=== PATIENT | female | born 1950 | race Caucasian/White ===

== ENCOUNTER 2019-08-26 16:21 | Emergency (ER) | payer OTHER ==
--- NOTE | 2019-08-26 17:23 | ER ---
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 Transition of care: patient was not received from another setting of care. Onset of symptoms was August 26, 2019. Risk Assessment: Do you want to hurt yourself or someone else? Patient reports no desire to harm self or others. Initial Sepsis Screen: Does the patient meet any 2 criteria? No. Patient's initial sepsis screen is negative. Does the patient have a suspected source of infection? No. Patient's initial sepsis screen is negative. 16:26 Method Of Arrival: Ambulatory ph 16:26 Acuity: RADHIKA 4 ph Historical: - Allergies: 16:30 No Known Allergies; ph - PMHx: 16:30 Rheumatoid Arthritis; Arthritis; COPD; ph Screenin:55 Abuse screen: Denies threats or abuse. Denies injuries from another. Nutritional sg screening: No deficits noted. Tuberculosis screening: No symptoms or risk factors identified. Never had TB. Fall Risk None identified. Assessment: 16:55 Reassessment: pt reports inability to control the left thumb, is able to move wrist up sg and down. General: Appears in no apparent distress. well groomed, well developed, well nourished, Behavior is calm, cooperative, appropriate for age. Pain: Denies pain. Neuro: Level of Consciousness is awake, alert, obeys commands, Oriented to person, place, time, Speech is normal, Facial symmetry appears normal. Neuro: Denies weakness dizziness, numbness headache. Cardiovascular: Capillary refill is brisk in bilateral fingers Patient's skin is warm and dry. Chest pain is denied. Respiratory: Airway is patent Respiratory effort is even, unlabored, Respiratory pattern is regular, symmetrical. GI: No signs and/or symptoms were reported involving the gastrointestinal system. : No signs and/or symptoms were reported regarding the genitourinary system. EENT: No signs and/or symptoms were reported regarding the EENT system. Derm: Skin is pink, warm \\T\\ dry. Musculoskeletal: Circulation, motion, and sensation intact. Range of motion: intact in all extremities. Vital Signs: 16:29 BP 148 / 75; Pulse 86; Resp 18; Temp 97.9; Pulse Ox 100% on R/A; Weight 58.51 kg; ph Height 5 ft. 5 in. (165.10 cm); 16:29 Body Mass Index 21.47 (58.51 kg, 165.10 cm) ph ED Course: 16:22 Patient arrived in ED. as 16:29 Triage completed. ph 16:31 Niels Aguilar, AISHA is Primary Nurse. sg 16:36 Josué Elizalde PA is PHCP. jr8 16:36 Teodoro Garcia MD is Attending Physician. jr8 16:40 Arm band placed on. sg 16:50 Velcro wrist splint applied to left wrist. sg 17:22 Niels Elizbaeth MD is Referral Physician. jr8 Administered Medications: No medications were administered Outcome: 17:22 Discharge ordered by . jr8 17:41 Patient left the ED. em1 Signatures: Niels Aguilar, AISHA RN Zoë Vernon Eric em1 Josué Elizalde PA PA jr8 Leti Hutchinson RN RN
--- NOTE | 2019-08-26 17:23 | EDPHYS ---
Physician Documentation [facility] Name: Rocio Turcios Age: 69 yrs Sex: Female : 1950 Arrival Date: 08/26/2019 Time: 16:22 Bed 5 Private MD: ED Physician Teodoro Garcia HPI: 08/26 17:31 This 69 yrs old Female presents to ER via Ambulatory with complaints of jr8 Numbness Of Hand. 17:31 The patient or guardian reports decreased range of motion. The complaints affect the jr8 left hand diffusely. Onset: The symptoms/episode began/occurred acutely, 2 week(s) ago. Modifying factors: The symptoms are alleviated by nothing, the symptoms are aggravated by nothing. Associated signs and symptoms: The patient has no apparent associated signs or symptoms. Severity of symptoms: At their worst the symptoms were moderate, in the emergency department the symptoms are unchanged. The patient has not experienced similar symptoms in the past. The patient has not recently seen a physician. Patient stated that she woke up with her arm under her and twisted about two weeks ago. Stated that since then she has had some mild numbness to left thumb and cannot extend wrist . Historical: - Allergies: 16:30 No Known Allergies; ph - PMHx: 16:30 Rheumatoid Arthritis; Arthritis; COPD; ph ROS: 17:31 Eyes: Negative for injury, pain, redness, and discharge, ENT: Negative for injury, jr8 pain, and discharge, Neck: Negative for injury, pain, and swelling, Cardiovascular: Negative for chest pain, palpitations, and edema, Respiratory: Negative for shortness of breath, cough, wheezing, and pleuritic chest pain, Abdomen/GI: Negative for abdominal pain, nausea, vomiting, diarrhea, and constipation, Back: Negative for injury and pain, Skin: Negative for injury, rash, and discoloration. 17:31 MS/extremity: Positive for paresthesias. 17:31 Neuro: Positive for numbness, weakness, of the left wrist. Exam: 17:31 Eyes: Pupils equal round and reactive to light, extra-ocular motions intact. Lids and jr8 lashes normal. Conjunctiva and sclera are non-icteric and not injected. Cornea within normal limits. Periorbital areas with no swelling, redness, or edema. ENT: Nares patent. No nasal discharge, no septal abnormalities noted. Tympanic membranes are normal and external auditory canals are clear. Oropharynx with no redness, swelling, or masses, exudates, or evidence of obstruction, uvula midline. Mucous membranes moist. Neck: Trachea midline, no thyromegaly or masses palpated, and no cervical lymphadenopathy. Supple, full range of motion without nuchal rigidity, or vertebral point tenderness. No Meningismus. Cardiovascular: Regular rate and rhythm with a normal S1 and S2. No gallops, murmurs, or rubs. Normal PMI, no JVD. No pulse deficits. Respiratory: Lungs have equal breath sounds bilaterally, clear to auscultation and percussion. No rales, rhonchi or wheezes noted. No increased work of breathing, no retractions or nasal flaring. Abdomen/GI: Soft, non-tender, with normal bowel sounds. No distension or tympany. No guarding or rebound. No evidence of tenderness throughout. Back: No spinal tenderness. No costovertebral tenderness. Full range of motion. Skin: Warm, dry with normal turgor. Normal color with no rashes, no lesions, and no evidence of cellulitis. 17:31 Musculoskeletal/extremity: Extremities: grossly normal except: noted in the left wrist: Patient unable to passively extend left wrist. No obvious external trauma or swelling noted, Circulation is intact in all extremities. Pulses: noted to be 2+ in the right radial artery and left radial artery, Sensation intact. 17:31 Neuro: Orientation: to person, place \T\ time. Mentation: is normal, Memory: is normal, Cranial nerves: CN I not tested, CN II- XII are normal as tested, extraocular movements are intact, Facial palsy and sensory deficits are absent. Speech is clear and appropriate. Tongue strength is normal, Motor: moves all fours, unable to extend left wrist, Sensation: no obvious gross deficits, Gait: is steady, Deep tendon reflexes are 3+ (brisk) in the right bicep, right tricep, right brachioradialis, left bicep, left tricep and left brachioradialis, seizure activity, is not displayed by the patient, Abnormal movements: there are no abnormal movements. Vital Signs: 16:29 BP 148 / 75; Pulse 86; Resp 18; Temp 97.9; Pulse Ox 100% on R/A; Weight 58.51 kg; ph Height 5 ft. 5 in. (165.10 cm); 16:29 Body Mass Index 21.47 (58.51 kg, 165.10 cm) ph Procedures: 17:31 Splinting: Splint applied to left wrist using wrist splint, applied by nurse. Examined jr8 by me, post splint application: neurovascular intact, 2+ distal pulses palpable, brisk capillary refill noted, Patient tolerated well. MDM: 16:37 Patient medically screened. jr8 17:22 Data reviewed: vital signs, nurses notes, and as a result, I will discharge patient. jr8 Data interpreted: Pulse oximetry: on room air is 100 %. Interpretation: normal. Counseling: I had a detailed discussion with the patient and/or guardian regarding: the historical points, exam findings, and any diagnostic results supporting the discharge/admit diagnosis, the need for outpatient follow up, a orthopedic surgeon, to return to the emergency department if symptoms worsen or persist or if there are any questions or concerns that arise at home. 17:31 ED course: Discussed with patient that she has radial nerve palsy most likely from jr8 sleeping on it wrong. No other neurologic deficits. Only at wrist level. Explained to patient that we will start her on NSAID and will splint wrist to decrease nerve irritation. Otherwise needs to follow up with Orthopedics for PT and EMG. Patient good with this and will follow up. 08/26 16:45 Order name: Wrist Splint; Complete Time: 17:15 jr8 Administered Medications: No medications were administered Disposition: 18:33 Co-signature as Attending Physician, Teodoro Garcia MD. rn Disposition: 08/26/19 17:22 Discharged to Home. 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 - Condition is Stable. - Discharge Instructions: Radial Nerve Palsy. - Prescriptions for meloxicam 15 mg Oral tablet - take 1 tablet by ORAL route once daily As needed; 20 tablet. - Medication Reconciliation Form, Thank You Letter, Antibiotic Education, Prescription Opioid Use form. - Follow up: Niels Elizabeth MD; When: 2 - 3 days; Reason: Recheck today's complaints, Continuance of care, Re-evaluation by your physician. - Problem is new. - Symptoms have improved. Signatures: Teodoro Garcia MD MD rn Martinez, Eric em1 Josué Elizalde PA PA jr8 Leti Hutchinson, RN RN ph Corrections: (The following items were deleted from the chart) 17:41 17:22 08/26/2019 17:22 Discharged to Home. Impression: Injury of radial nerve at wrist em1 and hand level of left arm. Condition is Stable. Forms are Medication Reconciliation Form, Thank You Letter, Antibiotic Education, Prescription Opioid Use. Follow up: Niels Elizabeth; When: 2 - 3 days; Reason: Recheck today's complaints, Continuance of care, Re-evaluation by your physician. Problem is new. Symptoms have improved. jr8
[2019-08-26 18:16] VITALS: BP 148/75; TEMP 97.9; O2SAT 100
== END 2019-08-26 17:41 | disposition home or self-care (01) ==
LOC: ER 16:21
DX: S64.22XA Injury of radial nerve at wrist and hand level of left arm, initial encounter (principal); X58.XXXA Exposure to other specified factors, initial encounter; Y93.9 Activity, unspecified; Y92.9 Unspecified place or not applicable
CPT/HCPCS: 99282

== ENCOUNTER 2019-09-26 14:53 | Emergency (ER) | payer OTHER ==
[2019-09-26 15:28] LABS: Absolute Lymphocytes (CBC) 0.6 K/uL (0.7-4.9); Basophils % 0.7 % (0-1.3); Hematocrit 26.6 % (36.0-45.0); Lymphocytes % 7.9 % (15.3-44.8); MPV 7.8 fL (7.6-11.3); Protime INR 1.22; RBC Red Blood Cell Count 3.83 M/uL (3.86-4.86)
[2019-09-26 15:44] LABS: ALT/SGPT 8 U/L (12-78); AST/SGOT 12 U/L (15-37); Alkaline Phosphatase 94 U/L (45-117); BUN Blood Urea Nitrogen 13 mg/dL (7-18); Bicarbonate 26 mmol/L (21-32); Bilirubin Direct < 0.1 mg/dL (0-0.2); Bilirubin Total 0.3 mg/dL (0.2-1.0); Glucose Level 105 mg/dL (74-106); NT PRO-BNP 333 pg/mL (<125); Potassium 3.7 mmol/L (3.5-5.1); Protein, Total 7.3 g/dL (6.4-8.2); Sodium Level 134 mmol/L (136-145); Troponin (Emerg Dept Use Only) < 0.02 ng/mL (0.0-0.045)
[2019-09-26 15:51] LABS: Urine Blood NEGATIVE (NEG); Urine Glucose NEGATIVE (NEG); Urine Protein 1+ (NEG)
[2019-09-26 15:54] LABS: Barbiturates NEGATIVE (NEGATIVE); Benzodiazepines NEGATIVE (NEGATIVE); Cocaine NEGATIVE (NEGATIVE); METHAMPHETAM NEGATIVE (NEGATIVE); Methadone NEGATIVE (NEGATIVE); Opiates NEGATIVE (NEGATIVE); Phencyclidine NEGATIVE (NEGATIVE); THC Cannibis NEGATIVE (NEGATIVE)
[2019-09-26 15:55] LABS: Urine White Blood Cell Casts OK
[2019-09-26 15:56] LABS: Blood Morphology Comment NOTED (NOT SEEN); Hypochromasia 1+; Platelet Estimate ADEQ
[2019-09-26 16:00] LABS: Urine Amorphous Sediment 3+ /HPF (NONE SEEN); Urine Bacteria 20-50 /HPF (<20); Urine Culture Reflex Order REFLEXED; Urine RBC NONE SEEN /HPF (NONE SEEN)
--- NOTE | 2019-09-26 16:11 | RAD REPORT ---
EXAM DESCRIPTION: [facility] Single View09/26/2019 3:54 pm CLINICAL HISTORY: Seizure COMPARISON: none FINDINGS: Right base is hazy. Left lung appears clear of acute infiltrate Infarct suspected within the proximal right humerus The heart is normal size IMPRESSION: Right base is hazy probably pneumonia. This should be followed until it is clear to help exclude a post obstructive process/underlying mass
--- NOTE | 2019-09-26 16:11 | RAD REPORT ---
EXAM DESCRIPTION: CT - Head Brain Wo Cont - 09/26/2019 3:40 pm CLINICAL HISTORY: Seizures COMPARISON: None. TECHNIQUE: Computed axial tomography of the head was obtained. IV contrast was not requested. All CT scans are performed using dose optimization technique as appropriate and may include automated exposure control or mA/KV adjustment according to patient size. FINDINGS: An intracranial bleed is not seen . The ventricles are normal in caliber. No extra-axial fluid collection is noted. Fluid within the sinuses/ mastoids is not seen. IMPRESSION: No acute intracranial abnormality is seen. If patient's symptoms persist MRI of the bra in would be recommended.
[2019-09-26] MEDS ORDERED: CEFTRIAXONE/SWI 1gm 1 GM/10 ML SYR ONE (16:48)
--- NOTE | 2019-09-26 17:22 | ER ---
Nurse's Notes [facility] Name: Rocio Turcios Age: 69 yrs Sex: Female : 1950 Arrival Date: 09/26/2019 Time: 14:54 Bed 6 Private MD: Diagnosis: Pneumonia, unspecified organism;Urinary tract infection, site not specified;Anemia, unspecified Presentation: 09/26 14:55 Presenting complaint: EMS states: daughter noticed mother having convulsions for about em 30 seconds, became nauseous and threw up once, no history of seizures, A\T\O x 3 on arrival. Transition of care: patient was not received from another setting of care. Onset of symptoms was September 26, 2019. Risk Assessment: Do you want to hurt yourself or someone else? Patient reports no desire to harm self or others. Initial Sepsis Screen: Does the patient meet any 2 criteria? No. Patient's initial sepsis screen is negative. Does the patient have a suspected source of infection? No. Patient's initial sepsis screen is negative. Care prior to arrival: None. 14:55 Method Of Arrival: EMS: [facility] em 14:55 Acuity: RADHIKA 2 em Triage Assessment: 14:57 General: Appears in no apparent distress. comfortable, Behavior is calm, cooperative, em appropriate for age. Pain: Complains of pain in anterior aspect of right shoulder. Neuro: Level of Consciousness is awake, alert, obeys commands, Oriented to person, place, time, situation, Appropriate for age. Historical: - Allergies: 14:57 No Known Allergies; em - PMHx: 14:57 Arthritis; COPD; Rheumatoid Arthritis; em - PSHx: 14:57 Hysterectomy; ; luz maria. knee; em - Immunization history:: Last tetanus immunization: > 10 years ago. - Coronavirus screen:: The patient has NOT traveled to [place] in the past 14 days. The patient has NOT had contact with known/suspected case of Coronavirus?. - Social history:: Smoking status: Patient reports the use of cigarette tobacco products, smokes one pack cigarettes per day. - Ebola Screening: : Patient negative for fever greater than or equal to 101.5 degrees Fahrenheit, and additional compatible Ebola Virus Disease symptoms Patient denies exposure to infectious person Patient denies travel to an Ebola-affected area in the 21 days before illness onset No symptoms or risks identified at this time. Screenin:04 Abuse screen: Denies threats or abuse. Nutritional screening: No deficits noted. em Tuberculosis screening: No symptoms or risk factors identified. Fall Risk None identified. Assessment: 14:59 General: Appears in no apparent distress. comfortable, Behavior is calm, cooperative, em Reports daughter was massaging right shoulder then started having pain. Pain: Complains of pain in anterior aspect of right shoulder Pain does not radiate. Pain currently is 2 out of 10 on a pain scale. Neuro: Level of Consciousness is awake, alert, obeys commands, Oriented to person, place, time, situation, Appropriate for age. Cardiovascular: Capillary refill < 3 seconds Patient's skin is warm and dry. Chest pain is denied. Respiratory: Airway is patent Respiratory effort is even, unlabored, Respiratory pattern is regular, symmetrical, Breath sounds are clear. GI: Patient currently denies abdominal pain, nausea, vomiting. Derm: Skin is intact, is fragile, Skin is pink, warm \T\ dry. Musculoskeletal: Capillary refill < 3 seconds, Range of motion: intact in all extremities. 15:59 Reassessment: Patient appears in no apparent distress at this time. Patient and/or em family updated on plan of care and expected duration. Pain level reassessed. Patient is alert, oriented x 3, equal unlabored respirations, skin warm/dry/pink. Patient denies pain at this time. Patient states feeling better. Patient states symptoms have improved. 17:39 Reassessment: Patient appears in no apparent distress at this time. Patient and/or em family updated on plan of care and expected duration. Pain level reassessed. Patient is alert, oriented x 3, equal unlabored respirations, skin warm/dry/pink. pt states she is ready to go home, provider at bedside Patient states feeling better. Patient states symptoms have improved. 17:41 Reassessment: family reports provider stated pt would received another antibiotic, em pending confirmation from provider to discharge. Vital Signs: 14:59 BP 127 / 72; Pulse 86; Resp 18; Pulse Ox 95% on R/A; Weight 58.97 kg; Height 5 ft. 3 em in. (160.02 cm); Pain 2/10; 15:09 Temp 98.1; mg2 16:05 BP 134 / 76; Pulse 79; Resp 16; Pulse Ox 98% on R/A; em 17:05 BP 143 / 78; Pulse 83; Resp 18; Pulse Ox 99% on R/A; em 18:09 BP 140 / 78; Pulse 80; Resp 18; Pulse Ox 96% on R/A; mg2 14:59 Body Mass Index 23.03 (58.97 kg, 160.02 cm) em [place] Coma Score: 14:57 Eye Response: spontaneous(4). Verbal Response: oriented(5). Motor Response: obeys em commands(6). Total: 15. ED Course: 14:54 Patient arrived in ED. em 14:57 Triage completed. em 14:58 EKG done, by ED staff, reviewed by Issa Murray MD. kj1 14:59 Inserted saline lock: 22 gauge in right forearm, using aseptic technique. Blood em collected. 14:59 Arm band placed on. em 14:59 Patient has correct armband on for positive identification. Placed in gown. Bed in low em position. Call light in reach. Side rails up X2. Seizure precautions initiated. electronic device monitor on. Pulse ox on. NIBP on. 15:00 Raghu Santos, AISHA is Primary Nurse. em 15:11 Tam Shah, [employer] is PHCP. pm1 15:11 Issa Murray MD is Attending Physician. pm1 15:39 CT completed. Patient tolerated procedure well. Patient moved back from CT. bq 17:40 No provider procedures requiring assistance completed. IV discontinued, intact, em bleeding controlled, No redness/swelling at site. Pressure dressing applied. Administered Medications: 17:02 Drug: Rocephin 1 grams Route: IV; Rate: calculated rate; Site: right forearm; em 17:40 Follow up: Response: No adverse reaction; IV Status: Completed infusion; IV Intake: 10mlem 18:09 Drug: AZITHromycin 500 mg Route: PO; mg2 18:09 Follow up: Response: No adverse reaction; Medication administered at discharge. mg2 Intake: 17:40 IV: 10ml; Total: 10ml. em Outcome: 17:20 Discharge ordered by . pm1 18:10 Discharged to home ambulatory, with family. mg2 18:10 Condition: stable 18:10 Discharge instructions given to patient, family, Instructed on discharge instructions, follow up and referral plans. medication usage, Demonstrated understanding of instructions, follow-up care, medications, Prescriptions given X 4. 18:10 Patient left the ED. mg2 Addendum: 09/30/2019 07:20 Addendum: Culture Results: Positive urine culture. No further action required. Bacteria e b sensitive to prescribed antibiotic. Signatures: Laura Aldana Edgar, RN RN em Tam Shah, [employer] pm1 Marii Castillo Michele, RN RN mg2 Soraya Torre kj1
--- NOTE | 2019-09-26 17:23 | EDPHYS ---
Physician Documentation [facility] Name: Rocio Turcios Age: 69 yrs Sex: Female : 1950 Arrival Date: 09/26/2019 Time: 14:54 Bed 6 Private MD: NAOMY Physician Issa Murray HPI: 09/26 15:19 This 69 yrs old Female presents to ER via EMS with complaints of Seizure. pm1 15:19 The patient presents after having a possible seizure episode, no tonic-clonic activity pm1 was appreciated, no post-ictal period is described, the episode(s) was witnessed, granddaughter. Character of seizure(s): decreased responsiveness, no postictal period. Patient was aware of everything happening. Seizure onset: just prior to arrival. Context: Patient had a sore right arm and shoulder from lifting a heavy object at work. Her granddaughter started to massage her right shoulder and she hit a spot that was painful and it caused her to shake in pain. Granddaughter reports that she had a possible seizure and vomited once and urinated on herself. Patient reports that she was aware of everything going on. Seizure Hx: the patient has no previous seizure history. Associated injury: The patient did not suffer any apparent associated injury. Current symptoms: Currently, the patient is not experiencing any symptoms. The patient has not experienced similar symptoms in the past. Historical: - Allergies: 14:57 No Known Allergies; em - PMHx: 14:57 Arthritis; COPD; Rheumatoid Arthritis; em - PSHx: 14:57 Hysterectomy; ; luz maria. knee; em - Immunization history:: Last tetanus immunization: > 10 years ago. - Coronavirus screen:: The patient has NOT traveled to [place] in the past 14 days. The patient has NOT had contact with known/suspected case of Coronavirus?. - Social history:: Smoking status: Patient reports the use of cigarette tobacco products, smokes one pack cigarettes per day. - Ebola Screening: : Patient negative for fever greater than or equal to 101.5 degrees Fahrenheit, and additional compatible Ebola Virus Disease symptoms Patient denies exposure to infectious person Patient denies travel to an Ebola-affected area in the 21 days before illness onset No symptoms or risks identified at this time. ROS: 15:19 Constitutional: Negative for fever, chills, and weight loss, Eyes: Negative for injury, pm1 pain, redness, and discharge, ENT: Negative for injury, pain, and discharge, Neck: Negative for injury, pain, and swelling, Cardiovascular: Negative for chest pain, palpitations, and edema. 15:19 Abdomen/GI: Negative for abdominal pain, nausea, vomiting, diarrhea, and constipation, Back: Negative for injury and pain, : Negative for injury, bleeding, discharge, and swelling, MS/Extremity: Negative for injury and deformity, Skin: Negative for injury, rash, and discoloration. 15:19 Respiratory: Positive for Cough for the past 6 months, Negative for shortness of breath, sputum production, wheezing. 15:19 Neuro: Positive for possible seizure, Negative for dizziness, headache, numbness, tingling, weakness. Exam: 15:19 Constitutional: This is a well developed, well nourished patient who is awake, alert, pm1 and in no acute distress. Head/Face: Normocephalic, atraumatic. Neck: Trachea midline, no thyromegaly or masses palpated, and no cervical lymphadenopathy. Supple, full range of motion without nuchal rigidity, or vertebral point tenderness. No Meningismus. Chest/axilla: Normal chest wall appearance and motion. Nontender with no deformity. No lesions are appreciated. Cardiovascular: Regular rate and rhythm with a normal S1 and S2. No gallops, murmurs, or rubs. Normal PMI, no JVD. No pulse deficits. Respiratory: Lungs have equal breath sounds bilaterally, clear to auscultation and percussion. No rales, rhonchi or wheezes noted. No increased work of breathing, no retractions or nasal flaring. Abdomen/GI: Soft, non-tender, with normal bowel sounds. No distension or tympany. No guarding or rebound. No evidence of tenderness throughout. Back: No spinal tenderness. No costovertebral tenderness. Full range of motion. Skin: Warm, dry with normal turgor. Normal color with no rashes, no lesions, and no evidence of cellulitis. MS/ Extremity: Pulses equal, no cyanosis. Neurovascular intact. Full, normal range of motion. 15:19 Neuro: Orientation: is normal, Cranial nerves: CN II- XII are normal as tested, Motor: is normal, moves all fours, Sensation: is normal, no obvious gross deficits. Vital Signs: 14:59 BP 127 / 72; Pulse 86; Resp 18; Pulse Ox 95% on R/A; Weight 58.97 kg; Height 5 ft. 3 em in. (160.02 cm); Pain 2/10; 15:09 Temp 98.1; mg2 16:05 BP 134 / 76; Pulse 79; Resp 16; Pulse Ox 98% on R/A; em 17:05 BP 143 / 78; Pulse 83; Resp 18; Pulse Ox 99% on R/A; em 18:09 BP 140 / 78; Pulse 80; Resp 18; Pulse Ox 96% on R/A; mg2 14:59 Body Mass Index 23.03 (58.97 kg, 160.02 cm) em Latrice Coma Score: 14:57 Eye Response: spontaneous(4). Verbal Response: oriented(5). Motor Response: obeys em commands(6). Total: 15. MDM: 15:21 Patient medically screened. pm1 17:19 Data reviewed: vital signs. Data interpreted: Pulse oximetry: on room air is 99 %. pm1 Interpretation: normal. Counseling: I had a detailed discussion with the patient and/or guardian regarding: the historical points, exam findings, and any diagnostic results supporting the discharge/admit diagnosis, lab results, radiology results, the need for outpatient follow up, to return to the emergency department if symptoms worsen or persist or if there are any questions or concerns that arise at home. 09/26 15:04 Order name: Basic Metabolic Panel sg 09/26 15:04 Order name: CBC with Diff sg 09/26 15:04 Order name: LFT's sg 09/26 15:04 Order name: Magnesium sg 09/26 15:04 Order name: NT PRO-BNP sg 09/26 15:04 Order name: PT-INR sg 09/26 15:04 Order name: Troponin (emerg Dept Use Only) sg 09/26 15:04 Order name: AMMONIA sg 09/26 15:12 Order name: Glucose, Ancillary Testing; Complete Time: 15:35 EDMS 09/26 15:23 Order name: UDS pm1 09/26 15:24 Order name: Urine Microscopic Only pm1 09/26 15:33 Order name: CBC with Automated Diff; Complete Time: 15:56 EDMS 09/26 15:33 Order name: Protime (+INR); Complete Time: 15:35 EDMS 09/26 15:35 Order name: ETOH Level pm1 09/26 15:04 Order name: XRAY Chest (1 view) 09/26 15:22 Order name: CT Head Brain wo Cont pm1 09/26 15:38 Order name: Ammonia; Complete Time: 15:56 EDMS 09/26 15:45 Order name: Basic Metabolic Panel; Complete Time: 15:56 EDMS 09/26 15:45 Order name: Liver (Hepatic) Function; Complete Time: 15:56 EDMS 09/26 15:45 Order name: Troponin (Emerg Dept Use Only); Complete Time: 15:56 EDMS 09/26 15:45 Order name: NT PRO-BNP; Complete Time: 15:56 EDMS 09/26 15:45 Order name: Magnesium; Complete Time: 15:56 EDMS 09/26 15:47 Order name: Urine Dipstick--Ancillary (enter results) 09/26 15:53 Order name: Urine Dipstick-Ancillary; Complete Time: 15:56 EDSD 09/26 15:55 Order name: Urine Drug Screen; Complete Time: 15:56 EDSD 09/26 15:56 Order name: CBC Smear Scan; Complete Time: 15:56 [facility] 09/26 16:01 Order name: Urine Microscopic Only; Complete Time: 16:28 EDSD 09/26 16:12 Order name: CT; Complete Time: 16:28 [facility] 09/26 16:17 Order name: Alcohol Serum/Plasma; Complete Time: 16:28 [facility] 09/26 16:21 Order name: RAD; Complete Time: 16:28 [facility] 09/26 15:04 Order name: EKG; Complete Time: 15:14 09/26 15:04 Order name: Cardiac monitoring; Complete Time: 15:09 09/26 15:04 Order name: EKG - Nurse/Tech; Complete Time: 15:09 09/26 15:04 Order name: IV Saline Lock; Complete Time: 15:09 09/26 15:04 Order name: Labs collected and sent; Complete Time: 15:08 09/26 15:04 Order name: O2 Per Protocol; Complete Time: 15:08 09/26 15:04 Order name: O2 Sat Monitoring; Complete Time: 15:08 09/26 15:23 Order name: Urine Dipstick-Ancillary (obtain specimen); Complete Time: 15:40 pm1 Administered Medications: 17:02 Drug: Rocephin 1 grams Route: IV; Rate: calculated rate; Site: right forearm; em 17:40 Follow up: Response: No adverse reaction; IV Status: Completed infusion; IV Intake: 10mlem 18:09 Drug: AZITHromycin 500 mg Route: PO; mg2 18:09 Follow up: Response: No adverse reaction; Medication administered at discharge. mg2 Disposition: 09/27 08:16 Co-signature as Attending Physician, Issa Murray MD I agree with the assessment and gurinder plan of care. Disposition: 09/26/19 17:20 Discharged to Home. Impression: Pneumonia, unspecified organism, Urinary tract infection, site not specified, Anemia, unspecified. - Condition is Stable. - Discharge Instructions: Anemia, Nonspecific, Community-Acquired Pneumonia, Adult, Urinary Tract Infection, Adult, Vasovagal Syncope, Adult. - Prescriptions for Augmentin 875- 125 mg Oral Tablet - take 1 tablet by ORAL route every 12 hours for 10 days; 20 tablet. Zithromax Z- Santiago 250 mg Oral Tablet - take 1 tablet by ORAL route as directed for 5 days Day 1 - take two (2) tablets one time. Day 2, 3, 4 , 5 take one (1) tablet once daily.; 6 tablet. Guaifenesin AC 10- 100 mg/5 mL Oral Liquid - take 10 milliliter by ORAL route every 4 hours As needed; 240 milliliter. Ferrous Sulfate 325 mg (65 mg Iron) Oral Tablet - take 1 tablet by ORAL route every 8 hours; 90 tablet. - Work release form, Medication Reconciliation Form, Thank You Letter, Antibiotic Education, Prescription Opioid Use form. - Follow up: Emergency Department; When: As needed; Reason: Worsening of condition. Follow up: Private Physician; When: 2 - 3 days; Reason: Recheck today's complaints, Continuance of care, Re-evaluation by your physician. - Problem is new. - Symptoms have improved. Signatures: Dispatcher [employer] EDNiels Shah RN RN sg Anderson, Corey, MD MD cha Munoz, Edgar, RN RN em Tam Shah, HEAVY MACHINERY ASSEMBLER HEAVY MACHINERY ASSEMBLER pm1 Isaias Canales RN RN mg2 Corrections: (The following items were deleted from the chart) 09/26 18:10 17:20 09/26/2019 17:20 Discharged to Home. Impression: Pneumonia, unspecified organism; mg2 Urinary tract infection, site not specified; Anemia, unspecified. Condition is Stable. Forms are Medication Reconciliation Form, Thank You Letter, Antibiotic Education, Prescription Opioid Use. Follow up: Emergency Department; When: As needed; Reason: Worsening of condition. Follow up: Private Physician; When: 2 - 3 days; Reason: Recheck today's complaints, Continuance of care, Re-evaluation by your physician. Problem is new. Symptoms have improved. pm1
[2019-09-26] MEDS ORDERED: AZITHROMYCIN 250 MG TAB ONE (18:11)
[2019-09-26 19:35] VITALS: TEMP 98.1
[2019-09-26 19:40] VITALS: BP 140/78; O2SAT 96
--- NOTE | 2019-09-27 11:24 | EKG ---
Test Date: 2019-09-26 Test Time: 14:54:10 Site Worker: BRANDEN MEASUREMENT RESULTS: Intervals: Rate: 81 TX: 192 QRSD: 82 QT: 378 QTc: 439 [place]: P: 74 TX: 192 QRS: 73 T: 82 INTERPRETIVE STATEMENTS: Normal sinus rhythm Voltage criteria for left ventricular hypertrophy Abnormal ECG No previous ECG available for comparison Electronically Signed On 09-27-19 11:23:40 PRINTING PLATE MAKER by Geoff Pimentel
== END 2019-09-26 18:10 | disposition home or self-care (01) ==
LOC: ER 14:53
DX: J18.9 Pneumonia, unspecified organism (principal); N39.0 Urinary tract infection, site not specified; D64.9 Anemia, unspecified; F17.210 Nicotine dependence, cigarettes, uncomplicated
CPT/HCPCS: 96365; 93005; 87088; 85025; 87086; 80048; 36415; 80320; 82140; 83735; 85610; 82947; 80076; 80307 ×8; 87077; 87186; 84484; 83880; 70450; 71045; 99285; J0696; 81003; 81015

== ENCOUNTER 2020-02-18 17:32 | Emergency (ER) | payer OTHER ==
--- OUTSIDE RECORDS SUMMARY | 2020-02-18 17:34 | XMS REPORT ---
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 Assessment Abnormal cardiac enzyme level R74.8 Active Problem Cigarette nicotine dependence F17.210 Active without complication Problem Rheumatoid arthritis with M05.742 Ac tive rheumatoid factor of left hand without organ or systems involvement Problem Fibrocystic breast changes, N60.19 Active unspecified laterality Problem Syncope, unspecified syncope type R55 Active Problem 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
--- OUTSIDE RECORDS SUMMARY | 2020-02-18 17:34 | XMS REPORT ---
:1950 Author Organization [employer] Care Team Providers Name Role Phone Jada Root Provider Role Unavailable Allergies, Adverse Reactions, Alerts Substance Reaction Event Type N.K.D.A. 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 Active Problem History of pneumonia Z87.01 Active Problem Abnormal cardiac enzyme level R74.8 Active Assessment SOB (shortness of breath) on R06.02 Active exertion Assessment Rheumatoid arthritis with M05.741 Ac tive rheumatoid factor of right hand without organ or systems involvement Assessment Screening for colon cancer Z12.11 A ctive Assessment Smoking F17.200 Active Problem Cigarette nicotine dependence F17.210 Active without complication Assessment 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
--- OUTSIDE RECORDS SUMMARY | 2020-02-18 17:34 | XMS REPORT | Continuity of Care Document ---
:1950 Author Organization [facility] t Address [address] [place] [address] Care Team Providers Name Role Phone Unavailable Unavailable Unavailable Problems Condition Condition Condition Status Onset Resolution Last Treating Co mments Source Name Details Category Date Date Treatment Clinician Date Rheumatoid Rheumatoid Diagnosis Active [facility] arthritis arthritis [facility] - with with Memoria rheumatoid rheumatoid l factor of factor of Outp ati right hand right hand en t without without Clinics organ or organ or systems systems involvemen involvemen t t Seasonal Seasonal Problem Active [facility] allergies allergies [facility] - [facility] Out[facility] Clinics Mixed Mixed Problem Active [facility] simple and simple and Corrina kes - mucopurule mucopurule Me moria nt chronic nt chronic l bronchitis bronchitis Ou tpati ent Clinics Fibrocysti Fibrocysti Problem Active [facility] c breast c breast [facility] - changes, changes, Memori a unspecifie unspecifie l d d Outpati laterality laterality en t Clinics Syncope, Syncope, Problem Active [facility] unspecifie unspecifie Corrina kes - d syncope d syncope Jonathan link type type l Outpati ent Clinics Iron Iron Diagnosis Active [facility] deficiency deficiency Corrina kes - anemia anemia Memoria secondary secondary l to to Outpati inadequate inadequate en t dietary dietary Clinics iron iron intake intake Smoking Smoking Diagnosis [facility] Radial Radial Problem Active [facility] nerve nerve [facility] - palsy palsy [facility] History of History of Problem Active [facility] pneumonia pneumonia [facility] Abnormal Abnormal Problem Active [facility] cardiac cardiac [facility] - enzyme enzyme Memoria level level l Outpati ent Clinics Cigarette Cigarette Problem Active [facility] nicotine nicotine [facility] - dependence dependence Me moria without without l complicati complicati Ou tpati on on ent Clinics Rheumatoid Rheumatoid Problem Active [facility] arthritis arthritis [facility] - with with Memoria rheumatoid rheumatoid l factor of factor of Outp ati left hand left hand ent without without Clinics organ or organ or systems systems involvemen involvemen t t SOB SOB Diagnosis Active [facility] (shortness (shortness Corrina kes - of breath) of breath) Me moria on on l exertion exertion Outpat i ent Clinics Screening Screening Diagnosis Active [facility] for colon for colon Count includes the [facility] - cancer cancer [facility] ent [facility] Allergies, Adverse Reactions, Alerts This patient has no known allergies or adverse reactions. Medications Ordered Filled Start Stop Current Ordering Indication Dosage Frequency Signature Comments Components Source Medication Medication Date Date Medication? Clinician (SIG) Name Name Ferrous Ferrous Yes Jada take [address] [facility] Sulfate Sulfate [place] tablet by Ankush es - mouth [facility] every 8 l hours [facility] Meloxicam Meloxicam Yes Jada not [facility] [place] defined [facility] ent [facility] Procedures This patient has no known procedures. Encounters Start End Encounter Admission Attending Care Care Encounter Source Date/Time Date/Time Type Type Clinicians Facility Department ID 2020-01-25 2020-01-25 Outpatient Becca Sahu [id number] [facility] 10:20:00 10:20:00 [facility] ent Clinics 2019-12-27 2019-12-27 Outpatient Becca Hudsont [id number] [facility] 15:17:00 15:17:00 [facility] ent Clinics 2019-11-04 2019-11-04 Outpatient Becca Hudsont [id number] [facility] 16:40:00 16:40:00 [facility] ent Clinics Results This patient has no known results.
--- NOTE | 2020-02-18 18:31 | RAD REPORT ---
EXAM DESCRIPTION: Wenceslao Single View02/18/2020 6:17 pm CLINICAL HISTORY: Chest pain COMPARISON: September 2019 FINDINGS: Haziness overlying the right base without significant change. I suspect that most if not all this is chronic Lungs appear clear of acute infiltrate. The lungs are moderately hyperaerated consistent with COPD. Heart is normal size Sclerotic density within the proximal right humerus compatible with an infarction
[2020-02-18 19:05] LABS: Protime INR 1.1
[2020-02-18 19:07] LABS: Absolute Lymphocytes (CBC) 0.7 K/uL (0.7-4.9); Hematocrit 35.9 % (36.0-45.0); Lymphocytes % 12.8 % (15.3-44.8); MPV 7.8 fL (7.6-11.3); RBC Red Blood Cell Count 4.12 M/uL (3.86-4.86)
[2020-02-18 19:20] LABS: ALT/SGPT 9 U/L (12-78); AST/SGOT 13 U/L (15-37); Alkaline Phosphatase 124 U/L (45-117); BUN Blood Urea Nitrogen 9 mg/dL (7-18); Bicarbonate 30 mmol/L (21-32); Bilirubin Direct 0.1 mg/dL (0-0.2); Bilirubin Total 0.2 mg/dL (0.2-1.0); Glucose Level 87 mg/dL (74-106); Magnesium 2.1 mg/dL (1.8-2.4); NT PRO-BNP 285 pg/mL (<125); Potassium 4.3 mmol/L (3.5-5.1); Protein, Total 7.8 g/dL (6.4-8.2); Sodium Level 136 mmol/L (136-145); Troponin (Emerg Dept Use Only) < 0.02 ng/mL (0.0-0.045)
--- NOTE | 2020-02-18 19:57 | RAD REPORT ---
EXAM DESCRIPTION: USExtrem Venous W Compress Bil02/18/2020 7:50 pm CLINICAL HISTORY: Bilateral leg swelling COMPARISON: none FINDINGS: The common femoral, superficial femoral, popliteal and posterior tibial veins bilaterally are compressible and demonstrate augmentation. Doppler demonstrates good flow. IMPRESSION: No evidence of deep venous thrombosis involving either lower extremity.
--- NOTE | 2020-02-18 20:20 | RAD REPORT ---
EXAM DESCRIPTION: CT - Chest For Pe Angio - 02/18/2020 7:55 pm CLINICAL HISTORY: COPD/abnormal radiologic exam/sob TECHNIQUE: Dynamically enhanced axial 3 mm thick images of the chest were obtained during administra tion of <100> mL Isovue 370 IV contrast. Coronal and oblique reconstruction images were generated and reviewed. Exam utilizes a protocol for optimal evaluation of pulmonary arterial tree. Maximum intensity projections 3D imaging was utilized All CT scans are performed using dose optimization technique as appropriate and may include automated exposure control or mA/KV adjustment according to patient size. FINDINGS: A pulmonary embolus is not seen. The central pulmonary arteries are prominent. The aortic root has an AP diameter of 4 centimeters Left ventricular hypertrophy is present A pleural effusion is not seen. A pericardial effusion is not seen. A 6.3 x 3 centimeter (cc by AP) s oft tissue structure is present within the right posterior lower pleural space. A lung consolidation is not present. Mild chronic appearing interstitial lung opacities are present b ilaterally. Small blebs are present. Lungs are moderately hyperaerated consistent with COPD IMPRESSION: Negative for a pulmonary embolism. 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 Follow-up CT chest could be obtained 2 months t o assess stability
--- NOTE | 2020-02-18 22:08 | EDPHYS ---
Physician Documentation [facility] Name: Rocio Turcios Age: 69 yrs Sex: Female : 1950 Arrival Date: 02/18/2020 Time: 17:33 Bed 5 Private MD: ED Physician Hakeem Goldberg HPI: 02/17 17:52 This 69 yrs old Female presents to ER via Ambulatory with complaints of jmm abnormal echo. 17:52 This is a 69 year old female with a history of COPD, RA that presents to the ED with no jmm complaints. Patient sent by Lath Tier due to concern for clot in outpatient echo. Patient denies chest pain, sob, abdominal pain, vomiting. . Historical: - Allergies: 17:35 No Known Allergies; sv - PMHx: 17:35 Arthritis; COPD; Rheumatoid Arthritis; sv - PSHx: 17:35 Hysterectomy; luz maria. knee; ; sv - Immunization history:: Adult Immunizations up to date. - Social history:: Smoking status: Patient reports the use of cigarette tobacco products, smokes one pack cigarettes per day. ROS: 17:52 Constitutional: Negative for fever, chills, and weight loss, Cardiovascular: Negative jmm for chest pain, palpitations, and edema, Respiratory: Negative for shortness of breath, cough, wheezing, and pleuritic chest pain, Abdomen/GI: Negative for abdominal pain, nausea, vomiting, diarrhea, and constipation, Neuro: Negative for headache, weakness, numbness, tingling, and seizure. 17:52 All other systems are negative. Exam: 17:52 Constitutional: This is a well developed, well nourished patient who is awake, alert, jmm and in no acute distress. Head/Face: atraumatic. Eyes: EOMI, no conjunctival erythema appreciated ENT: Moist Mucus Membranes Neck: Trachea midline, Supple Chest/axilla: Normal chest wall appearance and motion. Cardiovascular: Regular rate and rhythm. No edema appreciated Respiratory: Normal respirations, no respiratory distress appreciated Abdomen/GI: Non distended, soft Back: Normal ROM Skin: General appearance color normal MS/ Extremity: Moves all extremities, no obvious deformities appreciated, no edema noted to the lower extremities Neuro: Awake and alert, normal gait Psych: Behavior is normal, Mood is normal, Patient is cooperative and pleasant 19:08 ECG was reviewed by the Attending Physician. [facility] Vital Signs: 17:35 BP 137 / 79; Pulse 80; Resp 16; Temp 97.8; Pulse Ox 97% ; Weight 53.07 kg; Height 5 ft. sv 3 in. (160.02 cm); 19:26 BP 158 / 87; Pulse 80; Resp 18; Pulse Ox 100% ; ea 20:30 BP 142 / 83; Pulse 78; Resp 17; Pulse Ox 99% on R/A; rv 22:22 BP 140 / 86; Pulse 76; Resp 16; Temp 98; Pulse Ox 99% on R/A; rv 17:35 Body Mass Index 20.73 (53.07 kg, 160.02 cm) sv MDM: 17:57 Patient medically screened. [facility] 22:06 Data reviewed: vital signs, nurses notes. Counseling: I had a detailed discussion with [facility] the patient and/or guardian regarding: the historical points, exam findings, and any diagnostic results supporting the discharge/admit diagnosis, lab results, radiology results, the need for outpatient follow up, to return to the emergency department if symptoms worsen or persist or if there are any questions or concerns that arise at home. ED course: I discussed the patient with imaging results with dr de la torre. states the patient can follow up in clinic with him. Patient is otherwise given strict return precautions. patient understood and agrees with the plan of care. . 02/17 17:42 Order name: Basic Metabolic Panel; Complete Time: 19:22 [facility] 02/17 17:42 Order name: CBC with Diff; Complete Time: 19:14 [facility] 02/17 17:42 Order name: LFT's; Complete Time: 19:22 [facility] 02/17 17:42 Order name: Magnesium; Complete Time: 19:22 [facility] 02/17 17:42 Order name: NT PRO-BNP; Complete Time: 19:22 [facility] 02/17 17:42 Order name: PT-INR; Complete Time: 19:14 [facility] 02/17 17:42 Order name: Troponin (emerg Dept Use Only); Complete Time: 19:22 [facility] 02/17 17:42 Order name: XRAY Chest (1 view); Complete Time: 18:34 [facility] 02/17 17:42 Order name: EKG; Complete Time: 17:42 [facility] 02/17 17:42 Order name: Cardiac monitoring; Complete Time: 18:59 [facility] 02/17 17:42 Order name: EKG - Nurse/Tech; Complete Time: 18:59 [facility] 02/17 17:42 Order name: IV Saline Lock; Complete Time: 19:04 [facility] 02/17 18:38 Order name: US Extremity Venous W Compression Luz Maria; Complete Time: 19:58 [facility] 02/17 19:23 Order name: CT Chest For PE Angio; Complete Time: 20:22 [facility] 02/17 17:42 Order name: Labs collected and sent; Complete Time: 19:04 [facility] 02/17 17:42 Order name: O2 Per Protocol; Complete Time: 19:03 [facility] 02/17 17:42 Order name: O2 Sat Monitoring; Complete Time: 19:03 EC:08 Rate is 74 beats/min. Rhythm is regular. QRS Crump is Normal. WI interval is normal. QRS jmm interval is normal. QT interval is normal. No Q waves. T waves are Normal. No ST changes noted. Reviewed by me. Administered Medications: No medications were administered Disposition: 02/18/20 22:08 Discharged to Home. Impression: Person with feared health complaint in whom no diagnosis is made. - Condition is Stable. - Medication Reconciliation Form, Thank You Letter, Antibiotic Education, Prescription Opioid Use form. - Follow up: Thomas De La Torre MD; When: 2 - 3 days; Reason: Recheck today's complaints, Continuance of care, Re-evaluation by your physician. Addendum: 02/21/2020 16:32 Co-signature as Attending Physician, Hakeem Goldberg MD I agree with the assessment and k dr plan of care. Signatures: Dispatcher [employer] Tameka Malin, RN RN Hakeem Chambers MD MD kdr Mickail, Joel, PA PA jmm Vicente, Ronaldo RN RN rv Corrections: (The following items were deleted from the chart) 02/17 22:23 22:08 02/18/2020 22:08 Discharged to Home. Impression: Person with feared health rv complaint in whom no diagnosis is made. Condition is Stable. Forms are Medication Reconciliation Form, Thank You Letter, Antibiotic Education, Prescription Opioid Use. Follow up: Thomas De La Torre; When: 2 - 3 days; Reason: Recheck today's complaints, Continuance of care, Re-evaluation by your physician. jaden
--- NOTE | 2020-02-18 22:08 | ER ---
Nurse's Notes [facility] Name: Rocio Turcios Age: 69 yrs Sex: Female : 1950 Arrival Date: 02/18/2020 Time: 17:33 Bed 5 Private MD: Diagnosis: Person with feared health complaint in whom no diagnosis is made Presentation: 02/17 17:34 Chief complaint: Patient states: sent by charge preparation technician to come to the ER for abnormal Echo. sv Denies SOB and CP. Coronavirus screen: Proceed with normal triage. Patient denies a cough. Patient denies shortness of breath or difficulty breathing. Patient denies measured and/or subjective temperature greater than 100.4F prior to today's visit. Patient denies travel on a cruise ship or to a country the [facility] currently lists as an affected area. Patient denies contact with known and/or suspected case of COVID-19. Ebola Screen: No symptoms or risks identified at this time. Risk Assessment: Do you want to hurt yourself or someone else? Patient reports no desire to harm self or others. Onset of symptoms was February 18, 2020. 17:34 Method Of Arrival: Ambulatory sv 17:34 Acuity: RADHIKA 3 sv 17:35 Initial Sepsis Screen: Does the patient meet any 2 criteria? No. Patient's initial sv sepsis screen is negative. Does the patient have a suspected source of infection? No. Patient's initial sepsis screen is negative. Triage Assessment: 17:35 General: Appears in no apparent distress. comfortable, Behavior is calm, cooperative, sv appropriate for age. Pain: Denies pain. Neuro: Level of Consciousness is awake, alert, obeys commands, Oriented to person, place, time, situation, Gait is steady. Respiratory: Respiratory effort is even, unlabored. Historical: - Allergies: 17:35 No Known Allergies; sv - PMHx: 17:35 Arthritis; COPD; Rheumatoid Arthritis; sv - PSHx: 17:35 Hysterectomy; luz maria. knee; ; sv - Immunization history:: Adult Immunizations up to date. - Social history:: Smoking status: Patient reports the use of cigarette tobacco products, smokes one pack cigarettes per day. Screenin:50 Abuse screen: Denies threats or abuse. Denies injuries from another. Nutritional iw screening: No deficits noted. Tuberculosis screening: No symptoms or risk factors identified. Fall Risk IV access (20 points). Assessment: 18:49 General: Appears in no apparent distress. Behavior is calm, cooperative. Pain: Denies iw pain. Neuro: Level of Consciousness is awake, alert, obeys commands, Oriented to person, place, time, situation. Cardiovascular: Capillary refill < 3 seconds in bilateral fingers Patient's skin is warm and dry. Cardiovascular: Denies chest pain, palpitations, shortness of breath. Respiratory: Respiratory effort is even, unlabored, Respiratory pattern is regular, symmetrical. GI: Abdomen is non-distended. Derm: Skin is intact, is healthy with good turgor. Musculoskeletal: Range of motion: intact in all extremities. 19:33 Reassessment: Patient and/or family updated on plan of care and expected duration. Pain ea level reassessed. Patient is alert, oriented x 3, equal unlabored respirations, skin warm/dry/pink. Ultrasound at bedside. 21:13 Reassessment: Patient and/or family updated on plan of care and expected duration. Pain rv level reassessed. Patient is alert, oriented x 3, equal unlabored respirations, skin warm/dry/pink. Patient denies pain at this time. 22:22 Reassessment: Patient appears in no apparent distress at this time. Patient and/or rv family updated on plan of care and expected duration. Pain level reassessed. Patient is alert, oriented x 3, equal unlabored respirations, skin warm/dry/pink. Patient denies pain at this time. Patient states feeling better. Vital Signs: 17:35 BP 137 / 79; Pulse 80; Resp 16; Temp 97.8; Pulse Ox 97% ; Weight 53.07 kg; Height 5 ft. sv 3 in. (160.02 cm); 19:26 BP 158 / 87; Pulse 80; Resp 18; Pulse Ox 100% ; ea 20:30 BP 142 / 83; Pulse 78; Resp 17; Pulse Ox 99% on R/A; rv 22:22 BP 140 / 86; Pulse 76; Resp 16; Temp 98; Pulse Ox 99% on R/A; rv 17:35 Body Mass Index 20.73 (53.07 kg, 160.02 cm) sv ED Course: 17:33 Patient arrived in ED. as 17:34 Arm band placed on. sv 17:35 Triage completed. sv 17:41 Matt Gottlieb PA is PHCP. [facility] 17:41 Hakeem Goldberg MD is Attending Physician. jmm 18:16 XRAY Chest (1 view) In Process Unspecified. EDMS 18:28 Raghu Santos, RN is Primary Nurse. em 18:40 Initial lab(s) drawn, by me, sent to lab. Inserted saline lock: 20 gauge in right iw antecubital area, using aseptic technique. Blood collected. 18:50 No provider procedures requiring assistance completed. iw 18:59 Patient has correct armband on for positive identification. Placed in gown. Bed in low mh5 position. Call light in reach. Side rails up X 1. Warm blanket given. Pillow given. monitor car operator on. Pulse ox on. NIBP on. 19:50 US Extremity Venous W Compression Luz Maria In Process Unspecified. EDMS 19:55 CT Chest For PE Angio In Process Unspecified. EDMS 20:50 Primary Nurse role handed off by Raghu Santos, AISHA 21:11 Finesse Bai, AISHA is Primary Nurse. rv 22:08 Thomas De La Torre MD is Referral Physician. jmm 22:23 IV discontinued, intact, bleeding controlled, No redness/swelling at site. Pressure rv dressing applied. Administered Medications: No medications were administered Outcome: 22:08 Discharge ordered by . jmm 22:23 Discharged to home ambulatory. rv 22:23 Condition: good 22:23 Discharge instructions given to patient, Instructed on discharge instructions, follow up and referral plans. Demonstrated understanding of instructions, follow-up care. 22:23 Patient left the ED. rv Signatures: Dispatcher [employer] NAOMYAZ Tameka Morgan, RN AISHA Niels Aguilar RN RN Matt Gottlieb PA PA Raghu Mosqueda, RN AISHA Zoë Vernon Irene, RN RN Eva Vernon [facility] Nichol Downey RN RN ea Vicente, Ronaldo, RN RN rv Corrections: (The following items were deleted from the chart) 17:38 17:34 Chief complaint: Patient states: sent by charge preparation technician to come to the ER for abnormal sv Echo. sv 17:41 17:34 Acuity: RADHIKA 4 sv sv
[2020-02-18 22:33] VITALS: O2SAT 99
[2020-02-18 22:35] VITALS: BP 140/86; TEMP 98
== END 2020-02-18 22:23 | disposition home or self-care (01) ==
LOC: ER 17:32
DX: Z71.1 Person with feared health complaint in whom no diagnosis is made (principal); J44.9 Chronic obstructive pulmonary disease, unspecified; F17.210 Nicotine dependence, cigarettes, uncomplicated
CPT/HCPCS: 93005; 93306; 85025; 80048; 36415; 83735; 85610; 80076; 84484; 83880; 71275; 71045; 93970; 99284; Q9967

== ENCOUNTER 2022-03-05 16:16 | Inpatient (IN) | payer OTHER ==
--- OUTSIDE RECORDS SUMMARY | 2022-03-05 16:18 | XMS REPORT | Continuity of Care Document ---
:1950 Author Organization [facility] t Address [address] [place] [address] Care Team Providers Name Role Phone Monroe Attending Clinician Unavailable Problems This patient has no known problems. Allergies, Adverse Reactions, Alerts This patient has no known allergies or adverse reactions. Medications Ordered Filled Start Stop Current Ordering Indication Dosage Frequency Signature Comments Components Source Medication Medication Date Date Medication? Clinician (SIG) Name Name Ferrous Ferrous Yes Jada take 1 Common Sulfate Sulfate Monroe tablet by Spi rit mouth - [facility] every [address] [facility] Procedures This patient has no known procedures. Encounters Start End Encounter Admission Attending Care Care Encounter Source Date/Time Date/Time Type Type Clinicians Facility Department ID 2021-10-05 Outpatient MonroeROSANGELA chavez [facility] [id number] Common 08:59:01 Jada [facility] 2021-09-05 [facility] [id number] Common 12:09:41 Jada [id number] [facility] [facility] [id number] Common 12:05:53 Jada [id number] [facility] 2021-09-[address] [facility] [id number] Common 11:16:03 Jada [id number] [facility] 2021-09-[address] [facility] [id number] Common 11:15:55 Jada [id number] [facility] 2021-10-09 2021-10-09 ambulatory [facility]MLC [facility] [id number] Common 00:00:00 00:00:00 [facility] 2021-09-13 2021-09-13 ambulatory [facility]LMLC [facility] [id number] Common 00:00:00 00:00:00 [facility] 2021-07-11 2021-07-11 ambulatory [facility]LMLC [facility] [id number] Common 00:00:00 00:00:00 [facility] 2021-04-13 2021-04-13 Outpatient [facility]LMLC [facility] [id number] Common 00:00:00 00:00:00 [facility] 2021-04-05 2021-04-05 Outpatient [facility]LMLC [facility] [id number] Common 00:00:00 00:00:00 [facility] 2021-03-30 2021-03-30 Outpatient [facility]LMLC ST[facility] [id number] Common 00:00:00 00:00:00 [facility] 2020-10-12 2020-10-12 Outpatient [facility]LMLC ST[facility] [id number] Common 00:00:00 00:00:00 [facility] 2020-09-13 2020-09-13 Outpatient [facility]C [facility] [id number] Common 00:00:00 00:00:00 [facility] 2020-07-13 2020-07-13 Outpatient STLMLC ST[facility] [id number] Common 00:00:00 00:00:00 [facility] 2020-06-05 2020-06-05 Outpatient [facility]LMLC ST[facility] [id number] Common 00:00:00 00:00:00 [facility] 2020-05-02 2020-05-02 Outpatient [facility]LMLC ST[facility] [id number] Common 00:00:00 00:00:00 [facility] 2020-03-14 2020-03-14 [id number] Common 16:00:00 16:00:00 [facility] 2020-01-25 2020-01-25 Outpatient Becca Sahu [id number] Common 10:20:00 10:20:[address] [facility] [address] [facility] 2019-12-27 2019-12-27 Outpatient Becca Sahu [id number] Common 15:17:00 15:17:[address] [facility] [address] [facility] 2019-11-04 2019-11-04 Outpatient Becca Sahu [id number] Common 16:40:00 16:40:[address] [facility] [address] [facility] Results This patient has no known results.
[2022-03-05 16:52] LABS: Urine Blood 3+ (Negative); Urine Glucose Negative (Negative); Urine Protein 2+ (Negative)
[2022-03-05 17:08] LABS: Urine Bacteria <20 /HPF (<20); Urine Mucus 1+ /HPF (None Seen); Urine RBC <5 /HPF (None Seen)
[2022-03-05 17:09] LABS: SARS-CoV-2 Antigen Rapid Res Negative (Negative)
[2022-03-05 17:12] LABS: Absolute Lymphocytes (CBC) 0.5 K/uL (0.7-4.9); Hematocrit 23.9 % (36.0-45.0); Lymphocytes % 5.4 % (15.3-44.8); MCV 66.9 fL (80-100); MPV 8.6 fL (7.6-11.3); RBC Red Blood Cell Count 3.57 M/uL (3.86-4.86)
[2022-03-05 17:14] LABS: Albumin 2.2 g/dL (3.4-5.0); Bilirubin Direct 0.5 mg/dL (0-0.2); Bilirubin Total 0.9 mg/dL (0.2-1.0); Magnesium 1.9 mg/dL (1.8-2.4); Potassium 4.3 mmol/L (3.5-5.1); Protein, Total 6.4 g/dL (6.4-8.2)
[2022-03-05] MEDS ORDERED: Ringers Lactate 1,000 ML IV ONE ×2 (17:16→18:43)
[2022-03-05] MEDS ORDERED: ACETAMINOPHEN 650MG/RECT SUPP PR ONE (17:16)
[2022-03-05 17:20] LABS: Blood Morphology Comment NOTED (NOT SEEN); Hypochromasia 1+; Platelet Estimate ADEQ; Troponin High Sensitivity 1470.8 pg/mL (<58.9); White Blood Cell Scan OK (OK)
--- NOTE | 2022-03-05 17:42 | RAD REPORT ---
EXAM DESCRIPTION: CT - CTHCSPWOC - 03/05/2022 5:26 pm CLINICAL HISTORY: Fall, trauma COMPARISON: Head Brain Wo Cont dated 09/26/2019 TECHNIQUE: Axial 5 mm thick images of the head were obtained. Axial 2 mm thick images of the cervic al spine were obtained with sagittal and coronal reconstruction images generated and reviewed. All CT scans are performed using dose optimization technique as appropriate and may include automated exposure control or mA/KV adjustment according to patient size. FINDINGS: No intracranial hemorrhage, mass, edema or acute intracranial finding. No acute cortical b ased infarction seen. No cortical edema or sulcal effacement. Patient has underlying mild atrophy and mild chronic ischemic change. Ventricles are in proportion to volume loss. Chronic ischemic changes are seen in the brainstem as well as the cerebral white matter. No extra-axial fluid collections. Par anasal sinuses are clear. Left side mastoid air cells are clear. There is partial opacification of th e right-side mastoid air cells and middle ear. Partial opacification of the right external auditory c anal also noted. Mastoid changes are new from the 2019 study. No globe or orbit abnormality seen. Pat ient has hyperostosis frontalis interna is a normal variant. There is a dense 2 centimeter smooth leila cification along the outer table lateral right skull as an incidental finding. Cervical body height and alignment are normal. No disk space narrowing. No fracture or acute bony abn ormality. Slight wedging of the C5 body is noted but appears chronic. No acute fracture line seen. Fa cet joint degenerative changes are present. Right foraminal encroachment seen at C5-6. Central canal detail is inherently limited. No paraspinal mass or hematoma. IMPRESSION: Negative CT head examination for acute finding. Atrophy and chronic ischemic changes are noted. Right-sided mastoiditis. Negative CT cervical spine examination for acute or significant finding.
--- NOTE | 2022-03-05 18:00 | RAD REPORT ---
EXAM DESCRIPTION: CT - Abdomen Pelvis Wo Contrast - 03/05/2022 5:26 pm CLINICAL HISTORY: fever, fall, pelvic pain COMPARISON: No comparisons TECHNIQUE: Axial [address] imaging of the abdomen and pelvis was performed without IV contrast. No IV contrast was given because of allergy, abnormal renal function, patient refusal or physician re quest. No oral contrast. All CT scans are performed using dose optimization technique as appropriate and may include automated exposure control or mA/KV adjustment according to patient size. FINDINGS: A small loculated collection is present in the right base. Attenuation of 59 [address] un its indicates that this is not simple fluid. This is only partially imaged on this CT abdomen and pel vis study. The adjacent lung parenchyma shows no suspicious finding. Very minimal pericardial thicken ing or effusion seen anteriorly. No cardiomegaly. The liver, spleen and pancreas show no suspicious findings on non-contrast imaging. Cholecystectomy c lips are present. No biliary tree dilatation. No hydronephrosis or suspicious renal mass. No significant adrenal finding. Isodense renal masses an d pyelonephritis cannot be excluded in the absence of IV contrast. Urinary bladder is contracted arou nd a Billy catheter. No stomach or small bowel acute findings. No abnormal or acute colon process seen. Moderate volume of air in stool is present filling but not dilating the colon. No free air, free fluid or inflammatory stranding. No hernia, mass or bulky lymphadenopathy. Old fracture fixation hardware present in the proximal left femur. No acute femur fractures are prese nt. Sacral ala are intact. There is cortical irregularity at the inferior aspect of the ischium thoug h this may be an old injury. As an isolated finding this is probably not acute. A small avulsion of b one is possible. L1 body shows approximately 20% compression involving the superior endplate. Posterior wall height is preserved. This appears to be old. Concave contour to the superior endplate L2 is present with poste rior wall height preserved. This is also believed to be chronic. L4 body is normal in height. Mild co ncavity to the superior endplate L5 present believed to be chronic. L3 body shows biconcave contour. Overall 15% loss in height. Acute fracture lines are identifiable in the L3 body. No pedicle or posterior element involvement. IMPRESSION: No acute traumatic injury to the solid abdominal viscera and soft tissues in the abdomen and pelvis. Acute fracture changes are present in the L3 body with biconcave contour of the endplates and overall 15% loss in height. No encroachment into the central canal and no pedicle or posterior element invol vement. Suspected small avulsion from the inferior aspect of the left-side ischium. Additional nonacute findings detailed in the body of the report. Full assessment is limited is the absence of IV contrast.
--- NOTE | 2022-03-05 18:14 | EDPHYS ---
Physician Documentation [facility] Name: Rocio Turcios Age: 71 yrs Sex: Female : 1950 Arrival Date: 03/05/2022 Time: 16:23 Bed 4 Private MD: ED Physician Issa Murray HPI: 03/05 16:47 This 71 yrs old Female presents to ER via EMS with complaints of Altered mental status, jr8 fever. 18:06 Family stated last known normal was approximately 4 days ago when I saw her. Had not jr8 heard from her in a few days and went to go check on her. Stated that she was between the toilet and the wall. Altered mental status present per family. Per EMS patient tachycardic and running fever. Continues to be altered upon arrival.. Severity of symptoms: At their worst the symptoms were moderate in the emergency department the symptoms are unchanged. The patient has not experienced similar symptoms in the past. It is unknown whether or not the patient has recently seen a physician. Historical: - PMHx: 16:50 Arthritis; COPD; Rheumatoid Arthritis; jh6 - Social history:: Smoking status: unknown. ROS: 18:06 Unable to obtain ROS due to altered mental status. jr8 Exam: 18:06 Eyes: Pupils equal round and reactive to light, extra-ocular motions intact. Lids and jr8 lashes normal. Conjunctiva and sclera are non-icteric and not injected. Cornea within normal limits. Periorbital areas with no swelling, redness, or edema. 18:06 Skin: Warm, dry with normal turgor. Normal color with no rashes, no lesions, and no evidence of cellulitis. 18:06 ENT: Mouth: Lips: dry, Oral mucosa: dry. 18:06 Neck: Trachea: is midline with no obvious abnormalities, ROM/movement: is normal, Lymph nodes: no appreciated lymphadenopathy. 18:06 Cardiovascular: Rate: tachycardic, Rhythm: regular, Pulses: Pulses are 2+ in right radial artery and left radial artery. Heart sounds: normal, normal S1and S2, no S3 or S4, no murmur, no rub, no gallop, Edema: is not appreciated. 18:06 Respiratory: the patient does not display signs of respiratory distress, Respirations: tachypnea, that is mild, Breath sounds: decreased breath sounds, that are mild, are located in both bases. 18:06 Abdomen/GI: Inspection: abdomen appears normal, Bowel sounds: active, all quadrants, Palpation: soft, in all quadrants, no appreciated organomegaly. 18:06 Musculoskeletal/extremity: Extremities: grossly normal except: noted in the right leg: Patient has mild erythema with indention and skin break down around right knee and right hip, ROM: intact in all extremities, Circulation is intact in all extremities. Sensation intact. 18:06 Neuro: Orientation: Not oriented to person, place, time, situation, Mentation: confused, unable to follow commands, Memory: unable to test, Cranial nerves: unable to test, Cerebellar function: unable to test, Motor: moves all fours, Sensation: no obvious gross deficits, seizure activity, is not displayed by the patient, Abnormal movements: there are no abnormal movements. 18:11 ECG was reviewed by the Attending Physician. [facility] Vital Signs: 16:39 BP 145 / 77; Pulse 123; Resp 24; Temp 101.1(R); Pulse Ox 95% on R/A; Weight 58.97 kg; [facility] Height 5 ft. 5 in. (165.10 cm); 18:20 BP 112 / 72; Pulse 87; Resp 17; Pulse Ox 92% on Venturi mask; [facility] 18:43 BP 169 / 75; Pulse 79; Resp 18; Temp 97.7(C); Pulse Ox 96% ; [facility] 16:39 Body Mass Index 21.63 (58.97 kg, 165.10 cm) [facility] MDM: 16:25 Patient medically screened. [facility] 18:11 Data reviewed: vital signs, nurses notes, lab test result(s), EKG, radiologic studies, [facility] CT scan, plain films. Data interpreted: Pulse oximetry: on 50% oxygen by face mask, is 95 %. Interpretation:. Counseling: I had a detailed discussion with the patient and/or guardian regarding: the historical points, exam findings, and any diagnostic results supporting the discharge/admit diagnosis, lab results, radiology results, the need for further work-up and treatment in the hospital. 03/05 16:25 Order name: Basic Metabolic Panel; Complete Time: 17:59 [facility] 03/05 16:25 Order name: CBC with Diff; Complete Time: 17:59 [facility] 03/05 16:25 Order name: LFT's; Complete Time: 17:59 03/05 16:25 Order name: Magnesium; Complete Time: 17:59 03/05 16:25 Order name: NT PRO-BNP; Complete Time: 17:59 03/05 16:25 Order name: Troponin HS; Complete Time: 17:59 03/05 16:25 Order name: Urine Microscopic Only; Complete Time: 17:11 03/05 16:25 Order name: CK; Complete Time: 17:59 [facility] 03/05 16:29 Order name: Blood Culture Adult (2) 03/05 16:29 Order name: Lactate; Complete Time: 17:59 03/05 16:30 Order name: Flu; Complete Time: 21:44 [facility] 03/05 16:52 Order name: Urine Dipstick-Ancillary; Complete Time: 17:11 [facility] 03/05 16:59 Order name: SARS-COV-2 Antigen Rapid; Complete Time: 17:11 [facility] 03/05 17:21 Order name: CBC Smear Scan; Complete Time: 17:59 [facility] 03/05 20:05 Order name: Lactate Sepsis 2 HR Follow-up; Complete Time: 21:44 03/05 23:47 Order name: Troponin High Sensitivity; Complete Time: 01:52 03/06 06:50 Order name: CBC with Automated Diff; Complete Time: 14:16 03/06 06:59 Order name: PTT, Activated Partial Thromb; Complete Time: 14:16 [facility] 03/06 07:01 Order name: Lactate; Complete Time: 14:16 [place] 03/06 07:04 Order name: Gram Stain--Aerobic Bottle 03/06 07:39 Order name: Comprehensive Metabolic Panel; Complete Time: 14:16 MS 03/06 07:39 Order name: Phosphorus; Complete Time: 14:16 03/06 07:39 Order name: Creatine Phosphokinase; Complete Time: 14:16 MS 03/06 07:39 Order name: CKMB Creatine Kinase MB; Complete Time: 14:16 MS 03/06 07:39 Order name: Troponin High Sensitivity; Complete Time: 14:16 03/06 07:39 Order name: Lipid Profile; Complete Time: 14:16 EDMS 03/06 07:39 Order name: Magnesium; Complete Time: 14:16 EDMS 03/06 07:39 Order name: Thyroid Stimulating Hormone; Complete Time: 14:16 EDMS 03/06 07:39 Order name: Transferrin Sat/Iron Binding; Complete Time: 14:16 MS 03/05 16:25 Order name: XRAY Chest (1 view); Complete Time: 18:27 03/05 16:25 Order name: EKG; Complete Time: 16:26 03/05 16:25 Order name: Cardiac monitoring; Complete Time: 17:03 03/05 16:25 Order name: EKG - Nurse/Tech; Complete Time: 17:03 03/05 16:25 Order name: Labs collected and sent; Complete Time: 17:03 03/05 16:25 Order name: O2 Per Protocol; Complete Time: 17:03 03/05 16:25 Order name: O2 Sat Monitoring; Complete Time: 17:03 03/05 16:25 Order name: Billy; Complete Time: 17:04 03/05 16:30 Order name: CT Head C Spine 03/05 16:34 Order name: Head C Spine Mpr Wo Con; Complete Time: 17:59 03/05 17:22 Order name: Abdomen ; Complete Time: 18:09 03/05 18:27 Order name: CT Chest Wo Con; Complete Time: 01:52 03/06 07:12 Order name: US; Complete Time: 14:16 03/06 07:39 Order name: Ferritin; Complete Time: 14:16 03/06 07:39 Order name: Vitamin B12 Level; Complete Time: 14:16 03/06 08:19 Order name: Gram Stain--Aerobic Bottle MS 03/06 08:19 Order name: Gram Stain--Anaerobic Bottle EDMS EC:11 Rate is 123 beats/min. Rhythm is regular, Sinus tachycardia. QRS [place] is Normal. [place] jr8 interval is prolonged at 208 msec. QRS interval is normal at 82 msec. QT interval is normal at 342 msec. No Q waves. T waves are Normal. No ST changes noted. Clinical impression: 1st degree heart block and Sinus tachycardia. Interpreted by me. Reviewed by me. Administered Medications: 14:50 Drug: Ringers - Lactated Ringers Solution 1000 ml Route: IV; Rate: bolus; Site: right [facility] femoral; 18:53 Follow up: IV Status: Completed infusion [facility] 17:20 Drug: Tylenol Suppository 650 mg Route: NC; [facility] 18:52 Follow up: Response: Temperature is decreased [facility] 18:41 Drug: Zithromax (azithromycin) 500 mg Route: IVPB; Infused Over: 1 hrs; Site: right [facility] forearm; 18:41 Drug: Rocephin (cefTRIAXone) 1 grams Route: IV; Rate: calculated rate; Site: right [facility] forearm; 18:52 Follow up: Response: No adverse reaction; IV Status: Completed infusion [facility] 18:41 Drug: Ringers - Lactated Ringers Solution 1000 ml Route: IV; Rate: 150 ml/hr; Site: [facility] right antecubital; Disposition Summary: 03/05/22 18:13 Hospitalization Ordered Hospitalization Status: Inpatient Admission jr8 Provider: Fabien Saeed Condition: Fair [facility] Problem: new jr8 Symptoms: have improved jr8 Bed/Room Type: Standard [facility] Location: Telemetry/MedSurg (Inpatient)(03/06/22 07:27) bd Room Assignment: 215(03/06/22 07:27) bd Diagnosis - Altered mental status, unspecified jr8 - Dehydration jr8 - Rhabdomyolysis jr8 - Acute kidney failure, unspecified jr8 - Pneumonia, unspecified organism jr8 - Subsequent non-ST elevation (NSTEMI) myocardial infarction jr8 - Sepsis, unspecified organism(03/05/22 18:29) jr8 Forms: - Medication Reconciliation Form jr8 - SBAR form jr8 Signatures: Dispatcher [employer] EDMS Katelyn Albright Josh, PA PA jr8 Kahlil Mcqueen RN RN jl7 Kamilla Blank RN RN jh6 Crystal Juarez PA PA sb3 Corrections: (The following items were deleted from the chart) 17:03 16:25 IV Saline Lock ordered. 8 mb7 17:26 16:31 Pelvis+RAD.RAD.BRZ ordered. EDMS EDMS 18:14 18:13 Hypokalemia jr8 jr8 18:14 18:13 Sepsis, unspecified organism 8 jr8 19:05 18:13 Telemetry/MedSurg (Inpatient) 8 jl7 19:05 18:13 jr8 jl7 22:10 16:30 SARS-COV-2 RT PCR+MOL.LAB.MARYZ ordered. EDMS EDMS 22:40 18:27 Sling ordered. jr8 as6 03/06 07:03/05 19:05 [facility] jl7 bd 03/06 0703/05 19:05 [facility]- [facility]
--- NOTE | 2022-03-05 18:14 | ER ---
Nurse's Notes [facility] Name: Rocio Turcios Age: 71 yrs Sex: Female : 1950 Arrival Date: 03/05/2022 Time: 16:23 Bed 4 Private MD: Diagnosis: Altered mental status, unspecified;Dehydration;Rhabdomyolysis;Acute kidney failure, unspecified;Pneumonia, unspecified organism;Subsequent non-ST elevation (NSTEMI) myocardial infarction;Sepsis, unspecified organism Presentation: 03/05 16:39 Chief complaint: EMS states: PT found down in between toilet and wall covered in dirt jh6 and urine. last seen was 4 days prior. pt warm to touch and has bruse to rt hip, rt knee with skin breakdown of 1-2 and a wound to top of head and rt side of nose dried blood with swelling noted to top of head. Coronavirus screen: Vaccine status: Client denies travel out of the [place] in the last 14 days. Ebola Screen: Patient negative for fever greater than or equal to 101.5 degrees Fahrenheit, and additional compatible Ebola Virus Disease symptoms Patient denies exposure to infectious person. Patient denies travel to an Ebola-affected area in the 21 days before illness onset. Initial Sepsis Screen: Does the patient meet any 2 criteria? RR > 20 per min. Temp <36.0*C (96.8*F)) or > 38.3*C (100.9*F). Systolic BP < 90 mmHg. Altered Mental Status. No. Patient's initial sepsis screen is negative. Does the patient have a suspected source of infection?. Risk Assessment: Do you want to hurt yourself or someone else? Unable to obtain. Onset of symptoms is unknown. 16:39 Method Of Arrival: EMS: [facility] 16:39 Acuity: RADHIKA 2 6 Triage Assessment: 16:45 General: Appears distressed, slender, unkempt, malnourished, Behavior is anxious. Pain: jh6 Denies pain. Neuro: Level of Consciousness is awake, confused, Oriented to none Speech is slurred, Pupils are PERRLA. Cardiovascular: Capillary refill < 3 seconds Clubbing of nail beds is absent JVD is absent Patient's skin is warm and dry. Rhythm is atrial fibrillation with rapid ventricular response. Respiratory: Airway is patent. GI: Abdomen is flat, Bowel sounds present X 4 quads. Abd is soft and non tender X 4 quads. Derm: Skin is thin, with poor turgor Wound noted top of head. Historical: - PMHx: 16:50 Arthritis; COPD; Rheumatoid Arthritis; 6 - Social history:: Smoking status: unknown. Screenin:02 Fall Risk Fall in past 12 months (25 points). IV access (20 points). Ambulatory Aid- [facility] Mental Status- Overestimates/Forgets Limitations (15 pts.). Assessment: 17:00 General: Appears uncomfortable, unkempt, malnourished, Behavior is drowsy. 6 17:00 Pain:. Neuro: Oriented to none Speech is slurred, Pupils are PERRLA. [facility] 18:20 Reassessment: No changes from previously documented assessment. Patient and/or family [facility] updated on plan of care and expected duration. Pain level reassessed. Vital Signs: 16:39 BP 145 / 77; Pulse 123; Resp 24; Temp 101.1(R); Pulse Ox 95% on R/A; Weight 58.97 kg; 6 Height 5 ft. 5 in. (165.10 cm); 18:20 BP 112 / 72; Pulse 87; Resp 17; Pulse Ox 92% on Venturi mask; jh6 18:43 BP 169 / 75; Pulse 79; Resp 18; Temp 97.7(C); Pulse Ox 96% ; 6 16:39 Body Mass Index 21.63 (58.97 kg, 165.10 cm) [facility] ED Course: 16:23 Patient arrived in ED. jl7 16:25 Josué Elizalde PA is PHCP. jr8 16:25 Issa Murray MD is Attending Physician. jr8 16:30 Arm band placed on left wrist. Patient placed in the treatment room, on a stretcher, on 6 oxygen, on spray ii painter, on pulse oximetry. 16:45 Triage completed. jh6 16:51 Maintain EMS IV. Dressing intact. Good blood return noted. Site clean \T\ dry. Gauge \T\ 6 site: 18g. 16:56 Kamilla Warren RN is Primary Nurse. jg9 17:02 Placed in gown. Bed in low position. Call light in reach. Side rails up X 1. Door mb7 closed. Noise minimized. Elevated. Client placed on continuous cardiac and pulse oximetry monitoring. NIBP monitoring applied. dot compliance coordinator on. 17:02 EKG done, by ED staff, reviewed by Josué MORTENSEN. mb7 17:03 SARS-COV-2 Antigen Rapid Sent. mb7 17:03 Basic Metabolic Panel Sent. mb7 17:03 CBC with Diff Sent. mb7 17:03 LFT's Sent. mb7 17:03 Magnesium Sent. mb7 17:03 NT PRO-BNP Sent. mb7 17:03 Troponin HS Sent. mb7 17:03 Blood Culture Adult (2) Sent. mb7 17:03 Urine Microscopic Only Sent. mb7 17:04 CK Sent. mb7 17:04 Lactate Sent. mb7 17:06 Billy cath inserted, using sterile technique, 16 Fr., by ED staff, balloon inflated, to mb7 gravity drainage, clamped. urine specimen collected. returned cloudy urine. Patient tolerated well. 17:28 Head C Spine Mpr Wo Con In Process Unspecified. EDMS 17:28 Abdomen In Process Unspecified. EDMS 17:30 Oxygen administration via Venturi mask. jh6 17:57 XRAY Chest (1 view) In Process Unspecified. EDMS 18:12 Fabien Saeed is Hospitalizing Provider. [facility] 20:50 CT Chest Wo Con In Process Unspecified. EDMS Administered Medications: 14:50 Drug: Ringers - Lactated Ringers Solution 1000 ml Route: IV; Rate: bolus; Site: right [facility] femoral; 18:53 Follow up: IV Status: Completed infusion [facility] 17:20 Drug: Tylenol Suppository 650 mg Route: NM; [facility] 18:52 Follow up: Response: Temperature is decreased [facility] 18:41 Drug: Zithromax (azithromycin) 500 mg Route: IVPB; Infused Over: 1 hrs; Site: right [facility] forearm; 18:41 Drug: Rocephin (cefTRIAXone) 1 grams Route: IV; Rate: calculated rate; Site: right [facility] forearm; 18:52 Follow up: Response: No adverse reaction; IV Status: Completed infusion [facility] 18:41 Drug: Ringers - Lactated Ringers Solution 1000 ml Route: IV; Rate: 150 ml/hr; Site: [facility] right antecubital; Outcome: 18:13 Decision to Hospitalize by Provider. jr8 03/06 08:23 Admitted to Tele accompanied by tech, via stretcher, room 215, Report called to Imani [facility] 08:24 Condition: good [facility] 08:24 Discharge instructions given to family, Instructed on the need for admit. 09:14 Patient left the ED. gurinder Signatures: Dispatcher [employer] EDIssa Tafoya MD MD cha Roszak, Josh, PA PA jr8 Kahlil Mcqueen RN RN jl7 Kamilla Blank, RN RN jh6 Graciela Frey 7 Kamilla Warren, RN RN jg9 Corrections: (The following items were deleted from the chart) 03/05 17:07 17:04 Billy cath inserted, using sterile technique, 16 Fr., by ED staff, balloon mb7 inflated, to gravity drainage, clamped. urine specimen collected. returned cloudy urine. Patient tolerated well. Billy cath mb7
--- NOTE | 2022-03-05 18:23 | RAD REPORT ---
EXAM DESCRIPTION: RAD - Chest Single View - 03/05/2022 5:55 pm CLINICAL HISTORY: ams COMPARISON: Portable February 2020, CT chest April 2020 TECHNIQUE: AP portable chest image was obtained 03/05/2022 5:55 pm . FINDINGS: Fibrotic lung changes are present throughout the right lung field similar to the compariso n study. Left lung field fibrotic changes are also present but there is greater interstitial opacific ation in the mid left lung field. This could be interstitial infiltrate, edema or even possibly a com ponent of pulmonary contusion given the history. No cardiomegaly seen. Trachea is midline. No pneumothorax is identifiable. No acute aortic finding. No gross rib deformity seen though rib detail is limited. 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 There is abnormal contour of the proximal left humerus not fully e valuated on this study. This appears to be a change from prior imaging. Minimally impacted surgical n brock fracture is suspected. No AC joint separation. IMPRESSION: Baseline chronic interstitial opacification with increased opacification in the left parish g field. This could be infiltrate, edema or even possibly pulmonary contusion given the trauma histor y. No pneumothorax. No gross rib deformity seen. Suspected minimally impacted left humerus fracture at the surgical neck.
[2022-03-05] MEDS ORDERED: CEFTRIAXONE 1000 MG/VIAL ONE (18:40)
[2022-03-05] MEDS ORDERED: NA CHLORIDE 0.9% 250 ML ONE (18:41)
[2022-03-05] MEDS ORDERED: AZITHROMYCIN 500 MG INJ IVPB ONE (18:41)
--- NOTE | 2022-03-05 21:42 | RAD REPORT ---
EXAM DESCRIPTION: CT - Thorax Wo Con - 03/05/2022 8:49 pm CLINICAL HISTORY: Abnormal xray - lung opacity/opacities COMPARISON: Thorax W/ Con dated 05/09/2020; Abdomen Pelvis Wo Contrast dated 03/05/2022; Chest Singl e View dated 03/05/2022 TECHNIQUE: Axial 5 mm thick images of the chest were obtained without IV contrast. All CT scans are performed using dose optimization technique as appropriate and may include automated exposure control or mA/KV adjustment according to patient size. FINDINGS: Biapical scarring changes are present. Chronic loculated collection in the posterior gutte r on the right is unchanged from the April 2020 study. No new mass or infiltrate of the right parish g field. Consolidation is present in the lingula of the left upper lobe extending to the hilum. There is a prominent amount of soft tissue around the left hilum not fully evaluated in the absence of IV contrast. There is increased soft tissue as well in the mediastinum posterior to the left atrium. No left-sided pleural effusion. No pneumothorax. No cardiomegaly or pericardial effusion. No gross aortic or pulmonary artery finding suspected. Asse ssment is limited in the absence of IV contrast. No chest wall mass or abnormal axillary lymphadenopathy. IMPRESSION: Consolidation throughout most of the lingula left upper lobe with excess soft tissue zuleima dent at the left hilum and mediastinum posterior to the atrium. Lingula consolidation is most likely pneumonia. The possibility of a postobstructive pneumonia due t o malignancy in the mediastinum or hilum cannot be excluded. Mediastinal and hilar structures are not fully assessed in the absence of IV contrast. If or when axel erable by the patient, follow-up CT chest with contrast would be recommended for better separation of mediastinal structures.
--- NOTE | 2022-03-05 22:38 | P.HP ---
Certification for Inpatient Patient admitted to: Inpatient With expected LOS: >2 Midnights Patient will require the following post-hospital care: Other Practitioner: I am a practitioner with admitting privileges, knowledge of patient current condition, hospital course, and medical plan of care. Services: Services provided to patient in accordance with Admission requirements found in Title 42 Section 412.3 of the Code of Federal Regulations Patient History Date of Service: 03/06/22 Reason for admission: NSTEMI, Rhabdo, AMS, PNA History of Present Illness: Patient is a 71-year-old female with COPD and RA who presented to the ED via EMS with AMS and fever. She was found down in between the toilet and wall covered in dirt and urine. Family reports they last saw/spoke with her 4 days ago. They report that she does not take very good care of herself. They deny any cardiac history, but report strong family cardiac history and that patient is a heavy smoker. Patient only responsive to painful stimuli upon arrival by grunting. CT head/spine negative for acute findings. Chest xray showed LIBBY PNA and minimally impacted left humerus fracture at surgical neck. Labs significant for Na 123, Cr 2.57, hgb 7.4, AST 207, troponin HS 1470, CPK 6492, lactic acid 2.2. EKG without ST abnormalities. She was given Rocephin, azithromycin, 2L fluid, Tylenol in ED. Fever resolved. Family is requesting social service consult as they have been trying to obtain medical POA for awhile as patient cannot take care of herself. Patient remains obtunded during my assessment. She is tachycardic and requiring supplemental O2. Patient is admitted for further evaluation and treatment. Allergies Unable to Assess Allergy (Unverified 03/05/22 22:35) Home medications list reviewed: Yes - Past Medical/Surgical History Diabetic: No -: COPD -: RA -: Seizure -: Bilateral Knee Replacement Psychosocial/ Personal History: Patient lives at home by herself. - Family History Brother -: Heart disease - Social History Smoking Status: Current every day smoker Alcohol use: No CD- Drugs: No Caffeine use: Yes Place of Residence: Home Review of Systems is unable to be obtained Physical Examination - Physical Exam General: Disheveled, Confused HEENT: PERRLA, Sclerae nonicteric Neck: JVD not distended, No Thyromegaly Respiratory: Diminished Cardiovascular: No edema, Regular rate/rhythm Gastrointestinal: Normal bowel sounds, Soft and benign Musculoskeletal: Erythema, Warmth Integumentary: Skin lesion Neurological: Normal tone, Abnormal affect Urinary: Billy catheter - Studies Laboratory Data (last 24 hrs) 03/05/22 16:39: WBC 9.5, Hgb 7.4 L, Hct 23.9 L, Plt Count 211 03/05/22 16:39: Sodium 123 L, Potassium 4.3, BUN 29 H, Creatinine 2.57 H, Glucose 88, Magnesium 1.9, Total Bilirubin 0.9, AST 207 H, ALT 54, Alkaline Phosphatase 81 Microbiology Data (last 24 hrs): 03/05/22 18:55 Nasopharnyx Influenza Type A Antigen Screen - Final 03/05/22 18:55 Nasopharnyx Influenza Type B Antigen Screen - Final Assessment and Plan - Problems (Diagnosis) (1) NSTEMI (non-ST elevated myocardial infarction) Current Visit: Yes Status: Acute (2) Rhabdomyolysis Current Visit: Yes Status: Acute Qualifiers: Rhabdomyolysis type: non-traumatic Qualified Code(s): M62.82 - Rhabdomyolysis (3) AMS (altered mental status) Current Visit: Yes Status: Acute Qualifiers: Altered mental status type: unspecified Qualified Code(s): R41.82 - Altered mental status, unspecified (4) Pneumonia Current Visit: Yes Status: Acute Qualifiers: Pneumonia type: due to unspecified organism Laterality: left Lung location: upper lobe of lung Qualified Code(s): J18.9 - Pneumonia, unspecified organism (5) DENIA (acute kidney injury) Current Visit: Yes Status: Acute (6) COPD (chronic obstructive pulmonary disease) Current Visit: Yes Status: Chronic Qualifiers: COPD type: unspecified COPD Qualified Code(s): J44.9 - Chronic obstructive pulmonary disease, unspecified (7) Hyponatremia Current Visit: Yes Status: Acute (8) Dehydration Current Visit: Yes Status: Acute (9) Anemia Current Visit: Yes Status: Chronic Qualifiers: Anemia type: unspecified type Qualified Code(s): D64.9 - Anemia, unspecified (10) Humerus surgical neck fracture Current Visit: Yes Status: Acute Qualifiers: Encounter type: initial encounter Fracture type: closed Fracture morphology: unspecified fracture morphology Fracture alignment: nondisplaced Laterality: left Qualified Code(s): S42.215A - Unspecified nondisplaced fracture of surgical neck of left humerus, initial encounter for closed fracture - Plan NSTEMI: initial troponin 1400. repeat 1200. heparin drip started. EKG without ST changes. cardiology consulted. monitor on telemetry. echo ordered. Rhabdomyolysis/DENIA/Dehydration: continuous IV fluids. patient was found down. last known well was 4 days ago. CPK 6400. recheck daily Pneumonia: chest CT shows PNA in LIBBY. continue azithromycin and rocephin. breathing treatments as needed. requiring supplemental O2. monitor pulse ox. Lactic acid 2.2. Recheck in AM. Altered Mental Status: responsive to painful stimuli. NPO. urine negative. Continue to monitor mental status. Anemia: hgb was 8 in 2019. 7.4 today. iron studies ordered for morning. occult blood ordered. monitor CBC. transfuse if hgb < 7 Hyponatremia: hypovolemic. continue IV fluids. recheck CMP in morning. adoption services manager consult in place. Family at bedside. Blood cultures obtained VTE ppx Full code Discharge Plan: Other Plan to discharge in: Greater than 2 days - Advance Directives Does patient have a Living Will: No Does patient have a Durable POA for Healthcare: No - Code Status/Comfort Care Code Status Assessed: Yes (Full) Critical Care: No Time Spent Managing Pts Care (In Minutes): 70
[2022-03-05] MEDS ORDERED: ALBUTEROL 2.5 MG/3 ML NEB SOL NEB PRN (22:40)
[2022-03-05] MEDS ORDERED: ACETAMINOPHEN 500 MG TAB PO PRN (22:40)
[2022-03-05] MEDS ORDERED: ONDANSETRON 4 MG/2 ML VIAL IV PRN (22:40)
[2022-03-05] MEDS: HEPARIN 5000 UNIT/ML 1 ML VIAL IV SCH (23:00)
[2022-03-05] MEDS ORDERED: HEPARIN/D5W 25,000 UNIT/500 ML BAG IV SCH (23:00)
[2022-03-05] MEDS: NA CHLORIDE 0.9% 1,000 ML IV SCH (23:00)
[2022-03-06] MEDS ORDERED: NA CHLORIDE 0.9% 1,000 ML ONE (00:44)
[2022-03-06] MEDS ORDERED: HEPARIN 5000 UNIT/ML 1 ML VIAL ONE (00:44)
[2022-03-06] MEDS ORDERED: HEPARIN/D5W 25,000 UNIT/500 ML BAG IV ONE (01:45)
[2022-03-06 05:19] VITALS: BMI 21.6
--- NOTE | 2022-03-06 06:39 | EKG ---
Test Date: 2022-03-05 Test Time: 16:17:27 Socket Puller: MB MEASUREMENT RESULTS: Intervals: Rate: 123 WI: 208 QRSD: 82 QT: 342 QTc: 489 Herman: P: 75 WI: 208 QRS: 69 T: 73 INTERPRETIVE STATEMENTS: Sinus tachycardia with premature supraventricular complexes Voltage criteria for left ventricular hypertrophy Abnormal ECG Compared to ECG 02/18/2020 18:57:14 Atrial premature complex(es) now present Left ventricular hypertrophy now present Sinus rhythm no longer present Electronically Signed On 03-06-22 06:38:36 CDT by Cash Wiggins
[2022-03-06 06:46] LABS: Absolute Lymphocytes (CBC) 0.4 K/uL (0.7-4.9); Lymphocytes % 6.5 % (15.3-44.8); MPV 8.5 fL (7.6-11.3)
[2022-03-06 06:50] LABS: MCV 66.7 fL (80-100)
--- NOTE | 2022-03-06 07:12 | RAD REPORT ---
EXAM DESCRIPTION: US - CP - 03/06/2022 12:17 am CLINICAL HISTORY: syncope COMPARISON: Head C Spine Mpr Wo Con dated 03/05/2022 TECHNIQUE: Real-time sonographic evaluation of bilateral carotid and vertebral systems was performed . Ornelas scale and Doppler interrogation were performed with waveform tracing bilaterally. FINDINGS: Normal high resistance waveform are noted in the right external carotid artery. The common carotid artery on the right and internal carotid artery show normal low resistance waveforms. Calcified and noncalcified mild plaquing changes are seen in the right carotid bulb and proximal ICA. Peak systolic and end diastolic velocity values are in the non-hemodynamically significant range. On visual inspection there is no significant luminal narrowing. No dissection. Right vertebral artery could not be identified. The left-sided carotid and vertebral vasculature could not be evaluated. The patient was in a left la teral decubitus position and would not allow the technologist and nursing staff to reposition her. IMPRESSION: Mild right-sided plaquing changes with no hemodynamically significant stenosis. The left-sided carotid and vertebral vasculature could not be evaluated. The patient was in a left la teral decubitus position and would not allow the technologist and nursing staff to reposition her.
[2022-03-06 07:34] LABS: ALT/SGPT 79 U/L (12-78); AST/SGOT 227 U/L (15-37); Alkaline Phosphatase 70 U/L (45-117); BUN Blood Urea Nitrogen 36 mg/dL (7-18); Bicarbonate 25 mmol/L (21-32); Bilirubin Total 0.5 mg/dL (0.2-1.0); Ferritin 66.6 ng/mL (8-388); Glomerular Filtration Rate 21 ml/min (=/>90); Glucose Level 73 mg/dL (74-106); HDL Cholesterol 31 mg/dL (40-60); Iron < 10.0 ug/dL (50-170); LDL Cholesterol, Calculated 40 mg/dL (<130); Magnesium 1.9 mg/dL (1.8-2.4); Phosphorus 4.5 mg/dL (2.5-4.9); Potassium 4.1 mmol/L (3.5-5.1); Protein, Total 5.9 g/dL (6.4-8.2); Sodium Level 124 mmol/L (136-145); Thyroid Stimulating Hormone 0.717 uIU/mL (0.360-3.740); Transferrin 161 mg/dL (200-360)
[2022-03-06 07:35] LABS: Creatine Phosphokinase 5338 U/L (26-192)
[2022-03-06 07:36] LABS: Troponin High Sensitivity 807.2 pg/mL (<58.9)
[2022-03-06 07:38] LABS: CKMB Creatine Kinase MB 26.9 ng/mL (1.0-3.6)
[2022-03-06] MEDS ORDERED: HEPARIN/D5W 25,000 UNIT/500 ML BAG IV SCH ×2 (08:00)
[2022-03-06] MEDS ORDERED: CEFTRIAXONE 1,000 MG in NA CHLORIDE 0.9% 50 ML IVPB SCH (09:00)
[2022-03-06] MEDS ORDERED: AZITHROMYCIN IV 500 MG in NA CHLORIDE 0.9% 250 ML IVPB SCH ×2 (09:00→10:30)
[2022-03-06] MEDS: NA CHLORIDE 0.9% 1,000 ML IV SCH ×3 (09:00→21:17)
[2022-03-06] MEDS: CEFTRIAXONE 1,000 MG in NA CHLORIDE 0.9% 50 ML IVPB SCH (10:33)
[2022-03-06] MEDS: AZITHROMYCIN IV 500 MG in NA CHLORIDE 0.9% 250 ML IVPB SCH (10:34)
[2022-03-06 11:44] LABS: Specific Gravity 1.015 (1.005-1.030); Urine Bilirubin Negative (Negative); Urine Blood 3+ (Negative); Urine Clarity Clear (Clear); Urine Color Yellow (Yellow); Urine Glucose Negative (Negative); Urine Protein 1+ (Negative)
[2022-03-06 11:57] LABS: Urine Bacteria 20-50 /HPF (<20); Urine Granular Casts 0-5 /LPF (None Seen); Urine Mucus 1+ /HPF (None Seen)
--- NOTE | 2022-03-06 14:44 | P.PN ---
Subjective Date of Service: 03/06/22 Chief Complaint: NSTEMI, Rhabdo, AMS, PNA Patient denies any complaint. She is awake and alert. She denies any diarrhea or nausea or vomiting. Physical Examination - Vital Signs Temperature: 97.8 F Blood Pressure: 118/6 Pulse: 76 Respirations: 20 Pulse Ox (%): 96 - Studies Laboratory Data (last 24 hrs) 03/05/22 16:39: WBC 9.5, Hgb 7.4 L, Hct 23.9 L, Plt Count 211 03/05/22 16:39: Sodium 123 L, Potassium 4.3, BUN 29 H, Creatinine 2.57 H, Glucose 88, Magnesium 1.9, Total Bilirubin 0.9, AST 207 H, ALT 54, Alkaline Phosphatase 81 Microbiology Data (last 24 hrs): 03/05/22 16:39 Blood - Blood Blood Culture Gram Stain - Final 03/05/22 16:49 Blood - Blood Blood Culture Gram Stain - Final 03/05/22 16:49 Blood - Blood Gram Stain - Final 03/05/22 18:55 Nasopharnyx Influenza Type A Antigen Screen - Final 03/05/22 18:55 Nasopharnyx Influenza Type B Antigen Screen - Final Assessment And Plan - Plan Physical Exam General: Disheveled, awake and alert HEENT: PERRLA, Sclerae nonicteric Neck: JVD not distended, No Thyromegaly Respiratory: Clear to auscultation bilaterally Cardiovascular: No edema, Regular rate/rhythm Gastrointestinal: Normal bowel sounds, Soft and benign Musculoskeletal: 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 Continue IV normal saline for hyponatremia. Monitor BMP every 4 hours. CK level is improving. Aggressive IV hydration for rhabdomyolysis. Continue to monitor CK levels daily Continue antibiotics for UTI and follow urine culture. Follow blood cultures. Monitor renal function Nephrology consult. PT and OT evaluation. Family feel patient is incapable of taking care of herself and are seeking medical power of jewelry consultant to assist with decision-making.
[2022-03-06 15:59] LABS: Potassium 3.6 mmol/L (3.5-5.1)
[2022-03-06 19:50] LABS: Potassium 3.6 mmol/L (3.5-5.1)
[2022-03-06] MEDS: HEPARIN 5000 UNIT/ML 1 ML VIAL IV SCH (20:34)
[2022-03-06 23:05] LABS: Potassium 3.4 mmol/L (3.5-5.1)
[2022-03-07] MEDS: NA CHLORIDE 0.9% 1,000 ML IV SCH ×2 (02:04→20:19)
[2022-03-07 03:48] LABS: Potassium 3.4 mmol/L (3.5-5.1)
--- NOTE | 2022-03-07 06:49 | ECHO ---
HEIGHT: 5 ft 5 in WEIGHT: 130 lb 0 oz DATE OF STUDY: 03/06/[address]: Crystal Juarez 2-DIMENSIONAL: YES M.MODE: YES DOPPLER: YES COLOR FLOW: YES TDS: NO PORTABLE: YES DEFINITY: NO BUBBLE STUDY: NO DIAGNOSIS: NSTEMI CARDIAC HISTORY: CATHERIZATION: SURGERY: PROSTHETIC VALVE: PACEMAKER: MEASUREMENTS (cm) DIASTOLIC (NORMALS) SYSTOLIC (NORMALS) IVSd 1.0 (0.6-1.2) LA Diam 3.0 (1.9-4.0) LVEF 59% LVIDd 4.2 (3.5-5.7) LVIDs 2.9 (2.0-3.5) %FS 31% LVPWd 1.1 (0.6-1.2) Ao Diam 3.0 (2.0-3.7) 2 DIMENSIONAL ASSESSMENT: RIGHT ATRIUM: NORMAL LEFT ATRIUM: NORMAL RIGHT VENTRICLE: NORMAL LEFT VENTRICLE: NORMAL TRICUSPID VALVE: NORMAL MITRAL VALVE: MITRAL ANNULAR CALCIFICATION PULMONIC VALVE: NORMAL AORTIC VALVE: SCLEROSIS PERICARDIAL EFFUSION: NONE AORTIC ROOT: NORMAL LEFT VENTRICULAR WALL MOTION: NORMAL DOPPLER/COLOR FLOW: NORMAL COMMENTS: NO WALL MOTION ABNORMALITY. NORMAL LEFT VENTRICULAR EJECTION FRACTION AND SIZE. MITRAL ANNULAR CALCIFICATION. AORTIC SCLEROSIS. TECHNOLOGIST: Magda MURILLO
[2022-03-07 07:10] LABS: Absolute Lymphocytes (CBC) 0.5 K/uL (0.7-4.9); Lymphocytes % 7.9 % (15.3-44.8); MCV 67.8 fL (80-100); MPV 8.5 fL (7.6-11.3); RBC Red Blood Cell Count 2.95 M/uL (3.86-4.86)
[2022-03-07 08:23] LABS: Anisocytosis 1+; Blood Morphology Comment NOTED (NOT SEEN); Platelet Estimate ADEQ; White Blood Cell Scan OK (OK)
[2022-03-07 08:24] LABS: Hypochromasia 1+; Magnesium 1.8 mg/dL (1.8-2.4); Phosphorus 3.3 mg/dL (2.5-4.9); Potassium 3.3 mmol/L (3.5-5.1)
[2022-03-07] MEDS ORDERED: NA CHLORIDE 0.9% 250 ML IV SCH (09:00)
[2022-03-07] MEDS: AZITHROMYCIN IV 500 MG in NA CHLORIDE 0.9% 250 ML IVPB SCH (09:46)
[2022-03-07] MEDS: CEFTRIAXONE 1,000 MG in NA CHLORIDE 0.9% 50 ML IVPB SCH (09:47)
[2022-03-07 11:57] LABS: Potassium 3.4 mmol/L (3.5-5.1)
--- NOTE | 2022-03-07 14:35 | P.PN ---
Subjective Date of Service: 03/07/22 Chief Complaint: NSTEMI, Rhabdo, AMS, PNA Patient denies any complaint. She is awake and alert. Hemoglobin dropped today. Physical Examination - Vital Signs Temperature: 97.6 F Blood Pressure: 117/61 Pulse: 86 Respirations: 22 Pulse Ox (%): 100 - Studies Microbiology Data (last 24 hrs): 03/05/22 16:39 Blood - Blood Blood Culture Gram Stain - Final 03/05/22 16:39 Blood - Blood Gram Stain - Final 03/05/22 16:49 Blood - Blood Blood Culture Gram Stain - Final 03/05/22 16:49 Blood - Blood Gram Stain - Final Assessment And Plan - Plan Physical Exam General: awake and alert, NAD. 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 Urinary: Billy catheter Hyponatremia likely secondary to dehydration. Sodium level improved Continue IV normal saline for hyponatremia. CK level continues to improve Aggressive IV hydration for rhabdomyolysis. Continue antibiotics for UTI. Urine cultures pending. Blood culture: Staph. Organism identification pending. Repeat blood culture and start IV vancomycin DENIA improved. Continue to monitor renal function Nephrology consulted Continue PT. SNF placement.
[2022-03-07] MEDS ORDERED: VANCOMYCIN 1 GM in NA CHLORIDE 0.9% 250 ML IVPB SCH ×2 (15:00→20:00)
[2022-03-07 15:26] LABS: Potassium 3.2 mmol/L (3.5-5.1)
[2022-03-07 21:56] LABS: Hematocrit 23.8 % (36.0-45.0)
[2022-03-07] MEDS: HEPARIN 5000 UNIT/ML 1 ML VIAL IV SCH (23:00)
[2022-03-08] MEDS: NA CHLORIDE 0.9% 1,000 ML IV SCH ×3 (01:00→23:57)
[2022-03-08 04:19] LABS: Absolute Lymphocytes (CBC) 0.9 K/uL (0.7-4.9); Hematocrit 23.8 % (36.0-45.0); Lymphocytes % 13.1 % (15.3-44.8); MCV 70.6 fL (80-100); MPV 7.8 fL (7.6-11.3); RBC Red Blood Cell Count 3.37 M/uL (3.86-4.86)
[2022-03-08 04:32] LABS: Magnesium 1.7 mg/dL (1.8-2.4); Phosphorus 2.5 mg/dL (2.5-4.9)
[2022-03-08] MEDS ORDERED: MAGNESIUM SULFATE 1 gm IVPB 1 GM/100 ML BAG IV ONE (06:11)
[2022-03-08 06:40] LABS: Albumin 1.8 g/dL (3.4-5.0); Bilirubin Total 0.4 mg/dL (0.2-1.0); Protein, Total 5.3 g/dL (6.4-8.2)
[2022-03-08 06:42] LABS: Potassium 2.9 mmol/L (3.5-5.1)
[2022-03-08] MEDS: KCL 20 MEQ/100 mL IVPB 20 MEQ/100 ML BAG IV SCH ×3 (09:18→13:59)
[2022-03-08] MEDS: CEFTRIAXONE 1,000 MG in NA CHLORIDE 0.9% 50 ML IVPB SCH (09:19)
--- NOTE | 2022-03-08 09:21 | P.CNS ---
Date of Consult: 03/08/22 Reason for Consult: DENIA, hyponatremia Requesting Physician: young nj Chief Complaint: NSTEMI, Rhabdo, AMS, PNA History of Present Illness: 71F w/ PMHx of COPD & RA who was found down at home, p/w AMS & fever, found to have pneumonia, UTI, & L humeral fracture, referred to Nephrology for DENIA & hyponatremia. SCr 2.6 on adm, now improved to 0.5. Serum Na 123 on adm, improved to 131 today. She received IV fluids. She is receiving abx. Allergies No Known Allergies Allergy (Unverified 03/06/22 11:04) Home Medications: NK [No Home Meds] 03/06/22 - Past Medical/Surgical History Diabetic: No -: COPD -: RA -: Seizure -: Bilateral Knee Replacement Psychosocial/ Personal History: Patient lives at home by herself. - Family History Brother Medical History: Heart disease - Social History Smoking Status: Unknown if ever smoked Alcohol use: No CD- Drugs: No Caffeine use: Yes Place of Residence: Home Review of Systems is unable to be obtained (d/t AMS) Physical Examination Temp Pulse Resp BP Pulse Ox 98.9 F 81 18 124/59 L 99 03/08/22 04:00 03/08/22 04:00 03/08/22 04:00 03/08/22 04:00 03/08/22 04:00 General: Other (appears acutely ill) HEENT: Atraumatic, Normocephalic Neck: Supple, JVD not distended Respiratory: Diminished, Other (symmetric chest expansion) Cardiovascular: No rubs, No murmurs Gastrointestinal: Soft and benign, No rebound, No guarding Musculoskeletal: No clubbing Integumentary: No warmth Neurological: Other (No new focal deficits noted) Lymphatics: No axilla or inguinal lymphadenopathy Urinary: Other (no bladder distention) External genitalia: Deferred Rectal: Deferred Conclusions/Impression: # DENIA 2/2 prerenal state + rhabdomyolysis Improved CPK trending down Encourage po fluid intake # UTI Abx per primary team F/u UCx # Pneumonia Abx per primary team F/u repeat BCx # Hyponatremia 2/2 prerenal state + renal dysfxn BNP elevated Cont NS gtt [place] po fluid intake Encourage po solid food intake # HypoMg PO mg repletion started today # HypoK KCl IV repletion today # L humeral fx Per other services # COPD Per other services # Dispo To [facility] for physical rehab
--- NOTE | 2022-03-08 14:09 | P.PN ---
Subjective Date of Service: 03/08/22 Chief Complaint: NSTEMI, Rhabdo, AMS, PNA Patient denies any complaint. She is awake and alert. No issues overnight. Physical Examination - Vital Signs Temperature: 97.9 F Blood Pressure: 140/67 Pulse: 72 Respirations: 18 Pulse Ox (%): 95 - Studies Microbiology Data (last 24 hrs): 03/05/22 16:39 Blood - Blood Aerobic Blood Culture - Final Staph Hominis 03/05/22 16:39 Blood - Blood Blood Culture Gram Stain - Final 03/05/22 16:39 Blood - Blood Anaerobic Blood Culture - Final Staph Hominis 03/05/22 16:39 Blood - Blood Gram Stain - Final 03/05/22 16:49 Blood - Blood Aerobic Blood Culture - Final Staph Hominis 03/05/22 16:49 Blood - Blood Blood Culture Gram Stain - Final 03/05/22 16:49 Blood - Blood Anaerobic Blood Culture - Final Staph Hominis 03/05/22 16:49 Blood - Blood Gram Stain - Final Assessment And Plan - Plan Physical Exam General: awake and alert, NAD. 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 Sodium level continue to improve Continue IV normal saline for hyponatremia. CK level continues to improve Continue IV fluid Continue antibiotics for UTI. Urine cultures pending. Blood culture: Staph hominis in 4 bottles. I suspect skin contamination. Repeat blood culture is pending. Continue IV vancomycin DENIA improved. Continue to monitor renal function Nephrology seen patient. Continue PT. Patient accepted to [facility] for skilled rehab.
[2022-03-08] MEDS: AZITHROMYCIN IV 500 MG in NA CHLORIDE 0.9% 250 ML IVPB SCH (16:01)
[2022-03-08] MEDS: MAGNESIUM CHLORIDE 64 MG TAB PO SCH ×2 (16:01→20:48)
--- NOTE | 2022-03-08 20:08 | CON ---
Date of Consultation: 03/08/2022 Reason For Consultation: Non-ST elevation myocardial infarction. History Of Present Illness: This is a 71-year-old female who has history of COPD and rheumatoid arthritis, who presented to the emergency room with altered mental status. She was found on the floor, covered in dirt and urine. Family reports that they saw her last 4 days prior, sore by bedside. She appears to be very coherent and alert, awake, oriented x3 and denies having any cardiac history. She does not have specifically any chest pain or shortness of breath at present time. Past Medical History: COPD, rheumatoid arthritis, seizure disorder. Medications: Refer reconciliation sheet for detailed list. Allergies: NO KNOWN DRUG ALLERGIES. Past Surgical History: Bilateral knee replacement. Family History: No premature coronary artery disease or cancer. Social History: She does not smoke or drink. Does not use any drugs. Review of Systems: All systems were reviewed, they were negative except as mentioned in HPI. Physical Examination: Vital Signs: Reviewed. Head and Neck: Pupils are equal, reactive to light. Intact eye movements. No JVD. No cervical lymphadenopathy. Neck is supple. Thyroid is not enlarged. Lungs: Clear to auscultation bilaterally. No rhonchi, rales, or crackles. No accessory muscle use. Heart: Regular rate and rhythm. No extra sounds. Abdomen: Soft, nontender. Bowel sounds positive. No organomegaly. No masses or hernia. No rigidity or rebound. Extremities: No edema, clubbing, cyanosis. Intact pulses. Skin: No rashes. Neurologic: Alert, awake, oriented x3. No acute focal deficits appreciated. Investigations: Troponin peaked at 1470. NT proBNP is 8972. Creatinine initially was 2.5 and now it is 1.22 with the troponin down to 957. Assessment And Recommendations: 1. Elevated troponin. There is no chest pain; however, this patient had also rhabdomyolysis. Likely this troponin elevation is due to rhabdomyolysis and trended down nicely. Echo was done. Ejection fraction is normal, once the kidney function is completely stable, will plan cardiac work up which can be done as an outpatient. 2. Acute kidney failure due to rhabdomyolysis, this is resolving. She is on gentle hydration. 3. Rhabdomyolysis due to being on the floor for a long time and resolving with IV hydration. SR/MODL Voice ID: [id number] Report ID: [id number] KIM
[2022-03-08] MEDS: VANCOMYCIN 1 GM in NA CHLORIDE 0.9% 250 ML IVPB SCH (20:47)
[2022-03-08] MEDS: MAGNES/ALUMIN/SIMET 30ML UCUP PO PRN (20:48)
[2022-03-08 21:16] LABS: Potassium 3.5 mmol/L (3.5-5.1)
[2022-03-08] MEDS ORDERED: POTASSIUM CL SA 10 MEQ TAB PO ONE (22:10)
--- NOTE | 2022-03-08 23:53 | CON ---
Date of Consultation: 03/06/2022 Reason For Consultation: Elevated troponin. History Of Present Illness: Ms. Turcios is 71-year-old came in with rhabdomyolysis with a CPK of 649 2. Her BNP was 8472. Her troponin was 1470. She had a hemoglobin of 7.4. Her sodium was 123, crea tinine of 2.57. She was obviously very dehydrated. No cardiac complaint per se. Past Medical History: Includes chronic renal disease, anemia, hypertension, dyslipidemia. Allergies: SHE IS ALLERGIC TO NO MEDICATIONS. Medication: Her home medications listed by Dr. Saeed. Review of Systems: Negative. Social History: Negative. Family History: Noncontributory. Physical Examination: General: Ms. Turcios appeared much older than her stated age. She was alert and oriented to name an d place, but otherwise was slightly confused and somnolent. She was in sinus rhythm with occasional PACs. Vital Signs: Otherwise stable, afebrile. HEENT: Negative. Neck: Supple with no bruit, lymphadenopathy, JVD, or thyromegaly. Chest: Clear to auscultation and percussion. Cardiac: Revealed regular rhythm and rate with a tricuspid regurgitation murmur. No gallops or rubs . Abdomen: Benign. EXTREMITIES: Revealed no clubbing, cyanosis, or edema. Diagnostic Data: Listed earlier. EKG is nonspecific. Chest x-ray is negative. Impression And Plan: Elevated troponin secondary to demand ischemia from renal failure, anemia, hypo natremia, dehydration, and rhabdomyolysis. Echocardiogram is pending. This is not an acute coronary syndrome. No plan for heart catheterization at this point. I have to have an outpatient stress jin t down the road. Her other problems include anemia that needs to be corrected and hyponatremia that needs to be corrected. Renal insufficiency, probably from rhabdomyolysis and dehydration. Nephrolog y consultation should be obtained. We will hydrate her, continue on home medications, get a 2D echoc ardiogram and we will continue to follow her. NB/MODL Voice ID: [id number] Report ID: [id number]
[2022-03-09 04:14] LABS: Absolute Lymphocytes (CBC) 0.5 K/uL (0.7-4.9); Hematocrit 22.5 % (36.0-45.0); Lymphocytes % 10.1 % (15.3-44.8); MCV 70.6 fL (80-100); MPV 7.3 fL (7.6-11.3); RBC Red Blood Cell Count 3.19 M/uL (3.86-4.86)
[2022-03-09 04:30] LABS: Magnesium 1.8 mg/dL (1.8-2.4); Potassium 3.7 mmol/L (3.5-5.1)
[2022-03-09] MEDS ORDERED: MAGNESIUM SULFATE 1 gm IVPB 1 GM/100 ML BAG IV ONE ×2 (04:32→11:35)
[2022-03-09] MEDS ORDERED: POTASSIUM CL SA 10 MEQ TAB PO ONE (04:33)
[2022-03-09] MEDS: NA CHLORIDE 0.9% 1,000 ML IV SCH ×2 (07:00→13:39)
[2022-03-09] MEDS: CEFTRIAXONE 1,000 MG in NA CHLORIDE 0.9% 50 ML IVPB SCH (08:20)
[2022-03-09] MEDS: MAGNESIUM CHLORIDE 64 MG TAB PO SCH ×2 (08:20→21:23)
[2022-03-09] MEDS: AZITHROMYCIN IV 500 MG in NA CHLORIDE 0.9% 250 ML IVPB SCH (10:30)
[2022-03-09] MEDS: KCL 20 MEQ/100 mL IVPB 100 ML IV SCH (13:39)
--- NOTE | 2022-03-09 13:40 | P.PN ---
Subjective Date of Service: 03/09/22 Chief Complaint: NSTEMI, Rhabdo, AMS, PNA Patient has no new complaint. She is tolerating her diet. Physical Examination - Vital Signs Temperature: 97.4 F Blood Pressure: 135/70 Pulse: 87 Respirations: 18 Pulse Ox (%): 98 - Studies Microbiology Data (last 24 hrs): 03/05/22 16:39 Blood - Blood Aerobic Blood Culture - Final Staph Hominis 03/05/22 16:39 Blood - Blood Blood Culture Gram Stain - Final 03/05/22 16:39 Blood - Blood Anaerobic Blood Culture - Final Staph Hominis 03/05/22 16:39 Blood - Blood Gram Stain - Final 03/05/22 16:49 Blood - Blood Aerobic Blood Culture - Final Staph Hominis 03/05/22 16:49 Blood - Blood Blood Culture Gram Stain - Final 03/05/22 16:49 Blood - Blood Anaerobic Blood Culture - Final Staph Hominis 03/05/22 16:49 Blood - Blood Gram Stain - Final Assessment And Plan - Current Problems (Diagnosis) (1) Acute metabolic encephalopathy Current Visit: Yes Status: Acute (2) DENIA (acute kidney injury) Current Visit: Yes Status: Acute (3) Hyponatremia Current Visit: Yes Status: Acute (4) NSTEMI (non-ST elevated myocardial infarction) Current Visit: Yes Status: Acute (5) Rhabdomyolysis Current Visit: Yes Status: Acute Qualifiers: Rhabdomyolysis type: non-traumatic Qualified Code(s): M62.82 - Rhabdomyolysis (6) Anemia Current Visit: Yes Status: Chronic Qualifiers: Anemia type: unspecified type Qualified Code(s): D64.9 - Anemia, unspecified (7) COPD (chronic obstructive pulmonary disease) Current Visit: Yes Status: Chronic Qualifiers: COPD type: unspecified COPD Qualified Code(s): J44.9 - Chronic obstructive pulmonary disease, unspecified (8) Rheumatoid arthritis Current Visit: Yes Status: Chronic Qualifiers: Rheumatoid arthritis location: unspecified site Rheumatoid factor presence: unspecified presence Qualified Code(s): M06.9 - Rheumatoid arthritis, unspecified (9) Chronic respiratory failure with hypoxia Current Visit: Yes Status: Acute - Plan Physical Exam General: awake and alert, NAD. HEENT: PERRLA, Sclerae nonicteric Respiratory: Clear to auscultation bilaterally Cardiovascular: No edema, Regular rate/rhythm Gastrointestinal: Normal bowel sounds, Soft and benign Urinary: Billy catheter Hyponatremia likely secondary to dehydration. Hyponatremia improved and almost resolved. DENIA resolved. Continue IV normal saline. Urine culture: Yeast. Start Diflucan. Discontinue Rocephin. Blood culture: Staph hominis in 4 bottles. I suspect skin contamination. Repeat blood culture shows no growth. Patient with poor hygiene, unkempt when found. Staff hominis likely skin contaminant acquisition. Discontinue vancomycin. Nephrology seen patient. Patient with elevated troponin. Elevated troponin likely secondary to rhabdomyolysis. Cardiology input appreciated. Continue PT. Oxygen therapy Patient accepted to [facility] for skilled rehab.
[2022-03-09] MEDS: MAGNES/ALUMIN/SIMET 30ML UCUP PO PRN (13:43)
--- NOTE | 2022-03-09 14:00 | PN ---
Date of Progress Note: 03/09/2022 Subjective: The patient was admitted with hyponatremia, hypokalemia, electrolyte imbalance with acute kidney injury secondary to prerenal. The patient recovered very well. Physical Examination: Vital Signs: When I saw the patient, blood pressure 135/70, pulse of 87, afebrile. Chest: Clear to auscultation. Heart: S1, S2. Regular. Abdomen: Soft, nontender, obese. Could not appreciate organomegaly. Extremities: Trace edema. Neuro: Alert, oriented x3. Nonfocal. Laboratory Data: WBC 5.3, H and H 7.1/22.5, platelets 155. Sodium 135, potassium 3.7, bicarb 22, BUN 12, creatinine 0.5, calcium 7.5, phosphorus 2.5, magnesium 1.8. Current Medications: The patient on include azithromycin, ceftriaxone, vancomycin, Tylenol. IV fluid at 100 of normal saline per hour, magnesium sulfate. Assessment And Plan: 1. Hyponatremia, secondary to depletional recovering. Sodium close to normalized. We will continue current IV fluids. 2. Hypokalemia, hypomagnesemia. I going to add potassium to the IV fluid and we will supplement the magnesium and we will follow up. 3. Hypertension, controlled, optimal. Continue current treatment. 4. Anemia. I am going to go ahead and send for anemia workup. I do not see the need for transfusion for the time being. We will continue to monitor the patient. 5. Respiratory distress, as by primary. Time spent examining the patient [id number], reviewing the data, placing order, discussing with by bedside, discussing with staff member including charge nurse and nursing and hospitalist 45 minutes. ROSALIE Voice ID: [id number] Report ID: [id number] KIM
--- NOTE | 2022-03-09 21:15 | PN ---
Date of Progress Note: 03/09/2022 Subjective: Seen by bedside. She has no chest pain. Review of Systems: No chest pain, shortness of breath, orthopnea, or cough. No nausea, vomiting, diarrhea. No abdomina l pain. No dysuria or polyuria. All other systems reviewed and were negative. Physical Examination: Vital Signs: Reviewed. Head and Neck: Pupils are equal, reactive to light. Intact eye movements. No JVD. No cervical lym phadenopathy. Neck supple. Thyroid is not enlarged. Lungs: Clear to auscultation bilaterally. No rhonchi, wheezing, crackles. No accessory muscle use. Heart: Regular rate and rhythm. No extra sounds. Abdomen: Soft, nontender. Bowel sounds positive. No organomegaly. No masses or hernia. No rigidi ty or rebound. Extremities: No edema, clubbing, cyanosis. Intact pulses. Skin: No rashes. No nodules. Neurologic: Alert, awake, oriented x3. No acute focal deficits appreciated. Lymph Nodes: No cervical or axillary lymphadenopathy. Investigations: Creatinine today is 0.50. Hemoglobin 7.1. Assessment And Recommendations: 1.Acute renal failure due to rhabdomyolysis, resolved. 2.Anemia, severe. Workup for the anemia is imperative at this point before any cardiac intervention or diagnostic testing. 3.Elevated troponin, which is likely due to the rhabdomyolysis and demand; however, the patient will need cardiac evaluation. At this point, due to the fresh kidney recovery plus the anemia, I would r jose from any inpatient workup and will plan for outpatient evaluation, possible stress test and ec ho versus heart catheterization. The decision will be made based on the patient's symptoms once eval uated as an outpatient. 4.Anemia. This issue needs to be evaluated and managed before any cardiac invasive testing. SR/MODL Voice ID: [id number] Report ID: [id number]
[2022-03-09] MEDS: VANCOMYCIN 1 GM in NA CHLORIDE 0.9% 250 ML IVPB SCH (21:23)
--- NOTE | 2022-03-10 02:32 | PN ---
Date of Progress Note: 03/07/2022 History: Ms. Turcios came in with rhabdomyolysis, elevated troponin. No cardiac complaint. Echocar diogram, which was done showed a normal ejection fraction without any wall motion abnormalities or ef fusion. Again, I believe that her troponin elevation is secondary to rhabdomyolysis and demand ische brittny. Ms. Turcios never had any chest pain. We will continue to follow her while she is in the [facility]. MAY/AIDEN Voice ID: [id number] Report ID: [id number]
[2022-03-10] MEDS: NA CHLORIDE 0.9% 1,000 ML IV SCH ×2 (03:26→11:12)
[2022-03-10 03:30] LABS: Absolute Lymphocytes (CBC) 0.7 K/uL (0.7-4.9); Hematocrit 23.4 % (36.0-45.0); Lymphocytes % 12.1 % (15.3-44.8); RBC Red Blood Cell Count 3.29 M/uL (3.86-4.86)
[2022-03-10 04:11] LABS: Albumin 1.8 g/dL (3.4-5.0); Ferritin 95.8 ng/mL (8-388); Folic Acid, (Folate) 2.9 ng/mL (3.1-17.5); Magnesium 1.6 mg/dL (1.8-2.4); Phosphorus 1.3 mg/dL (2.5-4.9); Potassium 3.8 mmol/L (3.5-5.1)
[2022-03-10] MEDS ORDERED: MAGNESIUM SULFATE 1 gm IVPB 1 GM/100 ML BAG IV ONE (05:00)
[2022-03-10] MEDS: POTASS/SODIUM PHOSPHATE 1 PKT POWD.PACK PO SCH ×3 (05:04→07:10)
[2022-03-10] MEDS: CEFTRIAXONE 1,000 MG in NA CHLORIDE 0.9% 50 ML IVPB SCH (09:00)
[2022-03-10] MEDS ORDERED: POTASSIUM CL SA 10 MEQ TAB PO ONE (09:00)
[2022-03-10] MEDS: AZITHROMYCIN IV 500 MG in NA CHLORIDE 0.9% 250 ML IVPB SCH (10:30)
[2022-03-10] MEDS: MAGNESIUM CHLORIDE 64 MG TAB PO SCH ×2 (11:11→21:00)
[2022-03-10 11:56] LABS: UR PROTEIN 40.7 mg/dL (<11.9)
[2022-03-10 11:58] LABS: UR CREAT < 18.0 mg/dL (20-320)
--- NOTE | 2022-03-10 12:41 | P.PN ---
Subjective Date of Service: 03/10/22 Chief Complaint: NSTEMI, Rhabdo, AMS, PNA Patient has no new complaint. She is tolerating her diet. She is also tolerating PT. Physical Examination - Vital Signs Temperature: 98.3 F Blood Pressure: 172/80 Pulse: 84 Respirations: 24 Pulse Ox (%): 97 Assessment And Plan - Current Problems (Diagnosis) (1) Acute metabolic encephalopathy Current Visit: Yes Status: Acute (2) DENIA (acute kidney injury) Current Visit: Yes Status: Acute (3) Hyponatremia Current Visit: Yes Status: Acute (4) NSTEMI (non-ST elevated myocardial infarction) Current Visit: Yes Status: Acute (5) Rhabdomyolysis Current Visit: Yes Status: Acute Qualifiers: Rhabdomyolysis type: non-traumatic Qualified Code(s): M62.82 - Rhabdomyolysis (6) Anemia Current Visit: Yes Status: Chronic Qualifiers: Anemia type: unspecified type Qualified Code(s): D64.9 - Anemia, unspecified (7) COPD (chronic obstructive pulmonary disease) Current Visit: Yes Status: Chronic Qualifiers: COPD type: unspecified COPD Qualified Code(s): J44.9 - Chronic obstructive pulmonary disease, unspecified (8) Rheumatoid arthritis Current Visit: Yes Status: Chronic Qualifiers: Rheumatoid arthritis location: unspecified site Rheumatoid factor presence: unspecified presence Qualified Code(s): M06.9 - Rheumatoid arthritis, un specified (9) Chronic respiratory failure with hypoxia Current Visit: Yes Status: Acute - Plan Physical Exam General: awake and alert, NAD. HEENT: PERRLA, Sclerae nonicteric Respiratory: Clear to auscultation bilaterally Cardiovascular: No edema, Regular rate/rhythm Gastrointestinal: Normal bowel sounds, Soft and benign Urinary: Billy catheter Hyponatremia likely secondary to dehydration. Hyponatremia improved and almost resolved. DENIA resolved. Continue IV normal saline. Urine culture: Yeast. Start Diflucan. Discontinue Rocephin. Blood culture: Staph hominis in 4 bottles. I suspect skin contamination. Repeat blood culture shows no growth. Patient with poor hygiene, unkempt when found. Staff hominis likely skin contaminant acquisition. Vancomycin discontinued. Nephrology is following Patient with elevated troponin. Elevated troponin likely secondary to rhabdomyolysis. Cardiology input appreciated. No need for further intervention per cardiology. Status post 1 unit PRBC transfusion for anemia. Hemoglobin is stable around 7. No GI bleed. Stool for occult blood is negative. Continue PT. Oxygen therapy Patient accepted to [facility] for skilled rehab.
[2022-03-10] MEDS: KCL 20 MEQ/100 mL IVPB 100 ML IV SCH (12:58)
[2022-03-10] MEDS ORDERED: HYDRALAZINE HCL 20 MG/ML VIAL IV PRN (13:43)
--- NOTE | 2022-03-10 14:12 | PN ---
Date of Progress Note: 03/10/2022 Subjective: The patient was admitted with acute kidney injury, hyponatremia, hypokalemia. The patient was started on hydration. Physical Examination: Vital Signs: When I saw the patient; blood pressure 172/80, pulse of 84, afebrile. Chest: Faint rales on the base. Heart: S1, S2. Systolic murmur. Abdomen: Nontender. Extremity: No edema. Neuro: Alert. No focality. Laboratory Data: WBC 5, H and H 7.3/23.4. Sodium 134, potassium 3.8, bicarb 29, BUN 7, creatinine 0.4. Magnesium 1.6, phosphorus 1.3. Current Medications: The patient on include azithromycin, ceftriaxone, IV fluid at 100 per hour, magnesium sulfate, KCl. Assessment And Plan: 1. Acute kidney injury secondary to prerenal, recovered, resolved, looked to me the patient on the normal volume side. I am going to go ahead and discontinue IV fluid and we will continue to monitor the patient. 2. Hypokalemia, hypomagnesemia, hypophosphatemia. We will supplement. 3. Hyponatremia secondary to depletional, recovered, resolved. Time spent examining the patient [id number], reviewing the data, placing order, discussing with by bedside, discussing with staff member including charge nurse and nursing and hospitalist 35 minutes. ROSALIE Voice ID: [id number] Report ID: [id number] KIM
[2022-03-10] MEDS ORDERED: POTASSIUM PHOS 22 MEQ in NA CHLORIDE 0.9% 250 ML IV ONE (14:30)
--- NOTE | 2022-03-10 17:07 | PN ---
Date of Progress Note: 03/10/2022 Subjective: Seen by bedside. Doing clinically well. No chest pain. Kidney function normalized and the patient is generally weak and is in the process to be moved to a senior care facility for 3 weeks' rehab. Review of Systems: No chest pain, shortness of breath, orthopnea, cough. No nausea, vomiting, diarrhea. All other syst ems reviewed and they were negative. Physical Examination: Vital Signs: Reviewed. Head and Neck: Pupils are equal, reactive to light. Intact eye movements. No JVD. No cervical lym phadenopathy. Neck is supple. Thyroid is not enlarged. Lungs: Clear to auscultation bilaterally. No rhonchi, wheezing, or crackles. No accessory muscle u se. Heart: Regular rate and rhythm. No extra sounds. Abdomen: Soft, nontender. Bowel sounds positive. No organomegaly. No masses or hernia. No rigidi ty or rebound. Extremities: No clubbing or cyanosis. Intact pulses. Skin: No rash. Neurologic: Alert, awake, oriented x3. No acute focal deficits appreciated. Lymph Nodes: No cervical or axillary lymphadenopathy. Investigations: Labs were reviewed. Assessment And Recommendations: 1.Elevated troponin due to demand and rhabdomyolysis. Plan a stress test to be done as an outpatien t once she finishes her rehab. The patient is completely asymptomatic and if the patient is getting heparin, this can be discontinued, put the patient on aspirin 81 mg and please start the patient on C oreg 3.125 mg twice a day, titrate up for better blood pressure control and heart rate control. 2.Hypertension, very high blood pressure. Start beta-tete as above and titrate as tolerated. SR/MODL Voice ID: [id number] Report ID: [id number]
[2022-03-10] MEDS: carvediloL 6.25 MG TAB PO SCH (20:14)
[2022-03-11 04:08] LABS: Absolute Lymphocytes (CBC) 0.8 K/uL (0.7-4.9); Hematocrit 22.7 % (36.0-45.0); Lymphocytes % 14.1 % (15.3-44.8); MPV 7.4 fL (7.6-11.3); RBC Red Blood Cell Count 3.25 M/uL (3.86-4.86)
[2022-03-11 04:13] LABS: MCV 69.8 fL (80-100)
[2022-03-11 04:37] LABS: Albumin 1.7 g/dL (3.4-5.0); Magnesium 1.6 mg/dL (1.8-2.4); Phosphorus 2.4 mg/dL (2.5-4.9)
[2022-03-11] MEDS ORDERED: MAGNESIUM SULFATE 1 gm IVPB 1 GM/100 ML BAG IV ONE (06:00)
[2022-03-11] MEDS ORDERED: FLUCONAZOLE 100 MG TAB PO SCH (09:00)
[2022-03-11] MEDS ORDERED: ASPIRIN 81 MG CHEWABLE TABLET PO SCH (09:00)
[2022-03-11] MEDS: POTASS/SODIUM PHOSPHATE 1 PKT POWD.PACK PO SCH ×3 (09:00→11:15)
[2022-03-11] MEDS ORDERED: levoFLOXacin 750 MG TAB PO SCH (09:00)
[2022-03-11] MEDS: MAGNESIUM CHLORIDE 64 MG TAB PO SCH (09:48)
[2022-03-11] MEDS: carvediloL 6.25 MG TAB PO SCH (09:48)
[2022-03-11] MEDS ORDERED: NA CHLORIDE 0.9% 250 ML ONE (11:33)
[2022-03-11 12:56] VITALS: TEMP 98.4
--- NOTE | 2022-03-11 13:23 | P.DS ---
Admission Date: 03/05/22 Discharge Date: 03/11/22 Disposition: TRANSFER TO SKILLED NURSING Discharge Condition: FAIR Reason for Admission: NSTEMI, Rhabdo, AMS, PNA - Problems (1) Acute metabolic encephalopathy Current Visit: Yes Status: Acute (2) DENIA (acute kidney injury) Current Visit: Yes Status: Acute (3) Hyponatremia Current Visit: Yes Status: Acute (4) NSTEMI (non-ST elevated myocardial infarction) Current Visit: Yes Status: Acute (5) Rhabdomyolysis Current Visit: Yes Status: Acute Qualifiers: Rhabdomyolysis type: non-traumatic Qualified Code(s): M62.82 - Rhabdomyolysis (6) Anemia Current Visit: Yes Status: Chronic Qualifiers: Anemia type: unspecified type Qualified Code(s): D64.9 - Anemia, unspecified (7) COPD (chronic obstructive pulmonary disease) Current Visit: Yes Status: Chronic Qualifiers: COPD type: unspecified COPD Qualified Code(s): J44.9 - Chronic obstructive pulmonary disease, unspecified (8) Rheumatoid arthritis Current Visit: Yes Status: Chronic Qualifiers: Rheumatoid arthritis location: unspecified site Rheumatoid factor presence: unspecified presence Qualified Code(s): M06.9 - Rheumatoid arthritis, unspecified (9) Chronic respiratory failure with hypoxia Current Visit: Yes Status: Acute Brief History of Present Illness: Patient is a 71-year-old female with COPD and RA who presented to the ED via EMS with AMS and fever. She was found down in between the toilet and wall covered in dirt and urine. Family reports they last saw/spoke with her 4 days ago. They report that she does not take very good care of herself. They deny any cardiac history, but report strong family cardiac history and that patient is a heavy smoker. Patient only responsive to painful stimuli upon arrival by grunting. CT head/spine negative for acute findings. Chest xray showed LIBBY PNA and minimally impacted left humerus fracture at surgical neck. Labs significant for Na 123, Cr 2.57, hgb 7.4, AST 207, troponin HS 1470, CPK 6492, lactic acid 2.2. EKG without ST abnormalities. She was given Rocephin, azithromycin, 2L fluid, Tylenol in ED. Fever resolved. Family is requesting social service consult as they have been trying to obtain medical POA for awhile as patient cannot take care of herself. She was tachycardic and requiring supplemental O2. Patient was admitted for further evaluation and treatment. Hospital Course: Patient admitted to the medical She had hyponatremia likely secondary to dehydration. Hyponatremia was treated with IV normal saline Sodium level improved and hyponatremia almost resolved. Had DENIA which resolved resolved. Urine culture: Yeast. Patient treated briefly with IV antibiotics-Rocephin and Zithromax. Diflucan started for yeast UTI. Blood culture: Staph hominis in 4 bottles. I suspect skin contamination. Repeat blood culture shows no growth. Patient with poor hygiene, unkempt when found. Staff hominis likely skin contaminant acquisition. She was briefly treated with vancomycin and discontinued Nephrology is followed and managed hyponatremia and acute renal failure. Patient with elevated troponin. Seen by cardiology. Elevated troponin likely secondary to rhabdomyolysis. Cardiology recommend outpatient stress test. Status post 2 unit PRBC transfusion for anemia. No GI bleed. Stool for occult blood is negative. Seen by PT. Patient participated in physical therapy and ambulating with a walker She was placed on oxygen therapy for chronic respiratory failure and pneumonia Patient accepted to [facility] for skilled rehab. She is clinically stable for discharge. Vital Signs/Physical Exam: Temp Pulse Resp BP Pulse Ox 98.4 F 74 20 138/73 98 03/11/22 12:00 03/11/22 12:00 03/11/22 12:00 03/11/22 12:00 03/11/22 12:00 General: Alert, In no apparent distress, Oriented x3 HEENT: Mucous membr. moist/pink Neck: JVD not distended Respiratory: Crackles/rales (Bibasilar) Cardiovascular: No edema, Regular rate/rhythm, Normal S1 S2 Gastrointestinal: Soft and benign, Non-distended Musculoskeletal: No swelling Integumentary: No cyanosis Neurological: Normal strength at 5/5 x4 extr Laboratory Data at Discharge: WBC 5.5 K/uL (4.3-10.9) 03/11/22 03:15 Hgb 7.1 g/dL (12.0-15.0) L 03/11/22 03:15 Hct 22.7 % (36.0-45.0) L 03/11/22 03:15 Plt Count 171 K/uL (152-406) 03/11/22 03:15 APTT Cancelled 03/06/22 10:30 Sodium 133 mmol/L (136-145) L 03/11/22 03:15 Potassium 4.0 mmol/L (3.5-5.1) 03/11/22 03:15 BUN 10 mg/dL (7-18) 03/11/22 03:15 Creatinine 0.57 mg/dL (0.55-1.3) 03/11/22 03:15 Glucose 112 mg/dL (74-106) H 03/11/22 03:15 Phosphorus 2.4 mg/dL (2.5-4.9) L D 03/11/22 03:15 Magnesium 1.6 mg/dL (1.8-2.4) L 03/11/22 03:15 Total Bilirubin 0.4 mg/dL (0.2-1.0) 03/08/22 04:00 AST 80 U/L (15-37) H D 03/08/22 04:00 ALT 66 U/L (12-78) 03/08/22 04:00 Alkaline Phosphatase 58 U/L (45-117) 03/08/22 04:00 Triglycerides 77 mg/dL (<150) 03/06/22 06:30 Cholesterol 86 mg/dL (<200) 03/06/22 06:30 HDL Cholesterol 31 mg/dL (40-60) L 03/06/22 06:30 Cholesterol/HDL Ratio 2.77 03/06/22 06:30 Home Medications: Albuterol Neb [Proventil 0.083% Neb Soln] 2.5 mg NEB Q6HP PRN amp 03/11/22 Amox/Clavulanate [Augmentin 875-125 Tab] 1 each PO BID #12 tab 03/11/22 Aspirin Chewable [Aspirin Chewable*] 81 mg PO DAILY tab.chew 03/11/22 Fluconazole 200 mg PO DAILY #6 tab 03/11/22 Magnesium Chloride [Slow-Mag*] 64 mg PO BID tab 03/11/22 carvediloL [Coreg*] 6.25 mg PO BID tab 03/11/22 New Medications: Amox/Clavulanate [Augmentin 875-125 Tab] 1 each PO BID #12 tab Fluconazole 200 mg PO DAILY #6 tab Physician Discharge Instructions: Maintain on 2- 3L of oxygen by nasal canula. Followup: Jada Root NP [Primary Care Provider] - (within 2 weeks.) Thomas De La Torre MD [ACTIVE - CAN ADMIT] - (2 weeks) Alexander Senior JR, DPM [ASSOCIATE-ACTIVE - CAN ADMIT] - (2 weeks) Time spent managing pt's care (in minutes): 36
[2022-03-11 14:18] VITALS: O2SAT 99
[2022-03-11 17:05] VITALS: BP 119/62
--- NOTE | 2022-03-11 17:50 | PN ---
Date of Progress Note: 03/11/2022 Subjective: Seen by bedside. She is asymptomatic. No chest pain. Review of Systems: No chest pain, shortness of breath, orthopnea, or cough. No nausea, vomiting, diarrhea. No abdomina l pain. No dysuria, polyuria, or urinary urgency. All other systems reviewed and they were negative . Physical Examination: Vital Signs: Reviewed. Head and Neck: Pupils are equal, reactive to light. Intact eye movements. No JVD. No cervical lym phadenopathy. Neck is supple. Thyroid is not enlarged. Lungs: Clear to auscultation bilaterally. No rhonchi, wheezing, or crackles. No accessory muscle u se. Heart: Irregular. No extra sounds. Abdomen: Soft, nontender. Bowel sounds positive. No organomegaly. No masses or hernia. No rigidi ty or rebound. Extremities: No clubbing or cyanosis. Intact pulses. Skin: No rash. Neurologic: Alert, awake. No acute focal deficits appreciated. Investigations: Labs were reviewed. Assessment And Recommendations: Elevated troponin, likely due to rhabdomyolysis. However, with risk factors and age, we will recommend exercise stress test to be done as an outpatient. From Cardiolog y perspective, the patient can be released today to rehab and we will follow up the patient post reha b and obtain a stress test at that time. /AIDEN Voice ID: [id number] Report ID: [id number]
--- NOTE | 2022-03-11 22:44 | PN ---
Date of Progress Note: 03/11/2022 Chief Complaint: Acute kidney injury, hyponatremia, hypokalemia. Subjective: Patient was found to have severe hyponatremia. Sodium level has improved gradually. Carlos youngblood required IV fluids and electrolyte replacement. Review of Systems: She denies fever or chills. Physical Examination: Lungs: Clear to auscultation bilaterally. Heart: S1, S2. Abdomen: Soft. Extremities: No edema. Impression And Plan: 1.Acute kidney injury secondary to prerenal azotemia, nonoliguric acute tubular necrosis. Patient r esponded to intravenous fluids. She is euvolemic. Continue hydration by mouth and monitor electroly jin. The sodium level has improved and has been stable over last 48 hours. 2.Hypokalemia, hypomagnesemia, hypophosphatemia. Continue supplementation according to lab results. Advance p.o. intake with a high-protein diet. 3.Hyponatremia secondary to low solute intake. Continue to monitor electrolytes. Patient will need outpatient followup. CELSO/AIDEN Voice ID: [id number] Report ID: [id number]
[2022-03-12] MEDS ORDERED: POTASS/SODIUM PHOSPHATE 1 PKT POWD.PACK PO SCH (09:00)
== END 2022-03-11 18:29 | DRG 193 ==
LOC: ER 16:16 → ERHOLD 22:16 → 2ND 03-06 08:52
PROVIDERS: ADMIT Internal Medicine; ATTEND Internal Medicine
PROC: 30233N1 Transfusion of Nonautologous Red Blood Cells into Peripheral Vein, Percutaneous Approach (ICD-10-PCS; principal; 2022-03-07)
DX: J18.9 Pneumonia, unspecified organism (principal); G93.41 Metabolic encephalopathy; E87.1 Hypo-osmolality and hyponatremia; S42.212A Unspecified displaced fracture of surgical neck of left humerus, initial encounter for closed fracture; N17.9 Acute kidney failure, unspecified; M62.82 Rhabdomyolysis; J44.0 Chronic obstructive pulmonary disease with (acute) lower respiratory infection; J96.11 Chronic respiratory failure with hypoxia; B37.49 Other urogenital candidiasis; E86.0 Dehydration; R77.8 Other specified abnormalities of plasma proteins; D64.9 Anemia, unspecified; R46.0 Very low level of personal hygiene; M06.9 Rheumatoid arthritis, unspecified; F17.210 Nicotine dependence, cigarettes, uncomplicated; E87.6 Hypokalemia; E83.42 Hypomagnesemia; E83.39 Other disorders of phosphorus metabolism; Z96.653 Presence of artificial knee joint, bilateral; Z20.822 Contact with and (suspected) exposure to COVID-19
CPT/HCPCS: 36415; 36430; 51702; 70450; 71045; 71250; 72125; 74176; 80048; 80053; 80061; 80069; 80076; 80202; 81001; 81003; 81015; 82274; 82550; 82553; 82570; 82607; 82728; 82746; 82747; 83540; 83605; 83735; 83880; 84100; 84156; 84443; 84466; 84484; 85014; 85018; 85025; 85044; 85730; 86850; 86900; 86901; 87040; 87077; 87086; 87088; 87186; 87205; 87804; 87811; 93005; 93306; 93880; 94760; 97110; 97116; 97161; 97165; 99285; J0360; J0456; J1644; J3370; J3475; J3480; J7030; J7050; J7120; P9016; U0003

== ENCOUNTER 2022-03-27 09:09 | Emergency (ER) | payer OTHER ==
--- OUTSIDE RECORDS SUMMARY | 2022-03-27 09:12 | XMS REPORT | Continuity of Care Document ---
:1950 Author Organization [facility] t Address [address] [place] [address] Care Team Providers Name Role Phone Ivett Jada Attending Clinician Unavailable Problems This patient has no known problems. Allergies, Adverse Reactions, Alerts This patient has no known allergies or adverse reactions. Medications Ordered Filled Start Stop Current Ordering Indication Dosage Frequency Signature Comments Components Source Medication Medication Date Date Medication? Clinician (SIG) Name Name Ferrous Ferrous Yes Jada take 1 Common Sulfate Sulfate Beckham tablet by Spi rit mouth - [facility] every [address] hours [facility] Procedures This patient has no known procedures. Encounters Start End Encounter Admission Attending Care Care Encounter Source Date/Time Date/Time Type Type Clinicians Facility Department ID 2021-10-[address] [facility] [id number] Common 08:59:01 Jada [facility] 2021-09-[address] [facility] [id number] Common 12:09:41 Jada [id number] [facility] 2021-09-[address] [facility] [id number] Common 12:05:53 Jada [id number] [facility] 2021-09-[address] [facility] [id number] Common 11:16:03 Jada [id number] [facility] 2021-09-05 [facility] [id number] Common 11:15:55 Jada [id number] [facility] 2021-10-09 2021-10-09 ambulatory STLMLC STLMLC [id number] Common 00:00:00 00:00:00 [facility] 2021-09-13 2021-09-13 ambulatory STLMLC STLMLC [id number] Common 00:00:00 00:00:00 [facility] 2021-07-11 2021-07-11 ambulatory STLMLC STLMLC [id number] Common 00:00:00 00:00:00 [facility] 2021-04-13 2021-04-13 Outpatient STLMLC STLMLC [id number] Common 00:00:00 00:00:00 [facility] 2021-04-05 2021-04-05 Outpatient STLMLC STLMLC [id number] Common 00:00:00 00:00:00 [facility] 2021-03-30 2021-03-30 Outpatient STLMLC STLMLC [id number] Common 00:00:00 00:00:00 [facility] 2020-10-12 2020-10-12 Outpatient STLMLC STLMLC [id number] Common 00:00:00 00:00:00 [facility] 2020-09-13 2020-09-13 Outpatient STLMLC STLMLC [id number] Common 00:00:00 00:00:00 [facility] 2020-07-13 2020-07-13 Outpatient STLMLC STLMLC [id number] Common 00:00:00 00:00:00 [facility] 2020-06-05 2020-06-05 Outpatient STLMLC STLMLC [id number] Common 00:00:00 00:00:00 [facility] 2020-05-02 2020-05-02 Outpatient STLMLC STLMLC [id number] Common 00:00:00 00:00:00 [facility] 2020-03-14 2020-03-14 [facility] [id number] Common 16:00:00 16:00:00 [facility] 2020-01-25 2020-01-25 Outpatient Becca Sahu [id number] Common 10:20:00 10:20:00 t [facility] [address] [facility] 2019-12-27 2019-12-27 Outpatient Becca Sahu [id number] Common 15:17:00 15:17:00 t [facility] Road [facility] [address] [facility] 2019-11-04 2019-11-04 Outpatient Becca Sahu [id number] Common 16:40:00 16:40:00 [facility] Road [facility] [address] [facility] Results This patient has no known results.
[2022-03-27 10:13] LABS: Absolute Lymphocytes (CBC) 0.5 K/uL (0.7-4.9); Hematocrit 17.8 % (36.0-45.0); MCV 76.1 fL (80-100); MPV 7.5 fL (7.6-11.3); RBC Red Blood Cell Count 2.34 M/uL (3.86-4.86)
[2022-03-27 10:22] LABS: Potassium 4.4 mmol/L (3.5-5.1)
[2022-03-27 10:43] LABS: Anisocytosis 1+; Blood Morphology Comment NOTED (NOT SEEN); Hypochromasia 1+; Ovalocytes 1+; Platelet Estimate ADEQ
--- NOTE | 2022-03-27 10:43 | ER ---
Nurse's Notes [facility] Name: Rocio Turcios Age: 71 yrs Sex: Female : 1950 Arrival Date: 03/27/2022 Time: 09:11 Bed 6 Private MD: Diagnosis: GI Bleed/ Gastrointestinal hemorrhage, unspecified;Melena;Anemia, unspecified Presentation: 03/27 09:11 Chief complaint: EMS states: H/O CHRONIC ANEMIA, SENT FROM [facility] FOR LOW H/H. bp Coronavirus screen: At this time, the client does not indicate any symptoms associated with coronavirus-19. Ebola Screen: No symptoms or risks identified at this time. Initial Sepsis Screen: Does the patient meet any 2 criteria? No. Patient's initial sepsis screen is negative. Does the patient have a suspected source of infection? No. Patient's initial sepsis screen is negative. Risk Assessment: Do you want to hurt yourself or someone else? Patient reports no desire to harm self or others. Onset of symptoms is unknown. 09:11 Method Of Arrival: EMS: [facility] bp 09:11 Acuity: RADHIKA 3 bp Triage Assessment: 09:13 General: Appears in no apparent distress. comfortable, Behavior is calm, cooperative. bp Pain: Denies pain. EENT: No deficits noted. Neuro: Level of Consciousness is awake, alert, obeys commands. Cardiovascular: No deficits noted. Respiratory: No deficits noted. GI: No signs and/or symptoms were reported involving the gastrointestinal system. : No signs and/or symptoms were reported regarding the genitourinary system. Derm: No deficits noted. Musculoskeletal: No deficits noted. Historical: - Allergies: 09:12 No Known Allergies; bp - Home Meds: 09:13 magnesium chloride 64 mg oral TbEC twice a day [Active]; carvedilol 6.25 mg oral tab 1 bp tab 2 times per day [Active]; aspirin 81 mg Oral chew 1 tab once daily [Active]; albuterol sulfate 2.5 mg /3 mL (0.083 %) Inhl nebu 3 mL every 6 hours [Active]; - PMHx: 09:12 COPD; Rheumatoid Arthritis; Arthritis; bp 09:13 RHABDOMYOLYSIS; Hypertensive disorder; Heart disease; bp - Immunization history:: Adult Immunizations up to date. - Social history:: Smoking status: Patient denies any tobacco usage or history of. Screenin:16 Abuse screen: Denies threats or abuse. Denies injuries from another. Nutritional bp screening: No deficits noted. Tuberculosis screening: No symptoms or risk factors identified. Fall Risk None identified. Assessment: 09:16 General: SEE TRIAGE NOTE. bp 11:00 Reassessment: No changes from previously documented assessment. ADMIT INITIATED. bp 12:00 Reassessment: DISPO CHANGED TO TRANSFER. TRANSFER INITIATED FOR GI. bp 13:00 Reassessment: REPORT TO GINNY LEONARD FOR [facility]. bp 15:00 Reassessment: No changes from previously documented assessment. Patient and/or family bp updated on plan of care and expected duration. Pain level reassessed. 16:17 Reassessment: EMS AT B/S FOR TRANSPORT. bp Vital Signs: 09:11 BP 148 / 75; Pulse 78; Resp 16; Temp 98; Pulse Ox 99% ; bp 11:00 BP 118 / 93; Pulse 81; Resp 19; Pulse Ox 98% ; bp 13:00 BP 133 / 64; Pulse 72; Resp 22; Pulse Ox 100% ; bp 14:00 BP 147 / 73; Pulse 69; Resp 23; Pulse Ox 99% ; bp 15:00 BP 147 / 69; Pulse 72; Resp 24; Pulse Ox 98% ; bp 16:00 BP 142 / 69; Pulse 76; Resp 21; Pulse Ox 100% ; bp ED Course: 09:11 Patient arrived in ED. bp 09:12 Triage completed. bp 09:13 Arm band placed on. bp 09:14 Sarath Santoyo DO is Attending Physician. ms3 09:16 Patient has correct armband on for positive identification. Bed in low position. Call bp light in reach. Side rails up X2. 09:17 Manuel Peña, AISHA is Primary Nurse. bp 09:37 Initial lab(s) drawn, by ED staff, sent to lab. Inserted saline lock: 20 gauge in right dh3 antecubital area, using aseptic technique. Blood collected. 10:42 Surjit Garcia MD is Hospitalizing Provider. ms3 11:20 attempted to contact [facility] transfer center at 1115 and again at 1119, no bd answer either time. (phone rang multiple times then hung up). 11:32 initiated transfer to [facility]. bd 12:02 Assisted to bathroom. eh3 14:42 pt accepted in transfer to [facility] by Dr Baron, admin approval given by Bettye Ornelas.bd 16:19 No provider procedures requiring assistance completed. Patient transferred, IV remains bp in place. Administered Medications: 11:20 Drug: ProTONIX (pantoprazole) 40 mg Route: IVP; Site: right antecubital; bp 16:19 Follow up: Response: No adverse reaction bp Medication: 09:16 VIS not applicable for this client. bp Outcome: 10:42 Decision to Hospitalize by Provider. ms3 11:13 ER care complete, transfer ordered by MD. ms3 16:19 Transferred by ground EMS bp 16:19 Condition: stable 16:19 Instructed on the need for transfer. 16:44 Patient left the ED. bp Signatures: Katelyn Albright Deanna 3 Manuel Peña, RN RN bp Sarath Santoyo DO DO ms3 Amrita Hutchinson, RN RN 3
--- NOTE | 2022-03-27 10:43 | EDPHYS ---
Physician Documentation [facility] Name: Rocio Turcios Age: 71 yrs Sex: Female : 1950 Arrival Date: 03/27/2022 Time: 09:11 Bed 6 Private MD: ED Physician Sarath Santoyo HPI: 03/27 11:38 This 71 yrs old Female presents to ER via EMS with complaints of Abnormal Lab Results. ms3 11:38 71-year-old female with past medical history of COPD, rheumatoid arthritis, rhabdo, ms3 hypertension, anemia presents from nursing facility for low hemoglobin of 5.2. Patient denies pain. Patient denies shortness of breath, nausea, vomiting, abdominal pain. Patient denies alleviating or inciting factors.. Onset: The symptoms/episode began/occurred just prior to arrival. Historical: - Allergies: 09:12 No Known Allergies; bp - Home Meds: 09:13 magnesium chloride 64 mg oral TbEC twice a day [Active]; carvedilol 6.25 mg oral tab 1 bp tab 2 times per day [Active]; aspirin 81 mg Oral chew 1 tab once daily [Active]; albuterol sulfate 2.5 mg /3 mL (0.083 %) Inhl nebu 3 mL every 6 hours [Active]; - PMHx: 09:12 COPD; Rheumatoid Arthritis; Arthritis; bp 09:13 RHABDOMYOLYSIS; Hypertensive disorder; Heart disease; bp - Immunization history:: Adult Immunizations up to date. - Social history:: Smoking status: Patient denies any tobacco usage or history of. ROS: 11:38 Constitutional: Negative for fever, and chills. Neck: Negative for injury, pain, and ms3 swelling, Cardiovascular: Negative for chest pain, and palpitations. Respiratory: Negative for shortness of breath, cough, wheezing, and pleuritic chest pain, Abdomen/GI: Negative for abdominal pain, nausea, vomiting, diarrhea, and constipation, MS/Extremity: Negative for injury and deformity, Skin: Negative for injury, rash, and discoloration. 11:38 All other systems are negative. Exam: 11:38 Constitutional: This is a well developed, well nourished patient who is awake, alert, ms3 and in no acute distress. Head/Face: Normocephalic, atraumatic. Neck: Trachea midline, no cervical lymphadenopathy. Supple, full range of motion without nuchal rigidity, or vertebral point tenderness. No Meningismus. Chest/axilla: Normal chest wall appearance and motion. Nontender with no deformity. Cardiovascular: Regular rate and rhythm with a normal S1 and S2. No gallops, murmurs, or rubs. Normal PMI, no JVD. No pulse deficits. Respiratory: Lungs have equal breath sounds bilaterally, clear to auscultation and percussion. No rales, rhonchi or wheezes noted. No increased work of breathing, no retractions or nasal flaring. Skin: Warm, dry with normal turgor. Normal color with no rashes, no lesions, and no evidence of cellulitis. MS/ Extremity: Pulses equal, no cyanosis. Neurovascular intact. Full, normal range of motion. Psych: Awake, alert, with orientation to person, place and time. Behavior, mood, and affect are within normal limits. 11:38 Abdomen/GI: Inspection: abdomen appears normal, Bowel sounds: normal, Palpation: abdomen is soft and non-tender, Rectal exam: Stool: guaiac positive, black. Vital Signs: 09:11 BP 148 / 75; Pulse 78; Resp 16; Temp 98; Pulse Ox 99% ; bp 11:00 BP 118 / 93; Pulse 81; Resp 19; Pulse Ox 98% ; bp 13:00 BP 133 / 64; Pulse 72; Resp 22; Pulse Ox 100% ; bp 14:00 BP 147 / 73; Pulse 69; Resp 23; Pulse Ox 99% ; bp 15:00 BP 147 / 69; Pulse 72; Resp 24; Pulse Ox 98% ; bp 16:00 BP 142 / 69; Pulse 76; Resp 21; Pulse Ox 100% ; bp MDM: 09:44 Patient medically screened. ms3 11:38 Differential Diagnosis Anemia vs lab error vs GI bleed. Data reviewed: vital signs, ms3 nurses notes, lab test result(s), and as a result, I will transfer to facility with GI coverage. Counseling: I had a detailed discussion with the patient and/or guardian regarding: the historical points, exam findings, and any diagnostic results supporting the discharge/admit diagnosis, lab results, the need to transfer to another facility. ED course: Patient remains in stable condition without complaints at this time. 2 units PRBCs ordered.. 11:50 ED course: Discussed case with Dr Iraj Voss and he accepts patient to [facility] ms3 [place]. All questions were answered. Patient remains in stable condition at this time.. 03/27 09:19 Order name: CBC with Diff; Complete Time: 11:07 ms3 03/27 09:19 Order name: BMP; Complete Time: 10:25 ms3 03/27 10:27 Order name: Type And Screen ms3 03/27 10:36 Order name: Bb Add On bd 03/27 10:43 Order name: SARS RAPID; Complete Time: 11:48 ms3 03/27 10:43 Order name: Manual Differential; Complete Time: 11:07 EDMS 03/27 09:55 Order name: Labs - recollect needed: recollect green and lavender top; Complete Time: bd 10:03 03/27 11:08 Order name: PT-INR; Complete Time: 11:48 ms3 03/27 12:08 Order name: Packed RBC Leukored EDMS Administered Medications: 11:20 Drug: ProTONIX (pantoprazole) 40 mg Route: IVP; Site: right antecubital; bp 16:19 Follow up: Response: No adverse reaction bp Disposition Summary: 03/27/22 11:13 Transfer Ordered Transfer Location: Other Acute Care Facility ms3 Reason: Higher level of care ms3 Condition: Stable(03/27/22 11:13) ms3 Problem: new(03/27/22 11:13) ms3 Symptoms: are unchanged(03/27/22 11:13) ms3 Accepting Physician: (03/27/22 16:44) bp Diagnosis - GI Bleed/ Gastrointestinal hemorrhage, unspecified ms3 - Melena ms3 - Anemia, unspecified(03/27/22 11:13) ms3 Forms: - Medication Reconciliation Form ms3 - SBAR form ms3 Critical care time excluding procedures: 11:38 Critical care time: Bedside Care: 20 minutes, Consultation: 10 minutes, Family ms3 Intervention: 10 minutes. Total time: 40 minutes Signatures: Dispatcher [employer] EDMS Katelyn Albright Brian RN RN bp Sarath Santoyo DO DO ms3 Corrections: (The following items were deleted from the chart) 11:13 10:42 Observation ms3 ms3 11:13 10:42 Surjit Garcia ms3 ms3 11:13 10:42 Telemetry/MedSurg (observation) ms3 ms3 11: 10:42 Stable ms3 ms3 11: 10:42 new ms3 ms3 11: 10:42 are unchanged ms3 ms3 11: 10:42 Standard ms3 ms3 11: 10:42 ms3 ms3 11:13 10:42 Anemia, unspecified ms3 ms3 16:44 11:13 Dr ms3 bp
[2022-03-27] MEDS ORDERED: PANTOPRAZOLE 40 MG INJ ONE (11:21)
[2022-03-27 11:39] LABS: Protime INR 1.19
[2022-03-27 11:47] LABS: SARS-CoV-2 Antigen Rapid Res Negative (Negative)
[2022-03-27 16:49] VITALS: TEMP 98
[2022-03-27 17:00] VITALS: BP 142/69; O2SAT 100
== END 2022-03-27 16:44 ==
LOC: ER 09:09
PROC: 30233N1 Transfusion of Nonautologous Red Blood Cells into Peripheral Vein, Percutaneous Approach (ICD-10-PCS; principal; 2022-03-27)
DX: D64.9 Anemia, unspecified (principal); I10 Essential (primary) hypertension; J44.9 Chronic obstructive pulmonary disease, unspecified; I51.9 Heart disease, unspecified; Z20.822 Contact with and (suspected) exposure to COVID-19; Z79.82 Long term (current) use of aspirin
CPT/HCPCS: 85025; 80048; 36415; 86900; 86850; 85610; 86901; 87811; 36430; C9113

== ENCOUNTER 2022-09-03 16:42 | Emergency (ER) | payer OTHER ==
--- OUTSIDE RECORDS SUMMARY | 2022-09-03 16:46 | XMS REPORT | Continuity of Care Document ---
:1950 Author Organization [facility] t Address [address] [place] [address] Care Team Providers Name Role Phone No, Pcp [facility] Primary Care Physician Unavailable Jada Root Attending Clinician Unavailable GALILEO STEPHENSON Attending Clinician Unavailable Shanika MENDIOLA, Galileo Ramirez Attending Clinician Mark MENDIOLA, Zoya Cedeño Attending Clinician Mireya Howard MD Attending Clinician [phone] Cheikh Mcdonnell MD Attending Clinician ZOYA MOLINA Admitting Clinician Unavailable Payers Payer Name Policy Type Policy Number Effective Date Expiration Date Obed gomez AET[employer] 53 [id number] [facility] MEDICARE A B [id number] 2014 00:00:00 [employer] INDEMNITY [id number] 2017 NON CONTR 00:00:00 MEDICARE MB [id number] [facility] - [facility] MEDICARE MB [id number] [facility] - [facility] MEDICARE MB [id number] [facility] - [facility] Problems Condition Condition Condition Status Onset Resolution Last Treating Co mments Source Name Details Category Date Date Treatment Clinician Date GI bleed GI bleed Disease [facility] 00 [place] Severe Severe Disease Active [facility] anemia anemia [facility] Medical 00 [place] [id number] Chronic Problem Common peptic Spirit ulcer of - [facility] stomach [facility] [id number] Seasonal Problem Comm on allergies Spirit - [facility] [id number] Radial Problem Common nerve Spirit palsy - [facility] [id number] Cigarette Problem Comm on nicotine Spirit dependence - [facility] without complicati [facility] [id number] Rheumatoid Problem Co mmon arthritis Spirit with - [facility] rheumatoid St factor 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 [id number] Aortic Problem Common root Spirit aneurysm - [facility] [id number] Syncope, Problem Comm on unspecifie Spirit d syncope - [facility] type [facility] [id number] Abnormal Problem Comm on cardiac Spirit enzyme - [facility] level [facility] [id number] Centrilobu Problem Com mon lar Spirit emphysema - [facility] Allergies, Adverse Reactions, Alerts Allergy Allergy Status Severity Reaction(s) Onset Inactive Treating Comm ents Source Name Type Date Date Clinician NO KNOWN Allergy Active [facility] Social History Social Habit Start Date Stop Date Quantity Comments Source History of Tobacco Current Smoker Co mmon Spirit - Use [facility] Sex Assigned At [birth year] [facility] 00:00:00 00:00:00 Medical [place] Smoking Status Start Date Stop Date Source Current Smoker 2022-05-13 00:00:[address] [facility] Former smoker 2022-03-27 00:00:00 2022-03-27 00:00:[address] [facility] [facility] Medications Ordered Filled Start Stop Current Ordering Indication Dosage Frequency Signature Comments Components Source Medication Medication Date Date Medication? Clinician (SIG) Name Name albuterol Yes 1{ampul Take [address] (ACCUNEB) 03-29 e} ampule by [facility] 0.63 mg/3 19:02: nebulizati Me dical mL 41 on every 6 Center nebulizer (six) solution hours as needed for Wheezing. aspirin 81 2021- No 81mg QD Take [address] MG chewable 03-29 by mouth Ankush es tablet 16:51: 00:00 daily. Medical 10 :00 Center pantoprazol Yes 40mg Q.5D Take [address] e 03-29 tablet (40 [facility] (PROTONIX) 00:00: mg total) Me dical 40 MG 00 by mouth 2 Center tablet (two) times daily. carvediloL Yes TWICE [facility] (Coreg) 03-11 DAILY [facility] 6.25 MG 00:00: Medical tablet 00 Center Ferrous Ferrous Yes Jada take 1 Common Sulfate Sulfate [place] tablet by Spi rit mouth - CHI every 8 St hours [facility] Tylenol Tylenol No 2{table TID Tylenol Arthritis Arthritis ts_as_n Arthritis Pain 650 MG Pain 650 MG eeded} Pain 650 MG Ferrous Ferrous No Ferrous Sulfate 325 Sulfate 325 Sulfate (65 Fe) MG (65 Fe) MG 325 (65 Fe) MG Tylenol Tylenol No 2{table TID Tylenol Arthritis Arthritis ts_as_n Arthritis Pain 650 MG Pain 650 MG eeded} Pain 650 MG Ferrous Ferrous No Ferrous Sulfate 325 Sulfate 325 Sulfate (65 Fe) MG (65 Fe) MG 325 (65 Fe) MG Tylenol Tylenol No 2{table TID Tylenol Arthritis Arthritis ts_as_n Arthritis Pain 650 MG Pain 650 MG eeded} Pain 650 MG Ferrous Ferrous No Ferrous Sulfate 325 Sulfate 325 Sulfate (65 Fe) MG (65 Fe) MG 325 (65 Fe) MG Tylenol Tylenol No 2{table TID Tylenol Arthritis Arthritis ts_as_n Arthritis Pain 650 MG Pain 650 MG eeded} Pain 650 MG Ferrous Ferrous No Ferrous Sulfate 325 Sulfate 325 Sulfate (65 Fe) MG (65 Fe) MG 325 (65 Fe) MG Ferrous Ferrous No Ferrous Sulfate 325 Sulfate 325 Sulfate (65 Fe) MG (65 Fe) MG 325 (65 Fe) MG Ferrous Ferrous No Ferrous Sulfate 325 Sulfate 325 Sulfate (65 Fe) MG (65 Fe) MG 325 (65 Fe) MG Ferrous Ferrous No Sulfate 325 Sulfate 325 (65 Fe) MG (65 Fe) MG Ferrous Ferrous No Ferrous Sulfate 325 Sulfate 325 Sulfate (65 Fe) MG (65 Fe) MG 325 (65 Fe) MG Tylenol Tylenol No 2{table TID Tylenol Arthritis Arthritis ts_as_n Arthritis Pain 650 MG Pain 650 MG eeded} Pain 650 MG Ferrous Ferrous No Ferrous Sulfate 325 Sulfate 325 Sulfate (65 Fe) MG (65 Fe) MG 325 (65 Fe) MG Immunizations Ordered Immunization Filled Immunization Date Status Commen ts Source Name Name FLUZONE HIGH DOSE FLUZONE HIGH DOSE 2022-05-13 Completed [facility] OVER 65 OVER 65 15:47:00 - [facility] FLUZONE HIGH DOSE FLUZONE HIGH DOSE 2022-05-13 Completed [facility] OVER 65 OVER 65 15:47:00 [facility] FLUZONE HIGH DOSE FLUZONE HIGH DOSE 2022-05-13 Completed [facility] OVER 65 OVER 65 15:47:00 [facility] Pfizer COVID-19 Pfizer COVID-19 2021-07-04 Completed Comm on Spirit Vaccine Vaccine 10:19:00 - [facility] FLUZONE HIGH DOSE FLUZONE HIGH DOSE 2021-07-04 Completed [facility] OVER 65 OVER 65 10:19:00 - [facility] Pfizer COVID-19 Pfizer COVID-19 2021-07-04 Completed Comm on Spirit Vaccine Vaccine 10:19:00 [facility] FLUZONE HIGH DOSE FLUZONE HIGH DOSE 2021-07-04 Completed [facility] OVER 65 OVER 65 10:19:00 [facility] Pfizer COVID-19 Pfizer COVID-19 2021-07-04 Completed Comm on Spirit Vaccine Vaccine 10:19:00 - [facility] FLUZONE HIGH DOSE FLUZONE HIGH DOSE 2021-07-04 Completed [facility] OVER 65 OVER 65 10:19:00 [facility] Pfizer COVID-19 Pfizer COVID-19 2021-07-04 Completed Comm on Spirit Vaccine Vaccine 10:19:00 - [facility] FLUZONE HIGH DOSE FLUZONE HIGH DOSE 2021-07-04 Completed [facility] OVER 65 OVER 65 10:19:00 - [facility] Pfizer COVID-19 Pfizer COVID-19 2021-07-04 Completed Comm on Spirit Vaccine Vaccine 10:19:00 - [facility] FLUZONE HIGH DOSE FLUZONE HIGH DOSE 2021-07-04 Completed [facility] OVER 65 OVER 65 10:19:00 - [facility] Pfizer COVID-19 Pfizer COVID-19 2021-07-04 Completed Comm on Spirit Vaccine Vaccine 10:19:00 - [facility] FLUZONE HIGH DOSE FLUZONE HIGH DOSE 2021-07-04 Completed [facility] OVER 65 OVER [address] 10:19:00 [facility] Pfizer COVID-19 Pfizer COVID-19 2021-07-04 Completed Comm on Spirit Vaccine Vaccine 10:19:00 - [facility] FLUZONE HIGH DOSE FLUZONE HIGH DOSE 2021-07-04 Completed [facility] OVER 65 OVER 65 10:19:00 - [facility] Moderna COVID-19 Moderna COVID-19 2021-01-03 Completed Co mmon [facility] Vaccine Vaccine 10:16:00 [facility] Moderna COVID-19 Moderna COVID-19 2021-01-03 Completed Co mmon [facility] Vaccine Vaccine 10:16:00 [facility] Moderna COVID-19 Moderna COVID-19 2021-01-03 Completed Co mmon [facility] Vaccine Vaccine 10:16:00 [facility] Moderna COVID-19 Moderna COVID-19 2021-01-03 Completed Co mmon [facility] Vaccine Vaccine 10:16:00 [facility] Moderna COVID-19 Moderna COVID-19 2021-01-03 Completed Co mmon [facility] Vaccine Vaccine 10:16:00 [facility] Moderna COVID-19 Moderna COVID-19 2021-01-03 Completed Co mmon [facility] Vaccine Vaccine 10:16:00 [facility] Moderna COVID-19 Moderna COVID-19 2021-01-03 Completed Co mmon [facility] Vaccine Vaccine 10:16:00 - [facility] Moderna COVID-19 Moderna COVID-19 2020-12-06 Completed Co mmon [facility] Vaccine Vaccine 10:11:00 - [facility] Moderna COVID-19 Moderna COVID-19 2020-12-06 Completed Co mmon [facility] Vaccine Vaccine 10:11:00 - [facility] Moderna COVID-19 Moderna COVID-19 2020-12-06 Completed Co mmon [facility] Vaccine Vaccine 10:11:00 - [facility] Moderna COVID-19 Moderna COVID-19 2020-12-06 Completed Co mmon [facility] Vaccine Vaccine 10:11:00 - [facility] Moderna COVID-19 Moderna COVID-19 2020-12-06 Completed Co mmon [facility] Vaccine Vaccine 10:11:00 - [facility] Moderna COVID-19 Moderna COVID-19 2020-12-06 Completed Co mmon [facility] Vaccine Vaccine 10:11:00 - [facility] Moderna COVID-19 Moderna COVID-19 2020-12-06 Completed Co mmon [facility] Vaccine Vaccine 10:11:00 - [facility] FLUZONE HIGH DOSE FLUZONE HIGH DOSE 2020-07-13 Completed [facility] OVER 65 OVER 65 09:22:00 - [facility] FLUZONE HIGH DOSE FLUZONE HIGH DOSE 2020-07-13 Completed [facility] OVER 65 OVER 65 09:22:00 - [facility] FLUZONE HIGH DOSE FLUZONE HIGH DOSE 2020-07-13 Completed [facility] OVER 65 OVER 65 09:22:00 - [facility] FLUZONE HIGH DOSE FLUZONE HIGH DOSE 2020-07-13 Completed [facility] OVER 65 OVER [address] 09:22:00 [facility] FLUZONE HIGH DOSE FLUZONE HIGH DOSE 2020-07-13 Completed [facility] OVER 65 OVER 65 09:22:00 [facility] FLUZONE HIGH DOSE FLUZONE HIGH DOSE 2020-07-13 Completed [facility] OVER 65 OVER 65 09:22:00 [facility] FLUZONE HIGH DOSE FLUZONE HIGH DOSE 2020-07-13 Completed [facility] OVER 65 OVER 65 09:22:00 - [facility] FLUZONE HIGH DOSE FLUZONE HIGH DOSE 2020-07-13 Completed [facility] OVER 65 OVER 65 09:22:00 - [facility] FLUZONE HIGH DOSE FLUZONE HIGH DOSE 2020-07-13 Completed [facility] OVER 65 OVER 65 09:22:00 - [facility] Vital Signs Vital Name Observation Time Observation Value Comments Source height 2022-05-13 15:00:00 62 [in_i] Common [facility] weight 2022-05-13 15:00:00 116.4 [lb_av] [facility] temperature 2022-05-13 15:00:00 97.5 [degF] Common [facility] bmi 2022-05-13 15:00:00 21.29 kg/m2 [facility] oximetry 2022-05-13 15:00:00 97 % [facility] respiratory rate 2022-05-13 15:00:00 16 /min Comm on [facility] blood pressure 2022-05-13 15:00:00 113 mm[Hg] Common [facility] - systolic [facility] blood pressure 2022-05-13 15:00:00 62 mm[Hg] Common [facility] - diastolic [facility] height 2022-05-13 14:20:00 62 [in_i] Common [facility] weight 2022-05-13 14:20:00 116.4 [lb_av] [facility] temperature 2022-05-13 14:20:00 97.5 [degF] Common [facility] bmi 2022-05-13 14:20:00 21.29 kg/m2 [facility] oximetry 2022-05-13 14:20:00 97 % Common [facility] respiratory rate 2022-05-13 14:20:00 16 /min Comm on [facility] blood pressure 2022-05-13 14:20:00 113 mm[Hg] [facility] - systolic [facility] blood pressure 2022-05-13 14:20:00 62 mm[Hg] [facility] - diastolic [facility] height 2021-10-09 15:00:00 62 [in_i] Common [facility] weight 2021-10-09 15:00:00 117 [lb_av] Common [facility] temperature 2021-10-09 15:00:00 97.9 [degF] Common S pirit [facility] bmi 2021-10-09 15:00:00 21.4 kg/m2 Common S [facility] oximetry 2021-10-09 15:00:00 99 % Common [facility] respiratory rate 2021-10-09 15:00:00 18 /min Comm on [facility] blood pressure 2021-10-09 15:00:00 135 mm[Hg] Common [facility] - systolic [facility] blood pressure 2021-10-09 15:00:00 72 mm[Hg] [facility] - diastolic [facility] height 2021-07-11 10:00:00 62 [in_i] Common [facility] weight 2021-07-11 10:00:00 116 [lb_av] Common [facility] temperature 2021-07-11 10:00:00 98.1 [degF] Common [facility] bmi 2021-07-11 10:00:00 21.21 kg/m2 Common S [facility] oximetry 2021-07-11 10:00:00 95 % Common [facility] respiratory rate 2021-07-11 10:00:00 18 /min Comm on [facility] blood pressure 2021-07-11 10:00:00 131 mm[Hg] [facility] - systolic [facility] blood pressure 2021-07-11 10:00:00 67 mm[Hg] [facility] - diastolic [facility] height 2021-04-13 11:40:00 62 [in_i] [facility] weight 2021-04-13 11:40:00 117.4 [lb_av] [facility] temperature 2021-04-13 11:40:00 98.4 [degF] [facility] bmi 2021-04-13 11:40:00 21.47 kg/m2 [facility] oximetry 2021-04-13 11:40:00 97 % [facility] respiratory rate 2021-04-13 11:40:00 16 /min Comm on [facility] blood pressure 2021-04-13 11:40:00 127 mm[Hg] [facility] systolic [facility] blood pressure 2021-04-13 11:40:00 65 mm[Hg] [facility] diastolic [facility] Systolic blood 2022-03-29 15:19:00 160 mm[Hg] [facility] Diastolic blood 2022-03-29 15:19:00 77 mm[Hg] [facility] Heart rate 2022-03-29 15:19:00 68 /min [facility] Body temperature 2022-03-29 15:19:00 36.11 Sheryl [facility] Respiratory rate 2022-03-29 15:19:00 16 /min [facility] Oxygen saturation in 2022-03-29 15:19:00 99 /min [facility] Arterial blood by Medical Ce nter Pulse oximetry Procedures Procedure Date / Time Performed Performing Clinician Sourc e PREPARE LEUKO-REDUCED RBC 2022-03-29 23:54:00 Onanthony, Zoya Nk iru [facility] CT BRAIN WITHOUT IV 2022-03-29 16:00:[address] [facility] SARS-COV2/RT-PCR ([facility] & 2022-03-29 13:21:00 Jenny Sharp [facility] REF LABS) [facility] CBC W/PLT COUNT & AUTO 2022-03-29 05:29:[address] [facility] BASIC METABOLIC PANEL 2022-03-29 05:29:00 Galileo Stephenson [facility] MAGNESIUM 2022-03-29 05:29:00 Galileo Stephenson [facility] CBC W/PLT COUNT & AUTO 2022-03-29 05:29:[address] [facility] HEMOGLOBIN AND HEMATOCRIT 2022-03-29 00:36:00 Zoya Molina [facility] HEMOGLOBIN AND HEMATOCRIT 2022-03-28 18:23:00 Zoya Molina [facility] TISSUE EXAM 2022-03-28 16:35:00 Anita [facility] EGD, WITH HEMORRHAGE 2022-03-28 16:27:00 Anita [facility] CONTROL [facility] REPORT OF PROCEDURE - 2022-03-28 14:46:04 Anita [facility] ENDOSCOPY URL [facility] HEMOGLOBIN AND HEMATOCRIT 2022-03-28 13:23:00 Zoya Molina [facility] VITAMIN B12 2022-03-28 13:23:00 Daxa Fajardo [facility] TRANSFUSE LEUKO-REDUCED 2022-03-28 10:01:[address] [facility] TRANSFUSE LEUKO-REDUCED 2022-03-28 06:06:00 Zoya Molina u [facility] RED BLOOD [facility] HEMOGLOBIN AND HEMATOCRIT 2022-03-28 04:57:00 [facility]SF[facility] LEUKO-REDUCED 2022-03-28 01:49:00 Zoya Molina lamberto u [facility] BLOOD [facility] ABORH, MANUAL 2022-03-27 23:47:00 Amanda Amado [facility] TROPONIN I 2022-03-27 22:05:00 Zoya Molina [facility] TYPE AND SCREEN, 2022-03-27 22:05:00 Zoya Molina [facility] t [facility] AUTOMATED [facility] CBC W/PLT COUNT & AUTO 2022-03-27 22:04:00 Zoya Molina [facility] DIFFERENTIAL [facility] COMPREHENSIVE METABOLIC 2022-03-27 22:04:00 Zoya Molina u [facility] PANEL [facility] MAGNESIUM 2022-03-27 22:04:00 Zoya Molina [facility] PHOSPHORUS 2022-03-27 22:04:00 [facility] PROTHROMBIN TIME/INR 2022-03-27 22:04:00 Lianna Molinaenna Davidson Ramirez HI [facility] TROPONIN I 2022-03-27 22:04:00 Kristin [facility] IRON, TIBC, % SAT. 2022-03-27 22:04:00 Daxa Fajardo [facility] (WITHOUT FERRITIN) Medical Cente r CBC W/PLT COUNT & AUTO 2022-03-27 22:04:[address] [facility] (MANUAL DIFFERENTIAL) 2022-03-27 22:04:[address] [facility] EKG-SCANNED 2022-03-27 00:00:00 [facility] Plan of Care Planned Activity Planned Date Details Comments Source Future Scheduled 2022-08-[address] [facility] Test 00:00:00 (12+) [code = Medical Center DEPRESSION SCREENING (12+)] Future Scheduled 2022-08-11 FALLS RISK SCREENING [facility] Test 00:00:00 [code = FALLS RISK Medical C enter SCREENING] Future Scheduled 2022-04-11 INFLUENZA VACCINE (#1) [facility] 00:00:00 [code = INFLUENZA Medical Ce nter VACCINE (#1)] Future Scheduled 2021-11-01 COVID-19 VACCINE (4 - [facility] 00:00:00 Booster for Moderna [facility] Center series) [code = COVID-19 VACCINE (4 - Booster for Moderna series)] Future Scheduled 2015-08-[address] [facility] Test 00:00:00 WELLNESS (YEAR 2 or Medical Center FIRST YEAR if no IPPE) [code = MEDICARE ANNUAL WELLNESS (YEAR 2 or FIRST YEAR if no IPPE)] Future Scheduled 2014 PNEUMOCOCCAL 65+ YRS ([address] [facility] Test 00:00:00 - PCV) [code = Medical Cente r PNEUMOCOCCAL 65+ YRS (1 - PCV)] Future Scheduled 1999 SHINGLES VACCINES ([address] [facility] Test 00:00:00 2) [code = SHINGLES Medical Center VACCINES (1 of 2)] Future Scheduled 1968 DTAP/TDAP/TD VACCINES [facility] 00:00:00 (1 - Tdap) [code = Medical C enter DTAP/TDAP/TD VACCINES (1 - Tdap)] Future Scheduled 1967 HEPATITIS C SCREENING [facility] 00:00:00 [code = HEPATITIS C [facility] SCREENING] Future Scheduled [address] [facility] Test 00:00:00 Counseling and Medical Cente r Screening (12+) [code = Tobacco Cessation Counseling and Screening (12+)] Future Scheduled 1949 Screening for malignant [facility] Test 00:00:00 neoplasm of breast Medical C enter (procedure) [code = 597075786] Future Scheduled 1949 CT Colonography (combo) [facility] Test 00:00:00 [code = CT Colonography [facility] (combo)] Future Scheduled 1949 Screening for malignant [facility] Test 00:00:00 neoplasm of colon Medical Ce nter (procedure) [code = 176056834] Future Scheduled 1949 Screening for malignant [facility] Test 00:00:00 neoplasm of colon Medical Ce nter (procedure) [code = 631336341] Future Scheduled 1950 DXA SCAN [code = DXA [facility] Test 00:00:00 SCAN] [facility] Future Scheduled 1949 Screening for malignant [facility] Test 00:00:00 neoplasm of colon Medical Ce nter (procedure) [code = 050775854] Future Scheduled 1949 Screening for malignant [facility] Test 00:00:00 neoplasm of colon Medical Ce nter (procedure) [code = 330379824] Future Scheduled 1950 Sigmoidoscopy [code = CH I [facility] Test 00:00:00 Sigmoidoscopy] Medical Cente r Encounters Start End Encounter Admission Attending Care Care Encounter Source Date/Time Date/Time Type Type Clinicians Facility Department ID 2022-05-13 Outpatient [place], STLMLC STLC [id number] Common 14:09:00 Jada [facility] 2022-05-10 Outpatient [place], STLMLC STLC [id number] Common 09:30:01 Jada [facility] 2022-04-04 Outpatient [place], STLMLC STLC [id number] Common 08:36:01 Jada [facility] 2021-10-05 Outpatient [place], STLMLC STLC [id number] Common 08:59:01 Jada [facility] 2021-09-05 Outpatient [place], STLMLC STLC [id number] Common 12:09:41 Jada [id number] [facility] 2021-09-05 Outpatient [place], STLMLC STLC [id number] Common 12:05:53 Jada [id number] [facility] 2021-09-05 Outpatient [place], STLMLC STLC [id number] Common 11:16:03 Jada [id number] [facility] 2021-09-05 Outpatient [place], STLMLC STLC [id number] Common 11:15:55 Jada [id number] [facility] 2022-05-13 2022-05-13 SUB ANNUAL [facility] STLC [id number] Common 00:00:00 00:00:00 MCR Spirit WELLNESS - [facility]I VISIT [facility] 2022-05-13 2022-05-13 OFFICE [facility] STLC [id number] Co mmon 00:00:00 00:00:00 VISIT Spirit ESTAB PT - CHI LEVEL 4 [facility] 2022-04-30 2022-04-30 (TEL) [facility] STLC [id number] Co mmon 00:00:00 00:00:00 [facility] 2022-04-05 2022-04-05 (TEL) STLMLC STLMLC [id number] Co mmon 00:00:00 00:00:00 Spirit - [facility] 2022-03-27 2022-03-29 Inpatient ER MIKHAIL STEPHENSON [facility] Med [id number] [facility] 18:21:00 19:02:00 GALILEO 2022-03-27 2022-03-29 Hospital Galileo Stephenson [facility] [id number] 18:21:00 19:02:[address] [facility] 2022-03-28 2022-03-28 Surgery Anita [facility] [id number] 16:30:00 17:00:00 [facility] 2022-03-28 2022-03-28 Anesthesia Cheikh Walters [facility] [id number] [facility] 16:27:00 16:41:00 Event [facility] 2022-03-28 2022-03-[address] [facility] [id number] [facility] 00:[facility]00 00:00:00 [facility] 2021-10-09 2021-10-09 OFFICE STLMLC STLC [id number] Co mmon 00:00:00 00:00:00 VISIT [facility] ESTAB PT - CHI LEVEL 4 [facility] 2021-09-13 2021-09-13 (TEL) STLMLC STLMLC [id number] Co mmon 00:00:00 00:00:00 Spirit - [facility] 2021-07-11 2021-07-11 OFFICE STLMLC STLMLC [id number] Co mmon 00:00:00 00:00:00 VISIT Spirit ESTAB PT - CHI LEVEL 4 [facility] 2021-04-13 2021-04-13 OFFICE STLMLC STLMLC [id number] Co mmon 00:00:00 00:00:00 VISIT Spirit ESTAB PT - CHI LEVEL 4 [facility] 2021-04-05 2021-04-05 (TEL) STLMLC STLMLC [id number] Co mmon 00:00:00 00:00:00 [facility] 2021-03-30 2021-03-30 Outpatient STLMLC STLMLC [id number] Common 00:00:00 00:00:00 [facility] 2020-10-12 2020-10-12 Outpatient STLMLC STLMLC [id number] Common 00:00:00 00:00:00 [facility] 2020-09-13 2020-09-13 Outpatient STLMLC STLMLC [id number] Common 00:00:00 00:00:00 [facility] 2020-07-13 2020-07-13 Outpatient STLMLC STLMLC [id number] Common 00:00:00 00:00:00 [facility] 2020-06-05 2020-06-05 Outpatient STLMLC STLMLC [id number] Common 00:00:00 00:00:00 [facility] 2020-05-02 2020-05-02 Outpatient STLMLC STLMLC [id number] Common 00:00:00 00:00:00 [facility] 2020-03-14 2020-03-14 [place] [id number] Common 16:00:00 16:00:00 [facility] [address] [facility] [facility] 2020-01-25 2020-01-25 [id number] Common 10:20:00 10:20:[address] [facility] [address] [facility] 2019-12-27 2019-12-27 [facility] [id number] Common 15:17:00 15:17:[address] [facility] [address] [facility] 2019-11-04 2019-11-04 [facility] [id number] Common 16:40:00 16:40:[address] [facility] [address] [facility] Results Test Description Test Time Test Comments Results Result Comments Source Tissue Exam 2022-04-03 17:38:23 Test Item Value Reference Range Interpretation Comme nts Case Report (test code = 104) Surgical Pathology Report Case: [id number] Authorizing Provider: Mireya Howard MD Collected: 03/28/2022 04:35 PM Ordering Location: [address] Med/Surg Received: 03/29/2022 08:04 AM Pathologist: Amanda Amado MD Specimens: A) - Biopsy, Gastric, R/O H.Pylori B) - Biopsy, Gastroesophageal Junction ADDENDUM (test code = 3381) p5vhzPCcPABnvAE9KyUlYJNps5wvk2MpjWPaiTD yXG [file] YBSRVQV3FFl4LjHbTGZjmka+IFxwYXJ9 DIAGNOSIS (test code = 3220) a6ghnESxGQWcw0fvZNJchLDnIoAiZrWbKkLeFe pcdW JzPTbcngKtJSmvhZteWPBdDdpkqlFyUBRfwCHoV4Hb lzpxXCcqRE4mAL9izSkejMJfuGZaZGJyXzFgo7ugj9 78rZXvx2oeFBSRoahfpPc9sNdtI24vn2A7ThqzE12h dRBmLAH2RBUyKWIoeVJfHSHmZCL0XXIdlUCxN4tlNP OnHO7sczxwKKcvPBemIURafOG5FFRxpMPdK5SiWHQe KYaoMRCwzqu5OuBoJi3wqHLnpKmzGJgdDOZgUOWeGT anGDGcIpKiOC4tM7COKZHVBXxmSlHBXZ1GDCQEWmPZ A1PFIOmTJFNJT7KGQGlqxOCoXEQpZDAPPSYUGxkGFL xSB1WKRDFFMoJOIKJOQTQUQ2PGDLHZDTtBYZMZPXZw yqQpOU6xPc3cPEJURUVTBmNVGLRXMDTBJI7KXF4RKV vMUW5HC7ULWMSGXeHXXFSMUJ4TXLyNEnVRYU7xY1TA IwBIDORUEYrHTWIwfaSxIX4pXd8iEK4EYORGEK7MEC RDNDHISXcXW7eBJACDGTRQUEJXFJMpR6SoLXVFZKiZ WB1RUPKCR4JLHOhkZXWjWSFwYAmBDWWLP7cHC8UZL0 uAJFmBBLwoI6YKLY1wHu3FJQkBKKpQK2DTA0HWWxIR EtBMSCbLUiIDA71OBcVJKMIBUASwD3aBAVJGPCMVG8 HVTSEmWTPfxdLjWRDwQK8oXPFLMWOZCNYPQQWSHC9Y TRzlAHZjaDCcEPFfYYtER6CWM0VBD5GCJLvFHBcuSa BBV7PMV86dDn1THEcCCSXOMvTWB1LHPCrUWGOXD7IO VJmrhLKmYWQxBSUGBNIOPIkBDK2ZKP6BUTETWBQGDy QZGL5GP04IDBLYDXIKXK1UJJYcI5vGY85HSbVCCQAF WhfGLMRzU2pEDWKUC3JTDLMPP0QCNayTLHifUJHuMY BzDE5PMCXNQDTRR0SCKO5GL12KSPYYPXWSQZLzjxRd WS9rOc6pXP1VXZXGIU6CZKQVHGXOZYxWO6wTAOHDRF JMLyXorXQnRPEhTOZWRxAZMFRUGRLMFBJiM9CdTYYO DBuNPB3RDZXRH9DXOXfyVIV9c2ozcZNlVHConWDwPP LkFXooxrPwLANsGahyeybdDNGmKVR8maTqRGSzGGgt GQJfZHceHv5ykRCxfOweHfYlMNUbm2jiepMSeolykS x8n1hvCXAaSoV8aPLfBDwiQ2emqqFhwVIxOPVqBHy4 pZ81NRBbiD0udVXqXPcmoaClPpK2EAkrBUOhShS4ZC CudXYoABFpC6ucYJYlTXydSDNjTPemiGOrMFA0gJmi z1Y7bGCmaBVnyEptLbBsTxMwWsLLh4RnILe8yAcrQ5 YsTZYcRyU4eYPbVGZhUMemHYIaIAVcqlU8zW43AXrx tiX4iGInx8Bpf89ke629qY1kwZMlNGO7EDWoCIOctL MhYTFnWCP1YYOcjRKfI0unKJMkQI8qmvepWCyuWOqn WLVggXU7WKGhwHApM0UyVDYpUDonRZCxyfs4QhMjYl 0cmUTazEmiDYmwu3vab0hirZOdOyh5UPYkXrUkOrix DIzae8Uez1zqNGLmux2zRBA7cQForMmic6J8hQWfRW XuzMTxCBXmPY5ziYVaRVDtsR2fnbmcGRGcXmEputtz UYDkoKchagYmLb9trZvaDKW1QUrtV8ivtA1iLaV9CR jsX4dklB6oWEq4EJppQUOwbWJ2pyI9HMShfBXkO7Nr sY4ySPXvLV1loon1k9mvWWD9DTjsPWKrYoC5ljG8IS CsfEQvHWZuaLvyIXtzr713QPR4VzBhDCXal8KgV1Rq rDgtU57ojJmdI40iJGSeuFkqdQ5jwYqrzR1fEvFxHj YqTVwjhZwnGE7qUKRfG2gujEMmZQJhZTOrR7xvCaGv pO4hbQmxQGopjmWuSZXbUtq7BZYuvHZaUZUdQks0FQ CbFMZaM65alijdNXN8aI7wp1zrz1ByNFcqGQS8ZVAd y85pXJnzyuE0WEJ5UB90OranVmW2G3wwAJW0dI== CPT Code(s) (test code = 3357) z4ehwCTrTYHziII3OjOiXRVqc4lru1HxoPLp cGFyXG bgtSKcndYoba08jWI3xG02NW8yKXLcGxM9EOPcpvV3 Pbp8QPLiKBGfxZLiI536x0vtf5wmmhOzsZB7yErtMS DcgztxVxI7RKdjMJHybbqlZOx7UYwhNVTtrTY8WVMv yYGdP8UcTLIdNJ3cgxm5QAM1KSuqUSFdWiZ4KFNhiG LxLVPqqJbpPSjrv682HUX3QkJzHGJoviRnmGgdrV8d BgTfYPD0EBMjOFEOQKFymWBppK== CLINICAL HISTORY (test code = 3356) t3zgzFBwBUXamAW9MwAjQTMdt1it s3XnbHOrtGMrUJ tgdDBmvnFywi76iKV4mH84VE4yKXDoXnW5NADrhwF6 Ybw8HFXcBPBzcDNrK950w2mwr6hatmOqgPG3jGilYH SxoulvYzX3FFkqTWLkobufXKm8MOltCCLlhPN0FURc lMVeE7XgTCGaGA6xrfy6EAO9WWkyJLGbVoD6PFVuzR MxYAHzjClnKCfph374WBR4WyImSIPaeiYvtPhutM9n QoUeTGRLggYzfQSyhAOyIS7qWArtUEJ0 GROSS DESCRIPTION (test code = p9litCDuLUWevSPHVYRoV0jigrJiZEYhqDQl [facility] [id number]) anOLtaBU7hSW3feKwtoPCvsMZfFK0LQJTnBcZaIKZi eYDoaxEiEuYiNCNhxPYukMM6TQNtWO8tdowgTApaVM qxNQYpysG6VPXlgQEzL2SaGPPoWM8jybtjCAW1RYqw gM7cmcIKDwldKx8cqHEouGquWvIkHsCfIXRrSNOsNG IinJtaVOLsLHf1fE6BYhdkJ96za9B7Rpx0TUClYOKo V8QbLF5fPGQflIMtS53IIkzyNBF0PEOXIwnhMDAfRE 7Jt1ufYFOaiWMoUMP1JLcdqKGfWFTwLMRwGGy6SRYf QOkhcJEzQV7sdOjvMmgsrUjlc5DrdQTsMMggGEJsBF JqOWkvGFRsHL1DWdLsSFScXqDcKZQoUAk2STl9SU3L AqUjEONbUHp5MohlNAPiRVh0VIotCD5HLGDaLjC6DN cjSNL4HMA9VBCqMQUnAeJoFHCjGJMcILjpGZwibORr AR8ocXfvvNZrayHGGzJSdX0hb1bjPZvmf7OlsRMqJG BhciANClxlcGljTmVzdERvYzEgDQpcbHRycGFyXGxp bjBccmluMCANClxsdHJjaFxjZjFcZnMyMCBSZWNlaX AsNREraqYip5XiSZmkszOdZSWuxOXfOKnsnZqqkVac GJMwwCwwbnHtvxWkuoMrnb5wbIhlxhDagvFinALpIJ cqGDZxW9VmfFTfXjM7oIVrbDKvRIAwr7AswPW1qS5j RzKlwQqlTV30bRVXPfLZuYrdgmblPAXxPFGouXv1kK RhZPXwlrEoaWGlnODxo3XznBQeHSpeqORiRW66W80t ORazoQkvm8OtXV2lAFN7swylKpYrAtQxfK8mZV9aPL KkHYlhFS3enNkilE0tLNgqRG5tjJ2cPNB9Ir5hvIZl ZNKvciAzsnHmwVUdyzZpBTUjSCQ5YVBbSLAzpBLkCG BwUqLHAU9zfu3XLVRwMKnhVHXymDSPJJF0BP7qTQha fWEtjmgdRRXcY4NjN7GbkjGsvSJyCQMvyiNyg7ehRV V8ZFNwfMFycHYkCcVhQjpnHOS8LMi5CGjrKDShA0Vw U5ToVYrpBTE0NZWzEiUmXCPlHELFAbZqEuRdUqJqEu LdQcH0WDb3DNETRpEiBjOzRhw8AQl4LFXtLJy1MWr9 XJaAGzP7AKVjIDh9PNXcQLOpABGnZZk9VERwTLpqPF QdgPXjYYygNufcXEbtX76rZsSmCirvnKJiuuPLTpGA rS2ss6cpOPnly9Hkv9Ubc0XyIWziUBajDpTpR1Pxw0 4uXHBhciANClxlcGljTmVzdERvYzEgDQpcbHRycGFy XGxpbjBccmluMCANClxsdHJjaFxjZjFcZnMyMCBSZW ImwWFzWXBvsiFty7FoBDiaqnOoUTIcvSRoFAuarRqs yZbqHDNdpVzqbkFwfgEqgpNrwz5hgGrwzgFejbOtqH GfKVcvRZGeLtpvjCO5AWObBZO1qu4nj94wfFKnIAEs AFp4kfH9pN7nJkCymjCcYSMjjdfzLRE8JW8dk5dhpU AmoTVmn0XbnPVurSClCHYiTXVapJSwuvdbES6lPFVt HHqcJS9zyUofoC6wCUjhXL6uqG4uQDX5Qw0wgWSdEO YxtdIkweVrnGWskdLnVUHuJLL6ZVJeQYQkmFCkRHAo NaRXBM3uqo6ZUVAkDDnbMSGmvNGELKY8QK3xBDmtaA YznvdiMPCyQ9PgV4ObzjRxgKBmQNUjiqVph3qzXNW5 ABUhsGSvrLUjYcVkZefiMDJ1ZBtmp8ijLUU6TWOnnX OujBXhMWwwIjKdLmxgYZMpB1KnC0WiwuL9YXg7 MICROSCOPIC DESCRIPTION (test code = g0eitTSvAOGodER4XyToJTY sj3tcz4EwbXGkmWJqBX 3371) coxELpdmKhdm89pOQ1pF92XU9fJBMfEiZ2DBCnwrU0 Xms8KLWoPVIorDAgI223y2pfr2jpwjHqbQB3hHpaRJ MyxtwtZrD5GAaqXPQfustaECt4HZlnMIDrqSU5HKJk kWMiP2ZdMYFtRC2owsg1JOZ5GFdcNIVpHdT8UITxtM DvFPIpsRlzDZfhn935GIP1TqUiDPPpjgZubAlcdC2r RuVcRPMPTTZew3OkOJFrjTFrjY== SPECIAL STUDIES (test code = 3376) l2wqzLUvEKYgi2mxRTFuiPBbWbIlOzNv ZnRuYmpcdW WoKRhzjyYkDBofh5TaG1XvFzAwXQluasUkQMRlUbzm tkwePBOuEUV6awFmKMXcQOdpKAMxOPkpOl5vjBSlcS tzUcMdBWIps4hcpnCXofxjvYb0q1noLRYuIaD6lQNg AIkmP7oqtiWxbPUuQ9IlyQMioUg2k0deMtDyWnZ1zZ MlYQiuP1stbjWsqQUzPTSlMBg0bW38MOGieV5nkEPo WAdyteVfIkI0MLgeDNZwMsX7BVPjaPXgGVJgA1hfMV ReUOclPVThWVtycJDiXRH2bIacw5C4xWIxaFDweOds HxJiScMrAcOUy3YtZTd7rJpyL6BaYROkEeO2sKHoWC VqCOlwLWZiIJAyqoE2nVvkobBwb63iiXVaQFMbZFOk GxUvdTgtGCUjPKORg5VbxAsoGCB0pHp4kKmbEjdtVR R3Dug8LC8lgb29gqq0jIipWUUrsmxwAnY3NQfrCYVi nnftQHs0VVjaXUZrtQK6MOGzaNClI3MaJZDoLP7ekq g0AOL3JDqtZFGvGsH0RMNeoYHiHRNvpJekUUlef522 ENJ5GpCbPK7hS2Dwq9I8jN1qjONjFYZyfOFdDcWhYE Drdb5deHNvRZuex9QeZVN8xxY1lUTglGRkFXAyWI19 Kyiia9KeSgtga9XrO75nnJZ0JYrkp7drGR3lYyO3ye YwIHdga8rskI2bPaG1BQuqYR1aLU1fWTRhvM0qjrag VEAnCgYnyykiWXByfZmpyqAuLb4fySdeEXI5SNewT0 isvY0wXpU6GBgeY8krkT4xQYm2DScoeJX4RQUolT4r DO9mlibre9rmRUenQMooYDKmerD0huL5BXFudJKtO7 GolJ5lKRZsXL6jxltzj4fkBSD0RPzwWAOlNJV1IuOx PJDuy3Dfdyb4IfWgm3JtyBUxDVcjH40mt683PNGqgn LfX6lsfKVlvvkgjCPdotbwYKoblsB1JKAlUQVrLMkf XGYxXGZzMjJcbGFuZzEwMzNcaGljaFxmMVxkYmNoXG CmLSjzK4ahBzCtA8LjPZJuZbNxXSbwTOaxuPXwlZBi aTW7bI8pNK9uAWOxcJUvG5ZkPUFarvRijNZrDMR4aL CdvRNjOM6jTLmjpXCvr8evt6QsZ9zbrMcrkKM6WO5e TURpXEVeGNgus6OnbP8bFkutwSSuetbbOTpvfwKqOJ ksykgzOQIhKAaoQ2tvTdKoEMUryNdoEEvhj6HzSCCo NIPdCnxhizQtBLz0tcZwCYYibtzjDXTxwOsoiF6uSp WbFjLvLynmRT7pGYFsC7gemPDdEMJeKGMkB9afHoJn qQ8hoIhgESdqWbOnNaHlLrTSo563an5lCUWttTQhrz DRqNBbmT1zJZqzGJmdJPordUGySPdgt5owDQIzg8f2 zIUrHOVderYtw7jiIYokxnKbZYJumIRleQBvFOOia1 8oWVfpbObtsZhtJTWmc3SkeFdsz5WgTuUlSYbtw9Sh M54hzREruGDycPerSKNairIlPIOzf32vq7psZUTaZs R8xIRdsRX2qGStdWQut7AzeQbrTBFxx5ftAAOtic8u gefihCNmi2RheA1bfluoSErkiMOrciFzJTRdn6a7pL CnARNfGZIvBWkggXg3TJHai635fw6wcfE2rHBqIQP0 YWlsYWJsZSBhcmUgZXZhbHVhdGVkXHBsYWluXGYxXG ZzMjJcbGFuZzEwMzNcaGljaFxmMVxkYmNoXGYxXGxv C2bnTmZqH7GvHVCnRrWgcFOeH6mpoNNqVKGlAXqmIC YxXGZzMjJcbGFuZzEwMzNcaGljaFxmMVxkYmNoXGYx IYprH6xnOfAoB7NlDUEeXkSvPYuniSXrxtnnPWfhzd MnFPjgjmppVEHtTXcqF6gaQoNoSTSozCbiJYefi5Xw QRUmXDRbFcsnmtNhJFo5tuFfWTPhdtzmmHEopujhNP cnxnZnYWlzkdsdYZQyXPemS4mtPyBkLELcqGbmDByl j8FiOYIyOQYwUpwbraQjGQlypEHvi5ssj1BtG3sjoT wwyMJ8UBYbW3irkUQdyGG4PUN9tU2rITvnkvNaTVKi n4SbJPRlLIJyLzD8dC5dDIB5QnUNmXsrMMXhVGvtGS YxXGZzMjJcbGFuZzEwMzNcaGljaFxmMVxkYmNoXGYx QIddH7nnOrDaV0GsWYXaKgQziFysNXtpOXa0EjmnbW RqbcyoCZlscuGvYTjmazhcTAFqNIgjR3zjDrRkRVYk rIwgMGkaj7ZfMQKlLEKyArwnpzLzOHWpJPIndZIdfI WEJD14TBUjGFHfkJfgfE1evYKVNVWkejJ3t4G9TBdu QHIlVGd5TPfgcgOvPPPkoF1mXYRnLX1kDIj0vpVmOL Ayl7UqVC6jJSMmvYXeSVB0KYXgs7MoY3Wpc2VtHOIk VBAkok0zhzAlBrOEgGNjNLQpdj19DDLxVO1nV6tdJW YdWUWtrhCdtTMdp3IpZKQcuDV9cTTgBU0KMmJMe01t NSDjQUGGibBnKTLmxYeulSN0clN5oD7tPfBCaDWuAf RPOXqdmtVxQJKlba0qjdZsELWwUGOnx4SnyCLhsLGi mbIxH6Cbz4UxCAStgu46KRhtlIDjrf56YK7wH8Ejp0 NvlO7vVRylOKQlf5QhaOSkyEYuXEFxh4HiO6awadra TAtzaUZuhH8qMFWlZBv8JBNgo8SkOPYbh6IxWkKkty EmWDXrMRLcGBRelI88IJA0qWtfqQvmlnRyHY4aRBTq raZeSJMiTWTdiR6fDWqbqcZuNCNywcL4i6H0QIwxCP VvfuSmXuvqZGE6hbIufeF3jRNnD3ppqlzzFZqaPNFi l8FmhA0kfVCUoNDvi3ZzpZFfkUWOqGNdBO0obvGvEV 8uKJN2SFvaTTNISOXuJQfnHRCcKMF8ITfkQxnaMZG0 pbDuIRUvj9HzDGojZ9atY91ctNhknIo3dSExhCvgyW MuyGSmSBCcyfZ3z6H1PXLqm8ZwbiasZOJtCUhqZGQa XGZzMjJcbGFuZzEwMzNcaGljaFxmMlxkYmNoXGYyXG myS7niLrEbQtRcJyzoQPF4kA== [id number] 17:38:23Surgical Pathology Report Case: [id number] Authorizing Provider: Mireya Howard MD Collected: 03/28/2022 04:35 PM Ordering Location: [address] Med/Surg Received: 03/29/2022 08:04 AM Pathologist: Amanda Amado MD Specimens: A) - Biopsy, Gastric, R/O H.Pylori B) - Biopsy, Gastroesophageal Junction This addendum is issued to report the result of immunohistochemical study for Helicob acter pylori:- NEGATIVE The interpretation of this case included the use of immunohistochemistry or special stains. HELICOBACTER PYLORIImmunohistochemistry technical testing was performed at [facility], Pathology Laboratory where it was developed and its performance characteristics were determined. It has not been cleared or approved by the U.S. Food and Drug Administration. TheFDA has determined that such clearance or approval is not necessary. The test is used for clinical purposes. It should not be regarded as investigational or for research. This laboratory is certified under the Clinical Laboratory Improvement Amendments of 1988 (CLIA-88) as qualified to perform high complexity clinical laboratory testing. CPT CODE: 95209 Addendum electronically signed by Amanda Amado MD on 04/03/2022 at 5:38 PMA. STOMACH, RANDOM, ENDOSCOPIC BIOPSY: - CHRONIC GASTRITIS WITH FOCAL ACTIVITY - NO HELICOBACTER PYLORI-LIKE ORGANISMS SEEN ON WARTHIN-STARRY STAIN - NO INTESTINAL METAPLASIA, DYSPLASIA OR MALIGNANCY NOTED - IMMUNOHISTOCHEMICAL STAIN FOR HELICOBACTER IS BEING DONE; RESULT WILL BE ISSUED IN ADDENDUM REPORTB. GASTROESOPHAGEAL JUNCTION NODULE, ENDOSCOPIC BIOPSY: - AFRAGMENT OF COLUMNAR MUCOSA WITH MILD CHRONIC GASTRITIS WITH FOCAL ACTIVITY - NO SQUAMOUS MUCOSA SEEN - NO INTESTINAL METAPLASIA PRESENT - NO DYSPLASIA OR MALIGNANCY NOTED Signing Pathologist Direct Phone Line: [phone] signed by Amanda Amado MD on 04/01/2022 at 5:30 [id number] X 2Anemia/melena A. Biopsy, Gastric.Received in formalin labeled with the patient's information and labeled "gastric tissue, description: rule out H. Pylori" are multiple fragments of almeida- white mucosal tissue measuring 0.1 to 0.3 cm in maximum dimension submitted entirely in cassette labeled A1. BH/ewB. Biopsy, Gastroesophageal Junction.Received in formalin labeled with the patient's information and labeled "biopsy, gastroesophageal junction" is a single almeida-white mucosal piece measuring 0.3 cm in maximum dimension submitted entirely in cassette labeled B1. BH/ewPerformedThe interpretation of this case included the use of immunohistochemistry or special stains.Control Slides Examined: In-house known positive controls were evaluated along with the test tissue. These control slides run alongsideof the patients sample show appropriate staining. Internal positive and negative controls when available are evaluated Immunohistochemistry technical testing was performed at [facility], Pathology Laboratory where it was developed and its performance characteristics were determined. It has not been cleared or approved by the U.S. Food and Drug Administration. The FDA has determined that such clearance or approval is not necessary. The test is used for clinical purposes. It should not be regarded as investigational or for research. This laboratory is certified under the Clinical Laboratory Improvement Amendments of 1988 (CLIA-88) as qualified to perform high complexity clinical laboratory testing.Prepare Leuko-Red [id number] 23:54:00 Test Item Value Reference Range Interpretation Comments CROSSMATCH (test code = 2264) COMPATIBLE Unit ABO (test code = A Pos 5181671) UNIT NUMBER (test code = [id number] 934-0) Status (test code = 0503283) TX_TIMEINCHART Blood Bank Product (test code RED BLOOD CELLS = 2263) PRODUCT CODE (test code = [id number] 933-2) [facility] [id number] 15:55:00 [facility] : 1950 Sex: FFINAL REPORT CT, BRAIN, WITHOUT CONTRAST CLINICAL INDICATION: Headache, new or worsening (Age >= 50y) COMPARISON: None TECHNIQUE: Noncontrast axial CT imaging of the brain and skull. DOSE REDUCTION: Dose modulation, iterative reconstruction, and/or weight-based adjustment of the mA/kV was utilized to reduce the radiation dose to as low as reasonably achievable. FINDINGS:No intracranial hemorrhage, midline shift or mass effect. Midline structures are normally developed. Scatteredfoci of hypoattenuation are present throughout the periventricular and subcortical white matter, and, although nonspecific by imaging, statistically represent mild chronic microvascular ischemic changes in this age group. No hydrocephalus. Orbits are within normal limits. No obstructive paranasal sinus disease. Small left mastoid effusion. IMPRESSION: No acute intracranial findings If there is persistent clinical concern for intracranial pathology, MR examination is recommended for further characteri zation. Signed: Peace Grey MDReport Verified Date/Time: 03/29/2022 15:55:47 -CoV2/RT-PCR (Asymptomatic ONLY)2022-03-29 14:13:56 Test Item Value Reference Interpretation Comments Range SARS-COV2/RT-PCR Negative Negative The SARS-Co V-2 (test code = target nucleic 74797-0) acids are not detected in thi s specimen. Negat sakshi results do not preclude SARS-C oV-2 infection and should not be u sed as the sole bas is for patient management decisions. Nega tive results must be combined with clinical observations, patient history , and epidemiolog ical information. A false negative result may occu r if a specimen is improperly collected, transported or handled. This S ARS CoV-2 test is a rapid, real-leanna e RT-PCR test intended for th e qualitative detection of nucleic acid fr om SARS-CoV-2 in a nasopharyngeal swab specimen colle desirae from individual s suspected of COVID-19 by the ir healthcare provider. VINCENT (test code = This test has been VINCENT) authorized by FDA under an EUA for use by authorized laboratories. This test is only authorized for the duration of the declaration that circumstances exist justifying the authorization of emergency use of in vitro diagnostic tests for detection and/or diagnosis of COVID-19 under Section 564(b)(1) of the Federal Food, Drug and Cosmetic Act, 21 U.S.C. 360bbb-3(b)(1), unless the authorization is terminated or revoked sooner. Fact Sheet for Healthcare Providers: https://www.[employer]/Documents/Xp ert%20Xpress%20SAR S%20CoV-2/Fact%20S heets/302-3802%20S ARS-COV-2%20HEALTH CARE%20PROVIDERS%2 0FACT%20SHEET.pdf Fact Sheet for Healthcare Patients: https://www.[employer]/Documents/Xp ert%20Xpress%20SAR S%20CoV-2/Fact%20S heets/302-3801%20S ARS-COV-2%20PATIEN T%20FACT%20SHEET.p df Lab Interpretation Normal (test code = 62797-2) [facility]2022-03-29 14:13:56 Test Item Value Reference Range Interpretation Comments SARS-COV2/RT-PCR Negative Negative The SARS-Co V-2 target (test code = nucleic acids a re not 9429206) detected in thi s specimen. Negative result s do not preclude SARS-C oV-2 infection and s hould not be used as the samira e basis for patient managem ent decisions. Nega tive results must be combine d with clinical observ ations, patient history , and epidemiological information. A false negativ e result may occur if a spec imen is improperly christy ected, transported or handled. This SARS CoV-2 test is a rapid, real-time RT-PC R test intended for th e qualitative detection of nu cleic acid from SARS-CoV-2 in a nasopharyngeal swab specimen collected from individuals suspected of CO VID-19 by their healthcar e provider. This test has been authorized by FDA under an EUA for use by authorized laboratories. This test is only authorized for the duration of the declaration that circumstances exist justifying the authorization of emergency use of in vitro diagnostic tests for detection and/or diagnosis of COVID-19 under Section 564(b)(1) of the Federal Food, Drug and Cosmetic Act, 21 U.S.C. 360bbb-3(b)(1), unless the authorization is terminated or revoked sooner. Fact Sheet for Healthcare Providers: https://www.[employer]/Documents/Xpert%20Xpress%20SARS%20CoV-2/Fact%20Sheets/302-3802%83OVUO-EJA-9%20 HEALTHCARE%20PROVIDERS%20FACT%20SHEET.pdf Fact Sheet for Healthcare Patients: https://www.[employer]/Documents/Xpert%20Xp ress%20SARS%20CoV-2/Fact%20Sheets/3023801%57VDYM-TJV-3%20PATIENT%20FACT%20SHEET .[id number] 07:14:00 Test Item Value Reference Range Interpretation Comments MAGNESIUM (BEAKER) 1.9 mg/dL 1.5-3.0 Specimen slightly (test code = 627) hemolyzed [employer] ID - DSENSONOperator ID - DSENSONOperator ID - DSENSONOperator ID - DSENSONBASIC METABOLIC [id number] 07:12:25 Test Item Value Reference Range Interpretation Comments SODIUM (BEAKER) 134 meq/L 135-148 L (test code = 381) POTASSIUM 4.6 meq/L 3.6-5.5 Specimen slight ly (BEAKER) (test hemolyzed code = 379) CHLORIDE (BEAKER) 104 meq/L 98-106 (test code = 382) CO2 (BEAKER) 20 meq/L 20-29 (test code = 355) BLOOD UREA 11 mg/dL 10-26 NITROGEN (BEAKER) (test code = 354) CREATININE 0.63 mg/dL 0.50-1.20 Specimen slight ly (BEAKER) (test hemolyzed code = 358) GLUCOSE RANDOM 70 mg/dL 70-110 (BEAKER) (test code = 652) CALCIUM (BEAKER) 8.4 mg/dL 8.5-10.5 L (test code = 697) EGFR (BEAKER) 94 Interpretatio n of eGFR (test code = mL/min/1.73 values Stage De scription 1092) sq m Result G1 Lluvia l or high >=90 G2 Mildly decreased 60-89 G3a Mildl y to moderately 45-5 9 G3b Moderately to s everely 30-44 G4 Severl y decreased 15-29 G5 Kidney failure <15Reported eGF R is based on the CKD-EPI 2020 equation that d oes not use a race coefficientEsti mated GFR is not as accur ate as Creatinine Krysta rosio in predicting glom erular filtration rate . Estimated GFR is not appl icable for dialysis patien ts [employer] ID - DSENSONOperator ID - DSENSONOperator ID - DSENSONOperator ID - DSENSONOperator ID - DSENSONOperator ID - DSENSONOperator ID - DSENSONOperator ID - DSENSONOperator ID - [id number] W/PLT COUNT & AUTO DIFFERENTIAL 2022-03-29 06:29:38 Test Item Value Reference Range Interpretation Comments WHITE BLOOD CELL COUNT (BEAKER) 3.4 K/ L 4.0-10.0 L (test code = 775) RED BLOOD CELL COUNT (BEAKER) 3.78 M/ L 4.00-5.00 L (test code = 761) HEMOGLOBIN (BEAKER) (test code = 9.8 GM/DL 12.0-15.5 L 410) HEMATOCRIT (BEAKER) (test code = 31.3 % 36.0-46.0 L 411) MEAN CORPUSCULAR VOLUME (BEAKER) 82.8 fL 82.0-99.0 (test code = 753) MEAN CORPUSCULAR HEMOGLOBIN 25.9 pg 27.0-33.0 L (BEAKER) (test code = 751) MEAN CORPUSCULAR HEMOGLOBIN CONC 31.3 GM/DL 32.0-36.0 L (BEAKER) (test code = 752) RED CELL DISTRIBUTION WIDTH 21.2 % 12.0-15.0 H (BEAKER) (test code = 412) PLATELET COUNT (BEAKER) (test 220 K/CU MM 150-430 code = 756) MEAN PLATELET VOLUME (BEAKER) 9.2 fL 6.0-11.5 (test code = 754) NUCLEATED RED BLOOD CELLS 0 /100 WBC 0-0 (BEAKER) (test code = 413) NEUTROPHILS RELATIVE PERCENT 57 % (BEAKER) (test code = 429) LYMPHOCYTES RELATIVE PERCENT 19 % (BEAKER) (test code = 430) MONOCYTES RELATIVE PERCENT 14 % (BEAKER) (test code = 431) EOSINOPHILS RELATIVE PERCENT 9 % (BEAKER) (test code = 432) BASOPHILS RELATIVE PERCENT 1 % (BEAKER) (test code = 437) NEUTROPHILS ABSOLUTE COUNT 1.91 K/ L 1.80-8.00 (BEAKER) (test code = 670) LYMPHOCYTES ABSOLUTE COUNT 0.62 K/ L 1.48-4.50 L (BEAKER) (test code = 414) MONOCYTES ABSOLUTE COUNT (BEAKER) 0.48 K/ L 0.00-1.30 (test code = 415) EOSINOPHILS ABSOLUTE COUNT 0.30 K/ L 0.00-0.50 (BEAKER) (test code = 416) BASOPHILS ABSOLUTE COUNT (BEAKER) 0.03 K/ L 0.00-0.20 (test code = 417) IMMATURE GRANULOCYTES-RELATIVE 0 % 0-0 PERCENT (BEAKER) (test code = 2801) HEMOGLOBIN AND [id number] 00:52:25 Test Item Value Reference Range Interpretation Comments HEMOGLOBIN (BEAKER) (test code = 9.3 GM/DL 12.0-15.5 L 410) HEMATOCRIT (BEAKER) (test code = 29.4 % 36.0-46.0 L 411) HEMOGLOBIN AND [id number] 18:28:26 Test Item Value Reference Range Interpretation Comments HEMOGLOBIN (BEAKER) (test code = 9.8 GM/DL 12.0-15.5 L 410) HEMATOCRIT (BEAKER) (test code = 30.8 % 36.0-46.0 L 411) VITAMIN [id number] 14:17:34 Test Item Value Reference Range Interpretation Comments VITAMIN B12 (BEAKER) (test code = 320 pg/mL 211-911 774) [employer] ID - [id number], TIBC, % SAT. (WITHOUT FERRITIN)2022-03-28 14:03:05 Test Item Value Reference Range Interpretation Comments IRON (BEAKER) (test code = 547) 12.0 ug/dL 45.0-170.0 L TOTAL IRON BINDING CAPACITY 276 ug/dL 250-550 (BEAKER) (test code = 769) IRON % SATURATION (2) (BEAKER) 4 % 20-55 L (test code = 2590) [employer] ID - [id number] ID - [id number] AND [id number] 13:32:16 Test Item Value Reference Range Interpretation Comments HEMOGLOBIN (BEAKER) (test code = 9.3 GM/DL 12.0-15.5 L 410) HEMATOCRIT (BEAKER) (test code = 29.3 % 36.0-46.0 L 411) HEMOGLOBIN AND [id number] 05:22:18 Test Item Value Reference Range Interpretation Comments HEMOGLOBIN (BEAKER) (test code = 4.8 GM/DL 12.0-15.5 LL 410) HEMATOCRIT (BEAKER) (test code = 15.9 % 36.0-46.0 LL 411) CBC W/PLT COUNT & AUTO [id number] 22:57:56 Test Item Value Reference Range Interpretation Comments WHITE BLOOD CELL COUNT (BEAKER) 2.8 K/ L 4.0-10.0 L (test code = 775) RED BLOOD CELL COUNT (BEAKER) 2.25 M/ L 4.00-5.00 L (test code = 761) HEMOGLOBIN (BEAKER) (test code = 5.4 GM/DL 12.0-15.5 LL 410) HEMATOCRIT (BEAKER) (test code = 18.2 % 36.0-46.0 LL 411) MEAN CORPUSCULAR VOLUME (BEAKER) 80.9 fL 82.0-99.0 L (test code = 753) MEAN CORPUSCULAR HEMOGLOBIN 24.0 pg 27.0-33.0 L (BEAKER) (test code = 751) MEAN CORPUSCULAR HEMOGLOBIN CONC 29.7 GM/DL 32.0-36.0 L (BEAKER) (test code = 752) RED CELL DISTRIBUTION WIDTH 23.0 % 12.0-15.0 H (BEAKER) (test code = 412) PLATELET COUNT (BEAKER) (test 210 K/CU MM 150-430 code = 756) MEAN PLATELET VOLUME (BEAKER) 9.4 fL 6.0-11.5 (test code = 754) NUCLEATED RED BLOOD CELLS 0 /100 WBC 0-0 (BEAKER) (test code = 413) (MANUAL DIFFERENTIAL)2022-03-27 22:57:56 Test Item Value Reference Range Interpretation Comments NEUTROPHILS - REL (DIFF) (BEAKER) 65 % (test code = 1359) LYMPHOCYTES - REL (DIFF) (BEAKER) 23 % (test code = 1360) MONOCYTES - REL (DIFF) (BEAKER) 3 % (test code = 1361) EOSINOPHILS - REL (DIFF) (BEAKER) 9 % (test code = 1362) NEUTROPHILS - ABS (DIFF) (BEAKER) 1.82 K/ L 1.80-8.00 (test code = 1365) LYMPHOCYTES - ABS (DIFF) (BEAKER) 0.64 K/ L 1.48-4.50 L (test code = 1366) MONOCYTES - ABS (DIFF) (BEAKER) 0.08 K/ L 0.00-1.30 (test code = 1367) EOSINOPHILS - ABS (DIFF) (BEAKER) 0.25 K/ L 0.00-0.50 (test code = 1368) TOTAL COUNTED (BEAKER) (test code = 100 1351) WBC MORPHOLOGY (BEAKER) (test code Normal = 487) PLT MORPHOLOGY (BEAKER) (test code Normal = 486) RBC MORPHOLOGY (BEAKER) (test code Normal = 762) TROPONIN [id number] 22:38:39 Test Item Value Reference Range Interpretation Comments TROPONIN I (BEAKER) (test code = 397) < ng/mL 0.00-0.15 Troponin I (TnI) levels must be interpreted in the context of the presenting symptoms and the clinical findings. Elevated TnI levels indicate myocardial damage, but are not specific for ischemic heart disease. Elevated TnI levels are seen in patients with other cardiac conditions (including myocarditis and congestive heart failure), and slight TnI elevations occur in patients with other conditions, including sepsis, renal failure, acidosis, acute neurological disease, and persistent tachyarrhythmia.[employer] ID - [id number] I 2022-03-27 22:37:56 Test Item Value Reference Range Interpretation Comments TROPONIN I (BEAKER) (test code = 397) < ng/mL 0.00-0.15 Troponin I (TnI) levels must be interpreted in the context of the presenting symptoms and the clinical findings. Elevated TnI levels indicate myocardial damage, but are not specific for ischemic heart disease. Elevated TnI levels are seen in patients with other cardiac conditions (including myocarditis and congestive heart failure), and slight TnI elevations occur in patients with other conditions, including sepsis, renal failure, acidosis, acute neurological disease, and persistent tachyarrhythmia.[employer] ID - [id number] METABOLIC [id number] 22:32:50 Test Item Value Reference Range Interpretation Comments TOTAL PROTEIN 5.1 gm/dL 6.0-8.5 L (BEAKER) (test code = 770) ALBUMIN (BEAKER) 2.4 g/dL 3.5-5.0 L (test code = 1145) ALKALINE 104 U/L 30-115 PHOSPHATASE (BEAKER) (test code = 346) BILIRUBIN TOTAL 0.2 mg/dL 0.1-1.2 (BEAKER) (test code = 377) SODIUM (BEAKER) 135 meq/L 135-148 (test code = 381) POTASSIUM (BEAKER) 4.2 meq/L 3.6-5.5 (test code = 379) CHLORIDE (BEAKER) 105 meq/L 98-106 (test code = 382) CO2 (BEAKER) (test 23 meq/L 20-29 code = 355) BLOOD UREA 11 mg/dL 10-26 NITROGEN (BEAKER) (test code = 354) CREATININE 0.62 mg/dL 0.50-1.20 (BEAKER) (test code = 358) GLUCOSE RANDOM 107 mg/dL 70-110 (BEAKER) (test code = 652) CALCIUM (BEAKER) 7.5 mg/dL 8.5-10.5 L (test code = 697) AST (SGOT) 13 U/L 5-40 (BEAKER) (test code = 353) ALT (SGPT) 7 U/L 5-50 (BEAKER) (test code = 347) EGFR (BEAKER) 95 Interpretatio n of eGFR (test code = 1092) mL/min/1.[address] age Description sq m Result G1 Lluvia l or high >=90 G2 Mildly decreased 60-89 G3a Mildl y to moderately 45-5 9 G3b Moderately to s everely 30-44 G4 Severl y decreased 15-29 G5 Kidney failure <15Reported eGF R is based on the CKD-EPI 2020 equation that d oes not use a race coefficientEsti mated GFR is not as accur ate as Creatinine Krysta rosio in predicting glom erular filtration rate . Estimated GFR is not appl icable for dialysis patien ts [employer] ID - [id number] ID - [id number] ID - [id number] ID - [id number] ID - [id number] ID - [id number] ID - [id number] ID - [id number] ID - [id number] ID - [id number] ID - [id number] ID - [id number] ID - [id number] ID - [id number] ID - [id number] ID - [id number] 22:31:18 Test Item Value Reference Range Interpretation Comments MAGNESIUM (BEAKER) (test code = 1.7 mg/dL 1.5-3.0 627) [employer] ID - [id number] ID - [id number] ID - [id number] ID - [id number] 22:28:18 Test Item Value Reference Range Interpretation Comments PHOSPHORUS (BEAKER) (test code = 3.1 mg/dL 2.5-4.5 604) [employer] ID - [id number] 22:24:59 Test Item Value Reference Range Interpretation Comments PROTIME (BEAKER) 12.2 seconds 9.3-12.0 H Final Infor mation (test code = 759) (Auto Outp ut) INR (BEAKER) (test 1.12 See_Comment Final Inf ormation code = 370) (Auto Output) [Automated mess age] The system [employer] h generated this result transmitted ref erence range: <=5.90. The reference range was not used to int erpret this result as normal/abnormal . RECOMMENDED COUMADIN/WARFARIN INR THERAPY RANGESSTANDARD DOSE: 2.0 - 3.0 Includes: PROPHYLAXIS for venous thrombosis, systemic embolization; TREATMENT for venous thrombosis and/or pulmonary embolus.HIGH RISK: Target INR is 2.5-3.5 for patients with mechanical heart valves.
--- NOTE | 2022-09-03 18:29 | RAD REPORT ---
EXAM DESCRIPTION: RAD - Knee Left 3 View - 09/03/2022 6:14 pm CLINICAL HISTORY: Left knee pain FINDINGS: No fracture or dislocation is seen. Left knee prosthesis present Lucency surrounds the lateral component of the femoral prosthesis which may indicate loosening
--- NOTE | 2022-09-03 18:54 | EDPHYS ---
Physician Documentation [facility] Name: Rocio Turcios Age: 72 yrs Sex: Female : 1950 Arrival Date: 09/03/2022 Time: 16:44 Bed 7 Private MD: ED Physician Sarath Santoyo HPI: 09/03 19:43 This 72 yrs old Female presents to ER via EMS with complaints of knee pain. kb 19:43 The patient presents with an injury, pain, swelling, tenderness. The complaints affect kb the left knee. Context: The problem was sustained at home, resulted from the patient falling, the patient can partially bear weight. Onset: The symptoms/episode began/occurred just prior to arrival. Modifying factors: The symptoms are alleviated by nothing. the symptoms are aggravated by movement, weight bearing. Associated signs and symptoms: Pertinent positives: tingling. Treatment prior to arrival includes: no previous treatment. Severity of symptoms: At their worst the symptoms were moderate, in the emergency department the symptoms are unchanged. The patient has not experienced similar symptoms in the past. The patient has not recently seen a physician. Historical: - Allergies: 16:54 No Known Allergies; ph - PMHx: 16:54 Arthritis; COPD; heart disease; Hypertensive disorder; rhabdomyolysis; Rheumatoid ph Arthritis; - Immunization history:: Adult Immunizations unknown. - Social history:: Smoking status: Patient reports the use of cigarette tobacco products, denies chronic smoking, but will smoke occasionally, Reported history of juuling and/or vaping. ROS: 19:42 Constitutional: Negative for fever, chills, and weight loss. kb 19:42 MS/extremity: Positive for pain, swelling, of the left knee. 19:42 All other systems are negative. Exam: 19:42 Constitutional: This is a well developed, well nourished patient who is awake, alert, kb and in no acute distress. Head/Face: Normocephalic, atraumatic. ENT: Moist Mucous membranes Cardiovascular: Regular rate and rhythm with a normal S1 and S2. No gallops, murmurs, or rubs. No pulse deficits. Respiratory: Respirations even and unlabored. No increased work of breathing. Talking in full sentences Abdomen/GI: Soft, non-tender. No distention Skin: Warm, dry with normal turgor. Normal color. Neuro: Awake and alert, GCS 15, oriented to person, place, time, and situation. Moves all extremities. Normal gait. Psych: Awake, alert, with orientation to person, place and time. Behavior, mood, and affect are within normal limits. 19:42 Musculoskeletal/extremity: Extremities: grossly normal except: noted in the left knee: pain, swelling, tenderness, ROM: intact in all extremities, Circulation is intact in all extremities. Sensation intact. Vital Signs: 16:45 BP 157 / 95; Pulse 94; Resp 18; Temp 97.8; Pulse Ox 100% on R/A; Weight 63.5 kg; Height ph 5 ft. 2 in. (157.48 cm); 19:14 BP 136 / 78; Pulse 95; Resp 18; Temp 98.0; Pulse Ox 100% on R/A; ph 16:45 Body Mass Index 25.61 (63.50 kg, 157.48 cm) ph MDM: 16:45 Patient medically screened. kb 19:42 Differential diagnosis: dislocation, closed fracture, contusion. Data reviewed: vital kb signs, nurses notes. Historians other than the Patient: EMS: [facility]. Counseling: I had a detailed discussion with the patient and/or guardian regarding: the historical points, exam findings, and any diagnostic results supporting the discharge/admit diagnosis, radiology results, the need for outpatient follow up, a orthopedic surgeon, to return to the emergency department if symptoms worsen or persist or if there are any questions or concerns that arise at home. ED course: Pt will follow up with orthopedist that did the knee replacement in [place]. 09/03 16:46 Order name: Knee Left 3 View XRAY; Complete Time: 18:31 kb 09/03 18:51 Order name: Frank Wrap; Complete Time: 19:09 kb Administered Medications: 19:12 Drug: traMADol 50 mg Route: PO; kr3 19:15 Follow up: Response: No adverse reaction ph Disposition Summary: 09/03/22 18:53 Discharge Ordered Location: Home kb Condition: Stable kb Diagnosis - Fall (on) (from) unspecified stairs and steps kb - Pain in left knee kb Followup: kb - With: Emergency Department - When: As needed - Reason: Worsening of condition Followup: kb - With: Private Physician - When: 2 - 3 days - Reason: Recheck today's complaints, Continuance of care, Re-evaluation by your physician Discharge Instructions: - Discharge Summary Sheet kb - Musculoskeletal Pain kb Forms: - Medication Reconciliation Form kb - Thank You Letter kb - Antibiotic Education kb - Prescription Opioid Use kb Prescriptions: - Tramadol 50 mg Oral Tablet - take 1 tablet by ORAL route every 8 hours as needed; 12 tablet; Refills: 0, kb Product Selection Permitted Signatures: Dispatcher [employer] EDConchita Lambert, Leti Uribe, RN RN Sue Leong RN RN kr3
--- NOTE | 2022-09-03 18:54 | ER ---
Nurse's Notes [facility] Name: Rocio Turcios Age: 72 yrs Sex: Female : 1950 Arrival Date: 09/03/2022 Time: 16:44 Bed 7 Private MD: Diagnosis: Fall (on) (from) unspecified stairs and steps;Pain in left knee Presentation: 09/03 16:45 Chief complaint: EMS states: Mechanical fall from standing, was outside picking up plants after storm and tripped, c/o pain to L knee, denies injury to head or LOC. Coronavirus screen: Vaccine status: Patient reports receiving the 2nd dose of the covid vaccine. Ebola Screen: No symptoms or risks identified at this time. Initial Sepsis Screen: Does the patient meet any 2 criteria? No. Patient's initial sepsis screen is negative. Does the patient have a suspected source of infection? No. Patient's initial sepsis screen is negative. Risk Assessment: Do you want to hurt yourself or someone else? Patient reports no desire to harm self or others. Onset of symptoms was September 03, 2022. 16:45 Method Of Arrival: EMS: [facility] 16:45 Acuity: RADHIKA 4 ph Triage Assessment: 16:54 General: Appears in no apparent distress. Behavior is calm, cooperative. Pain: ph Complains of pain in left knee. Neuro: Level of Consciousness is awake, alert, obeys commands, Oriented to person, place, time, situation. Derm: Skin is healthy with good turgor, Skin is pink, warm \T\ dry. Musculoskeletal: Reports pain in left knee. Historical: - Allergies: 16:54 No Known Allergies; ph - PMHx: 16:54 Arthritis; COPD; heart disease; Hypertensive disorder; rhabdomyolysis; Rheumatoid ph Arthritis; - Immunization history:: Adult Immunizations unknown. - Social history:: Smoking status: Patient reports the use of cigarette tobacco products, denies chronic smoking, but will smoke occasionally, Reported history of juuling and/or vaping. Screenin:55 [facility] ED Fall Risk Assessment (Adult) History of falling in the last 3 months, ph including since admission Yes- single mechanical fall (1 pt) Confusion or Disorientation No (0 pts) Intoxicated or Sedated No (0 pts) Impaired Gait No (0 pts) Mobility Assist Device Used No (0 pt) Altered Elimination No (0 pt) Score/Fall Risk Level 0 - 2 = Low Risk Oriented to surroundings, Maintained a safe environment. Abuse screen: Denies threats or abuse. Denies injuries from another. Nutritional screening: No deficits noted. Tuberculosis screening: No symptoms or risk factors identified. Assessment: 17:56 Reassessment: Patient appears in no apparent distress at this time. Patient and/or ph family updated on plan of care and expected duration. Pain level reassessed. Patient is alert, oriented x 3, equal unlabored respirations, skin warm/dry/pink. 19:13 Reassessment: Patient appears in no apparent distress at this time. Patient and/or ph family updated on plan of care and expected duration. Pain level reassessed. Patient is alert, oriented x 3, equal unlabored respirations, skin warm/dry/pink. Vital Signs: 16:45 BP 157 / 95; Pulse 94; Resp 18; Temp 97.8; Pulse Ox 100% on R/A; Weight 63.5 kg; Height ph 5 ft. 2 in. (157.48 cm); 19:14 BP 136 / 78; Pulse 95; Resp 18; Temp 98.0; Pulse Ox 100% on R/A; ph 16:45 Body Mass Index 25.61 (63.50 kg, 157.48 cm) ph ED Course: 16:44 Patient arrived in ED. ph 16:45 Leti Hutchinson, AISHA is Primary Nurse. ph 16:45 Conchita Torre FNP-C is [facility]. kb 16:45 Sarath Santoyo DO is Attending Physician. kb 16:53 Triage completed. ph 16:54 Arm band placed on Patient placed in an exam room. ph 17:56 Patient has correct armband on for positive identification. Bed in low position. Call ph light in reach. Side rails up X 1. Pulse ox on. NIBP on. 18:16 Knee Left 3 View XRAY In Process Unspecified. EDMS 19:09 No provider procedures requiring assistance completed. Patient did not have IV access ph during this emergency room visit. Administered Medications: 19:12 Drug: traMADol 50 mg Route: PO; kr3 19:15 Follow up: Response: No adverse reaction ph Medication: 17:56 VIS not applicable for this client. ph Outcome: 18:53 Discharge ordered by . kb 19:14 Discharged to home with family. ph 19:14 Condition: good 19:14 Discharge instructions given to patient, family, Instructed on discharge instructions, follow up and referral plans. medication usage, Demonstrated understanding of instructions, follow-up care, medications, Prescriptions given X 1. 19:27 Patient left the ED. ph Signatures: Dispatcher [employer] EDMS Conchita Torre, Leti Uribe RN RN Sue Leong RN RN kr3
[2022-09-03] MEDS ORDERED: TRAMADOL HCL 50 MG TAB ONE (19:11)
[2022-09-03 19:43] VITALS: O2SAT 100
[2022-09-03 19:44] VITALS: BP 136/78; TEMP 98
== END 2022-09-03 19:27 | disposition home or self-care (01) ==
LOC: ER 16:42
DX: M25.562 Pain in left knee (principal); W10.9XXA Fall (on) (from) unspecified stairs and steps, initial encounter; I10 Essential (primary) hypertension; F17.210 Nicotine dependence, cigarettes, uncomplicated
CPT/HCPCS: 99284

== ENCOUNTER 2022-09-06 14:14 | Emergency (ER) | payer OTHER ==
--- OUTSIDE RECORDS SUMMARY | 2022-09-06 14:19 | XMS REPORT | Continuity of Care Document ---
:1950 Author Organization [facility] t Address [address] [place] [address] Care Team Providers Name Role Phone No, Pcp [facility] Primary Care Physician Unavailable Jada Root Attending Clinician Unavailable GALILEO STEPHENSON Attending Clinician Unavailable Galileo Stephenson MD Attending Clinician Mark MENDIOLA, Zoya Cedeño Attending Clinician Mireya Howard MD Attending Clinician [phone] Cheikh Mcdonnell MD Attending Clinician ZOYA MOLINA Admitting Clinician Unavailable Payers Payer Name Policy Type Policy Number Effective Date Expiration Date S jason AETNA 53 [id number] [facility] MEDICARE A B [id number] 2014 00:00:00 [employer] INDEMNITY [id number] 2017 NON CONTR 00:00:00 MEDICARE MB [id number] [facility] NOVITAS - [facility] MEDICARE MB [id number] [facility] N[facility] - [facility] MEDICARE MB [id number] [facility] NOVITAS - [facility] Problems Condition Condition Condition Status Onset Resolution Last Treating Co mments Source Name Details Category Date Date Treatment Clinician Date GI bleed GI bleed Disease Active [facility] 00 [place] Severe Severe Disease Active [facility] anemia anemia [facility] 00:[facility]: Medical 00 [place] [id number] Chronic Problem Common peptic Spirit ulcer of - [facility] stomach [facility] [id number] Pressure Problem Comm on injury of Spirit coccygeal - 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 without complicati [facility] [id number] Rheumatoid Problem Co mmon arthritis Spirit with - [facility] rheumatoid St factor of [facility] right hand Medica l without Center organ or systems involvemen t [id number] Iron Problem Common deficiency [facility] anemia - [facility] secondary to 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 type [facility] [id number] Abnormal Problem Comm on cardiac Spirit enzyme - [facility] level [facility] [id number] Centrilobu Problem Com mon lar Spirit emphysema - [facility] Allergies, Adverse Reactions, Alerts Allergy Allergy Status Severity Reaction(s) Onset Inactive Treating Comm ents Source Name Type Date Date Clinician NO KNOWN Allergy Active [facility] Social History Social Habit Start Date Stop Date Quantity Comments Source History of Tobacco Current Smoker Co mmon [facility] - Use [facility] Sex Assigned At [birth year] [facility] 00:[facility]:00 [facility]00 [facility] Smoking Status Start Date Stop Date Source Current Smoker 2022-08-22 00:00:00 [facility] - [facility] Former smoker 2022-03-27 00:00:00 2022-03-27 00:00:00 [facility] Medications Ordered Filled Start Stop Current Ordering Indication Dosage Frequency Signature Comments Components Source Medication Medication Date Date Medication? Clinician (SIG) Name Name albuterol Yes 1{ampul Take [address] (ACCUNEB) 8-19 e} ampule [facility] 0.[facility] mg/3 19:02: nebulizati Me dical mL 41 on every 6 Center nebulizer (six) solution hours as needed for Wheezing. albuterol Yes 1{ampul Take [address] (ACCUNEB) 8-19 e} ampule [facility] 0.63 mg/3 19:02: nebulizati Me dical mL 41 on every 6 Center nebulizer (six) solution hours as needed for Wheezing. aspirin 81 2021- No 81mg QD Take [address] MG chewable 03-29- by mouth Ankush es tablet 16:51: 00:00 daily. Medical 10 :00 [place] aspirin 81 2021- No 81mg QD Take [address] MG chewable -29 03-19 by mouth Ankush es tablet 16:51: 00:00 daily. [facility] 10 :00 [place] pantoprazol Yes 40mg Q.5D Take [address] e 8-19 tablet (40 [facility] (PROTONIX) 00:00: mg total) Me dical 40 MG 00 by mouth 2 Center tablet (two) times daily. pantoprazol Yes 40mg Q.5D Take [address] e 8-19 tablet (40 [facility] (PROTONIX) 00:00: mg total) Me dical 40 MG 00 by mouth 2 Center tablet (two) times daily. carvediloL Yes TWICE [facility] (Coreg) 8-01 DAILY [facility] 6.25 MG 00:00: Medical tablet 00 [place] carvediloL Yes TWICE [facility] (Coreg) 8-01 DA[facility] 6.25 MG 00:00: Medical tablet 00 [place] Ferrous Ferrous Yes Jada take 1 Common Sulfate Sulfate [place] tablet by Spi rit mouth - CHI every [address] [facility] hours [facility] Tylenol Tylenol No 2{table TID Tylenol Arthritis [...] Pain 650 MG eeded} Pain 650 MG Tylenol Tylenol No 2{table TID Tylenol Arthritis Arthritis ts_as_n Arthritis Pain 650 MG Pain 650 MG eeded} Pain 650 MG Mirtazapine Mirtazapine No 1{table QD Mirtazapin 15 MG 15 MG t_at_be e 15 MG dtime} Pantoprazol Pantoprazol No 1{table QD Pantoprazo e Sodium 40 e Sodium 40 t} le Sodium MG MG 40 MG Ferrous Ferrous No Ferrous Sulfate 325 [...] [facility] OVER 65 OVER 65 15:47:00 [facility] FLUZONE HIGH DOSE FLUZONE HIGH DOSE 2022-05-13 Completed [facility] OVER 65 OVER 65 15:47:00 [facility] FLUZONE HIGH DOSE FLUZONE HIGH DOSE 2022-05-13 Completed [facility] OVER 65 OVER 65 15:47:00 [facility] FLUZONE HIGH DOSE FLUZONE HIGH DOSE 2022-05-13 Completed [facility] OVER 65 OVER 65 15:47:00 [facility] Pfizer COVID-19 Pfizer COVID-19 2021-07-04 Completed Comm on Spirit Vaccine Vaccine 10:19:00 - [facility] FLUZONE HIGH DOSE FLUZONE HIGH DOSE 2021-07-04 Completed [facility] OVER 65 OVER 65 10:19:00 - [facility] Pfizer COVID-19 Pfizer COVID-19 2021-07-04 Completed Comm on [facility] Vaccine Vaccine 10:19:00 - [facility] FLUZONE HIGH DOSE FLUZONE HIGH DOSE 2021-07-04 Completed [facility] OVER 65 OVER 65 10:19:00 - [facility] Pfizer COVID-19 Pfizer COVID-19 2021-07-04 Completed Comm on [facility] Vaccine Vaccine 10:19:00 [facility] FLUZONE HIGH DOSE FLUZONE HIGH DOSE 2021-07-04 Completed [facility] OVER 65 OVER 65 10:19:00 [facility] Pfizer COVID-19 Pfizer COVID-19 2021-07-04 Completed Comm on [facility] Vaccine Vaccine 10:19:00 [facility] FLUZONE HIGH DOSE FLUZONE HIGH DOSE 2021-07-04 Completed [facility] OVER 65 OVER 65 10:19:00 [facility] Pfizer COVID-19 Pfizer COVID-19 2021-07-04 Completed Comm on [facility] Vaccine Vaccine 10:19:00 [facility] FLUZONE HIGH DOSE FLUZONE HIGH DOSE 2021-07-04 Completed [facility] OVER 65 OVER 65 10:19:00 [facility] Pfizer COVID-19 Pfizer COVID-19 2021-07-04 Completed Comm on [facility] Vaccine Vaccine 10:19:00 - [facility] FLUZONE HIGH DOSE FLUZONE HIGH DOSE 2021-07-04 Completed [facility] OVER 65 OVER 65 10:19:00 - [facility] Pfizer COVID-19 Pfizer COVID-19 2021-07-04 Completed Comm on [facility] Vaccine Vaccine 10:19:00 - [facility] FLUZONE HIGH DOSE FLUZONE HIGH DOSE 2021-07-04 Completed [facility] OVER 65 OVER 65 10:19:00 - [facility] Pfizer COVID-19 Pfizer COVID-19 2021-07-04 Completed Comm on [facility] Vaccine Vaccine 10:19:00 - [facility] FLUZONE HIGH DOSE FLUZONE HIGH DOSE 2021-07-04 Completed [facility] OVER 65 OVER 65 10:19:00 [facility] Moderna COVID-19 Moderna COVID-19 2021-01-03 Completed [facility] Vaccine Vaccine 10:16:00 - [facility] Moderna COVID-19 Moderna COVID-19 2021-01-03 Completed Co [facility] Vaccine Vaccine 10:16:00 - [facility] Moderna COVID-19 Moderna COVID-19 2021-01-03 Completed [facility] Vaccine Vaccine 10:16:00 - [facility] Moderna COVID-19 Moderna COVID-19 2021-01-03 Completed [facility] Vaccine Vaccine 10:16:00 [facility] Moderna COVID-19 Moderna COVID-19 2021-01-03 Completed [facility] Vaccine Vaccine 10:16:00 - [facility] Moderna COVID-19 Moderna COVID-19 2021-01-03 Completed Co [facility] Vaccine Vaccine 10:16:00 [facility] Moderna COVID-19 Moderna COVID-19 2021-01-03 Completed [facility] Vaccine Vaccine 10:16:00 [facility] Moderna COVID-19 Moderna COVID-19 2021-01-03 Completed Co [facility] Vaccine Vaccine 10:16:00 - [facility] Moderna COVID-19 Moderna COVID-19 2020-12-06 Completed [facility] Vaccine Vaccine 10:11:00 - [facility] Moderna COVID-19 Moderna COVID-19 2020-12-06 Completed [facility] Vaccine Vaccine 10:11:00 - [facility] Moderna COVID-19 Moderna COVID-19 2020-12-06 Completed [facility] Vaccine Vaccine 10:11:00 - [facility] Moderna COVID-19 Moderna COVID-19 2020-12-06 Completed [facility] Vaccine Vaccine 10:11:00 - [facility] Moderna COVID-19 Moderna COVID-19 2020-12-06 Completed [facility] Vaccine Vaccine 10:11:00 - [facility] Moderna COVID-19 Moderna COVID-19 2020-12-06 Completed [facility] Vaccine Vaccine 10:11:00 - [facility] Moderna COVID-19 Moderna COVID-19 2020-12-06 Completed [facility] Vaccine Vaccine 10:11:00 - [facility] Moderna COVID-19 Moderna COVID-19 2020-12-06 Completed [facility] Vaccine Vaccine 10:11:00 - [facility] FLUZONE HIGH DOSE FLUZONE HIGH DOSE 2020-07-13 Completed [facility] OVER 65 OVER 65 09:22:00 - [facility] FLUZONE HIGH DOSE FLUZONE HIGH DOSE 2020-07-13 Completed [facility] OVER 65 OVER 65 09:22:00 - [facility] FLUZONE HIGH DOSE FLUZONE HIGH DOSE 2020-07-13 Completed [facility] OVER 65 OVER 65 09:22:00 [facility] FLUZONE HIGH DOSE FLUZONE HIGH DOSE 2020-07-13 Completed [facility] OVER 65 OVER 65 09:22:00 - [facility] FLUZONE HIGH DOSE FLUZONE HIGH DOSE 2020-07-13 Completed [facility] OVER 65 OVER 65 09:22:00 [facility] FLUZONE HIGH DOSE FLUZONE HIGH DOSE 2020-07-13 Completed [facility] OVER 65 OVER 65 09:22:00 [facility] FLUZONE HIGH DOSE FLUZONE HIGH DOSE 2020-07-13 Completed [facility] OVER 65 OVER 65 09:22:00 - [facility] FLUZONE HIGH DOSE FLUZONE HIGH DOSE 2020-07-13 Completed [facility] OVER 65 OVER 65 09:22:00 - [facility] FLUZONE HIGH DOSE FLUZONE HIGH DOSE 2020-07-13 Completed [facility] OVER 65 OVER 65 09:22:00 - [facility] FLUZONE HIGH DOSE FLUZONE HIGH DOSE 2020-07-13 Completed [facility] OVER 65 OVER 65 09:22:00 - [facility] Vital Signs Vital Name Observation Time Observation Value Comments Source height 2022-08-22 15:40:00 62 [in_i] [facility] weight 2022-08-22 15:40:00 113 [lb_av] [facility] temperature 2022-08-22 15:40:00 97.2 [degF] [facility] bmi 2022-08-22 15:40:00 20.67 kg/m2 [facility] oximetry 2022-08-22 15:40:00 99 % [facility] respiratory rate 2022-08-22 15:40:00 16 /min Comm on [facility] blood pressure 2022-08-22 15:40:00 130 mm[Hg] [facility] - systolic [facility] blood pressure 2022-08-22 15:40:00 77 mm[Hg] [facility] - diastolic [facility] height 2022-05-13 15:00:00 62 [in_i] [facility] weight 2022-05-13 15:00:00 116.4 [lb_av] [facility] temperature 2022-05-13 15:00:00 97.5 [degF] [facility] bmi 2022-05-13 15:00:00 21.29 kg/m2 [facility] oximetry 2022-05-13 15:00:00 97 % [facility] 2022-05-13 15:00:00 16 /min Comm on [facility] blood pressure 2022-05-13 15:00:00 113 mm[Hg] Common [facility] - systolic [facility] blood pressure 2022-05-13 15:00:00 62 mm[Hg] Common [facility] - diastolic [facility] height 2022-05-13 14:20:00 62 [in_i] Common S [facility] weight 2022-05-13 14:20:00 116.4 [lb_av] [facility] temperature 2022-05-13 14:20:00 97.5 [degF] [facility] bmi 2022-05-13 14:20:00 21.29 kg/m2 [facility] oximetry 2022-05-13 14:20:00 97 % [facility] respiratory rate 2022-05-13 14:20:00 16 /min Comm on [facility] blood pressure 2022-05-13 14:20:00 113 mm[Hg] Common [facility] - systolic [facility] blood pressure 2022-05-13 14:20:00 62 mm[Hg] Common [facility] - diastolic [facility] height 2021-10-09 15:00:00 62 [in_i] Common [facility] weight 2021-10-09 15:00:00 117 [lb_av] Common S [facility] temperature 2021-10-09 15:00:00 97.9 [degF] Common S [facility] bmi 2021-10-09 15:00:00 21.4 kg/m2 Common S [facility] oximetry 2021-10-09 15:00:00 99 % [facility] respiratory rate 2021-10-09 15:00:00 18 /min Comm on [facility] blood pressure 2021-10-09 15:00:00 135 mm[Hg] Common [facility] - systolic [facility] blood pressure 2021-10-09 15:00:00 72 mm[Hg] Common [facility] - diastolic [facility] height 2021-07-11 10:00:00 62 [in_i] Common S [facility] weight 2021-07-11 10:00:00 116 [lb_av[facility] temperature 2021-07-11 10:00:00 98.1 [degF] Common S pirit [facility] bmi 2021-07-11 10:00:00 21.21 kg/m2 Common S [facility] oximetry 2021-07-11 10:00:00 95 % [facility] respiratory rate 2021-07-11 10:00:00 18 /min Comm on [facility] blood pressure 2021-07-11 10:00:00 131 mm[Hg] Common [facility] - systolic [facility] blood pressure 2021-07-11 10:00:00 67 mm[Hg] Common [facility] - diastolic [facility] height 2021-04-13 11:40:00 62 [in_i] Common [facility] weight 2021-04-13 11:40:00 117.4 [lb_av] [facility] temperature 2021-04-13 11:40:00 98.4 [degF] Common S pirit [facility] bmi 2021-04-13 11:40:00 21.47 kg/m2 Common S [facility] oximetry 2021-04-13 11:40:00 97 % Common S [facility] respiratory rate 2021-04-13 11:40:00 16 /min Comm on [facility] blood pressure 2021-04-13 11:40:00 127 mm[Hg] Common [facility] - systolic [facility] blood pressure 2021-04-13 11:40:00 65 mm[Hg] Common [facility] - diastolic [facility] Systolic blood 2022-03-29 15:19:00 160 mm[Hg] [facility] Diastolic blood 2022-03-29 15:19:00 77 mm[Hg] [facility] Heart rate 2022-03-29 15:19:00 68 /min [facility] Body temperature 2022-03-29 15:19:00 36.11 Sheryl [facility] Respiratory rate 2022-03-29 15:19:00 16 /min [facility] Oxygen saturation in 2022-03-29 15:19:00 99 /min [facility] Arterial blood by Medical Ce nter Pulse oximetry Procedures Procedure Date / Time Performed Performing Clinician Sour e PREPARE LEUKO-REDUCED RBC 2022-03-29 23:54:00 Zoya Molina [facility] CT BRAIN WITHOUT IV 2022-03-29 16:00:00 Galileo Stephenson [facility] CONTRAST [facility] SARS-COV2/RT-PCR ([facility] & 2022-03-29 13:21:00 Jenny Sharp [facility] REF LABS) [facility] CBC W/PLT COUNT & AUTO 2022-03-29 05:29:00 Galileo Stephenson [facility] BASIC METABOLIC PANEL 2022-03-29 05:29:00 Galileo Stephenson [facility] MAGNESIUM 2022-03-29 05:29:00 Galileo Stephenson [facility] CBC W/PLT COUNT & AUTO 2022-03-29 05:29:00 Galileo Stephenson [facility] HEMOGLOBIN AND HEMATOCRIT 2022-03-29 00:36:00 Zoya Molina [facility] HEMOGLOBIN AND HEMATOCRIT 2022-03-28 18:23:00 Zoya Molina [facility] TISSUE EXAM 2022-03-28 16:35:00 Anita [facility] EGD, WITH HEMORRHAGE 2022-03-28 16:27:00 Anita [facility] CONTROL [facility] REPORT OF PROCEDURE - 2022-03-28 14:46:04 Mireya Howard [facility] ENDOSCOPY URL [facility] HEMOGLOBIN AND HEMATOCRIT 2022-03-28 13:23:[facility] 2022-03-28 13:23:00 Daxa Fajardo [facility] TRANSFUSE LEUKO-REDUCED 2022-03-28 10:01:00 Zoya Molina [facility] RED BLOOD CELLS [facility] TRANSFUSE LEUKO-REDUCED 2022-03-28 06:06:00 Zoya Molina [facility] RED BLOOD [facility] HEMOGLOBIN AND HEMATOCRIT 2022-03-28 04:57:00 [facility] LEUKO-REDUCED 2022-03-28 01:49:00 [facility] RED BLOOD CELLS [facility] ABORH, MANUAL 2022-03-27 23:47:00 Amanda Amado [facility] TROPONIN I 2022-03-27 22:05:00 [facility] TYPE AND SCREEN, 2022-03-27 22:05:00 [facility] W/[facility]T [facility] & AUTO 2022-03-27 22:04:00 Mark [place] COMPREHENSIVE METABOLIC 2022-03-27 22:04:00 Mark Zoya Murry u [facility] MAGNESIUM 2022-03-27 22:04:00 Mark [facility] PHOSPHORUS 2022-03-27 22:04:00 [facility] PROTHROMBIN TIME/INR 2022-03-27 22:04:00 [facility] TROPONIN I 2022-03-27 22:04:00 [facility] IRON, TIBC, % SAT. 2022-03-27 22:04:[address] [facility]ERR[facility] CBC W/PLT COUNT & AUTO 2022-03-27 22:04:00 Zoya Molina [facility] DIFFERENTIAL [facility] (MANUAL DIFFERENTIAL) 2022-03-27 22:04:00 Zoya Molina [facility] EKG-SCANNED 2022-03-27 00:00:00 Provider, Perri [facility] Sc[facility] Plan of Care Planned Activity Planned Date Details Comments Source Future Scheduled 2022-08-[address] [facility] Test 00:00:00 (12+) [code = Medical Center DEPRESSION SCREENING (12+)] Future Scheduled 2022-08-11 FALLS RISK SCREENING [facility] Test 00:00:00 [code = FALLS RISK Medical C enter SCREENING] Future Scheduled 2022-08-[address] [facility] Test 00:00:00 (12+) [code = [facility] DEPRESSION SCREENING (12+)] Future Scheduled 2022-08-11 FALLS RISK SCREENING [facility] Test 00:00:00 [code = FALLS RISK Medical C enter SCREENING] Future Scheduled 2022-04-11 INFLUENZA VACCINE (#1) [facility] 00:00:00 [code = INFLUENZA Medical Ce nter VACCINE (#1)] Future Scheduled 2022-04-11 INFLUENZA VACCINE (#1) [facility] 00:00:00 [code = INFLUENZA Medical Ce nter VACCINE (#1)] Future Scheduled 2021-11-01 COVID-19 VACCINE (4 - [facility] Test 00:00:00 Booster for Moderna [facility] Center series) [code = COVID-19 VACCINE (4 - Booster for Moderna series)] Future Scheduled 2021-11-01 COVID-19 VACCINE (4 - [...] FIRST YEAR if no IPPE)] Future Scheduled 2015-08-[address] [facility] Test 00:00:00 WELLNESS (YEAR 2 or Medical Center FIRST YEAR if no IPPE) [code = MEDICARE ANNUAL WELLNESS (YEAR 2 or FIRST YEAR if no IPPE)] Future Scheduled 2014 PNEUMOCOCCAL 65+ YRS ([address] [facility] Test 00:00:00 - PCV) [code = Medical Cente r PNEUMOCOCCAL 65+ YRS (1 - PCV)] Future Scheduled 2014 PNEUMOCOCCAL 65+ YRS ([address] [facility] Test 00:00:00 - PCV) [code = Medical Cente r PNEUMOCOCCAL 65+ YRS (1 - PCV)] Future Scheduled 1999 SHINGLES VACCINES ([address] [facility] Test 00:00:00 2) [code = SHINGLES Medical Center VACCINES (1 of 2)] Future Scheduled 1999 SHINGLES VACCINES ([address] [facility] Test 00:00:00 2) [code = SHINGLES [facility] VACCINES (1 of 2)] Future Scheduled 1968 DTAP/TDAP/TD VACCINES [facility] 00:00:00 (1 - Tdap) [code = Medical C enter DTAP/TDAP/TD VACCINES (1 - Tdap)] Future Scheduled 1968 DTAP/TDAP/TD VACCINES [facility] 00:00:00 (1 - Tdap) [code = Medical C enter DTAP/TDAP/TD VACCINES (1 - Tdap)] Future Scheduled 1967 HEPATITIS C SCREENING [facility] 00:00:00 [code = HEPATITIS C Medical Center SCREENING] Future Scheduled 1967 HEPATITIS C [facility]CRE[facility]ING [facility] 00:00:00 [code = HEPATITIS C Medical Center SCREENING] Future Scheduled [address] [facility] Test 00:00:00 Counseling and Medical Cente r Screening (12+) [code = Tobacco Cessation Counseling and Screening (12+)] Future Scheduled [address] [facility] Test 00:00:00 Counseling and Medical Cente r Screening (12+) [code = Tobacco Cessation Counseling and Screening (12+)] Future Scheduled 1949 Screening for malignant [facility] Test 00:00:00 neoplasm of breast Medical C enter (procedure) [code = 409678434] Future Scheduled 1949 CT Colonography (combo) [facility] Test 00:00:00 [code = CT Colonography [facility] (combo)] Future Scheduled 1949 Screening for malignant [facility] Test 00:00:00 neoplasm of colon Medical Ce nter (procedure) [code = 923050844] Future Scheduled 1949 Screening for malignant [facility] Test 00:00:00 neoplasm of colon Medical Ce nter (procedure) [code = 028326355] Future Scheduled 1950 DXA SCAN [code = DXA [facility] Test 00:00:00 SCAN] [facility] Future Scheduled 1949 Screening for malignant [facility] Test 00:00:00 neoplasm of colon Medical Ce nter (procedure) [code = 070102361] Future Scheduled 1949 Screening for malignant [facility] 00:00:00 neoplasm of colon Medical Ce nter (procedure) [code = 734583363] Future Scheduled 1949 Sigmoidoscopy [facility]code = [facility]] [facility] Future Scheduled 1949 Screening for malignant [facility] Test 00:00:00 neoplasm of breast Medical C enter (procedure) [code = 441769149] Future Scheduled 1949 CT Colonography (combo) [facility] Test 00:00:00 [code = CT Colonography [facility] (combo)] Future Scheduled 1949 Screening for malignant [facility] Test 00:00:00 neoplasm of colon Medical Ce nter (procedure) [code = 376000559] Future Scheduled 1949 Screening for malignant [facility] Test 00:00:00 neoplasm of colon Medical Ce nter (procedure) [code = 587030909] Future Scheduled 1949 DXA SCAN [code = DXA [facility] Test 00:00:00 SCAN] [facility] Future Scheduled 1949 Screening for malignant [facility] Test 00:00:00 neoplasm of colon Medical Ce nter (procedure) [code = 481063851] Future Scheduled 1949 Screening for malignant [facility] Test 00:00:00 neoplasm of colon Medical Ce nter (procedure) [code = 411500831] Future Scheduled 1949 Sigmoidoscopy [code = [facility] Test 00:00:00 Sigmoidoscopy] Medical Cent[facility] Encounters Start End Encounter Admission Attending Care Care Encounter Source Date/Time Date/Time Type Type Clinicians Facility Department ID 2022-05-13 Outpatient [place], [facility] [id number] Common 14:09:00 Jada [id number] [facility] 2022-05-10 Outpatient [place], [facility]LMLC ST[facility] [id number] Common 09:30:01 Jada [facility] 2022-04-04 Outpatient [place], [facility]LML[facility] [id number] Common 08:36:01 Jada [facility] 2021-10-05 Outpatient [place], [facility]LML[facility] ST[facility] [id number] Common 08:59:01 Jada [facility] 2021-09-05 Outpatient [place], [facility] [id number] Common 12:09:41 Jada [id number] [facility] 2021-09-05 Outpatient [place], [facility] [id number] Common 12:05:53 Jada [id number] [facility] 2021-09-05 Outpatient [place], [facility] [id number] Common 11:16:03 Jada [id number] [facility] 2021-09-05 Outpatient [place], [facility] [id number] Common 11:15:55 Jada [id number] [facility] 2022-08-22 2022-08-22 [facility] [id number] Co mmon 00:00:00 00:00:00 VISIT EST Spir it PT LEVEL 3 - [facility] 2022-05-13 2022-05-13 [facility] [id number] Common 00:00:00 00:00:00 MCR Spirit WELLNESS - [facility] VISIT [facility] 2022-05-13 2022-05-13 [facility] [id number] Co mmon 00:00:00 00:00:00 VISIT Spirit ESTAB PT - [facility] LEVEL 4 [facility] 2022-04-30 2022-04-30 (TEL) STLMLC STL[facility] [id number] Co mmon 00:00:00 00:00:00 [facility] 2022-04-05 2022-04-05 (TEL) STLMLC STLMLC [id number] Co mmon 00:00:00 00:00:00 [facility] 2022-03-27 2022-03-29 Inpatient ER [facility] [id number] [facility] 18:21:00 19:02:00 GALILEO 2022-03-27 2022-03-29 [facility] [id number] 18:21:00 19:02:00 Encounter Mark [facility] 2022-03-27 2022-03-29 [facility] [id number] 18:21:00 19:02:00 Encounter Mark [facility] 2022-03-28 2022-03-28 Surgery Anita, [facility] [id number] 16:30:00 17:00:00 [facility] 2022-03-28 2022-03-28 Surgery Anita, [facility] [id number] 16:30:00 17:00:00 [facility] 2022-03-28 2022-03-28 Anesthesia Cheikh Walters [facility] [id number] [facility] 16:27:00 16:41:00 Event [facility] 2022-03-28 2022-03-28 Anesthesia Cheikh Walters [facility] [id number] [facility] 16:27:00 16:41:00 Event [facility] 2022-03-28 2022-03-28 Travel [facility] [id number] [facility] 00:00[facility]00 00:00:00 [facility] 2022-03-28 2022-03-28 Travel [facility] [id number] [facility] 00:[facility]:00 00:00:00 [facility] 2021-10-09 2021-10-09 OFFICE STL[facility]C ST[facility]C [id number] Co mmon 00:00:00 00:00:00 VISIT [facility] PT - CHI LEVEL 4 [facility] 2021-09-13 2021-09-13 (TEL) STLMLC STLMLC [id number] Co mmon 00:00:00 00:00:00 [facility] 2021-07-11 2021-07-11 OFFICE ST[facility]C STL[facility]C [id number] Co mmon 00:00:00 00:00:00 VISIT [facility] PT - [facility] 4 [facility] 2021-04-13 2021-04-13 OFFICE STLMLC STLMLC [id number] Co mmon 00:00:00 00:00:00 VISIT [facility] PT - [facility] [address] 2021-04-05 2021-04-05 (TEL) STLMLC STLMLC [id number] Co mmon 00:00:00 00:00:00 [facility] 2021-03-30 2021-03-30 Outpatient STLMLC STLMLC [id number] Common 00:00:00 00:00:00 [facility] 2020-10-12 2020-10-12 Outpatient STLMLC STL[facility]C [id number] Common 00:00:00 00:00:00 [facility] 2020-09-13 2020-09-13 Outpatient STLMLC STL[facility]C [id number] Common 00:00:00 00:00:00 [facility] 2020-07-13 2020-07-13 Outpatient STLMLC STL[facility] [id number] Common 00:00:00 00:00:00 [facility] 2020-06-05 2020-06-05 Outpatient STLMLC STLMLC [id number] Common 00:00:00 00:00:00 [facility] 2020-05-02 2020-05-02 Outpatient STLMLC STLMLC [id number] Common 00:00:00 00:00:00 [facility] 2020-03-14 2020-03-14 Outpatient [place] [id number] Common 16:00:00 16:00:00 t [facility] [address] [facility] 2020-01-25 2020-01-25 Outpatient [place] [place] [id number] Common 10:20:00 10:20:00 t [facility] [address] [facility] 2019-12-27 2019-12-27 Outpatient [place] [place] [id number] Common 15:17:00 15:17:00 t [facility] [address] [facility] 2019-11-04 2019-11-04 Outpatient [place] [id number] Common 16:40:00 16:40:00 t [facility] [address] [facility] Results Test Description Test Time Test Comments Results Result Comments Source Tissue Exam 2022-04-03 17:38:23 Test Item Value Reference Range Interpretation Comme nts Case Report (test code = 104) Surgical Pathology Report Case: [id number] Authorizing Provider: Mireya Howard MD Collected: 03/28/2022 04:35 PM Ordering Location: [address] Med/Surg Received: 03/29/2022 08:04 AM Pathologist: Amanda Amado MD Specimens: A) - Biopsy, Gastric, R/O H.Pylori B) - Biopsy, Gastroesophageal Junction ADDENDUM (test code = 3381) s4strDFhAPIjqYZ9DhXxQUVgq2kgd5UgqYGuqTK yXG [file] QQAESUJ3HIv2UnSqEEHxrpe+IFxwYXJ9 DIAGNOSIS (test code = 3220) y1idpKOqCCQzx6yjNCTctZOeKwIeEcSfSoDdOc pcdW WaIOdgllByDJqayOcrYXVhTokcucYfOWPufXQxM6Xo nhdoFLznMW0yKV5hzFkouZOclFCiMCBdDsUqb1tms1 73eVOcj3vrGRCYgzzaqUk3bHslY06sm1O4UojmW58g xQDoEPN9VBCrJGSnnOGfIAQzAHW9KKTstOWjF5cyXP GgRK4fyssfQUuxPRlaPYHjcLZ1BBSweXPrO7WxOKMc DZicWPFdmtv8SqXrSx5cuASjvXjlFDojHUCoWDVoEO xbBDHmNlKnXZ3wJ3BZLTCHCHmaZgVNWQ1KEATYApSP T0DYAQlORBWOZ0MJRCmaqDShUNVfGWIUVVRZPtlYEF dKX7EWQPRNTwMMBTLAXRGEV9KDMYUKTQdSOUECBDYi xeExRF3kWk1rQVIOEBQLObIXXSTKNCZWEU7ULO0JCP sMHA2XB2IXCZFFZwESNPSVAD9WDZcUZkHEJG5qM1NS YvONIXBXZPmRQRYfrfJnZK5gHt0fPV5BIDKEEI9PXA INOMVDBKlKK4oCQJLQLBNAHTPSTCGqG3AeQZYQRWoW WH9QRBIKR3HLIOviVALxRSCfJJuAFTLGD3iSI3LDZ6 mWEBkEQRlsL9BHRQ3uJw0CCBiXZWzEL2YJM8WSMuMA TdZQCEaUOzAXZ82JVhIMPAAEDFCdE5aRUXSFFWFTL2 UTADHbLVFaeuWbHUNtAJ2oEYJBKNVRMGCBXTJUEK8A AHrxWBPwqQApIQLmHBwXI7OUG5AEW9KVRZoZWKgbTv YTH5GPI33cGj1GCAjVCESGLcXJH6OTJAgIHPRSA7QC JVcaoJLdZOBoVFHCUXUBDJiYVA9DIH0FVINMTTVUDd FEPU6ZU93BWOKUHUUXTJ3PWVJbC3wEY32SLhGHJEWL WuhWVCZpB5lFLXVUK9NMFPZHX3VRJjrBEItvXORqTB FhHZ4VIZOBECOQK4UBZS6CF39TSPWMYTCYPDGyqeUp MW8bLl1cWP3OIKBDJT6VZCSQVQGZQRnNY1jEVAASEL PWRxOwmPOpZYRePUZRBoNCKRJNKFQGNKRaY0TqIHWC DDvPBN6KKBJZK7LBRObeASY0w0vxqDYnASSgdHXyYO QsBRcgygEiPDBbWcihudktPEVbTYI8zaOrGMViWGly DUZxIRqoAq6ibNFcrTerMfUrGDOhj9jbbuAZhizwrA k3b1hzNXZbYoL7rFPgGYwiB0pjcpRckUSaFPGzKOl8 wL69HXEexQ2zoDRjBVkdggKmGgE2CBcfRYZhTdF4FG TuoQMoQMDvT9wsUOVwLNehMPIaTLhpjZXkJPV8dGqk s5S0qZQreXCbwKvvZkTmDlCdGoWGu8JlLJr1mVkvA9 XpXQPyWuA4xOUfUFMsZNzvFRStOSJtzyP7pU92RWfg paT3aDNya5Yle65zj414pJ1ukCFrDYI0NELgEKKksF YoMEDmCEG4OVOuoCWdA8xdENQaQO3kicslZKdoPUua FPJwdPR9IBKueKVmG8FoQFJmJJfxBJFxzbk3RyLsIn 5ahFOkuLduTBrqh7qnu9cllEOfUyr2HBHuZlEnEqgy SGkce1Rda8umJTScyj9dGLT7sIEgsDzpk7L8pXJoJJ MagGNqUSLxUM0nyWVaALCupE8ltffyPUOvGbSqxbag CNVkqMddrfQyBz4yvZewQFK7ZGhbL4hhkT9sLnI5XF smW1bpeQ2iLTt1LXgaCJBipOP2veT3NUDfkTXeQ7Ow jS0cZZJfKW8jrir9s3wsCCW1CUjmQMNdUkQ4diE9AN JjxREfFVYaoWskBXqhk880KOE0OiHcRIQif8MaG3Np vBlkQ91doLjhU40uKNCsrZzksU1niXmwxR4nQmApVd PnSDoneJzhNM1pZNJaF1aivAWkIYWcWFZbN1dsVwIz fK0gcRlmIXeqdnPwVCUjOat4VCGgpNMrNECzZdr3VS JdJNViQ91jxkgnKOM1hV1uq5bni5KzCRflENN6ZRIf c92aOXvpsuV3ACJ7ZT44QljqBzO4F0inCTA5lG== CPT Code(s) (test code = 3357) m2mmkBPiREDwrOO6NlVgLCMsm3uit8DgnJFh cGFyXG gweBGnzgFakl10wJB5nR52RD9qRSAgMcJ3HOFimzR1 Wez4JLVwBWFmpOUdG818z1rpn2pehfFdcDN5fBdtSP KllemaLqI8AQjoNZXrgbusHYi1NHosXMUeiDQ0AXMp mSYjZ1YsGKAqYV7bkoc4KQY2UCzlOPMcYlU0RKLwaY NoAJLqcAyzOZcbm692KWT9ToWgONBcyfHvtWjqbU7z OpBeUUX5UIJzTDVFANZzpKKkjX== CLINICAL HISTORY (test code = 3356) c4hzrULeQHVjqEJ1SaUaNIEhu3vl l5NwfSXsrXCzAF vpmRXhoyHapu06fXH0yC23VO5wNNYdRiP4WOTjrcL0 Ucp3AEBeVQRxzEQuA754w7vja5rblrFtqOA7bWfuYD IyqfoxMmQ7SPweZCAesnaxGFm5NHkdPIVezYG0UPOl kTJkG7VcGQGuTF8hxln9ZMF7DOrgXQDcPeA0QACfjV DwXODmwYmhJHajm042RTG3TfWkXZCevcVysUickS8j CfXhILJXduCpdXKnzVOtBE1vHXveYLO5 GROSS DESCRIPTION (test code = k4whqEMyNCWpeQOHTLJmA2awihSkEDSweMIc Z3Bhcl [id number]) xjQNzrBL1rJH2ztJpgpJUjqBNqTK6QRBBeKmNaKMGm aEEyjgSwKxXkRZEqnXGnjBF3IGTkEZ3gmyeaPFatRX ogTEJevvG6KJHnoLKoV5DhLCEjXW9lnkieEPW6EPcd nU8mrfSRFxeiVf3zxCQxmMjbSkBuPzOvJYTwSBHqKJ DrvCmiXNDfCQz7yR8RVgugA99ik2H9Snh8PUYwLMPf Z6AvBN6eKFYbaCGpL57RIavvLVQ8MQZGBpcnUMXnYA 4To9asMTYiyTJvYEX3JMwyfYJoSJBiHVBfNJk6HPUd XSrscODkRF4qvPpiYqefwEcwu4ZoqIIzKRpgDYNpGS UyULavQGUjKK6LDeXlWJAuItYqIKIcTRo2IZb0BZ1O PdNtVAYySIs7UpmyYYMtOVu4ZXpcWN6WVMBgJeO9YP huQGH9JMV3LIOaSWBxRvWxUUMgAUUmCPdrKDkecNNo VW8toGkxsKYiyhZHLrTTlP1ph6xdOYzpu9WgnDEhRA BhciANClxlcGljTmVzdERvYzEgDQpcbHRycGFyXGxp bjBccmluMCANClxsdHJjaFxjZjFcZnMyMCBSZWNlaX KqJVYricXjq0KuVJlcpqSyCOShaWXyXVwtoDcnzMjd CNUpmCnaidNdptJacaGppo4pnAxufsUdcrJzjQWcIF ngSSMkJ6ZmnXDqQfV9nNKiaMFnGGFcx6RmxUE6rB2a EiOftMmzFJ67iXCNUjRVsPlbecrbJNRmGSTjoJc9vR BfUYBmreYimFVmlHDmh9DipFGkACuufNAfGX28D72y NWiicLbhx5FpXS7uWPI2xbdrUuMpIyJypE6rIN7kXT GiVZgyJH2lgDhcfP5wGQucHO9iiN5iMNM2Vs8hhJWw TINvgcFavaQpjKFxbjFsFJGoLTE9DBOnUFJbiURqJH IlAxHTKN0orf3OJMTtDPqjKCDraRTYAFA1UT5dCKmy yYVrtrmmPUUoH2UpU0BtreGaxUWxYGSjrnPev2ppVM U6XXKobIKvdMAtAeYxRlieCZP5HPw9OQerMIYfQ2Hr V2XjUKnpIUD2RXUmYlIhIXAxMGPDChOaBoFhRlXzTv UoWtB9MZs0KXCVByAlKcHvAxi6TRk3LRHpOBv9EVp6 VYeUKhO1WEJjSFu8ZFVvOATgONVySEp3LVMiDHyeMT QosMTtIZzlYwhmQBjhI88iPcQvAjdzlYZhyzIRFnKT nX8np2zfWOcfg0Snd4Bwd7NjVAbxVEdtEmYuY4Nht6 4uXHBhciANClxlcGljTmVzdERvYzEgDQpcbHRycGFy XGxpbjBccmluMCANClxsdHJjaFxjZjFcZnMyMCBSZW RspYIyXZGurbQcl3VpNUkuwbSpCTJzcBAtIDlclXin nBgjMBXttBbqvvGyaxRyesOxqn7htWdtugDjgjLsoC JxWEqpDDAgLxsxmUT8DXSnYEL4wj8jt33uaPMhLYTi BEo5hjU3wL6dSbTunyQtJHHitatsSEF0RN5ni7qbsO BzpLAbg3CilKFdiKQhZBHoTHXhlNNqimcbBS2bNLFb RLpeSJ5tbFxkcP3cMWsyRS1xdT0xKVK1Bh4tiXJxKT NsurKntjAjwMGiphWoMVNpXIV0UDKrHINxxIVsXYUc CpNWAB0gtt1YMWRrRCkiMQAplGOGYKQ2EY9dHQeapG HotxazVLQkB1JlM7OrraTcpMLlMYPzjvUug9iaIXU3 GIOwaMRvuAKmJkIdFfasOAN3QVtlw6spHGQ4PJFweO ChzYQhWQccYjEqFixtMMBaW1VlI2TmgkW0CUf8 MICROSCOPIC DESCRIPTION (test code = j9uxwWNkDGLzlJX8ZyFlOVI dc0ung4WbgEGcyCCoOH 3371) ebcLRuenZowm66sIK9wB29EQ0eVYSlEwE4DPGvxjV3 Osq1WPLxFHTozGIbF007k4rqu0uqgzUyoIE1tTkeHS CsrnoiFvH4CGzlBXKijzflMDs0IRbmRVMzmIT8RHNe gAOhP9ZzCBUyXO6jqpt4UQM1TKptNFAxEcG5FFZwyW YjXVUsfSowJLusq122INT8GiPfWNHelcXvkAlagE0o NlUnSYPNQQCiu0XxCHIojYFgkU== SPECIAL STUDIES (test code = 3376) t5dgcGAyPHXxi6jcXDKotXTmSmXjYlNg ZnRuYmpcdW LbKXaerkPxYVlrn0AqH6PyPfWbUKnecbWfYZAgNfim vvabAQPoLKC4zmZiEJFqVQhzPYYkFBcfVh4lvTLphM opVgWwHZWjf8hvpbQHecvocIr0b1giQSUjScH8gWIz JIrtZ9rhgiGfqXBaT9DayYGqvXf1c7nsKiJgZcF7aI FqYMurS6grehEaiZJcTZJaWLo6fO66KGNymP2xqNYl YTrohlSsGbB6NCurXUHoGeY4MJLmlJAhGRAoI4hiTG WmAUalKBEcQWuveZUwKKT6oXjhx4O5dNFucLRbiUqt OhXpYlGbQxLMd5WrOZq8zWwiP5QdAYTiTpR7pFDwRX EwFNizFPWkYIBerjW8yYmlphMtc39auHObYHIvIMSt JvDjxCgxUNKfQOWKw4FtlVsmLCY3eLr7sHoiExgsTG F8Crt3IW7vih44pdk3sOynPZUholdnMmG3DPpfRIVt dzhyUZp0QUhsNZHiaKG1UXSmrWKdB2YfGHLgSQ3bis h5AFA7GEntMZBbKwD7VMJkdZOzQMTbgRjsYWkak548 IEC7FtYlYD9bE6Xdj1W1iS7itHMjQOPhwWInPrYjAR Tsbe4dsSEtKSmcn0XkLJM9anL8kIOexCElAJNuUT92 Thcbl2IdQhows4NvD80mpRC8YYpvu1eaES2nLwX0gz RcXEydh9pplI5eIaO3JCzcRF6uNS0pVBSrhK1nrsse PDMlRbRcifyiLXFxwAqtvjIwSi4gnVqbKSM6GYopT1 ptjU2xDnR4NLxrI3phrX9vRHt6SUwvmCG4XZXgfZ2h NZ2tcgqsl1hdGDjkGKqnFJGycvW2hvK8DJRmtMQnH3 KbuX2jVWBeJF1vewmsf7bnSBL6XMhoNWLeNLG8LfSq UGBky5Wyxqx8CsSmk3VirINcROtsU64fc926YYGyon CdN0kbaXJlqcrduEYuehsnJUjrhlQ9MYHcHQNwQFri XGYxXGZzMjJcbGFuZzEwMzNcaGljaFxmMVxkYmNoXG TvAWuhX0jdShRiJ4UcGGPwUaSgHUomADdsiUPeiBFj eUQ2dX0aYT6pPXTfsXHzA2GbRSGsrkOesPLeXPV2pT ZtqUYoPB1jOEvshUMqf6jvc2BlJ9ltcCozdSL7FA8s OMZlDSJiOZhut9MraC8lChkoxLSxeatkIXpcosKyDT mzypisZZJmZWwhF1jvXwQcTQRpaQtaYUktg4WbKJAh JDKgIowbirXnYGb6bfJvZJQkivcvTEPyiXnfyA3hHy OsEoHqSsedYR2kEVLjJ2fyhNCwEOAoTQYbW5zmCoKb wX0rqCzcQIdpXaAhGdVxKiGOm927ff3wCMSplDZspf JPmNItaW0pXThtPPztOQfueAXsIRqny1hbRPUtj8u4 sNQuLUTwkwOcl6faFBcbbbKqGKWrzOAygKToBVIeg7 6dCWabvRkvlHhqDEXcy6QooIfxr1VbUmNbCRjhi9Vr D61qkGAnuPQiuWrySICnaqZkTPZqg48ly5zwTIFvZo P3hQOkeFE0vVAvxQSfl4ZvqIsaTYLxq3rrUAPdoa8l thgihBBlf1ZrhZ4ouyneSQiwuCSoltRwTICwa8d4vL LzXLTlTPIgZZepaPd6LGQsn310vq2cxdS5cVFxHGH8 YWlsYWJsZSBhcmUgZXZhbHVhdGVkXHBsYWluXGYxXG ZzMjJcbGFuZzEwMzNcaGljaFxmMVxkYmNoXGYxXGxv F6fzYsAjB9DdRCCkRwRgyGMiX0oovZRlIGKrXRsmPO YxXGZzMjJcbGFuZzEwMzNcaGljaFxmMVxkYmNoXGYx PUtsE2weQbEcT6VmCNUzNxOhHCxgaTEafweuNDlhhz UuEYcznynnETQrCChcJ1lsYeYdFITjeRkmIChdv0Pp PKQmLOWvJdmuzeBlUQh9mhYoVXFigzxthMSinkwrFW rcewPdLZoqwoehDOAoIQdvR4osQyZiEEZacPwfDMia t2OtHSJnJKNyYjdzsbRxZRmtyHJtf8sal4EbH6gakL wvrQL2DARmS5cjwTPdfFK4NGO7vP3xDQevxsTcRCOp v2QtWKHuSYOpSmZ6sP0uLRA4XkRVoYizJFGsUCjeQE YxXGZzMjJcbGFuZzEwMzNcaGljaFxmMVxkYmNoXGYx BHbrV1nbQvLqF8SvBWMrAuKepWnwKYnuGOd1PvoxxL EiwlrnBWgmgpFxRDavmxjzQWUeWLjfI4wiKbSwZCNg jWcoZYihv3KzDPJgJIFlTddggiVxVPLuJNRlpDXpdG TGEM65VLAfGONwaAldzY6ppXIGMFIxwtJ6i2G8BJtw GEIhPOk3CRqhbcLbMECgkY7qWIEtJR6dYRr1zoRlBK Twx2OjSG9pKAUcpWAjKHM4CGZot8CtL0Cex5CkGLEh HDHomr4afjLwNcLGyPByNXQhtw00OOGkYU3yW5lsVZ QdFDVyevZlgQMva9IiZLJhvBP2nAGyCP1PDwTYv25w FECfLUPBueQbCRFijVzpxWG4iuD3aV3vPoPZlSSuUh APQWktqzCxYZUehk8coaNqRKNbILKis2GnzBNwvMYl krUyZ4Cby7UqCIXjku19JFeioSGhka64TQ4jD5Jmy6 LubJ8kZWujIIZdm0DiqMAnlQFyXUDfb9UlT2dnmdbs CIebkNUviC6oXLUhQPv6SGNrg3ZqBPPin3UwFzVqiu CzODHuWRPkJULsfE17UHI6yGomaDhfudRtBC6yECDn xgCpCFHqBGHtsS2cUNsqzdVlGIIsmfY5r7U8KTkdDU YnxoVuOjijMTX7uuWcezX1vXMwX4evrpisSEsjBFJs p4ZucG4xiMXGrJOwt7ElsJZtlUKObGXdAC0xdyVtAS 2wJXK3CVrkZPITDTRnYLfxPKMyLYT4XTgeKdjhYWP4 keMpIBRzo5JbXKywK0agX45qrTukzKn9hZDeeKdovT AcsYNeWNKktuX2n1Z2YFGdr9CtqokkPUPjHKnnZCZx XGZzMjJcbGFuZzEwMzNcaGljaFxmMlxkYmNoXGYyXG laY9pkXoQqTbUjLlslHVZ5jV== [facility] [id number] 17:38:23 Test Item Value Reference Range Interpretation Comments Case Report (test Surgical Pathology Report code = 104) Case: [id number] Authorizing Provider: Mireya Howard MD Collected: 03/28/2022 04:35 PM Ordering Location: [address] Med/Surg Received: 03/29/2022 08:04 AM Pathologist: Amanda Amado MD Specimens: A) - Biopsy, Gastric, R/O H.Pylori B) - Biopsy, Gastroesophageal Junction ADDENDUM (test code t2qdgBSiYEXijEH6BaUmDQZks = 3381) 1bau9SayJPeaEElJDbjnLMkpd Ttet09vRK6nU66YW0cEZKjWwY 2IREjuqC1Gos4MZTzEJDztGMz Z667s4mju0xhdxPvuPP5zNfvX SPmbuksZpV2MGlhFXVjyyolEZ l0KYrkWVCpoQI0VGVvjHXxY5Y vEQMvVA9todn6SQF1OUpqMDZb VxW6TYMtuABpPYAjsCeuSBmdw 534LSN0NfCcTNJndyDauTcmpE 5cZnMyMCBUaGlzIGFkZGVuZHV vESyfLYqgi2IuDMW6dsYsCLYc sbHpzZhkWEFnw2NyjQVnDkXfu L22qd8icKQ3x1RdBJ6jO1ZkPH Y6nDU3TMNqfkRSGPneE68mMMK 9FCUutRafl2LhVokaXRJdBLXU RUdBVElWRVxwYXJcflxwYXIgV TlaJSvfjLJnwBPkeUA2eG9wWE 9sPVEfrRUdE3BmWCNjsiTlaPJ aZKQ6lDPdjTPsGN3uXXjeqYHq o7rqg0EgT2ojaLorpYF5QD5sO AVgEXTvVRxku3MsnK8sTaxkNJ PqispWZYfMH6SOI0JHHiJUJAp WXluynDCwISammNOad0afa1In M2leuIqgkSY3KDNcM0tpdVOuj BV9IUD7wV3lFJgdbrEeRFOhv8 RpUQIaJFYcHiZ5nC8bJEW6RxX AmLbkQXW0NaZ2WBuyGJEmTQ0z FEkuTByeX9DnnSJlCMUTGSPjm 7xlI8hdEXAmt8UwjS5faKO9hG JyXYAurQP5MZLbTUT1QEdwwLB yMNBqLMQfmJRhaVCuPq6gbLTx H1AzY8aqqbDnqRJyoJT5vXElG YgqoqGiSHR2DZGugA4tFJ9iPQ IatXSbMD8nmMCfKWGyWVFzBYK uHIKjo9QcICRnij62WGThUors xAvfSNIzCe0hRh6aJUAgblLbU UJ3HdQZKH1kpdwekWZybNtqjc 8xOYcpYQOGNJMcPWRhQRK3MIO fhO6xONK8bBQ3HVJ1Z6uoB1vv OBAdgmMkYZ9sMHPqiYCruwAkG LqlED3ffCBbBGEwu6BcmjodSE PvUML6ODK9LWgwARInITNuEq8 jMTGmdY0fQ6WeXNN5kwZau9Ex UrRDvWYakM42xITwsa15XNLgO RLhB6KbTKEpMPWxLUkbgwEvzT shMGKzp50klOWklgBxg0IbppT bVUHzW0ccLYKerABtdGAtg1Lu kG1oeSUcivUaZOQ8cHDcPXAgm R9nQFSxeZncUTBfmR5tC0ZwYH lmIs8sYJApkdwcLE8lws93TL0 bscQmGO4cihMbHK85alYhRcEy MUf1MSjPIUqNVAj5APObjbXkg FWceQBiSKUxmS5taXPsMy1nsD EjhKhnTCZtwEXfXPzpaHlfV4j vqrsjGHizhEZbf5HleU3qyBP6 CPU2kY8hKhebMVUcaqocVVDjN 6WOWUFGCZV8BXv6LuQwUWIksi x+IFxwYXJ9 DIAGNOSIS (test code d3rthTTtNDIno7jiRRBrtZRiF = 3220) zEwMzNcZnRuYmpcdWMxIHtccn RmMVxlcGljOTYwMlxhbnNpXHN fxIWtC3OkzxpySKedCP4mAS4g eXafcZGazXIqAEPtFaQgp1zfu 263cNWmi9joCPZWbbppnNu5yP pyO25cq3B3RofjX35efFSeNKC 9NVHlBJChsGOcNAEbZNW0KIGu fBQjW0etUORtGQ7abjruSUvzS YfiFSOwjFW8WQNxoZCcS7ZuTG GiCXphSBYxtye2TfZoFe7cjDV yeTcyMFxwYXJkXHBsYWluXGZz EyRsBQ2uD1CRQFZJEHzvPtIIK R9OGZWEZuCSC2USEXvZMEOEN9 BTWTpccGFyICAgLSBDSFJPTkl TZQmAN7FTXGENAcTLLMPQJOGK O2QOESHYWXfPDEOSJDShtnPzP S1bYg8dNQIUECSTMrTXQEUCWF JZQY7OCQ0ZFYgKEY3OY7MCHJR BWaIDTWCSXY4OIPmFKvEPQW1n T9KURuPKIBKFXLsGMAEiauCkE R9fUw3rZP9JOHBSGR4DLWNAVC PPHDzRK0hJFFLPHXKJHXQMVBZ pH0JsCDQGTWpSYZ3PPUJET4NL NJooVEHmFHHwOKfDJBQXN6cND 0TZD2nBMWiZOYjfE9NXCE7wRm 2QOLaBKFvSU6LRS7NOXsPYZpQ KRWfXIdBPB61AMdYHABIBEYXn F2pPXSOSRMDWS8FCEJCzGOEwe xPzNRIjBO6aOTBUKJXWVGWKSQ TCPK0WZKzfVXCfdYZfWSTaWGl BT3FKQ9PVI8WGWKgDJXqoYeRG L4WMF01uTj1QIWmNTQJLKzSOO 0HWMXhPJFNUN4ZBJDpfbNJhPB KrXVCVGBWKQNvAOI2RDL4WOYU MZYQNDsFJDE9OH66SUGURMUUN OE9HGNRuA3wDL44ADiVABAXLI prNWXJhL9jJTYEUE1VAAGWIA5 SAWghHROriUGRrQKHlKS4YPKD PHREMR4XUAX0TO19IYKVNVCPY XKUcxrZjAZ4zFx1pBB9GBZQCX S0PKDPPDSRAGDbJZ7cTBHNWYO NFTlRccGFyICAgLSBOTyBEWVN INIPDNRDtF5GgSCIGTLxYAX8V QGGXQ8QCFTbpESU9l6ucvBKaW HNzdGUxODAwMFxhbnNpXGRlZm kvicahECZeQTN2ehGkKSDaFXr iJBPgXYndJv5qbKEfgJgmRaGt LUJsy1qakhRWccedkQe0g0gaW MJxLoY1eITbUKsgT5xtxkBwxJ AmFJRdMYf7yJ72PCBcyT6ovOV pRLtjsuEpDeA2MKweFSQwDaC1 KTJtfLOyJSNyD7ijPJHgCSpqE FMoRTdesSQbIPQ0vIuxa8Z1iC XouUCbcEeuMrTaMqCwCfHUm1Z uBQk7xOkaA5AlROUvRqM3uGEg LZKsKCgfBOLsPVJukaO2lK84A FqvlsC8bCOsh4Mjm54lq440bA 4beSDtUNF5KOQlTBXeyJQlRVT wEJW9RIFebECxK1kdUOAjRH0g ldelOFwmDYozUBRbxJZ8KSAto CIuN4LdIJLpAZefDWZqjzm4Co RqAc0ciNSgsYohFSoxu6qep4w hrEIvSwu8MPGzLqTpAuvlHOre r3Bkv3gbVXOpqd8yTSU9oAGmj Zgdp1Y4uKEnVWYlfRTwLWYlQJ 1gyFGcMNNgiZ0jtjimVZMiGoL jdybrMEPlsHwmyjGuKn8kqRtk EWU7SZaoZ7kjnM6mDlO1WKppN 9ptjA3iMEo4DIzjSODneOJ7wj B8PIGwdCRdZ7UomJ8tUKMbHN9 dare1i9enDTF2ZBgxUJYrPmT5 ppB9NDEfsXGtSUZcpZdfYHknj 136OBR8QxFfSDSxi8BpV8OfpE qiI97tjAnzY45hYKVmjIvnnW1 fxBtbbI5lCeAlMxTjKDjrxXuh TQ0lUWLvZ2rlvXDeRFDkVJTxF 1xpFsQzaR8rpQumRCqrulLkQL QdZmq9TFOliRTlMSCuXpt0HUT gYCIdK51oczgfTTI9oF4gy3xa h6JvYZccRHY1QBEyh47oMQrvs qW1ZMX6MP99DhsxWyP6U8wvOY J9fQ== CPT Code(s) (test l7hruGObMBRerOL3BgSvNSRyi code = 3357) 3eov6EnaJBhtNEuIZgpqJPcek Rcqg98nAD9oD57GL7lFKZqHeJ 6MTFvjzB1Ugx0FSWeUNZquVQb Q898g1wgu5blsfUlqAU8qDhdY MEdeyumMqZ5ADhtZGRvunnjVJ s2WNycJTZdwJY1SEZryHHyN7H qGUHkNY4kvxo5PLF1ZZoyYWBd XbS8XLDhaJGkVVErpRbwCHaer 250FWF9WqWtOZNuzsFspXttcS 5yViAuYOV2RZUzVGNDKTQuhDP yfQ== CLINICAL HISTORY i5stqLNnXFBcqRO2AxGfAWKmk (test code = 3356) 1lto3EpnALlnQOnUQjqtBUpzq Pnrg87jUM3rU28DT9oHWWeRfK 3WWJslsX2Vmg1FBQqVTYepEOk C132y6zrl8zgxuIbmKW9fQggR ZCggenlGdX3HNxhMGJqubdtGD w8QDefIYUvjFZ3KRKzqMJnB4V bFJKnPS1kfwp2LDN7TSnrGXBn FbY5AEKlfTGaTDLcxBpwDWowu 833BXA9CnMqRZLiwwWmdGyijU 5tTiIqXVWDltEdtHMjoTQsPK6 hIFxwYXJ9 GROSS DESCRIPTION b2xszVPlTZHtgIRJFUZiJ7qgp (test code = zJbAKMwbZPaI8GgepfoBDjeJP [id number]) 1fKV1zbKfamXGleRNnAS3RTWK lZmYxXHBhcGVydzEyMjQwXHBh jGUfnYH0TSMpBO6cvhndNPotO LlxBTAeokJ9FBPvoAEeF9TqMY LfZH7gecarDVG2SJpusU1ibfN KFfzjNm0aaSZvnJvmYlLfIwDg KUEsBIKjTHIkjJonLOKeMVv6i W3TWourE84xa6H7Tjc1ANZjLS TxN7DgIT2hRTAohQHiV82GFes qCBX4FXNNEtrwTPJnKN0Zu1gl GTTrjOJhDQT7NEbizTIiDJQwB ZKyMKo8RDQsHNjcrKHsFZ1flE sgJgcyhXima2BzqCKyMLczGEU zBLCfYStaSPHrBO0JAhCiNCSp QyMqLKEdDYx2SLx2KG4JKyZoG AVpSWt5TljyDTYjKXh5UDxwCO 5OICKoHsJ7UShqZLT5CYY7TFE cXHQgMiBcXGYgQXJpYWwgXFxm kBLtGU8lyNuhpYVgnwRZGoPYz U8ye3zxXSfoh0SceLOeELYjtm ANClxlcGljTmVzdERvYzEgDQp cbHRycGFyXGxpbjBccmluMCAN ClxsdHJjaFxjZjFcZnMyMCBSZ KEokTNgSDVafoMcn6KiAYypgm BsYWJlbGVkIHdpdGggdGhlIHB vqAzjyyOivwNvgyQfvv8svIeo odPzdjXlwDHqGQddXHWqU4Kvh ELuCpP1aELbeVTpPAAhw2OtcC K9fO7fNfZlqLpgUA24kAMIMpU TaWeywesyHEYgVAFipRb5aVOc JWXvzzNfuMSnxMTsm3YjjEMeX GsotXTiRQ92F13wWGoerLwfv1 WxTQ7tGUV8zkgqXvDvFoGglJ2 nGY3uTZKbICkgRD0cfDmwjZ2f NAxsKV9ygL4gEEJ3Ay8kzARpV CBlbnRpcmVseSBpbiBjYXNzZX R9NQOpVBCicXLuXZBjMhHGRP5 hin8AGYLvVNncSPDhhHOWFSJ7 DH2bGJpewOHryougIIOyU6LpG 2EvljVljXYuCUNncjMmh4nzYO M6OXRpdJDoxXJoNbWnBkkzAMO 6YSn7MPngIDPsH0HbB7SmTIdb PTR6EMEuQoSdZLOvCNBBFdAiM eTrYtScYxTeSeS7FTu1UBPNHx OqJpFnQnj8CJw7TVGwVDb1WSc 9VHtURsB6BRYnZFf2OLMfHOHl AHMiWVh9OYGmITvmTHJbbINvU ZhbNzwoAWcuF14uFnQeGrvzfO NjphHZFkPIlD2of9foCQzkj0E cr6Dze3TlRDbpBEdqOpQnX1Fq x59gTXUaozQWGdcwcPubOuFzw ERvYzEgDQpcbHRycGFyXGxpbj BccmluMCANClxsdHJjaFxjZjF cZnMyMCBSZWNlaXZlZCBpbiBm e1GnVVyqrxJbOVKbaJBnRXexd GggdGhlIHBhdGllbnQncyBpbm Nspn0znFirutFnypRvsOIwTHm oDLPoVsaliEU0HFFsNPQ3ji6j s08ddDViFGUgDRc5lfR3uF0aV bVuqtFhWNLqkevyYED0TY6tf6 xlfVHbvRVuz2GupANhtYOiCZP hUBZdqFAwofyjWF8qYZVsKGsw FJ5hfDavhQ5rZPybHI2ouU2cO IH8Ze8fzWEiTOAmijWjurLdfG QbqvDhYGKeITQ7GZAjLFLpiIS jIJZrRqEDRZ2zop2CVMYxLTqa YPJokRHNRHR5HP9tBUydzTVpc qgtASIsC2GeE8MpvzSluUErKP NcvmHgk3wyNVK7RDGjwVFtfNR sMsHeJsydQLD7LTazp1stZRH5 XHNsbXVsdDAgDQpcZnMxNntcZ UBdA8EoF7PcmdM5WBc7 MICROSCOPIC r7ozaAIvZFNkiYK1AkZgEROco DESCRIPTION (test 0xrv2EspONtxZAeTTvrqWWliz code = 3371) Cfrq46zHY9xX60PC1oDFMyJeS 7LYAglzF7Ivh5ZIHyWHQwgVMy T957s2pun1gzggHkaPK1lDyqZ AKtesptTrT3MQpySZHkvbjaNB c9WWqfGFXtbRU3QTUhuGDfJ8G hHDCeUX8imjl2GBH9ZJgzDASb BeV2MYLmjCNlEUFzpJxmNKzwa 526GST5HdJcMSIbeqHzbBukcY 7cSkSmNLHDOSStf2KlWLVytEV yfQ== SPECIAL STUDIES l3gdfORsPDVxu9wjLUTouWZgU (test code = 3376) zEwMzNcZnRuYmpcdWMxIHtccn FxSYuit2CbA2NpMyAdHZosynB xQXIhVbcermtsWWDkLLY8kjVx PQCzDMzmWPVoSDvoNy9btUJsz SjrCbSzYLCjk9ibmrUOvzjabE b7c4cwCPQkUvS2xBMgPHzyD9o drhMxfROaX8AsdPCffSg5w4dw SoTkZtE3gPCpCNopD4mjrfLwg OWiDFFdBKm5gG89ZCSocT4lpT SwRUplgoTpViL6QBywGJNlLlX 0GVXnjWZvHXWeZ6vaTMCsYOjr WPTpNQitpPHiVZG9jTpff3E3v GVzaGVldHtcZjBcZnMyMiBOb3 WbWNs7hWfqI5WwGLHdEfL3qNR tSYAeBDgbCHZhXIDcbzI2kQhu vsLbt09pxVQlBYOzMYLzMaHpo XyoWYXqFUGFc5MlyYydSOJ1fZ f2vGbzNedkOPV9Xwo1QY5cxt8 2jzz4tUuiJUEnegmjGaE4TFzz SPAhoectGEc1HOkyCCFewOV7X VNwsZLjQ6OlAQIlAL5hyqw5GJ H3OPruHWZoXcU0CKOfdFFnYWJ lcIdpJTusv790AQH1StYrXK9j B5Cyf3X9bN8nvBHgWVMxxOBqT gTpGSTano7teOMpEOfap8IgYK L9rvM2xOKavQBrAMAdJS32Jtv jd8AbKewyz8EkW51nlXK4PMuu x6liVZ0jPqC8zlBsDPzdx8psq I1oFtD1KMamWW6dOH3mKQDcaY 5ucmxjXHBnYnJkcmhlYWRccGd vqsQzSs9gwPsbSRA1JRkaF8ud jG8nVoL2ERnnF8dzeP7cNZi5O AafbJF5KCIybH1uFZ3vvrtlj0 mmGNybFOubWGXegyU5szZ8HVY kbEOhV1TtpG0hHSDxQX0ltkvk u5whFBZ3APaoOGItCMD7AkIkI VLkv7Wvkxd0ByJqk6PjrLViCH sdM47sn174DQJkcmRuN0omrFL tbonkhFFppxryCGvmhcM0HHIo XHBsYWluXGYxXGZzMjJcbGFuZ zEwMzNcaGljaFxmMVxkYmNoXG RqETkpD8ijNpGtT9AmYONwMxU kZYqvZJdsoHClkNAbvGW6eY1o HV8uSZEtwLPyC4SgUQRtwbEiz OVxEQN3qNWzdKRgXK3fBGidvT Jhp5ofd3ExO8gckEtzaLO6BY4 fOVVnSTRlGSozj1XodA9tCcgi bGFpblxmMVxmczIyXGxhbmcxM WGjMLzqX7mbIbHiCWSljGspBC zof2MgSKOqEIUrVkqvgvCdVKu 1ifBySGZavcgwKCSfcLwvlW0m PaKrUrOyYqylOK5yVMFsE6rti RAbDDWcSRQqC0jxWxYicQ8jnY btVYepHcSjFxSjWfEOa444aq0 fRCRedFQbmaLSaJVvtY1dJPle NAuvGUrfmMYkWJyvh7hyNQVhn 4m5cZOdLURmbmZat6vyPFvvdw QeFIHtiUXkxEOiLRSak14nULx meMvlbFvcEWPlu5WzaUunm2Vh YfCvNGyqc8VqJ28rjLUfoADnd XmrXHKnhqMxYFHzn62ko3fwOL HeLmI0lIWxaZB0aTBftGNih4T djDxbQBXeg8cjKHIldm5eqcdx qAKem6JcbX9xcqeuUBdstTOgx tUiNOScl1t9bQIrLNChJBUtBN [id number] sOJO0JQjdUNRxTDHarkRnUVYf bHVhdGVkXHBsYWluXGYxXGZzM jJcbGFuZzEwMzNcaGljaFxmMV ppHiOeBLWuAYjvS5rsYxDlC5T oSJNrXxRcxJFaT2tbrYBpJOTt YWluXGYxXGZzMjJcbGFuZzEwM zNcaGljaFxmMVxkYmNoXGYxXG yrI6dmLrKyZ4VbZFUuUiAaHFd wbGFpblxmMVxmczIyXGxhbmcx LUSwISpfC2vcPpCzCXFvhRqaS Cgap0KoIRQtUIQbAlrdbvCkFY j6sfVcTYYxsaosyVOmifukZAv jojNsAMiqcccoAUPlTXcnD7bw IeYnNXRlqBuuWKatj9DrLYIsM LFdLmvbzvCzATndxNOxs8syc7 PjS2bbhCceuMK9ZWBiM7yvhTU vvPD0XYU6pQ7gTQvjehGoHEIn r5QfIQDaWLImNpF3qY2pSKD0Q iBMdWtlXHBsYWluXGYxXGZzMj JcbGFuZzEwMzNcaGljaFxmMVx uEeAlDJTtRCykP9krZeNeP3Zg RIAyKpFrnPnvCRkqJQm3Qbxav GFpblxmMVxmczIyXGxhbmcxMD AwEFopE6cyPtEtWYVgiJgoIDo tf3PmVELyWUXaQupqwmGkVRLw YXIfmJKrfVPQGC75NUZdINGpf PqwfG6vlPTMSKJvwcM5z4D8PK szDCAwCUr7XJxkhrHdHSDjcJ7 jNZBvKZ7hWKv0roVqIPVmt1In IG9cUMDjxXLrCBP2DUInf0InZ 6Tyy4DxJALgOGBbym5cogZeCj VGkCJlVWZzoz82LZRsOU4kW8j iIZNkXIZspdKocAMie8IeZDZd jHL1xXDoEC2SHbKYq02nPFPnO ASCbdWxGSPynLrvpFN2efD2xW 9uLiBUaGUgRkRBIGhhcyBkZXR szh8kcjHfQOQaZHJjc5StyDMx mOUineNbJ6Rsl5TyADAarv99Y HxdtTKqhk03JF4lH7Pve2BawZ 2pCQhrJMCda8NyfLAzqONcSKO uh7MrI6lguotpJCahfXGjhC7y VVRuTMj4XJGqc9WaASDuj5HvG qMwanTyWBQaTXXtLRHuzQ86ZK R3hNiizQgyrtMkOO0aJTNizzU cSOJiVIGsoD6pGJzqjjMhRIBg mnX6k7J0IHxeZWSgbgNlZcxbV LH0crEhrlP8qBWsB8wbyqrqUF lkVCByz6NjoF4xaYPQkMJmy1X qeKDwaWYPtZFyFX7synSyFM5r MKT3ZElsIYNTHCDkENivZKDpR JP7GNmgRonlHYV1zdQrMEDqj4 PaJYiiN1yqW14ntEmwuKg4lGP orLchqXLzyFArUFSxcwF6r6M8 IXGlt0OdddslTQYxPQidZESfV GZzMjJcbGFuZzEwMzNcaGljaF dxOvsiRmRdXMTjRZijG1weAeA tPlYoUdpiSHQ7vI== [facility]TISS[facility] [id number] 17:38:23Surgical Pathology Report Case: [id number] Authorizing Provider: Mireya Howard MD Collected: 03/28/2022 04:35 PM Ordering Location: [address] Med/Surg Received: 03/29/2022 08:04 AM Pathologist: Amanda Amado MD Specimens: A) - Biopsy, Gastric, R/O H.Pylori B) - Biopsy, Gastroesophageal Junction This addendum is issued to report the result of immunohistochemical study for Helic obacter pylori:- NEGATIVE The interpretation of this case included the use of immunohistochemistry or special stains. HELICOBACTER PYLORIImmunohistochemistry technical testing was performed at [facility], Pathology Laboratory where it was developed and its performance characteristics were determined. It has not been cleared or approved by the U.S. Food and Drug Administration. The FDA has determined that such clearance or approval is not necessary. The test is used for clinicalpurposes. It should not be regarded as investigational or for research. This laboratory is certifiedunder the Clinical Laboratory Improvement Amendments of 1988 (CLIA-88) as qualified to perform high complexity clinical laboratory testing. CPT CODE: 40503 Addendum electronically signed by Amanda Amado MD on 04/03/2022 at 5:38 PMA. STOMACH, RANDOM, ENDOSCOPIC BIOPSY: - CHRONIC GASTRITIS WITH FOCAL ACTIVITY - NO HELICOBACTER PYLORI-LIKE ORGANISMS SEEN ON WARTHIN-STARRY STAIN - NO INTESTINAL METAPLASIA, DYSPLASIA OR MALIGNANCY NOTED - IMMUNOHISTOCHEMICAL STAIN FOR HELICOBACTER IS BEING DONE; RESULT WILL BE ISSUED IN ADDENDUM REPORTB. GASTROESOPHAGEAL JUNCTION NODULE, ENDOSCOPIC BIOPSY: -A FRAGMENT OF COLUMNAR MUCOSA WITH MILD CHRONIC GASTRITIS WITH FOCAL ACTIVITY - NO SQUAMOUS MUCOSA SEEN - NO INTESTINAL METAPLASIA PRESENT - NO DYSPLASIA OR MALIGNANCY NOTED Signing Pathologist Direct Phone Line: [phone] signed by Amanda Amado MD on 04/01/2022 at 5:30 [id number] X 2Anemia/melena A. Biopsy, Gastric.Received in formalin labeled with the patient's informationand labeled "gastric tissue, description: rule out H. Pylori" are multiple fragments of almeida- white mucosal tissue measuring 0.1 to 0.3 cm in maximum dimension submitted entirely in cassette labeled A1. BH/ewB. Biopsy, Gastroesophageal Junction.Received in formalin labeled with the patient's informationand labeled "biopsy, gastroesophageal junction" is a single almeida-white mucosal piece measuring 0.3 cmin maximum dimension submitted entirely in cassette labeled B1. BH/ewPerformedThe interpretation of this case included the use of immunohistochemistry or special stains.Control Slides Examined: In-house known positive controls were evaluated along with the test tissue. These control slides run alongside of the patients sample show appropriate staining. Internal positive and negative controls when available are evaluated Immunohistochemistry technical testing was performed at [facility], Pathology Laboratory where it was developed and [...] perform high complexity clinical laboratory testing.Prepare Leuko-Red [id number] 23:54:00 Test Item Value Reference Range Interpretation Comments CROSSMATCH (test code = 2264) COMPATIBLE Unit ABO (test code = A Pos [id number]) UNIT NUMBER (test code = [id number] 934-0) Status (test code = 6758392) TX_TIMEINCHART Blood Bank Product (test code RED BLOOD CELLS = 2263) PRODUCT CODE (test code = H0284J04 933-2) [facility] [id number] 23:54:00 Test Item Value Reference Range Interpretation Comments CROSSMATCH (test code = 2264) COMPATIBLE Unit ABO (test code = A Pos 7119722) UNIT NUMBER (test code = [id number] 934-0) Status (test code = 6657230) TX_TIMEINCHART Blood Bank Product (test code RED BLOOD CELLS = 2263) PRODUCT CODE (test code = B3724C04 933-2) [facility] PeninsulaCT, BRAIN, WITHOUT [id number] 15:55:00 [facility] : 1950 Sex: FFINAL REPORT CT, BRAIN, WITHOUT CONTRAST CLINICAL INDICATION: Headache, new or worsening (Age >= 50y) COMPARISON: None TECHNIQUE: Noncontrast axial CT imaging of the brain and skull. DOSE REDUCTION: Dose modulation, iterative reconstruction, and/or weight-based adjustment of the mA/kV was utilized to reduce the radiation dose to as low as reasonably achievable. FINDINGS:No intrac ranial hemorrhage, midline shift or mass effect. Midline structures are normally developed. Scattered foci of hypoattenuation are present throughout the periventricular and subcortical white matter, and, although nonspecific by imaging, statistically represent mild chronic microvascular ischemic changes in this age group. No hydrocephalus. Orbits are within normal limits. No obstructive paranasal sinus disease. Small left mastoid effusion. IMPRESSION: No acute intracranial findings If there is persistent clinical concern for intracranial pathology, MR examination is recommended for further character ization. Signed: Peace Grey MDReport Verified Date/Time: 03/29/2022 15:55:47 SARS-CoV2/RT-PCR (Asymptomatic ONLY)2022-03-29 14:13:56 Test Item Value Reference Interpretation Comments Range SARS-COV2/RT-PCR Negative Negative The SARS-Co V-2 (test code = target nucleic 05060-7) acids are not detected in thi s [...] om SARS-CoV-2 in a nasopharyngeal swab specimen collec desirae from individual s suspected of COVID-19 [...] revoked sooner. Fact Sheet for Healthcare Providers: https://www.[employer]/Documents/Xp ert%20Xpress%20SAR S%20CoV-2/Fact%20S heets/302-3802%20S ARS-COV-2%20HEALTH CARE%20PROVIDERS%2 0FACT%20SHEET.pdf Fact Sheet for Healthcare Patients: https://www.[employer]/Documents/Xp ert%20Xpress%20SAR S%20CoV-2/Fact%20S heets/302-3801%20S ARS-COV-2%20PATIEN T%20FACT%20SHEET.p df Lab Interpretation Normal (test code = 10326-2) [facility]2022-03-29 14:13:56 Test Item Value Reference Interpretation Comments Range SARS-COV2/RT-PCR Negative Negative The SARS-Co V-2 (test code = target nucleic 96085-1) acids are not detected in thi s [...] revoked sooner. Fact Sheet for Healthcare Providers: https://www.[employer]/Documents/Xp ert%20Xpress%20SAR S%20CoV-2/Fact%20S heets/302-3802%20S ARS-COV-2%20HEALTH CARE%20PROVIDERS%2 0FACT%20SHEET.pdf Fact Sheet for Healthcare Patients: https://www.[employer]/Documents/Xp ert%20Xpress%20SAR S%20CoV-2/Fact%20S heets/302-3801%20S ARS-COV-2%20PATIEN T%20FACT%20SHEET.p df Lab Interpretation Normal (test code = 11594-4) [facility])2022-03-29 14:13:56 Test Item Value Reference Range Interpretation Comments SARS-COV2/RT-PCR Negative Negative The SARS-Co V-2 target (test code = nucleic acids a re not 9460283) detected in thi s specimen. Negative result [...] revoked sooner. Fact Sheet for Healthcare Providers: https://www.[employer]/Documents/Xpert%20Xpress%20SARS%20CoV-2/Fact%20Sheets/302-3802%42XSKW-CKM-0%20 HEALTHCARE%20PROVIDERS%20FACT%20SHEET.pdf Fact Sheet for Healthcare Patients: https://www.[employer]/Documents/Xpert%20Xp ress%20SARS%20CoV-2/Fact%20Sheets/302-3801%87OUJC-NCS-4%20PATIENT%20FACT%20SHEET .[id number] 07:14:00 Test Item Value Reference Range Interpretation Comments MAGNESIUM (BEAKER) 1.9 mg/dL 1.5-3.0 Specimen slightly (test code = 627) hemolyzed [employer] Welding Machine Operator ID - DSENSONOperator ID - DSENSONOperator ID - DSENSONOperator ID - DSENSONBASIC METABOLIC [id number] 07:12:25 Test Item Value Reference Range Interpretation [...] not appl icable for dialysis patien ts [employer] Welding Machine Operator ID - DSENSONOperator ID - DSENSONOperator ID [...] (BEAKER) (test code = 2801) HEMOGLOBIN AND [id number] 00:52:25 Test Item Value Reference Range Interpretation Comments HEMOGLOBIN (BEAKER) (test code = 9.3 GM/DL 12.0-15.5 L 410) HEMATOCRIT (BEAKER) (test code = 29.4 % 36.0-46.0 L 411) HEMOGLOBIN AND [id number] 18:28:26 Test Item Value Reference Range Interpretation Comments HEMOGLOBIN (BEAKER) (test code = 9.8 GM/DL 12.0-15.5 L 410) HEMATOCRIT (BEAKER) (test code = 30.8 % 36.0-46.0 L 411) VITAMIN [id number] 14:17:34 Test Item Value Reference Range Interpretation Comments VITAMIN B12 (BEAKER) (test code = 320 pg/mL 211911 774) [employer] Machine Operator ID - [id number], TIBC, % SAT. (WITHOUT FERRITIN)2022-03-28 14:03:05 Test Item Value Reference Range Interpretation Comments IRON (BEAKER) (test code = 547) 12.0 ug/dL 45.0-170.0 L TOTAL IRON BINDING CAPACITY 276 ug/dL 250-550 (BEAKER) (test code = 769) IRON % SATURATION (2) (BEAKER) 4 % 20-55 L (test code = 2590) Arc Welding Machine Operator ID - [id number] ID - [id number] AND [id number] 13:32:16 Test Item Value Reference Range Interpretation Comments HEMOGLOBIN (BEAKER) (test code = 9.3 GM/DL 12.0-15.5 L 410) HEMATOCRIT (BEAKER) (test code = 29.3 % 36.0-46.0 L 411) HEMOGLOBIN AND [id number] 05:22:18 Test Item Value Reference Range Interpretation Comments HEMOGLOBIN (BEAKER) (test code = 4.8 GM/DL 12.0-15.5 LL 410) HEMATOCRIT (BEAKER) (test code = 15.9 % 36.0-46.0 LL 411) CBC W/PLT COUNT & AUTO [id number] 22:57:56 Test Item Value Reference Range Interpretation [...] (BEAKER) (test code Normal = 762) TROPONIN [id number] 22:38:39 Test Item Value Reference Range Interpretation [...] failure, acidosis, acute neurological disease, and persistent tachyarrhythmia.Arc Welding Machine Operator ID - [id number] I 2022-03-27 22:37:56 Test Item Value Reference [...] failure, acidosis, acute neurological disease, and persistent tachyarrhythmia.Arc Welding Machine Operator ID - [id number] METABOLIC [id number] 22:32:50 Test Item Value Reference Range Interpretation [...] not appl icable for dialysis patien ts Arc Welding Machine Operator ID - [id number] ID - [id number] ID - [id number] ID - [id number] ID - [id number] ID - [id number] ID - [id number] ID - [id number] ID - [id number] ID - [id number] ID - [id number] ID - [id number] ID - [id number] ID - [id number] ID - [id number] ID - [id number] 22:31:18 Test Item Value Reference Range Interpretation Comments MAGNESIUM (BEAKER) (test code = 1.7 mg/dL 1.5-3.0 627) Arc Welding Machine Operator ID - [id number] ID - [id number] ID - [id number] ID - [id number] 22:28:18 Test Item Value Reference Range Interpretation Comments PHOSPHORUS (BEAKER) (test code = 3.1 mg/dL 2.5-4.5 604) Arc Welding Machine Operator ID - [id number] [id number] 22:24:59 Test Item Value Reference Range Interpretation Comments PROTIME (BEAKER) 12.2 seconds 9.3-12.0 H Final Infor mation (test code = 759) (Auto Outp ut) INR (BEAKER) (test 1.12 See_Comment Final Inf ormation code = 370) (Auto Output) [Automated mess age] The system [employer] generated this result transmitted ref erence range: <=5.90. The reference range was not used to int erpret this result as normal/abnormal . RECOMMENDED COUMADIN/WARFARIN INR THERAPY RANGESSTANDARD DOSE: 2.0 - 3.0 Includes: PROPHYLAXIS for venous thrombosis, systemic embolization; TREATMENT for venous thrombosis and/or pulmonary embolus.HIGH RISK: Target INR is 2.5-3.5 for patients with mechanical heart valves.
[2022-09-06] MEDS ORDERED: ONDANSETRON 4 MG/2 ML VIAL ONE (15:01)
[2022-09-06] MEDS ORDERED: PANTOPRAZOLE 40 MG INJ ONE (15:01)
[2022-09-06] MEDS ORDERED: NA CHLORIDE 0.9% 1,000 ML ONE (15:01)
[2022-09-06 15:36] LABS: Absolute Lymphocytes (CBC) 0.6 K/uL (0.7-4.9); Hematocrit 19.4 % (36.0-45.0); Lymphocytes % 8.7 % (15.3-44.8); MCV 69.7 fL (80-100); MPV 7.6 fL (7.6-11.3); RBC Red Blood Cell Count 2.78 M/uL (3.86-4.86)
[2022-09-06 15:51] LABS: AST/SGOT 6 U/L (15-37); Albumin 1.9 g/dL (3.4-5.0); Alkaline Phosphatase 86 U/L (45-117); BUN Blood Urea Nitrogen 21 mg/dL (7-18); Bicarbonate 31 mmol/L (21-32); Bilirubin Total 0.6 mg/dL (0.2-1.0); Glomerular Filtration Rate 87 ml/min (=/>90); Glucose Level 122 mg/dL (74-106); Lipase 40 U/L (73-393); Protein, Total 6.5 g/dL (6.4-8.2); Sodium Level 139 mmol/L (136-145)
[2022-09-06 15:54] LABS: ALT/SGPT < 10 U/L (13-56)
[2022-09-06 16:07] LABS: SARS-CoV-2 Antigen Rapid Res Negative (Negative)
[2022-09-06 16:10] LABS: Protime INR 1.47
[2022-09-06] MEDS ORDERED: FENTANYL CITR 100 MCG/2 ML ONE (16:22)
--- NOTE | 2022-09-06 17:18 | RAD REPORT ---
EXAM DESCRIPTION: CTAbdomen Pelvis W Contrast - 09/06/2022 4:28 pm CLINICAL HISTORY: Nausea/vomiting COMPARISON: Abdomen Pelvis Wo Contrast dated 03/05/2022 TECHNIQUE: CT of the abdomen and pelvis was performed with IV contrast. All CT scans are performed using dose optimization technique as appropriate and may include automated exposure control or mA/KV adjustment according to patient size. FINDINGS: Lower chest: Left lower lobe consolidation. Small left effusion. Trace right effusion. Ple ural thickening which is partially imaged along the right lower lobe. Small pericardial effusion. Mul ti-vessel coronary artery disease. Small hiatal hernia. Liver: No acute abnormality or suspicious lesions. Biliary: Cholecystectomy. Mild intrahepatic and extrahepatic biliary duct dilatation may be related t o the postcholecystectomy state. . Stomach: No significant focal abnormality. Duodenum: No significant focal abnormality. Pancreas: No significant abnormality. Spleen: No significant abnormality. Adrenal: No suspicious lesions. Kidney/ureter: Moderate right-sided hydronephrosis. The obstruction appears to be at the right UPJ. N o obstructing stone or mass is seen. No renal calculi. Subcentimeter left upper pole renal cyst. Retroperitoneum: No retroperitoneal adenopathy. Vascular: No aneurysm. Atherosclerosis . Bowel: No bowel obstruction. Scattered small air-fluid levels present within the small bowel.. Possib le concentric mass in the ascending colon. Peritoneum: No ascites or free air. Bladder: Grossly unremarkable. Reproductive: No adnexal masses. Bones: Increased height loss at a previously demonstrated L3 compression fracture with significant misty ny retropulsion resulting in severe central spinal stenosis. Compression fractures are present L1, L2 , and L5 noted. These were present on the prior CT. Intramedullary usman in the left femur. Other: n/a IMPRESSION: 1. Right-sided hydronephrosis which may be secondary to a UPJ obstruction. No obstructin g stone or mass identified. 2. Ascending colon mass suspected. Recommend colonoscopy and/or surgical consultation. 3. Left lower lobe consolidation and partially imaged subpleural thickening at the right lung base is not well assessed. These findings could represent either pneumonia/pneumonitis or alternate etiology .
[2022-09-06] MEDS ORDERED: NA CHLORIDE 0.9% 250 ML ONE (17:23)
--- NOTE | 2022-09-06 17:25 | ER ---
Nurse's Notes [facility] Name: Rocio Turcios Age: 72 yrs Sex: Female : 1950 Arrival Date: 09/06/2022 Time: 14:19 Bed External Waiting Private MD: Diagnosis: Symptomatic anemia;Upper GI bleed Presentation: 09/06 14:28 Chief complaint: EMS states: they were called to the house of the patient complaining ap3 of nausea and vomiting that started this morning. patient has no complaints of this pain, or bloody stools. Coronavirus screen: At this time, the client does not indicate any symptoms associated with coronavirus-19. Ebola Screen: No symptoms or risks identified at this time. Initial Sepsis Screen: Does the patient meet any 2 criteria? HR > 90 bpm. Does the patient have a suspected source of infection? No. Patient's initial sepsis screen is negative. Risk Assessment: Do you want to hurt yourself or someone else? Patient reports no desire to harm self or others. Onset of symptoms was September 06, 2022. 14:28 Method Of Arrival: EMS: [facility] ap3 14:28 Acuity: RADHIKA 3 ap3 Triage Assessment: 14:31 General: Appears uncomfortable, Behavior is calm, cooperative. Pain: Denies pain. EENT: ap3 dry blood noted in the patients mouth. Neuro: Level of Consciousness is awake, alert, Oriented to person, place, situation, Speech is normal. Cardiovascular: Patient's skin is warm and dry. Respiratory: Airway is patent Respiratory effort is even, unlabored, Respiratory pattern is regular, symmetrical. GI: Reports nausea, vomiting, since this morning. Historical: - Allergies: 14:30 No Known Allergies; ap3 - PMHx: 14:30 Arthritis; COPD; heart disease; Hypertensive disorder; rhabdomyolysis; Rheumatoid ap3 Arthritis; Dementia; - Immunization history:: Client reports receiving the 2nd dose of the Covid vaccine. - Social history:: Smoking status: unknown. - Family history:: not pertinent. Screenin:32 Abuse screen: Denies threats or abuse. Nutritional screening: No deficits noted. ap3 Tuberculosis screening: No symptoms or risk factors identified. 18:06 [facility] ED Fall Risk Assessment (Adult) History of falling in the last 3 months, ap3 including since admission Yes- fall prone (multiple falls) (3 pts) Confusion or Disorientation No (0 pts) Intoxicated or Sedated No (0 pts) Impaired Gait Yes (1 pt) Mobility Assist Device Used Yes (1 pt) Altered Elimination No (0 pt) Score/Fall Risk Level 3 or more points = High Risk Oriented to surroundings, Maintained a safe environment, Educated pt \T\ family on fall prevention, incl call for assistance when getting out of bed, Assessed \T\ reinforced patient's understanding of fall precautions, Provided non-skid footwear, Hourly rounding (assess needs \T\ fall precautionary measures) done, Used ambulatory aids as needed (educated on \T\ assisted with), Used gait belt as appropriate Implemented a Fall Risk Plan of Care, Apply high fall risk patient identification: yellow non skid footwear/ fall signage, Offered frequent toileting (1:1 observation), Remained with patient while ambulating, Utilized family, sitter, or virtual detail assembler as indicated. Assessment: 17:35 Reassessment: blood transfusion started, please see transfusion record. ap3 18:06 Reassessment: report given to receiving nurse at [facility]. ap3 19:41 Reassessment: No changes from previously documented assessment. Patient and/or family vc1 updated on plan of care and expected duration. Pain level reassessed. blood still transfusion. 20:40 Reassessment: Patient appears in no apparent distress at this time. Patient and/or jb4 family updated on plan of care and expected duration. Pain level reassessed. Transfusion complete. Neuro: Level of Consciousness is awake, alert, obeys commands, Oriented to person, place, time. Respiratory: Airway is patent Respiratory effort is even, unlabored, Respiratory pattern is regular, symmetrical. Vital Signs: 14:28 BP 141 / 86; Pulse 93; Resp 18; Temp 98.5(O); Weight 45.36 kg; ap3 16:39 BP 154 / 85; Pulse 99; Pulse Ox 100% ; ap3 19:00 BP 163 / 75; Pulse 87; Resp 17; Pulse Ox 100% ; vc1 19:30 BP 169 / 73; Pulse 84; Resp 15; Pulse Ox 100% ; vc1 20:35 BP 178 / 78; Pulse 82; Resp 20; Temp 97.6(TE); Pulse Ox 77% ; jb4 ED Course: 14:19 Patient arrived in ED. eb 14:20 Reji Munroe MD is Attending Physician. rt 14:30 Triage completed. ap3 14:32 Manisha Kumar, RN is Primary Nurse. ap3 14:32 Arm band placed on right wrist. ap3 14:32 Patient has correct armband on for positive identification. Bed in low position. Call ap3 light in reach. Side rails up X2. threat monitoring analyst on. Pulse ox on. NIBP on. Door closed. Noise minimized. 16:30 CT Abd/Pelvis - IV Contrast Only In Process Unspecified. EDMS 17:06 initiated a transfer with GELY Drake from the [facility]. eb 17:[address] Voss the hospitalist instrumentation designer for [facility] with Dr. mike Munroe for patient transfer consultation. 17:30 administrative approval given by GELY Drake/ patient has been accepted to [facility] 5th floor room 530/ Dr. Iraj Voss has accepted the patient in transfer/ report to be called to [phone]. 18:19 per GELY Drake from the [facility] / they will have to decline the eb patient now due to the GI instrumentation designer or [facility] refusing the patient due to not having any interventional radiology instrumentation designer for the weekend/ per GELY they do not have any tele med surg beds available at any facilities/. 18:22 initiated a transfer with Elaine from the [facility] Transfer [place]/. eb 18:48 connected GI instrumentation designer for [facility] Munroe for patient transfer eb consultation. 18:52 connected the hospitalist instrumentation designer for [facility] Munroe for patient eb transfer consultation. 18:56 administrative approval given by Michelle Boston/ patient has been accepted to [facility] Rm 410/ Dr. Niels Welsh has accepted to the patient in transfer/ report to be called to [phone]. 20:53 No provider procedures requiring assistance completed. Patient transferred, IV remains jb4 in place. Administered Medications: 15:05 Drug: ProTONIX (pantoprazole) 40 mg Route: IVP; Site: left antecubital; ap3 18:07 Follow up: Response: No adverse reaction ap3 15:05 Drug: NS 0.9% 1000 ml Route: IV; Rate: 1 bolus; Site: left antecubital; ap3 17:56 Follow up: IV Intake: 1000ml ap3 18:07 Follow up: Response: No adverse reaction; IV Status: Completed infusion ap3 15:05 Drug: Zofran (Ondansetron) 4 mg Route: IVP; Site: left antecubital; ap3 17:56 Follow up: Response: No adverse reaction; Nausea is decreased ap3 16:39 Drug: fentaNYL (PF) 50 mcg Route: IVP; Site: left antecubital; ap3 17:56 Follow up: Response: No adverse reaction; Pain is decreased ap3 Medication: 14:32 VIS not applicable for this client. ap3 Intake: 17:56 IV: 1000ml; Total: 1000ml. ap3 Outcome: 17:24 ER care complete, transfer ordered by . rt 20:40 Transferred by ground EMS to [facility], Transfer form jb4 completed. X-rays sent w/ patient. 20:40 Condition: stable 20:40 Discharge instructions given to family, Instructed on the need for transfer, Demonstrated understanding of instructions. 20:47 Patient left the ED. kl Signatures: Dispatcher [employer] EDMS Myranda Holm RN RN kl Bryson, James, RN RN jb4 Manisha Kumar RN RN ap3 Botello, Elizabeth eb Calcote, Vanessa, RN RN 1 Reji Munroe MD MD rt Corrections: (The following items were deleted from the chart) 20:53 20:40 Reassessment: Patient appears in no apparent distress at this time. Patient jb4 and/or family updated on plan of care and expected duration. Pain level reassessed. jb4
--- NOTE | 2022-09-06 17:25 | EDPHYS ---
Physician Documentation [facility] Name: Rocio Turcios Age: 72 yrs Sex: Female : 1950 Arrival Date: 09/06/2022 Time: 14:19 Bed External Waiting [facility] MD: NAOMY Physician Reji Munroe HPI: 09/06 14:58 This 72 yrs old Female presents to ER via EMS with complaints of Nausea and vomiting. rt 14:58 The patient presents to the emergency department with nausea, vomiting. Onset: The rt symptoms/episode began/occurred just prior to arrival. The symptoms are aggravated by nothing. The symptoms are alleviated by nothing. Associated signs and symptoms: The patient has no apparent associated signs or symptoms. Severity of symptoms: At their worst the symptoms were moderate. Patient presents to the ED with nausea and vomiting starting this afternoon. The patient states that it was dark with black flecks in it. Patient denies abdominal pain. Denies other acute complaints at this time. Symptoms are moderate in severity, no other aggravating or alleviating factors.. Historical: - Allergies: 14:30 No Known Allergies; ap3 - PMHx: 14:30 Arthritis; COPD; heart disease; Hypertensive disorder; rhabdomyolysis; Rheumatoid ap3 Arthritis; Dementia; - Immunization history:: Client reports receiving the 2nd dose of the Covid vaccine. - Social history:: Smoking status: unknown. - Family history:: not pertinent. ROS: 14:58 Constitutional: Negative for fever, chills, and weight loss, Eyes: Negative for injury, rt pain, redness, and discharge, Cardiovascular: Negative for chest pain, palpitations, and edema, Respiratory: Negative for shortness of breath, cough, wheezing, and pleuritic chest pain, MS/Extremity: Negative for injury and deformity, Skin: Negative for injury, rash, and discoloration, Neuro: Negative for headache, weakness, numbness, tingling, and seizure, Psych: Negative for depression, anxiety, suicide ideation, homicidal ideation, and hallucinations. 14:58 Abdomen/GI: Positive for nausea and vomiting, Negative for abdominal pain, diarrhea. Exam: 14:58 Constitutional: This is a well developed, well nourished patient who is awake, alert, rt and in no acute distress. Head/Face: Normocephalic, atraumatic. Chest/axilla: Normal chest wall appearance and motion. Nontender with no deformity. No lesions are appreciated. Cardiovascular: Regular rate and rhythm with a normal S1 and S2. No gallops, murmurs, or rubs. Normal PMI, no JVD. No pulse deficits. Respiratory: Lungs have equal breath sounds bilaterally, clear to auscultation and percussion. No rales, rhonchi or wheezes noted. No increased work of breathing, no retractions or nasal flaring. Abdomen/GI: Soft, non-tender, with normal bowel sounds. No distension or tympany. No guarding or rebound. No evidence of tenderness throughout. MS/ Extremity: Pulses equal, no cyanosis. Neurovascular intact. Full, normal range of motion. Neuro: Awake and alert, GCS 15, oriented to person, place, time, and situation. Cranial nerves II-XII grossly intact. Motor strength 5/5 in all extremities. Sensory grossly intact. Cerebellar exam normal. Normal gait. Psych: Awake, alert, with orientation to person, place and time. Behavior, mood, and affect are within normal limits. 14:58 ENT: Small amount of blood noted at the palate. Vital Signs: 14:28 BP 141 / 86; Pulse 93; Resp 18; Temp 98.5(O); Weight 45.36 kg; ap3 16:39 BP 154 / 85; Pulse 99; Pulse Ox 100% ; ap3 19:00 BP 163 / 75; Pulse 87; Resp 17; Pulse Ox 100% ; vc1 19:30 BP 169 / 73; Pulse 84; Resp 15; Pulse Ox 100% ; vc1 20:35 BP 178 / 78; Pulse 82; Resp 20; Temp 97.6(TE); Pulse Ox 77% ; jb4 MDM: 14:21 Patient medically screened. rt 16:34 Differential diagnosis: Nonspecific abd pain, gastritis, pancreatitis, appendicitis, rt diverticulitis, gastroenteritis, Upper GI bleed. 17:20 Data reviewed: vital signs, nurses notes, old medical records, lab test result(s), EKG, rt radiologic studies. Management of patient was discussed with the following: Hospitalist: Hospitalist at [facility]. I considered the following discharge prescriptions or medication management in the emergency department Medications were administered in the Emergency Department. See MAR. Independent interpretation of the following test(s) in the Emergency Department CT Scan: My interpretation is No evidence of bowel obstruction. Response to treatment: the patient's symptoms have mildly improved after treatment. 09/06 14:29 Order name: CBC with Diff; Complete Time: 16:48 rt 09/06 14:29 Order name: CMP; Complete Time: 16:48 rt 09/06 14:29 Order name: Lipase; Complete Time: 16:48 rt 09/06 14:29 Order name: Lactate w/ 2H reflex if indic.; Complete Time: 16:48 rt 09/06 14:29 Order name: Type And Screen rt 09/06 14:29 Order name: PT-INR; Complete Time: 16:48 rt 09/06 14:29 Order name: Ptt, Activated; Complete Time: 16:48 rt 09/06 14:29 Order name: CT Abd/Pelvis - IV Contrast Only; Complete Time: 17:33 rt 09/06 14:57 Order name: SARS RAPID; Complete Time: 16:48 rt 09/06 16:28 Order name: Packed RBC Leukored EDMS 09/06 15:40 Order name: Labs - recollect needed: recollect blue top/ short tube; Complete Time: eb 16:11 Administered Medications: 15:05 Drug: ProTONIX (pantoprazole) 40 mg Route: IVP; Site: left antecubital; ap3 18:07 Follow up: Response: No adverse reaction ap3 15:05 Drug: NS 0.9% 1000 ml Route: IV; Rate: 1 bolus; Site: left antecubital; ap3 17:56 Follow up: IV Intake: 1000ml ap3 18:07 Follow up: Response: No adverse reaction; IV Status: Completed infusion ap3 15:05 Drug: Zofran (Ondansetron) 4 mg Route: IVP; Site: left antecubital; ap3 17:56 Follow up: Response: No adverse reaction; Nausea is decreased ap3 16:39 Drug: fentaNYL (PF) 50 mcg Route: IVP; Site: left antecubital; ap3 17:56 Follow up: Response: No adverse reaction; Pain is decreased ap3 Disposition Summary: 09/06/22 17:24 Transfer Ordered Reason: Higher level of care rt Condition: Fair rt Problem: new rt Symptoms: have improved rt Transfer Location: [facility](09/06/22 19:25) rt Accepting Physician: Blaise(09/06/22 20:47) rochelle Diagnosis - Symptomatic anemia rt - Upper GI bleed rt Forms: - Medication Reconciliation Form rt - SBAR form rt Critical care time excluding procedures: 17:20 Critical care time: Bedside Care: 30 minutes, Consultation: 10 minutes. Total time: 40 rt minutes Signatures: Dispatcher [employer] Myranda Bennett RN RN kl Prokisch, Amanda, RN RN ap3 Marii Castillo Ryan, MD MD rt Corrections: (The following items were deleted from the chart) 19: 17:24 Dr. Crabtree rt rt 19:25 17:24 Other Acute Care Facility rt rt 20:47 19:25 Blaise rt rochelle
[2022-09-06 20:52] VITALS: TEMP 98.5
[2022-09-06 20:53] VITALS: O2SAT 100
[2022-09-06 20:56] VITALS: BP 169/73
== END 2022-09-06 20:47 | disposition short-term general hospital (02) ==
LOC: ER 14:14
PROC: 30233P1 Transfusion of Nonautologous Frozen Red Cells into Peripheral Vein, Percutaneous Approach (ICD-10-PCS; principal; 2022-09-06)
DX: D64.9 Anemia, unspecified (principal); I10 Essential (primary) hypertension; F03.90 Unspecified dementia, unspecified severity, without behavioral disturbance, psychotic disturbance, mood disturbance, and anxiety; Z20.822 Contact with and (suspected) exposure to COVID-19
CPT/HCPCS: 96361; 85025; 36415; 86900; 86850; 85610; 86901; 83605; 85730; 83690; 80053; 74177; 96375; 96374; 99285; 87811; 36430; Q9967; C9113; J3010; P9016; J7050; J7030; J2405

== ENCOUNTER 2022-09-26 19:21 | Emergency (ER) | payer OTHER ==
--- OUTSIDE RECORDS SUMMARY | 2022-09-26 19:30 | XMS REPORT | Continuity of Care Document ---
:1950 Author Organization [facility] t Address [address] [place] [place] [address] Care Team Providers Name Role Phone No, Pcp [facility] Primary Care Physician Unavailable GALILEO STEPHENSON Attending Clinician Unavailable Jada Root Attending Clinician Unavailable Antonino LEONARD, Reva Tejada Attending Clinician Unavailable Niels Welsh MD Attending Clinician Johnie Trevino MD Attending Clinician Neptali Hidalgo MD Attending Clinician Stevenson Benedict MD Attending Clinician STEVENSON BENEDICT Attending Clinician Unavailable Michel Licona MD Attending Clinician Elaina Burton MD Attending Clinician Galileo Stephenson MD Attending Clinician Zoya Molina MD Attending Clinician Mireya Howard MD Attending Clinician [phone] Cheikh Mcdonnell MD Attending Clinician GALILEO STEPHENSON Admitting Clinician Unavailable Johnie Trevino MD Admitting Clinician JOHNIE TREVINO Admitting Clinician Unavailable ZOYA MOLINA Admitting Clinician Unavailable Payers Payer Name Policy Type Policy Number Effective Date Expiration Date Obed gomez MEDICARE A B [id number] 2014 00:00:00 [employer] INDEMNITY [id number] 2017 NON CONTR 00:00:00 [employer] 53 [id number] [facility] MEDICARE MB [id number] [facility] - [facility] MEDICARE [id number] [facility] - [facility] MEDICARE [id number] [facility] Problems Condition Condition Condition Status Onset Resolution Last Treating Co mments Source Name Details Category Date Date Treatment Clinician Date E44.0 E44.0 Disease Active Univers Moderate Moderate 2-06 ity of protein protein 00:00: [place] calorie calorie 00 Medical malnutriti malnutriti Br anch on on GI bleed GI bleed Disease Active Unive rs 1-27 ity of 00:00: [place] 00 Medical Branch Microcytic Microcytic Disease Active Overview : Univers anemia anemia 1-27 Formattin ity of 00:00: g of this [place] 00 note Medical might be Branch different from the original. Added automatic ally from request for surgery [id number] GI bleed GI bleed Disease Active [facility] S t 03-27 00:00: Medical 00 [place] Severe Severe Disease Active [facility] St anemia anemia 17 Lu 00:00: Medical 00 [place] [id number] Chronic Problem Common peptic Spirit ulcer of - [facility] stomach [facility] [id number] Pressure Problem Comm on injury of Spirit coccygeal - [facility] region, St stage 1 [facility] [id number] Seasonal Problem Comm on allergies Spirit - [facility] [id number] Radial Problem Common nerve Spirit palsy - [facility] [id number] Cigarette Problem Comm on nicotine Spirit dependence - [facility] without St complicati [facility] Medical [place] [id number] Rheumatoid Problem Co mmon arthritis Spirit with - [facility] rheumatoid [facility] right hand Medica l without Center organ or systems involvemen t [id number] Iron Problem Common deficiency Spirit anemia - [facility] secondary [facility] to 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 [facility] [id number] Other Problem Common cardiac Spirit arrhythmia - [facility] [id number] [place] of Problem Comm on [id number] right lung Spiri t - [facility] [id number] Aortic Problem Common root Spirit aneurysm - [facility] [id number] Syncope, Problem Comm on unspecifie Spirit d syncope - [facility] type [facility] [id number] Abnormal Problem Comm on cardiac Spirit enzyme - [facility] level [facility] [id number] Centrilobu Problem Com mon lar Spirit emphysema - [facility] Allergies, Adverse Reactions, Alerts Allergy Allergy Status Severity Reaction(s) Onset Inactive Treating Comm ents Source Name Type Date Date Clinician NO KNOWN All[facility] Drug Active [facility] ALLERGIE Class ity of S [place] [facility] Social History Social Habit Start Date Stop Date Quantity Comments Source History of Tobacco Current Smoker Co mmon Spirit - Use [facility] History SDOH Social Unive rsity of Connections [facility] Med ical Together Branch History SDOH Social Unive rsity of Connections [facility] Medical Branch History SDOH Social Unive rsity of Connections [place] Medical Membership Branch History SDOH Social Unive rsity of Connections [place] Medical Meetings Branch History SDOH 2022-09-10 2022-09-10 1 University o f Alcohol Frequency 00:00:00 00:00:00 [place] M edical Branch History SDOH 2022-09-10 2022-09-10 0 University o f Alcohol Std Drinks 00:00:00 00:00:00 [place] [facility] History SDOH 2022-09-10 2022-09-10 1 University o f Alcohol Binge 00:00:00 00:00:00 [place] Medic al Branch History SDOH Social 2022-09-10 2022-09-10 4 Unive rsity of Connections Phone 00:00:00 00:00:00 [place] M edical Branch History SDOH Social 2022-09-10 2022-09-10 98 Unive rsity of Connections Living 00:00:00 00:00:00 [place] [facility] Branch History SDOH 2022-09-10 2022-09-10 5 University o f Financial 00:00:00 00:00:00 [place] [facility] History SDOH Food 2022-09-10 2022-09-10 1 Univers ity of Worry 00:00:00 00:00:00 [place] [facility] History SDOH Food 2022-09-10 2022-09-10 1 Univers ity of Scarcity 00:00:00 00:00:00 [place] [facility] History SDOH 2022-09-10 2022-09-10 2 University o f Transport Med 00:00:00 00:00:00 [place] Medic al Branch History SDOH 2022-09-10 2022-09-10 2 University o f Transport Non-Med 00:00:00 00:00:00 [place] M edical Branch Tobacco use and 2022-09-08 2022-09-08 Smokeless Universit y of exposure 00:00:00 00:00:00 tobacco non-user [facility] dical Branch Exposure to 2022-08-28 2022-09-07 Not sure [facility] SARS-CoV-2 (event) 00:00:00 06:39:00 [facility] Sex Assigned At [birth year] [facility] kes 00:00:00 00:00:00 [facility] Smoking Status Start Date Stop Date Source Never smoked tobacco [facility] Current Smoker 2022-08-22 00:00:00 [facility] Spiri t - [facility] nter Former smoker 2022-03-27 00:00:00 2022-03-27 00:00:00 [facility] Medications Ordered Filled Start Stop Current Ordering Indication Dosage Frequency Signature Comments Components Source Medication Medication Date Date Medication? Clinician (SIG) Name Name apixaban 5 2022- Yes 5mg Take 1 Unive rs mg tablet 2-13 tablet by ity o f 00:00: mouth in [place] [id number] the Medical morning Branch and 1 tablet in the evening. Indication s: PE apixaban 5 2022-0 Yes 5mg Take 1 Unive rs mg tablet 2-13 tablet by ity o f 00:00: mouth in [place] the Medical morning Branch and 1 tablet in the evening. Indication s: PE furosemide 2022- Yes 20mg Take 1 Unive rs 20 mg 2-10 tablet by ity of tablet 00:00: mouth in [place] 00 the Medical morning. Branch magnesium 2023-0 Yes 400mg Take 400 Uni vers oxide 420 2-10 mg by ity of mg Tab 00:00: mouth [place] 00 daily. Medical Branch pantoprazol 2023-0 Yes 40mg Take 1 Univ ers e 40 mg EC 2-10 tablet by ity of tablet 00:00: mouth in [place] 00 the Medical morning. Branch furosemide 2023-0 Yes 20mg Take 1 Unive rs 20 mg 2-10 tablet by ity of tablet 00:00: mouth in [place] 00 the Medical morning. Branch magnesium 2023-0 Yes 400mg Take 400 Uni vers oxide 420 2-10 mg by ity of mg Tab 00:00: mouth [place] 00 daily. Medical Branch pantoprazol 2023-0 Yes 40mg Take 1 Univ ers e 40 mg EC 2-10 tablet by ity of tablet 00:00: mouth in [place] 00 the Medical morning. Branch ipratropium 3-0 Yes 3mL Inhale 3 Un giovanna -albuteroL 2-09 mL 4 ity of 0.5 mg-3 00:00: (four) [place] mg(2.5 mg 00 times Medical base)/3 mL daily as Branc h nebulizer needed for solution Wheezing. metoprolol 2023-0 Yes 25mg Take 1 Unive rs tartrate 25 2-09 tablet by ity of mg tablet 00:00: [place] the Medical morning Branch and 1 tablet in the evening. ipratropium 2023-0 Yes 3mL Inhale 3 Un giovanna -albuteroL 2-09 mL 4 ity of 0.5 mg-3 00:00: (four) [place] mg(2.5 mg 00 times Medical base)/3 mL daily as Branc h nebulizer needed for solution Wheezing. metoprolol 2023-0 Yes 25mg Take 1 Unive rs tartrate 25 2-09 tablet by ity of mg tablet 00:00: [place] 00 the Medical morning Branch and 1 tablet in the evening. apixaban 5 3-0 2023- Yes 10mg Take 2 Univ ers mg tablet 2-09 02-14 tablets by ity of 00:00: 05:59 mouth in [place] 00 :00 the Medical morning Branch and 2 tablets in the evening. Indication s: PE apixaban 5 2022-0 2022- Yes 10mg Take 2 Univ ers mg tablet 09-19-14 tablets by ity of 00:00: 05:59 mouth in [place] 00 :00 the Medical morning Branch and 2 tablets in the evening. Indication s: PE furosemide 0 Yes 20mg 20 mg, Unive rs (LASIX) 2-07 Oral, ity of tablet 20 20:15: DAILY, [place] mg 00 First dose Medical on [facility] 09/17/22 at 1415, Until Discontinu ed, Routine magnesium Yes 400mg 400 mg, Univ ers oxide 2-07 Oral, ity of (MAG-OX 15:30: DAILY, [place] 400) tablet 00 First dose Me dical 400 mg on [facility] 09/17/22 at 0930, Until Discontinu ed, Routine metoprolol Yes 25mg 25 mg, Unive rs tartrate - Oral, BID, ity o f (LOPRESSOR) 15:30: First dose [place] tablet 25 00 on [facility] 09/17/22 at Branch 0930, Until Discontinu ed, Routine apixaban 2022- Yes 10mg [Order 1 Univ ers (ELIQUIS) 09-17-14 Start] ity of tablet 10 02:00: 01:59 Name: [place] mg 00 :00 apixaban Medical (ELIQUIS) [place] tablet 10 mg Signed Summary: 10 mg, Oral, BID, 14 doses, First dose on Fri09/16/22 at 2000, Last dose on Fri09/23/22 at 0800, Routine
Indicatio ns: DVT/PE [Order 1 End] [Order 2 Start] Name: apixaban (ELIQUIS) tablet 5 mg Signed Summary: 5 mg, Oral, BID, First dose on Fri09/23/22 at 2000, Until Discontinu ed, Routine
Indicatio ns: DVT/PE [Order 2 End] heparin 2022-0 202- No 0U/h 0-2 Univers 25,000 2-06 02-07 Units/hr ity of Units/250 18:22: 01:21 (0-0.02 [place] mL 19 :19 mL/hr), IV Medical (Premixed Infusion, Bran [place] Bag) in TITRATE, 0.45 % NS Parameters in Admin. Instr., Starting on Fri09/16/22 at 1222, For 7 hours
I nitiate infusion at 18 units/kg/h r calculated as: 1,050 Units/hr (Maximum initial rate: 1,300 Units/hr, then adjust dose as needed per aPTT).&nbs p; CA UTION - If LMWH given in ER, AVOID bolus and start next dose/drip 12 hrs after ER dosage.&nb sp; M ust program rate using programmab le infusion pump.&nbsp ; Yara ck with the ordering provider first prior to any administra tion should the patient be on existing/a dditional anticoagul ant therapy. Rang e, Dosing and Testing: &nbs p;DO NOT ADJUST INITIAL BOLUS OR INITIAL INFUSION RATE.&nbsp ; _ &nb sp;FOR [place], [facility], AND [facility] ONLY &nbs p; - aPTT < 35: & nbsp;Bolus 5000 units, increase rate 300 units/hr&n bsp; - aPTT 35-44:&nbs p; Jose demario 3000 units, increase rate 200 units/hr&n bsp; - aPTT 45-54:&nbs p; In crease rate 100 units/hr&n bsp; - aPTT 55-85:&nbs p; NO CHANGE&nbs p; - aPTT 86-95:&nbs p; De crease rate 100 units/hr&n bsp; - aPTT 96-120:&nb sp; H old 30 minutes, decrease rate 150 units/hr&n bsp; - aPTT > 120: Hold 60 minutes, decrease rate 200 units/hr&n bsp; Check aPTT 6 hours after initiation , then Q6H after every change, aPTT Q12H once therapeuti c levels are reached.&n bsp; &nbs p; __ &n bsp;FOR [facility] ONLY - aPTT < 40: & nbsp;Bolus 5000 units, increase rate 300 units/hr&a mp;nbsp; - aPTT 40-49:&nbs p; Jose demario 3000 units, increase rate 200 units/hr&n bsp; - aPTT 50-59:&nbs p; In crease rate 100 units/hr&n bsp; - aPTT 60-85:&nbs p; NO CHANGE&nbs p; - aPTT 86-95:&nbs p; De crease rate 100 units/hr&n bsp; - aPTT 96-120:&nb sp; H old 30 minutes, decrease rate 150 units/hr&n bsp; - aPTT > 120: Hold 60 minutes, decrease rate 200 units/hr&n bsp; Check aPTT 6 hours after initiation , then Q6H after every change, aPTT Q12H once therapeuti c levels are reached.<b r> magnesium 0 2022- No 2g 2 g, IV Univ ers sulfate in 09-14 Piggyback, it y of water 2 14:00: 14:57 Administer Epi as gram/50 mL 00 :00 over 60 Medica l (4 %) Minutes, Branch infusion 2 ONCE, 1 g dose, On 09/14/22 at 0800, Routine acetaminoph Yes 1000mg 1,000 mg, Univers en 09-14 Oral, Q8H, ity of (TYLENOL) 12:00: First dose [place] tablet 00 (after Medical 1,000 mg last Branch modificati on) on 09/14/22 at 0600, Until Discontinu ed, Routine acetaminoph 0 Yes 1000mg 1,000 mg, Univers en 2-04 Oral, Q8H, ity of (TYLENOL) 12:00: First dose [place] tablet 00 (after Medical 1,000 mg last Branch modificati on) on 09/14/22 at 0600, Until Discontinu ed, Routine heparin 0 2023- No 80U/kg 4,760 Univer s 1000 2-04 02-04 Units (80 ity of unit/mL 02:15: 03:38 Units/kg [place] injection 00 :00 ?59.5 kg), Medi leila Soln 4,760 IV Push, Branc h Units ONCE, 1 dose, On Fri09/13/22 at 2015, Routine heparin Yes 0U/h 0-2 Univers 25,000 2-04 Units/hr ity of Units/250 02:06: (0-0.02 [place] mL 53 mL/hr), IV Medical (Premixed Infusion, Branc h Bag) in TITRATE, 0.45 % NS Parameters in Admin. Instr., Starting on Fri09/13/22 at 2005
In itiate infusion at 18 units/kg/h r calculated as: 1,050 Units/hr (Maximum initial rate: 1,300 Units/hr, then adjust dose as needed per aPTT).&nbs p; CA UTION - If LMWH given in ER, AVOID bolus and start next dose/drip 12 hrs after ER dosage.&nb sp; M ust program rate using programmab le infusion pump.&nbsp ; Yara ck with the ordering provider first prior to any administra tion should the patient be on existing/a dditional anticoagul ant therapy. Rang e, Dosing and Testing: &nbs p;DO NOT ADJUST INITIAL BOLUS OR INITIAL INFUSION RATE.&nbsp ; _ &nb sp;[facility], AND [facility] ONLY &nbs p; - aPTT < 35: & nbsp;Bolus 5000 units, increase rate 300 units/hr&n bsp; - aPTT 35-44:&nbs p; Jose demario 3000 units, increase rate 200 units/hr&n bsp; - aPTT 45-54:&nbs p; In crease rate 100 units/hr&n bsp; - aPTT 55-85:&nbs p; NO CHANGE&nbs p; - aPTT 86-95:&nbs p; De crease rate 100 units/hr&n bsp; - aPTT 96-120:&nb sp; H old 30 minutes, decrease rate 150 units/hr&n bsp; - aPTT > 120: Hold 60 minutes, decrease rate 200 units/hr&n bsp; Check aPTT 6 hours after initiation , then Q6H after every change, aPTT Q12H once therapeuti c levels are reached.&n bsp; &nbs p; __ &n bsp;FOR [facility] ONLY - aPTT < 40: & nbsp;Bolus 5000 units, increase rate 300 units/hr&n bsp; - aPTT 40-49:&nbs p; Jose demario 3000 units, increase rate 200 units/hr&n bsp; - aPTT 50-59:&amp ;nbsp;&nbs p;Increase rate 100 units/hr&n bsp; - aPTT 60-85:&nbs p; NO CHANGE&nbs p; - aPTT 86-95:&nbs p; De crease rate 100 units/hr&n bsp; - aPTT 96-120:&nb sp;&nb sp;Hold 30 minutes, decrease rate 150 units/hr&n bsp; - aPTT > 120: Hold 60 minutes, decrease rate 200 units/hr&n bsp; Check aPTT 6 hours after initiation , then Q6H after every change, aPTT Q12H once therapeuti c levels are reached.<b r> heparin 2022- No 0U/h 0-2 Univers 25,000 2-04 02-06 Units/hr ity of Units/250 02:06: 18:23 (0-0.02 [place] mL 53 :23 mL/hr), IV Medical (Premixed Infusion, Branc h Bag) in TITRATE, 0.45 % NS Parameters in Admin. Instr., Starting on Fri09/13/22 at 2005
In itiate infusion at 18 units/kg/h r calculated as: 1,050 Units/hr (Maximum initial rate: 1,300 Units/hr, then adjust dose as needed per aPTT).&nbs p; CA UTION - If LMWH given in ER, AVOID bolus and start next dose/drip 12 hrs after ER dosage.&nb sp; M ust program rate using programmab le infusion pump.&nbsp ; Yara ck with the ordering provider first prior to any administra tion should the patient be on existing/a dditional anticoagul ant therapy. Rang e, Dosing and Testing: &nbs p;DO NOT ADJUST INITIAL BOLUS OR INITIAL INFUSION RATE.&nbsp ; _ &nb sp;FOR [place], [facility], AND [facility] ONLY &nbs p; - aPTT < 35: & nbsp;Bolus 5000 units, increase rate 300 units/hr&n bsp; - aPTT 35-44:&nbs p; Jose demario 3000 units, increase rate 200 units/hr&n bsp; - aPTT 45-54:&nbs p; In crease rate 100 units/hr&n bsp; - aPTT 55-85:&nbs p; NO CHANGE&nbs p; - aPTT 86-95:&nbs p; De crease rate 100 units/hr&n bsp; - aPTT 96-120:&nb sp; H old 30 minutes, decrease rate 150 units/hr&n bsp; - aPTT > 120: Hold 60 minutes, decrease rate 200 units/hr&n bsp; Check aPTT 6 hours after initiation , then Q6H after every change, aPTT Q12H once therapeuti c levels are reached.&n bsp; &nbs p; __ &n bsp;FOR [facility] ONLY - aPTT < 40: & nbsp;Bolus 5000 units, increase rate 300 units/hr&n bsp; - aPTT 40-49:&nbs p; Jose demario 3000 units, increase rate 200 units/hr&n bsp; - aPTT 50-59:&amp ;nbsp;&nbs p;Increase rate 100 units/hr&n bsp; - aPTT 60-85:&nbs p; NO CHANGE&nbs p; - aPTT 86-95:&nbs p; De crease rate 100 units/hr&n bsp; - aPTT 96-120:&nb sp;&nb sp;Hold 30 minutes, decrease rate 150 units/hr&n bsp; - aPTT > 120: Hold 60 minutes, decrease rate 200 units/hr&n bsp; Check aPTT 6 hours after initiation , then Q6H after every change, aPTT Q12H once therapeuti c levels are reached.<b r> heparin 2022-0 Yes 3000U FOR Univers (1,000 2-04 REBOLUSING ity of unit/mL, 10 02:06: , Starting [place] mL vial) 43 on Fri09/13/22 at Branch 2006, Until Discontinu ed, Routine
Dosing based on aPTT testing parameters (refer to continuous heparin drip order)
acetaminoph 2022-0 202- No 1000mg 1,000 mg, Univers en ADULT 09-13-04 IV ity of (OFIRMEV) 21:00: 13:56 Infusion, [place] injection 00 :00 at 400 Medical 1,000 mg mL/hr Branch Administer over 15 Minutes, Q8H, 3 doses, First dose on Fri09/13/22 at 1500, Last dose on Fri09/14/22 at 0600, Routine
Indicatio n: Perioperat sakshi Patient FENTanyl PF 2022-0 Yes 25ug 25 mcg, Uni vers (SUBLIMAZE 2-03 Slow IV ity of (PF)) 20:13: Push, [place] injection 29 [id number], Medica l 25 mcg Starting Branch on Fri09/13/22 at 1413, Until Discontinu ed, Routine, Pain (scale 4-6), Pain (scale 7-10) FENTanyl PF 2022-0 Yes 25ug 25 mcg, Uni vers (SUBLIMAZE 2-03 Slow IV ity of (PF)) 20:13: Push, [place] injection 29 [id number], Medica l 25 mcg Starting Branch on Fri09/13/22 at 1413, Until Discontinu ed, Routine, Pain (scale 4-6), Pain (scale 7-10) proMETHazin 0 Yes 12.5mg 12.5 mg, Univers e 09-13 IV ity of (PHENERGAN) 19:59: Piggyback, [place] 12.5 mg in 21 at 200 Medical NaCl 0.9% mL/hr Branch (NS) 50 mL Administer IV over 15 piggyback Minutes, PRN - SEE INSTRUCTIO NS, 2 doses, Starting on Fri09/13/22 at 1359, Until Discontinu ed, Routine, Nausea and Vomiting (N/V), N/V unresponsi ve to Ondansetro n, May give second dose 30 minutes ater the first if unresponsi ve proMETHazin 2022-0 Yes 12.5mg 12.5 mg, Univers e 2 IV ity of (PHENERGAN) 19:59: Piggyback, [place] 12.5 mg in 21 at 200 Medical NaCl 0.9% mL/hr Branch (NS) 50 mL Administer IV over 15 piggyback Minutes, PRN - SEE INSTRUCTIO NS, 2 doses, Starting on Fri09/13/22 at 1359, Until Discontinu ed, Routine, Nausea and Vomiting (N/V), N/V unresponsi ve to Ondansetro n, May give second dose 30 minutes ater the first if unresponsi ve NaCl 0.9% 2022-0 Yes 1000mL at 50 Unive rs (NS) IV 2-03 mL/hr, IV ity of infusion 19:00: Infusion, [place] 1,000 mL 00 CONTINUOUS Medic al , Starting Branch on Fri09/13/22 at 1300, Until Discontinu ed, Routine NaCl 0.9% 2022-0 2022- No 1000mL at 50 Univ ers (NS) IV 2-03 02-06 mL/hr, IV ity of infusion 19:00: 15:45 Infusion, Epi as 1,000 mL 00 :53 CONTINUOUS Medic al , Starting Branch on Fri09/13/22 at 1300, Until Fri09/16/22 at 0945, Routine methocarbam 2022-0 Yes 500mg 500 mg, Un giovanna oL 2-03 Oral, ity of (ROBAXIN) 18:59: QIDPRN, [place] tablet 500 28 Starting Medic al mg on Fri Branch 09/13/22 at 1259, Until Discontinu ed, Routine, Muscle Spasms methocarbam 2022-0 Yes 500mg 500 mg, Un giovanna oL 2-03 Oral, ity of (ROBAXIN) 18:59: QIDPRN, [place] tablet 500 28 Starting Medic al mg on Fri Branch 09/13/22 at 1259, Until Discontinu ed, Routine, Muscle Spasms traMADoL 2022-0 Yes 50mg 50 mg, Univers (ULTRAM) 2-03 Oral, ity of tablet 50 18:58: Q6HPRN, [place] mg 35 Starting Medical on Fri09/13/22 at 1258, Until Discontinu ed, Routine, Pain (scale 7-10) traMADoL 2022-0 Yes 50mg 50 mg, Univers (ULTRAM) 2-03 Oral, ity of tablet 50 18:58: Q6HPRN, [place] mg 35 Starting Medical on Fri09/13/22 at 1258, Until Discontinu ed, Routine, Pain (scale 7-10) morpHINE (2 2022-0 Yes 2mg 2 mg, Slow Univers mg/mL) 2- IV Push, ity of injection 2 18:57: Q3HPRN, Epi as mg 54 Starting Medical on Fri09/13/22 at 1257, Until Discontinu ed, Routine, Pain (scale 7-10) morpHINE (2 0 Yes 2mg 2 mg, Slow Univers mg/mL) 2- IV Push, ity of injection 2 18:57: Q3HPRN, Epi as mg 54 Starting Medical on Fri09/13/22 at 1257, Until Discontinu ed, Routine, Pain (scale 7-10) bupivacaine 0 2022- No PRN, Unive rs (preserv 09-13 Starting ity of free) 17:14: 19:04 on Fri [place] (SENSORCAIN 00 :15 09/13/22 at Med ical E MPF) 0.25 1114, Branch % (2.5 Intra-op mg/mL) 30 mL, bupivacaine liposome (PF) (EXPAREL (PF)) 1.3 % (13.3 mg/mL) 266 mg, NaCl 0.9% (NS) 50 mL lactated Yes 1000mL at 75 Univer s ringers IV 2-03 mL/hr, ity of infusion 15:30: 1,000 mL, [place] 1,000 mL 00 IV Medical Infusion, Branch CONTINUOUS , Starting on Fri09/13/22 at 0930, Until Discontinu ed, Routine, PACU peg-electro 0 2022- No 1000mL 1,000 mL, Univers lyte soln 09-12 02 Oral, ity of (GOLYTELY) 16:00: 16:41 ONCE, 1 Epi as 236-22.74-6 00 :00 dose, On Medi leila .74 -5.86 Yasmine 09/12/22 Bran ch gram at 1000, solution Routine 1,000 mL NaCl 0.9% 2023-0 Yes 1000mL at 30 [facility] rs (NS) IV 2-01 mL/hr, IV ity of infusion 16:45: Infusion, [place] 1,000 mL 00 CONTINUOUS Medic al , Starting Branch on Fri09/11/22 at 1045, Until Discontinu ed, Routine NaCl 0.9% 2023-0 2023- No 1000mL at 30 [facility] ers (NS) IV 2-01 02-03 mL/hr, IV ity of infusion 16:45: 18:59 Infusion, Epi as 1,000 mL 00 :03 CONTINUOUS Medic al , Starting Branch on Fri09/11/22 at 1045, Until Fri09/13/22 at 1259, Routine ipratropium 2023-0 Yes 3mL 3 mL, [facility] rs -albuteroL 2- Inhalation ity of (DUONEB) 16:15: , QIDPRN, [place] 0.5 mg-3 00 Starting Medical mg(2.5 mg on Fri Branch base)/3 mL 09/11/22 at nebulizer 1015, solution 3 Until mL Discontinu ed, Routine, Wheezing ipratropium 2023-0 Yes 3mL 3 mL, [facility] rs -albuteroL 2- Inhalation ity of (DUONEB) 16:15: , QIDPRN, [place] 0.5 mg-3 00 Starting Medical mg(2.5 mg on Fri Branch base)/3 mL 09/11/22 at nebulizer 1015, solution 3 Until mL Discontinu ed, Routine, Wheezing ipratropium 2023-0 Yes 3mL 3 mL, [facility] rs -albuteroL 2- Inhalation ity of (DUONEB) 16:15: , QIDPRN, [place] 0.5 mg-3 00 Starting Medical mg(2.5 mg on Fri Branch base)/3 mL 09/11/22 at nebulizer 1015, solution 3 Until mL Discontinu ed, Routine, Wheezing pantoprazol 2023-0 Yes 40mg 40 mg, [facility] ers e 2- Oral, ity of (PROTONIX) 15:00: DAILY, [place] EC tablet 00 First dose Medi leila 40 mg on Fri Branch 2/1/23 at 0900, Until Discontinu ed, Routine pantoprazol Yes 40mg 40 mg, Univ ers e 09-11 Oral, ity of (PROTONIX) 15:00: DAILY, [place] EC tablet 00 First dose Medi leila 40 mg on Fri Branch 09/11/22 at 0900, Until Discontinu ed, Routine pantoprazol Yes 40mg 40 mg, Univ ers e 09-11 Oral, ity of (PROTONIX) 15:00: DAILY, [place] EC tablet 00 First dose Medi leila 40 mg on Fri Branch 09/11/22 at 0900, Until Discontinu ed, Routine KCL 2022- No 40meq 40 mEq, Univers (KLOR-CON 09-11 Oral, Q4H, ity of M20) tablet 14:00: 19:01 2 doses, [place] 40 mEq 00 :00 First dose Medical on Fri Branch 09/11/22 at 0800, Last dose on Fri09/11/22 at 1200, Routine iopamidol 2022- No [id number] 80mL 80 mL, Univers (ISOVUE 09-11 Intravenou ity o f 370-500 mL) 01:15: 00:29 s, ONCE, 1 [place] injection 00 :00 dose, On Medica l 80 mL Tue Branch 09/10/22 at 1915, Routine simethicone 2022- No PRN, Unive rs (GAS RELIEF 09-10 Starting ity of (SIMETHICON 19:35: 20:56 on Tue Epi as E)) 40 00 :03 09/10/22 at Medical mg/0.6 mL 1335, Branch drops Until 09/10/22 at 1456, Routine, Intra-op sodium 2022- Yes 125mg 125 mg, IV Uni vers ferric 09-10 Piggyback, ity of gluconate 15:00: 14:59 DAILY, 3 Epi as (FERRLECIT) 00 :00 doses, Medica l 125 mg in First dose Bran ch NaCl 0.9% on e (NS) 100 mL 09/10/22 at IV 0900, Last piggyback dose on Yasmine 09/12/22 at 0900, Administer over 60 Minutes, 100 mL
Facu lty member approving Restricted medication : MEGLCC azithromyci 0 202- Yes 500mg 500 mg, U nivers n 09-10 Oral, ity of (ZITHROMAX) 15:00: 14:59 DAILY, 3 [place] tablet 500 00 :00 doses, Medical mg First dose Branch on Fri09/10/22 at 0900, Last dose on Fri09/12/22 at 0900, EDUARD
Re ason for Anti-Infec tive: Documented Infection< br>Documen desirae Infection Site: Respirator y
Durat ion of Therapy: 7 days sodium 2022- No 125mg 125 mg, IV Uni vers ferric 09-10 Piggyback, ity of gluconate 15:00: 15:59 DAILY, 3 Epi as (FERRLECIT) 00 :00 doses, Medica l 125 mg in First dose Bran ch NaCl 0.9% on Fri (NS) 100 mL 09/10/22 at IV 0900, Last piggyback dose on Fri09/12/22 at 0900, Administer over 60 Minutes, 100 mL
Facu lty member approving Restricted medication : [facility] azithromyci 2022- No 500mg 500 mg, U nivers n 09-10 Oral, ity of (ZITHROMAX) 15:00: 14:55 DAILY, 3 [place] tablet 500 00 :00 doses, Medical mg First dose Branch on Fri09/10/22 at 0900, Last dose on Fri09/12/22 at 0900, EDUARD
Re ason for Anti-Infec tive: Documented Infection< br>Documen desirae Infection Site: Respirator y
Durat ion of Therapy: 7 days budesonide 2022- No .5mg 0.5 mg, Uni vers (PULMICORT 09-10 Inhalation it y of RESPULE) 02:00: 16:39 , BID, [place] nebulizer 00 :43 First dose Medi leila solution on Mon Branch 0.5 mg 09/09/22 at 2000, Until Discontinu ed, Routine ipratropium 2023-0 2023- No 3mL 3 mL, Univ ers -albuteroL 09-09 Inhalation it y of (DUONEB) 18:00: 16:10 , Q4H, [place] 0.5 mg-3 00 :34 First dose Medic al mg(2.5 mg on Mon Branch base)/3 mL 09/09/22 at nebulizer 1200, solution 3 Until mL Discontinu ed, Routine KCL 2022- No 40meq 40 mEq, IV Unive rs (POTASSIUM 09-09 Piggyback, it y of CHLORIDE) 16:15: 21:41 ONCE, 1 [place] 40 mEq in 00 :00 dose, On Medica l NaCl 0.9% Mon Branch (NS) 09/09/22 at piggyback 1015, 250 mL peg-electro 2022- No 4000mL 4,000 mL, Univers lyte soln 09-08 Oral, ity of (GOLYTELY) 20:15: 23:59 ONCE, 1 Epi as 236-22.74-6 00 :00 dose, On Medi leila .74 -5.86 Sun Branch gram 09/08/22 at solution 1415, 4,000 mL Routine cefTRIAXone 2022- Yes 1000mg 1,000 mg, Univers (ROCEPHIN) 09-08 Intravenou it y of 1,000 mg in 00:15: 00:14 s, Q24H [place] NaCl 0.9% 00 :00 ABX, 5 Medical (NS) 50 mL doses, Branch MINI-BAG First dose on Fri09/07/22 at 1815, Last dose on Fri09/11/22 at 1815, Administer over 30 Minutes, 50 mL
Reas on for Anti-Infec tive: Documented Infection& lt;br>Docu mented Infection Site: Urine
D uration of Therapy: 7 days cefTRIAXone 2022- No 1000mg 1,000 mg, Univers (ROCEPHIN) 09-0802 Intravenou it y of 1,000 mg in 00:15: 00:54 [place], Q24H [place] NaCl 0.9% 00 :00 ABX, 5 Medical (NS) 50 mL doses, Branch MINI-BAG First dose on Fri09/07/22 at 1815, Last dose on Fri09/11/22 at 1815, Administer over 30 Minutes, 50 mL
Reas on for Anti-Infec tive: Documented Infection& lt;br>Docu mented Infection Site: Urine
D uration of Therapy: 7 days peg-electro 2022- No 4000mL 4,000 mL, Univers lyte soln 09-07 Oral, ity of (GOLYTELY) 17:30: 17:30 ONCE, 1 Epi as 236-22.74-6 00 :00 dose, On Medi leila .74 -5.86 Sat Branch gram 09/07/22 at solution 1130, 4,000 mL Routine pantoprazol 2022- No 40mg 40 mg, Uni vers e 09-07 Slow IV ity of (PROTONIX) 06:45: 20:50 Push, [place] injection 00 :15 Q12H, Medical 40 mg First dose Branch on 09/07/22 at 0045, Until Discontinu ed NaCl 0.9% 2022- No 1000mL at 125 Uni vers (NS) IV 09-07 02-01 mL/hr, IV ity of infusion 04:15: 16:38 Infusion, Epi as 1,000 mL 00 :16 CONTINUOUS Medic al , Starting Branch on Fri09/06/22 at 2215, Until Fri09/11/22 at 1038, Routine ondansetron 2023-0 Yes 4mg 4 mg, Slow Univers (ZOFRAN 128 IV Push, ity of (PF)) 04:07: Q6HPRN, [place] injection 4 21 Starting Medi leila mg on Fri Branch 09/06/22 at 2207, Until Discontinu ed, Routine, Nausea and Vomiting (N/V) ondansetron 2023-0 Yes 4mg 4 mg, Slow Univers (ZOFRAN -28 IV Push, ity of (PF)) 04:07: Q6HPRN, [place] injection 4 21 Starting Medi leila mg on Fri Branch 09/06/22 at 2207, Until Discontinu ed, Routine, Nausea and Vomiting (N/V) ondansetron 2023-0 Yes 4mg 4 mg, Slow Univers (ZOFRAN -28 IV Push, ity of (PF)) 04:07: Q6HPRN, [place] injection 4 21 Starting Medi leila mg on Fri Branch 09/06/22 at 2207, Until Discontinu ed, Routine, Nausea and Vomiting (N/V) acetaminoph 2022-2022- No 1{tbl} 1 tablet, Univers en-codeine 09-0730 Oral, ity of (TYLENOL 04:07: 04:06 Q6HPRN, [place] #3) 300-30 18 :18 Starting Medic al mg tablet 1 on Fri Branch tablet 09/06/22 at 2207, Until 09/08/22 at 2206, Routine, Pain (scale 4-6) acetaminoph Yes 650mg 650 mg, Un giovanna en 09-07 Oral, ity of (TYLENOL) 04:07: Q6HPRN, [place] tablet 650 17 Starting Medic al mg on Fri Branch 09/06/22 at 2207, Until Discontinu ed, Routine, Pain (scale 1-3) acetaminoph 2022- No 650mg 650 mg, U nivers en 09-07 0203 Oral, ity of (TYLENOL) 04:07: 18:59 Q6HPRN, [facility] s tablet 650 17 :03 Starting Medic al mg on Fri Branch 09/06/22 at 2207, Until 09/13/22 at 1259, Routine, Pain (scale 1-3) albuterol Yes 1{ampul Take [address] [facility] [...] mouth Ankush es tablet 16:51: 00:00 daily. [facility] 10 :00 [place] aspirin 81 2021- No 81mg QD Take [address] [facility] chewable 03-29 by mouth Ankush es tablet 16:51: 00:00 daily. [facility] 10 :00 [place] aspirin 81 2021- No 81mg QD Take [address] [facility] MG chewable 03-29 by mouth Ankush es tablet 16:51: 00:00 daily. [facility] 10 :00 [place] pantoprazol Yes 40mg Q.5D Take [address] [facility] 8-19 tablet (40 [facility] (PROTONIX) 00:00: mg total) Me dical 40 MG 00 by mouth 2 Center tablet (two) times daily. pantoprazol 0 Yes 40mg Q.5D Take [address] [facility] 8-19 tablet (40 [facility] (PROTONIX) 00:00: mg total) Me dical 40 MG 00 by mouth 2 Center tablet (two) times daily. pantoprazol 2021-0 Yes 40mg Q.5D Take [address] [facility] 8-19 tablet (40 [facility] (PROTONIX) 00:00: mg total) Me dical 40 MG 00 by mouth 2 Center tablet (two) times daily. carvediloL Yes TWICE [facility] (Coreg) 8-01 DAILY [facility] 6.25 MG 00:00: Medical tablet 00 [place] carvediloL Yes TWICE [facility] (Coreg) 8-01 DAILY [facility] 6.25 MG 00:00: Medical tablet 00 [place] carvediloL [address] [facility] (Coreg) 8-01 DAILY [facility] 6.25 MG 00:00: Medical tablet 00 [place] Ferrous Ferrous Yes Jada take 1 Common Sulfate Sulfate [place] tablet by Spi rit mouth - [facility] every [facility] hours [facility] Tylenol Tylenol No 2{table TID Tylenol Arthritis [...] MG 325 (65 Fe) MG Immunizations Ordered Filled Immunization Date Status Comments [facility] e Immunization Name Name SARS-COV-2 COVID-19 2022-09-19 Completed Unive rsity of PFIZER YEIMI-SUCROSE 00:00:00 [facility] VACCINE (MAURICE TOP) Branch SARS-COV-2 COVID-19 2022-09-19 Completed Unive rsity of PFIZER YEIMI-SUCROSE 00:00:00 [facility] VACCINE (MAURICE TOP) Branch FLUZONE HIGH DOSE FLUZONE HIGH DOSE 2022-05-13 Completed [facility] - OVER 65 OVER 65 15:47:00 [facility] FLUZONE HIGH DOSE FLUZONE HIGH DOSE 2022-05-13 Completed [facility] - OVER 65 OVER 65 15:47:00 [facility] FLUZONE HIGH DOSE FLUZONE HIGH DOSE 2022-05-13 Completed [facility] - OVER 65 OVER 65 15:47:00 [facility] FLUZONE HIGH DOSE FLUZONE HIGH DOSE 2022-05-13 Completed [facility] - OVER 65 OVER 65 15:47:00 [facility] FLUZONE HIGH DOSE FLUZONE HIGH DOSE 2022-05-13 Completed [facility] - OVER 65 OVER 65 15:47:00 [facility] Pfizer COVID-19 Pfizer COVID-19 2021-07-04 Completed [facility] - Vaccine Vaccine 10:19:00 [facility] FLUZONE HIGH DOSE FLUZONE HIGH DOSE 2021-07-04 Completed [facility] - OVER 65 OVER 65 10:19:00 [facility] Pfizer COVID-19 Pfizer COVID-19 2021-07-04 Completed [facility] - Vaccine Vaccine 10:19:00 [facility] FLUZONE HIGH DOSE FLUZONE HIGH DOSE 2021-07-04 Completed [facility] - OVER 65 OVER 65 10:19:00 [facility] Pfizer COVID-19 Pfizer COVID-19 2021-07-04 Completed [facility] - Vaccine Vaccine 10:19:00 [facility] FLUZONE HIGH DOSE FLUZONE HIGH DOSE 2021-07-04 Completed [facility] - OVER 65 OVER 65 10:19:00 [facility] Pfizer COVID-19 Pfizer COVID-19 2021-07-04 Completed [facility] - Vaccine Vaccine 10:19:00 [facility] FLUZONE HIGH DOSE FLUZONE HIGH DOSE 2021-07-04 Completed [facility] - OVER 65 OVER 65 10:19:00 [facility] Pfizer COVID-19 Pfizer COVID-19 2021-07-04 Completed [facility] - Vaccine Vaccine 10:19:00 [facility] FLUZONE HIGH DOSE FLUZONE HIGH DOSE 2021-07-04 Completed [facility] - OVER 65 OVER 65 10:19:00 [facility] Pfizer COVID-19 Pfizer COVID-19 2021-07-04 Completed [facility] - Vaccine Vaccine 10:19:00 [facility] FLUZONE HIGH DOSE FLUZONE HIGH DOSE 2021-07-04 Completed [facility] - OVER 65 OVER 65 10:19:00 [facility] Pfizer COVID-19 Pfizer COVID-19 2021-07-04 Completed [facility] - Vaccine Vaccine 10:19:00 [facility] FLUZONE HIGH DOSE FLUZONE HIGH DOSE 2021-07-04 Completed [facility] - OVER 65 OVER 65 10:19:00 [facility] Pfizer COVID-19 Pfizer COVID-19 2021-07-04 Completed [facility] - Vaccine Vaccine 10:19:00 [facility] FLUZONE HIGH DOSE FLUZONE HIGH DOSE 2021-07-04 Completed [facility] - OVER 65 OVER 65 10:19:00 [facility] Pfizer COVID-19 Pfizer COVID-19 2021-07-04 Completed [facility] - Vaccine Vaccine 10:19:00 [facility] FLUZONE HIGH DOSE FLUZONE HIGH DOSE 2021-07-04 Completed [facility] - OVER 65 OVER 65 10:19:00 [facility] Moderna COVID-19 Moderna COVID-19 2021-01-03 Completed [facility] - Vaccine Vaccine 10:16:00 [facility] Moderna COVID-19 Moderna COVID-19 2021-01-03 Completed [facility] - Vaccine Vaccine 10:16:00 [facility] Moderna COVID-19 Moderna COVID-19 2021-01-03 Completed [facility] - Vaccine Vaccine 10:16:00 [facility] Moderna COVID-19 Moderna COVID-19 2021-01-03 Completed [facility] - Vaccine Vaccine 10:16:00 [facility] Moderna COVID-19 Moderna COVID-19 2021-01-03 Completed [facility] - Vaccine Vaccine 10:16:00 [facility] Moderna COVID-19 Moderna COVID-19 2021-01-03 Completed [facility] - Vaccine Vaccine 10:16:00 [facility] Moderna COVID-19 Moderna COVID-19 2021-01-03 Completed [facility] - Vaccine Vaccine 10:16:00 [facility] Moderna COVID-19 Moderna COVID-19 2021-01-03 Completed [facility] - Vaccine Vaccine 10:16:00 [facility] Moderna COVID-19 Moderna COVID-19 2021-01-03 Completed [facility] - Vaccine Vaccine 10:16:00 [facility] Moderna COVID-19 Moderna COVID-19 2020-12-06 Completed [facility] - Vaccine Vaccine 10:11:00 [facility] Moderna COVID-19 Moderna COVID-19 2020-12-06 Completed [facility] - Vaccine Vaccine 10:11:00 [facility] Moderna COVID-19 Moderna COVID-19 2020-12-06 Completed [facility] - Vaccine Vaccine 10:11:00 [facility] Moderna COVID-19 Moderna COVID-19 2020-12-06 Completed [facility] - Vaccine Vaccine 10:11:00 [facility] Moderna COVID-19 Moderna COVID-19 2020-12-06 Completed [facility] - Vaccine Vaccine 10:11:00 [facility] Moderna COVID-19 Moderna COVID-19 2020-12-06 Completed [facility] - Vaccine Vaccine 10:11:00 [facility] Moderna COVID-19 Moderna COVID-19 2020-12-06 Completed [facility] - Vaccine Vaccine 10:11:00 [facility] Moderna COVID-19 Moderna COVID-19 2020-12-06 Completed [facility] - Vaccine Vaccine 10:11:00 [facility] Moderna COVID-19 Moderna COVID-19 2020-12-06 Completed [facility] - Vaccine Vaccine 10:11:00 [facility] FLUZONE HIGH DOSE FLUZONE HIGH DOSE 2020-07-13 Completed [facility] - OVER 65 OVER 65 09:22:00 [facility] FLUZONE HIGH DOSE FLUZONE HIGH DOSE 2020-07-13 Completed [facility] - OVER 65 OVER 65 09:22:00 [facility] FLUZONE HIGH DOSE FLUZONE HIGH DOSE 2020-07-13 Completed [facility] - OVER 65 OVER 65 09:22:00 [facility] FLUZONE HIGH DOSE FLUZONE HIGH DOSE 2020-07-13 Completed [facility] - OVER 65 OVER 65 09:22:00 [facility] FLUZONE HIGH DOSE FLUZONE HIGH DOSE 2020-07-13 Completed [facility] - OVER 65 OVER 65 09:22:00 [facility] FLUZONE HIGH DOSE FLUZONE HIGH DOSE 2020-07-13 Completed [facility] - OVER 65 OVER 65 09:22:00 [facility] FLUZONE HIGH DOSE FLUZONE HIGH DOSE 2020-07-13 Completed [facility] - OVER 65 OVER 65 09:22:00 [facility] FLUZONE HIGH DOSE FLUZONE HIGH DOSE 2020-07-13 Completed [facility] - OVER 65 OVER 65 09:22:00 [facility] FLUZONE HIGH DOSE FLUZONE HIGH DOSE 2020-07-13 Completed [facility] - OVER 65 OVER 65 09:22:00 [facility] FLUZONE HIGH DOSE FLUZONE HIGH DOSE 2020-07-13 Completed [facility] - OVER 65 OVER 65 09:22:00 [facility] FLUZONE HIGH DOSE FLUZONE HIGH DOSE 2020-07-13 Completed [facility] - OVER 65 OVER 65 09:22:00 [facility] Vital Signs Vital Name Observation Time Observation Value Comments Source Systolic blood 2022-09-19 21:49:00 129 mm[Hg] Univer sity of pressure [place] [facility] Diastolic blood 2022-09-19 21:49:00 63 mm[Hg] Unive rsity of pressure [place] [facility] Heart rate 2022-09-19 21:49:00 64 /min [facility] [place] [facility] Body temperature 2022-09-19 21:49:00 36.5 Sheryl [facility] [place] [facility] Respiratory rate 2022-09-19 21:49:00 18 /min Univ ers[facility] [place] [facility] Oxygen saturation in 2022-09-19 21:49:00 95 /min University of Arterial blood by [facility] Pulse oximetry Branch Body weight 2022-09-19 09:45:00 59.467 kg [facility] [place] [facility] BMI 2022-09-19 09:45:00 23.98 kg/m2 [facility] [place] [facility] Body height 2022-09-10 18:56:00 157.5 cm [facility] [place] [facility] Systolic blood 2022-09-13 19:40:00 122 mm[Hg] Univer sity of pressure [place] [facility] Diastolic blood 2022-09-13 19:40:00 73 mm[Hg] Unive rsity of pressure [place] [facility] Heart rate 2022-09-13 19:40:00 72 /min [facility] [place] [facility] Respiratory rate 2022-09-13 19:40:00 18 /min Univ ers[facility] [place] [facility] Oxygen saturation in 2022-09-13 19:40:00 93 /min University of Arterial blood by [facility] Pulse oximetry Branch Body temperature 2022-09-13 18:52:00 35.83 Sheryl [facility] [place] [facility] Body weight 2022-09-13 09:24:00 59.467 kg [facility] [place] [facility] BMI 2022-09-13 09:24:00 23.78 kg/m2 [facility] [place] [facility] Body height 2022-09-10 18:56:00 157.5 cm [facility] [place] [facility] Systolic blood 2022-09-10 18:56:00 162 mm[Hg] Univer sity of pressure [place] [facility] Diastolic blood 2022-09-10 18:56:00 77 mm[Hg] Unive rsity of pressure [place] [facility] Heart rate 2022-09-10 18:56:00 93 /min [facility] [place] [facility] Body temperature 2022-09-10 18:56:00 36.94 Sheryl [facility] Respiratory rate 2022-09-10 18:56:00 18 /min [facility] height 2022-09-10 18:56:00 157.5 cm Universi ty of [facility] Body weight 2022-09-10 18:56:00 63.504 kg Universi ty [facility] [place] BMI 2022-09-10 18:56:00 24.80 kg/m2 Universi [facility] Oxygen saturation in 2022-09-10 18:56:00 98 /min [facility] Arterial blood by [facility] Pulse oximetry Branch height 2022-08-22 15:40:00 62 [in_i] [facility] weight 2022-08-22 15:40:00 113 [lb_av] [facility] temperature 2022-08-22 15:40:00 97.2 [degF] [facility] bmi 2022-08-22 15:40:00 20.67 kg/m2 [facility] oximetry 2022-08-22 15:40:00 99 % [facility] respiratory rate 2022-08-22 15:40:00 16 /min Comm on [facility] blood pressure 2022-08-22 15:40:00 130 mm[Hg] Common [facility] - systolic [facility] blood pressure 2022-08-22 15:40:00 77 mm[Hg] Common [facility] - diastolic [facility] height 2022-05-13 15:00:00 62 [in_i] [facility] weight 2022-05-13 15:00:00 116.4 [lb_av] [facility] temperature 2022-05-13 15:00:00 97.5 [degF] [facility] bmi 2022-05-13 15:00:00 21.29 kg/m2 [facility] oximetry 2022-05-13 15:00:00 97 % Common [facility] respiratory rate 2022-05-13 15:00:00 16 /min Comm on [facility] blood pressure 2022-05-13 15:00:00 113 mm[Hg] Common [facility] - systolic [facility] blood pressure 2022-05-13 15:00:00 62 mm[Hg] Common [facility] - diastolic [facility] height 2022-05-13 14:20:00 62 [in_i] Common [facility] weight 2022-05-13 14:20:00 116.4 [lb_av] [facility] temperature 2022-05-13 14:20:00 97.5 [degF] Common [facility] bmi 2022-05-13 14:20:00 21.29 kg/m2 [facility] oximetry 2022-05-13 14:20:00 97 % [facility] respiratory rate 2022-05-13 14:20:00 16 /min Comm on [facility] blood pressure 2022-05-13 14:20:00 113 mm[Hg] Common [facility] - systolic [facility] blood pressure 2022-05-13 14:20:00 62 mm[Hg] Common [facility] - diastolic [facility] height 2021-10-09 15:00:00 62 [in_i] Common S pirit [facility] weight 2021-10-09 15:00:00 117 [lb_av] Common [facility] temperature 2021-10-09 15:00:00 97.9 [degF] Common S [facility] bmi 2021-10-09 15:00:00 21.4 kg/m2 [facility] oximetry 2021-10-09 15:00:00 99 % [facility] respiratory rate 2021-10-09 15:00:00 18 /min Comm on [facility] blood pressure 2021-10-09 15:00:00 135 mm[Hg] [facility] - systolic [facility] blood pressure 2021-10-09 15:00:00 72 mm[Hg] [facility] - diastolic [facility] height 2021-07-11 10:00:00 62 [in_i] Common S [facility] weight 2021-07-11 10:00:00 116 [lb_av] Common S pirit [facility] temperature 2021-07-11 10:00:00 98.1 [degF] Common S pirit [facility] bmi 2021-07-11 10:00:00 21.21 kg/m2 Common S pirit [facility] oximetry 2021-07-11 10:00:00 95 % Common S [facility] respiratory rate 2021-07-11 10:00:00 18 /min Comm [facility] blood pressure 2021-07-11 10:00:00 131 mm[Hg] [facility] - systolic [facility] blood pressure 2021-07-11 10:00:00 67 mm[Hg] [facility] - diastolic [facility] height 2021-04-13 11:40:00 62 [in_i] Common [facility] weight 2021-04-13 11:40:00 117.4 [lb_av] Common [facility] temperature 2021-04-13 11:40:00 98.4 [degF] Common S pirit [facility] bmi 2021-04-13 11:40:00 21.47 kg/m2 Common S pirit [facility] oximetry 2021-04-13 11:40:00 97 % Common S pirit [facility] respiratory rate 2021-04-13 11:40:00 16 /min [facility] blood pressure 2021-04-13 11:40:00 127 mm[Hg] Common [facility] - systolic [facility] blood pressure 2021-04-13 11:40:00 65 mm[Hg] [facility] - diastolic [facility] Systolic blood 2022-03-29 15:19:00 160 mm[Hg] [facility] Diastolic blood 2022-03-29 15:19:00 77 mm[Hg] [facility] S t [facility] Heart rate 2022-03-29 15:19:00 68 /min [facility] Body temperature 2022-03-29 15:19:00 36.11 Sheryl [facility] Respiratory rate 2022-03-29 15:19:00 16 /min [facility] Oxygen saturation in 2022-03-29 15:19:00 99 /min [facility] Arterial blood by Medical Ce nter Pulse oximetry Procedures Procedure Date / Time Performing Source Performed Clinician PETER-19 (ID NOW RAPID TESTING) 2022-09-19 Hoa Mcqueen of 17:06:00 [facility] CBC WITH DIFF 2022-09-19 Mcqueen [facility] of 15:49:00 [facility] CBC WITH DIFF 2022-09-18 Mcqueen [facility] of 09:50:00 [facility] CBC WITH DIFF 2022-09-17 Mcqueen [facility] of 17:31:00 [facility] HB ECG ROUTINE & RHYTHM STRIP 2022-09-16 Hoa Mcqueen iversity of 22:15:46 [facility] ACTIVATED PARTIAL THRMPLAS BRE 2022-09-16 Kodi Pena, U niversity of 16:06:00 [facility] PHOSPHORUS 2022-09-16 [facility] 10[facility]08:00 [facility] MAGNESIUM 2022-09-16 [facility] 10:08:00 [facility] BASIC METABOLIC PANEL (NA, K, CL, 2022-09-16 Luis M Hidalgoer Marco of CO2, GLUCOSE, BUN, CREATININE, CA) 10:08:00 [facility] CBC WITH DIFF 2022-09-16 Luis M Hidalgoer Marco of 10:08:00 [facility] ACTIVATED PARTIAL THRMPLAS BRE 2022-09-16 Kodi Pena, U niversity of 03:40:00 [facility] ACTIVATED PARTIAL THRMPLAS BRE 2022-09-15 Neptali Hidalgo U niversity of 16:12:00 [facility] PHOSPHORUS 2022-09-15 [facility] 16:10:00 Heladio [facility] MAGNESIUM 2022-09-15 Phalak, [facility] of 16:10:00 [facility] BASIC METABOLIC PANEL (NA, K, CL, 2022-09-15 Phalak, [facility] of CO2, GLUCOSE, BUN, CREATININE, CA) 16:10:00 [facility] CBC WITH DIFF 2022-09-15 Phalabdiel, Neptali University of 07:53:00 [facility] PHOSPHORUS 2022-09-15 Hammo Barshagufta, [place] of 06:21:00 [facility] MAGNESIUM 2022-09-15 Hammo Bardawsoni, [place] of 06:21:00 [facility] BASIC METABOLIC PANEL (NA, K, CL, 2022-09-15 Hammsally Pena, University of CO2, GLUCOSE, BUN, CREATININE, CA) 06:21:00 [facility] ACTIVATED PARTIAL THRMPLAS BRE 2022-09-15 Hammo Barazi, U niversity of 03:59:00 [facility] ACTIVATED PARTIAL THRMPLAS BRE 2022-09-14 Hammo Barazi, U niversity of 19:29:00 [facility] MAGNESIUM 2022-09-14 Phalabdiel, [facility] of 10:13:00 [facility] BASIC METABOLIC PANEL (NA, K, CL, 2022-09-14 Phalabdiel, [facility] of CO2, GLUCOSE, BUN, CREATININE, CA) 10:13:00 [facility] CBC WITH DIFF 2022-09-14 Phalabdiel, [facility] of 10:13:00 [facility] ACTIVATED PARTIAL THRMPLAS BRE 2022-09-14 Hammo Barazi, U niversity of 10:13:00 [facility] MAGNESIUM 2022-09-14 Phalak, [facility] of 10:13:00 [facility] BASIC METABOLIC PANEL (NA, K, CL, 2022-09-14 Phalak, [facility] of CO2, GLUCOSE, BUN, CREATININE, CA) 10:13:00 [facility] CBC WITH DIFF 2022-09-14 Phalak, [facility] of 10:13:00 [facility] ACTIVATED PARTIAL THRMPLAS BRE 2022-09-14 Kodi Teranshagufta, U niversity of 10:13:00 [facility] PROTHROMBIN TIME / INR 2022-09-14 [facility], [facility] 03:12:00 [facility] ACTIVATED PARTIAL THRMPLAS BRE 2022-09-14 Kodi Teranshagufta, U niversity of 03:12:00 [facility] PROTHROMBIN TIME / INR 2022-09-14 [facility], [facility] of 03:12:00 [facility] ACTIVATED PARTIAL THRMPLAS BRE 2022-09-14 Kodi Teranshagufta, U niversity of 03:12:00 [facility] RESECTION RIGHT COLON 2022-09-13 [facility] of 15:46:00 [facility] RESECTION RIGHT COLON 2022-09-13 [facility] of 15:46:00 [facility] TRANSTHORACIC ECHO (TTE) COMPLETE 2022-09-13 Junior quiroga [facility] 14:30:00 [facility] TRANSTHORACIC ECHO (TTE) COMPLETE 2022-09-13 [facility] 14:30:00 [facility] BASIC METABOLIC PANEL (NA, K, CL, 2022-09-13 [facility] of CO2, GLUCOSE, BUN, CREATININE, CA) 09:19:00 [facility] CBC WITH DIFF 2022-09-13 [facility] of 09:19:00 [facility] BASIC METABOLIC PANEL (NA, K, CL, 2022-09-13 [facility] of CO2, GLUCOSE, BUN, CREATININE, CA) 09:19:00 [facility] CBC WITH DIFF 2022-09-13 [facility] of 09:19:00 [facility] DUPLEX VENOUS LEGS BILATERAL - BY 2022-09-12 [facility] 22:41:27 [facility] DUPLEX VENOUS LEGS BILATERAL - BY 2022-09-12 Oanh Choi [facility] VASCULAR LAB 22:41:27 [facility] HB ABO GROUPING 2022-09-12 Junior Frye [facility] 16:27:00 [facility] HB ABO GROUPING 2022-09-12 [facility] 16:27:00 [facility] HB ECG ROUTINE & RHYTHM STRIP 2022-09-12 Junior Frye [facility] of 16:24:49 [facility] MAGNESIUM 2022-09-12 Gwen, [facility] of 11:39:00 [facility] CARCINOEMBRYONIC ANTIGEN 2022-09-12 [facility] ity of 11:39:00 [facility] BASIC METABOLIC PANEL (NA, K, CL, 2022-09-12 Phalma, [facility] of CO2, GLUCOSE, BUN, CREATININE, CA) 11:39:00 [facility] CBC WITH DIFF 2022-09-12 Gwen, [facility] of 11:39:00 [facility] VITAMIN D, 25-OH 2022-09-12 Phalma, [facility] 11:39:00 [facility] MAGNESIUM 2022-09-12 Phalak, [facility] 11:39:00 [facility] CARCINOEMBRYONIC ANTIGEN 2022-09-12 [facility] ity of 11:39:00 [facility] BASIC METABOLIC PANEL (NA, K, CL, 2022-09-12 Phalma, [facility] of CO2, GLUCOSE, BUN, CREATININE, CA) 11:39:00 [facility] CBC WITH DIFF 2022-09-[address] [facility] of 11:39:00 [facility] VITAMIN D, 25-OH 2022-09-12 Phalma, [facility] 11:39:00 [facility] MAGNESIUM 2022-09-12 [facility], [facility] 03:46:00 [facility] BASIC METABOLIC PANEL (NA, K, CL, 2022-09-12 [facility] [place] of CO2, GLUCOSE, BUN, CREATININE, CA) 03:46:00 [facility] MAGNESIUM 2022-09-12 [facility], [place] of 03:46:00 [facility] BASIC METABOLIC PANEL (NA, K, CL, 2022-09-12 [facility], [place] of CO2, GLUCOSE, BUN, CREATININE, CA) 03:46:00 [facility] COMP. METABOLIC PANEL ([id number]) 2022-09-11 Kodi Teranshagufta, Un iversity of 08:57:00 [facility] CBC WITHOUT DIFF 2022-09-11 Kodi Jeffryshagufta, [place] of 08:57:00 [facility] COMP. METABOLIC PANEL ([id number]) 2022-09-11 Kodi Teranshagufta, Un iversity of 08:57:00 [facility] CBC WITHOUT DIFF 2022-09-11 Kodi Pena, [place] of 08:57:00 [facility] COMP. METABOLIC PANEL ([id number]) 2022-09-11 Kodi Teranshagufta, Un iversity of 08:57:00 [facility] CBC WITHOUT DIFF 2022-09-11 Kodi Pena, [place] of 08:57:[address] [facility] [address] ABDOMEN PELVIS W CONTRAST 2022-09-11 [place], Neptali Uni versity of 00:32:00 [facility] CT THORAX W CONTRAST 2022-09-11 Phalak, Neptali University of 00:32:[address] [facility] CT ABDOMEN PELVIS W CONTRAST 2022-09-11 [place]alak, Neptali Uni versity of 00:32:00 [facility] CT THORAX W CONTRAST 2022-09-11 Phalak, Neptali University of 00:32:[address] [facility] [address] ABDOMEN PELVIS W CONTRAST 2022-09-11 [place]alak, Neptali Uni versity of 00:32:00 [facility] BRAF 2022-09-10 [facility] of 20:21:00 [facility] KRAS MUTATION 2022-09-10 [facility] of 20:21:00 [facility] NRAS MUTATION 2022-09-10 [facility] of 20:21:00 [facility] COLONOSCOPY (ENDO) 2022-09-10 Self Referred, [facility] 20:07:58 Facility [facility] COLONOSCOPY (ENDO) 2022-09-10 Self Referred, [facility] 20:07:58 Facility [facility] COLONOSCOPY (ENDO) 2022-09-10 Self Referred, [facility] 20:07:58 Facility [facility] SURGICAL PATHOLOGY EXAM 2022-09-10 [facility] 20:01:00 [facility] SURGICAL PATHOLOGY EXAM 2022-09-[address] [facility] of 20:01:00 [facility] ESOPHAGOGASTRODUODENOSCOPY 2022-09-10 [facility] rsity of 19:25:00 [facility] COLONOSCOPY 2022-09-10 [facility] of 19:25:00 [facility] ESOPHAGOGASTRODUODENOSCOPY 2022-09-10 [facility] rsity of 19:25:00 [facility] COLONOSCOPY 2022-09-10 [facility] of 19:25:00 [facility] EGD (ENDO) 2022-09-10 Self Referred, [facility] 18:57:28 Facility [facility] EGD (ENDO) 2022-09-10 Self Referred, [facility] 18:57:28 Facility [facility] EGD (ENDO) 2022-09-10 Self Referred, [facility] 18:57:28 Facility [facility] HB ECG ROUTINE & RHYTHM STRIP 2022-09-10 Tiffany [place] iversity of 14:37:37 [facility] BASIC METABOLIC PANEL (NA, K, CL, 2022-09-10 [facility] CO2, GLUCOSE, BUN, CREATININE, CA) 09:17:00 [facility] BASIC METABOLIC PANEL (NA, K, CL, 2022-09-10 [facility] CO2, GLUCOSE, BUN, CREATININE, CA) 09:17:00 [facility] BASIC METABOLIC PANEL (NA, K, CL, 2022-09-10 [facility] CO2, GLUCOSE, BUN, CREATININE, CA) 09:17:00 [facility] BASIC METABOLIC PANEL (NA, K, CL, 2022-09-09 [facility] CO2, GLUCOSE, BUN, CREATININE, CA) 08:15:00 [facility] CBC WITH DIFF 2022-09-[address] [facility] of 08:15:00 [facility] BASIC METABOLIC PANEL (NA, K, CL, 2022-09-09 Melissa [facility] CO2, GLUCOSE, BUN, CREATININE, CA) 08:15:00 [facility] CBC WITH DIFF 2022-09-[address] [facility] of 08:15:00 [facility] BASIC METABOLIC PANEL (NA, K, CL, 2022-09-09 Rosita Torres University of CO2, GLUCOSE, BUN, CREATININE, CA) 08:15:00 [facility] CBC WITH DIFF 2022-09-[address] [facility] of 08:15:00 [facility] ASSIGNMENT OF BENEFITS 2022-09-08 Doctor Universit y of 21:06:40 Unassigned, No [facility] ASSIGNMENT OF BENEFITS 2022-09-08 Doctor Universit y of 21:06:40 Unassigned, No [facility] ASSIGNMENT OF BENEFITS 2022-09-08 Doctor Universit y of 21:06:40 Unassigned, No [facility] CONSENT/REFUSAL FOR DIAGNOSIS AND 2022-09-08 Doctor University of TREATMENT 21:05:44 Unassigned, No [facility] CONSENT/REFUSAL FOR DIAGNOSIS AND 2022-09-08 Doctor University of TREATMENT 21:05:44 Unassigned, No [facility] CONSENT/REFUSAL FOR DIAGNOSIS AND 2022-09-08 Doctor University of TREATMENT 21:05:44 Unassigned, No [facility] PREPARE PACKED RBC 2022-09-08 [facility] 16:29:25 [facility] PREPARE PACKED RBC 2022-09-08 [facility] 16:29:25 [facility] PREPARE PACKED RBC 2022-09-08 [facility] 16:29:25 [facility] PREPARE PACKED RBC 2022-09-08 [facility] 13:28:11 [facility] PREPARE PACKED RBC 2022-09-08 [facility] 13:28:11 [facility] PREPARE PACKED RBC 2022-09-08 [facility] 13:28:11 [facility] BASIC METABOLIC PANEL (NA, K, CL, 2022-09-08 Rosita Torres University of CO2, GLUCOSE, BUN, CREATININE, CA) 10:05:00 [facility] IRON PANEL 2022-09-08 [facility] of 10:05:00 [facility] CBC WITH DIFF 2022-09-[address] [facility] of 10:05:00 [facility] BASIC METABOLIC PANEL (NA, K, CL, 2022-09-08 [facility], [facility] of CO2, GLUCOSE, BUN, CREATININE, CA) 10:05:00 [facility] IRON PANEL 2022-09-08 [facility] of 10:05:00 [facility] CBC WITH DIFF 2022-09-08 [facility], [facility] of 10:05:00 [facility] BASIC METABOLIC PANEL (NA, K, CL, 2022-09-08 [facility], [facility] of CO2, GLUCOSE, BUN, CREATININE, CA) 10:05:00 [facility] IRON PANEL 2022-09-08 [facility], [facility] of 10:05:00 [facility] CBC WITH DIFF 2022-09-08 [facility], [facility] of 10:05:00 [facility] ABORH CONFIRMATION (LAB ONLY) 2022-09-07 Johnie Trevino Un iversity of 23:55:00 [facility] ABORH CONFIRMATION (LAB ONLY) 2022-09-07 Johnie Trevino Un iversity of 23:55:00 [facility] ABORH CONFIRMATION (LAB ONLY) 2022-09-07 Johnie Trevino Un iversity of 23:55:00 [facility] URINE CULTURE 2022-09-07 [facility] of 23:16:00 [facility] URINE CULTURE 2022-09-07 [facility] of 23:16:00 [facility] URINE CULTURE 2022-09-07 [facility] of 23:16:00 [facility] HB ABO GROUPING 2022-09-07 Uriel [facility] of 22:56:00 [facility] HB ABO GROUPING 2022-09-07 [facility]riel [facility] of 22:56:00 [facility] HB ABO GROUPING 2022-09-07 [facility]riel [facility] of 22:56:00 [facility] URINALYSIS 2022-09-07 Uriel [facility] of 22:45:00 [facility] URINALYSIS 2022-09-07 Uriel [facility] of 22:45:00 [facility] URINALYSIS 2022-09-07 Uriel [facility] of 22:45:00 [facility] XR KNEE 3 VW LEFT 2022-09-07 [facility] of 20:42:00 [facility] [place] XR KNEE 3 VW LEFT 2022-09-07 [facility], [facility] of 20:42:00 [facility] XR KNEE 3 VW LEFT 2022-09-07 [facility], [facility] of 20:42:00 [facility] XR CHEST 1 2022-09-07 [facility], [facility] of 11:58:00 [facility] XR CHEST 1 2022-09-07 [facility], [facility] of 11:58:00 [facility] XR CHEST 1 2022-09-07 [facility], [facility] of 11:58:00 [facility] CBC WITHOUT DIFF 2022-09-07 [facility], [facility] of 11:00:00 [facility] CBC WITHOUT DIFF 2022-09-07 Trevino, [facility] of 11:00:00 [facility] CBC WITHOUT DIFF 2022-09-07 Trevino, [facility] of 11:00:00 [facility] HEPATIC FUNCTION PANEL ([id number]) 2022-09-07 Johnie Trevino niversity of (ALB,T.PRO,BILI 04:39:00 [place] [facility] T,BU/BC,ALT,AST,ALK PHOS) Branch BASIC METABOLIC PANEL (NA, K, CL, 2022-09-07 [facility] CO2, GLUCOSE, BUN, CREATININE, CA) 04:39:00 [facility] CBC WITH DIFF 2022-09-07 [facility] of 04:39:00 [facility] PROTHROMBIN TIME / INR 2022-09-07 [facility] of 04:39:00 [facility] ACTIVATED PARTIAL THRMPLAS BRE 2022-09-07 Charles Trevinogar U niversity of 04:39:00 [facility] HEPATIC FUNCTION PANEL ([id number]) 2022-09-07 Johnie Trevino niversity of (ALB,T.PRO,BILI 04:39:00 [place] [facility] T,BU/BC,ALT,AST,ALK PHOS) Branch BASIC METABOLIC PANEL (NA, K, CL, 2022-09-07 [facility] of CO2, GLUCOSE, BUN, CREATININE, CA) 04:39:00 [facility] CBC WITH DIFF 2022-09-07 [facility] of 04:39:00 [facility] PROTHROMBIN TIME / INR 2022-09-07 [facility] y of 04:39:00 [facility] ACTIVATED PARTIAL THRMPLAS BRE 2022-09-07 Johnie Trevino U niversity of 04:39:00 [facility] HEPATIC FUNCTION PANEL ([id number]) 2022-09-07 [facility] n[facility] of (ALB,T.PRO,BILI 04:39:00 [facility],BU/BC,ALT,AST,ALK PHOS) [place] BASIC METABOLIC PANEL (NA, K, CL, 2022-09-07 Trevino [facility] of CO2, GLUCOSE, BUN, CREATININE, CA) 04:39:00 [facility] CBC WITH DIFF 2022-09-07 Uriel [facility] of 04:39:00 [facility] PROTHROMBIN TIME / INR 2022-09-07 Uriel [facility] y of 04:39:00 [facility] ACTIVATED PARTIAL THRMPLAS BRE 2022-09-07 Johnie Trevino niversity of 04:39:00 [facility] PREPARE LEUKO-REDUCED RBC 2022-03-[address] [facility] 23:54:[address] [facility] [address] BRAIN WITHOUT IV CONTRAST 2022-03-29 Galileo Stephenson [facility] 16:00:00 [facility] SARS-COV2/RT-PCR ([facility]) 2022-03-[address] [facility] 13:21:00 [facility] CBC W/PLT COUNT & AUTO 2022-03-[address] [facility] DIFFERENTIAL 05:29:00 [facility] BASIC METABOLIC PANEL 2022-03-[address] [facility] 05:29:00 [facility] MAGNESIUM 2022-03-[address] [facility] 05:29:00 [facility] CBC W/PLT COUNT & AUTO 2022-03-[address] [facility] DIFFERENTIAL 05:29:00 [facility] HEMOGLOBIN AND HEMATOCRIT 2022-03-[address] [facility] 00:36:00 [facility] HEMOGLOBIN AND HEMATOCRIT 2022-03-[address] [facility] 18:23:00 [facility] TISSUE EXAM 2022-03-[address] [facility] 16:35:00 [facility] EGD, WITH HEMORRHAGE CONTROL 2022-03-[address] [facility] 16:27:00 [facility] REPORT OF PROCEDURE - ENDOSCOPY 2022-03-[address] [facility] URL 14:46:04 [facility] HEMOGLOBIN AND HEMATOCRIT 2022-03-[address] [facility] 13:23:00 [facility] VITAMIN B12 2022-03-[address] [facility] 13:23:[address] [facility] TRANSFUSE LEUKO-REDUCED RED BLOOD 2022-03-28 Ramírez Molina a [facility] CELLS 10:01:00 [facility] TRANSFUSE LEUKO-REDUCED RED BLOOD 2022-03-28 Ramírez Molina a [facility] CELLS 06:06:00 [facility] HEMOGLOBIN AND HEMATOCRIT 2022-03-[address] [facility] 04:57:00 [facility] TRANSFUSE LEUKO-REDUCED RED BLOOD 2022-03-28 Ramírez Molina a [facility] CELLS 01:49:00 [facility] ABORH, MANUAL 2022-03-[address] [facility] 23:47:00 [facility] TROPONIN I 2022-03-[address] [facility] 22:05:00 [facility] TYPE AND SCREEN, AUTOMATED 2022-03-27 [facility] 22:05:00 [facility] CBC W/PLT COUNT & AUTO 2022-03-27 Philanthony Zoya [facility] DIFFERENTIAL 22:04:00 [facility] COMPREHENSIVE METABOLIC PANEL 2022-03-[address] [facility] 22:04:00 [facility] MAGNESIUM 2022-03-[address] [facility] 22:04:00 [facility] PHOSPHORUS 2022-03-[address] [facility] 22:04:00 [facility] PROTHROMBIN TIME/INR 2022-03-[address] [facility] 22:04:00 [facility] TROPONIN I 2022-03-[address] [facility] 22:04:00 [facility] IRON, TIBC, % SAT. (WITHOUT 2022-03-[address] [facility] F[facility]) 22:04:[address] [facility] CBC W/PLT COUNT & AUTO 2022-03-[address] [facility] DIFFERENTIAL 22:04:00 [facility] (MANUAL DIFFERENTIAL) 2022-03-[address] [facility] 22:04:00 [facility] EKG-SCANNED 2022-03-[address] [facility] 00:00:00 Scanning [facility] Plan of Care Planned Activity Planned Date Details Comments Source Future Scheduled 2022-08-[address] [facility] Test 00:00:00 (12+) [code = [facility] DEPRESSION SCREENING (12+)] Future Scheduled 2022-08-11 FALLS RISK SCREENING [facility] Test 00:00:00 [code = FALLS RISK Medical C enter SCREENING] Future Scheduled 2022-08-[address] [facility] Test 00:00:00 (12+) [code = [facility] DEPRESSION SCREENING (12+)] Future Scheduled 2022-08-11 [place]S RISK SCREENING [facility] Test 00:00:00 [code = FALLS RISK Medical C enter SCREENING] Future Scheduled 2022-08-[address] [facility] Test 00:00:00 (12+) [code = [facility] DEPRESSION SCREENING (12+)] Future Scheduled 2022-08-11 [...] breast Medical C enter (procedure) [code = 493443942] Future Scheduled 1949 CT Colonography (combo) [facility] Test 00:00:00 [code = CT Colonography [facility] (combo)] Future Scheduled 1949 Screening for malignant [facility] Test 00:00:00 neoplasm of colon Medical Ce nter (procedure) [code = 378259137] Future Scheduled 1949 Screening for malignant [facility] Test 00:00:00 neoplasm of colon Medical Ce nter (procedure) [code = 073432018] Future Scheduled 1949 DXA SCAN [code = DXA [facility] Test 00:00:00 SCAN] [facility] Future Scheduled 1949 Screening for malignant [facility] Test 00:00:00 neoplasm of colon Medical Ce nter (procedure) [code = 652530769] Future Scheduled 1949 Screening for malignant [facility] Test 00:00:00 neoplasm of colon Medical Ce nter (procedure) [code = 555203421] Future Scheduled 1949 Sigmoidoscopy [code = [facility] 00:00:00 Sigm[facility]oscopy] [facility] Future Scheduled 1949 Screening for malignant [facility] Test 00:00:00 neoplasm of breast Medical C enter (procedure) [code = 342652012] Future Scheduled 1949 CT Colonography (combo) [facility] Test 00:00:00 [code = CT Colonography [facility] (combo)] Future Scheduled 1949 Screening for malignant [facility] Test 00:00:00 neoplasm of colon Medical Ce nter (procedure) [code = 063565417] Future Scheduled 1949 Screening for malignant [facility] Test 00:00:00 neoplasm of colon Medical Ce nter (procedure) [code = 321592812] Future Scheduled 1949 DXA SCAN [code = DXA [facility] Test 00:00:00 SCAN] [facility] Future Scheduled 1949 Screening for malignant [facility] Test 00:00:00 neoplasm of colon Medical Ce nter (procedure) [code = 771477184] Future Scheduled 1949 Screening for malignant [facility] Test 00:00:00 neoplasm of colon Medical Ce nter (procedure) [code = 025756209] Future Scheduled 1949 Sigmoidoscopy [code = [facility] 00:00:00 Sigmoidoscopy] Medical Cente r Future Scheduled 1949 Screening for malignant [facility] Test 00:00:00 neoplasm of breast Medical C enter (procedure) [code = 109823652] Future Scheduled 1949 CT Colonography (combo) [facility] Test 00:00:00 [code = CT Colonography [facility] (combo)] Future Scheduled 1949 Screening for malignant [facility] Test 00:00:00 neoplasm of colon Medical Ce nter (procedure) [code = 699749922] Future Scheduled 1949 Screening for malignant [facility] Test 00:00:00 neoplasm of colon Medical Ce nter (procedure) [code = 458037021] Future Scheduled 1949 DXA SCAN [code = DXA [facility] Test 00:00:00 SCAN] [facility] Future Scheduled 1949 Screening for malignant [facility] Test 00:00:00 neoplasm of colon Medical Ce nter (procedure) [code = 293138969] Future Scheduled 1949 Screening for malignant [facility] Test 00:00:00 neoplasm of colon Medical Ce nter (procedure) [code = 852199977] Future Scheduled 1949 Sigmoidoscopy [code = [facility] 00:00:00 Sigmoidoscopy] Medical Cente r Encounters Start End Encounter Admission Attending Care Care Encounter Source Date/Time Date/Time Type Type Clinicians Facility Department ID 2022-09-06 Inpatient ER [facility] General Med [id number] 17:15:13 [facility] 2022-05-13 Outpatient La Jose, [facility] [id number] Common 14:09:00 Jada [facility] 2022-05-10 Outpatient Ivett [facility] [id number] Common 09:30:01 Jada [facility] 2022-04-04 Outpatient [place] Jose, [facility] [id number] Common 08:36:01 Jada [facility] 2021-10-05 Outpatient [place], [facility] [id number] Common 08:59:01 Jada [facility] 2021-09-05 Outpatient [place], [facility] [id number] Common 12:09:41 Jada [id number] [facility] 2021-09-05 Outpatient [place], [facility] [id number] Common 12:05:53 Jada [id number] [facility] 2021-09-05 Outpatient La Jose, [facility] [id number] Common 11:16:03 Jada [id number] [facility] 2021-09-05 [facility] [id number] Common 11:15:55 Jada [id number] [facility] 2022-09-20 2022-09-20 Transition ARELIS Muñiz [id number] Univers 00:00:00 00:00:00 of Care Reva GALLOWAY [id number] i ty of [id number] [address] Branch 2022-09-06 2022-09-19 [facility] Blaise Niels [facility] [id number] Univers 22:04:00 18:57:00 Encounter [facility] [id number] ity of Neptali Hidal[place] [id number] Stevenson Santacruz [facility] [id number] [address] ([facility]) 2022-09-06 2022-09-19 Inpatient CLARE [facility] MAURA [id number] Univers 22:04:00 18:57:00 STEVENSON ity [facility] 2022-09-13 2022-09-13 [facility] [id number] Univers 09:57:00 13:43:00 Michel GALLARDO [id number] ity of C[place] [id number] [place] [id number] Ga dical VICTORY 020 [facility] 2022-09-10 2022-09-10 Surgery [place], [facility] CENTER [id number] 11:55:00 12:57:00 [facility] SPECIALTY [id number] ity of [facility] [id number] [facility] AT [phone] Ga dical VICTORY 020 [facility] 2022-08-30 2022-08-30 (TEL) STLMLC STLMLC [id number] Co mmon 00:00:00 00:00:00 Spirit - [facility] 2022-08-22 2022-08-22 OFFICE STLMLC STLMLC [id number] Co mmon 00:00:00 00:00:00 VISIT EST Spir it PT LEVEL 3 - [facility] 2022-05-13 2022-05-13 SUB ANNUAL STLMLC STLMLC [id number] Common 00:00:00 00:00:00 MCR Spirit WELLNESS - [facility] VIS[facility] 2022-05-13 2022-05-13 OFFICE STLMLC STLMLC [id number] Co mmon 00:00:00 00:00:00 VISIT Spirit ESTAB PT - CHI LEVEL 4 [facility] 2022-04-30 2022-04-30 (TEL) STLMLC STLMLC [id number] Co mmon 00:00:00 00:00:[address] [facility] 2022-04-05 2022-04-05 (TEL) STLMLC STLMLC [id number] Co mmon 00:00:00 00:00:00 Spirit [facility] 2022-03-27 2022-03-29 Hospital ER Galileo Stephenson [facility] [id number] 18:21:00 19:02:00 Encounter Zoya Molina [facility] 2022-03-27 2022-03-29 [id number] [facility]:21[facility] 19:02:00 GALILEO 2022-03-27 2022-03-29 Hospital Galileo Stephenson [facility] [id number] 18:21:00 19:02:00 Encounter Zoya Molina [facility] 2022-03-28 2022-03-28 Surgery Anita, [facility] [id number] 16:30:00 17:00:[address] [facility] [place] [place] 2022-03-28 2022-03-28 Surgery Anita, [facility] [id number] 16:30:00 17:00:[address] [facility] [place] [place] 2022-03-28 2022-03-28 Anesthesia WaltersCheikh [facility] [id number] [facility] 16:27:00 16:41:00 Event [facility] 2022-03-28 2022-03-28 Anesthesia WaltersCheikh rizvi [facility] [id number] [facility] 16:27:00 16:41:00 Event [facility] 2022-03-28 2022-03-28 Travel [facility] [id number] [facility] 00:[facility]00 00:00:00 [facility] 2022-03-28 2022-03-28 Travel [facility] [id number] [facility] 00:[facility]00 00:00:00 [facility] 2021-10-09 2021-10-09 OFFICE STLMLC STLMLC [id number] Co mmon 00:00:00 00:00:00 VISIT Martínez ESTAB PT - CHI LEVEL [address] [place] [address] 2021-09-13 2021-09-13 (TEL) STLMLC STLMLC [id number] Co mmon 00:00:00 00:00:00 Spirit - [facility] 2021-07-11 2021-07-11 OFFICE STLMLC STLMLC [id number] Co mmon 00:00:00 00:00:00 VISIT Spirit ESTAB PT - CHI LEVEL [address] [place] [address] 2021-04-13 2021-04-13 OFFICE STLMLC STLMLC [id number] Co mmon 00:00:00 00:00:00 VISIT Spirit ESTAB PT - CHI LEVEL [address] [place] [address] 2021-04-05 2021-04-05 (TEL) STLMLC STLMLC [id number] Co mmon 00:00:00 00:00:00 [facility] 2021-03-30 2021-03-30 Outpatient STLMLC STLMLC [id number] Common 00:00:00 00:00:00 [facility] 2020-10-12 2020-10-12 Outpatient STLMLC STLMLC [id number] Common 00:00:00 00:00:00 [facility] 2020-09-13 2020-09-13 Outpatient STLMLC STLMLC [id number] Common 00:00:00 00:00:00 [facility] 2020-07-13 2020-07-13 Outpatient STLMLC STLMLC [id number] Common 00:00:00 00:00:00 [facility] 2020-06-05 2020-06-05 Outpatient STLMLC STLMLC [id number] Common 00:00:00 00:00:00 [facility] 2020-05-02 2020-05-02 Outpatient STLMLC STLMLC [id number] Common 00:00:00 00:00:00 [facility] 2020-03-14 2020-03-14 [id number] Common 16:00:00 16:00:[address] [facility] [address] [facility] 2020-01-25 2020-01-25 [facility] [id number] Common 10:20:00 10:20:[address] [facility] [address] [facility] 2019-12-27 2019-12-27 [facility] [id number] Common 15:17:00 15:17:[address] [facility] [address] [facility] 2019-11-04 2019-11-04 [facility] [id number] Common 16:40:00 16:40:[address] [facility] [address] [facility] Results Test Description Test Time Test Comments Results Result Comments Source [facility] 2022-09-18 15:33:28 Test Item Value Reference Range Interpretation Comme nts BRAF Mutation (test code = Positive Negative [id number]) VINCENT (test code = VINCENT) Sample tested: 08-18-10(Tissue, LARGE INTESTINE,RIGHT ASCENDING COLON)Marked % tumor cells in the requested area: 100% Positive for NM_004333.6(BRAF):c.1799T>A (p.Vcu987Zsj) Test Information: Detection of BRAF codon 600 (Laney 600, V600) mutation may be used to 1. Predict response for anti-EGFR therapy in colorectal and other cancers, 2. Predict response for anti-mutant BRAF, anti-MEK therapy in melanoma, papillary thyroid carcinoma, and other cancers, 3. Determine disease prognosis of colorectal cancer, low grade glioma, papillary thyroid carcinoma, and other cancers, 4. Determine sporadic origin of MSI-H colorectal cancer. Limit of detection: 10% mutant alleles (20% tumor cells). Genomic DNA is isolated from dissected tumor tissue and amplified for exon 15 of the BRAF gene. Mutation status is determined by pyrosequencing. The results are not intended to be used as the sole means for clinical diagnosis or patient management decisions. This test was developed and its performance characteristics were determined by [facility]. It has not been cleared or approved by the U.S. Food and Drug Administration (FDA). The FDA has determined that such clearance or approval is not necessary. This test is used for clinical purposes. It should not be regarded as investigational or for research. This laboratory is certified under the Clinical Laboratory Improvement Amendments of 1988 (CLIA-88) as qualified to perform high complexity clinical laboratory testing. References: http://omim.org/entry/121300?search=BR AF&highlight=braf Http://atlasgeneticsoncology.org/Genes /PHDLIN479.html http://cancer.esa.ac.uk/cosmic/sear ch?q=BRAF This result has been reviewed and approved by Jamison Warren MD, PhD, [facility] [id number] 15:32:26 Test Item Value Reference Range Interpretation Comments KRAS Mutation (test Negative Negative code = [id number]) VINCENT (test code = Sample tested: VINCENT) 08-18-10(Tissue, LARGE INTESTINE,RIGHT ASCENDING COLON)Marked % tumor cells in the requested area: 100% Test Information:Oncogenic KRAS mutations have been linked with resistance to anti-EGFR therapies. Determination of KRAS mutation status is useful in determining patient eligibility for such treatment. KRAS specific variants (eg, G12C) are predictive to FDA approved or experimental KRAS mutation-specific blocking drugs. Limit of detection: 10% mutant alleles (20% tumor cells). Genomic DNA is isolated from dissected tumor tissue and amplified for segments of the KRAS gene covering codons 12, 13, and 61. Mutation status for these three codons is determined by pyrosequencing. The results are not intended to be used as the sole means for clinical diagnosis or patient management decisions. This test was developed and its performance characteristics were determined by [facility]. It has not been cleared or approved by the U. S. Food and Drug Administration (FDA). The FDA has determined that such clearance or approval is not necessary. This test is used for clinical purposes. It should not be regarded as investigational or for research. This laboratory is certified under the Clinical Laboratory Improvement Amendments of 1988 (CLIA-88) as qualified to perform high complexity clinical laboratory testing. References: http://omim.org/entry/1900 70 Http://atlasgeneticsoncolo gy.org/Genes/PGVKMR08.html http://cancer.esa.ac.uk /cosmic/search?q=KRAS This result has been reviewed and approved by Jamison Warren MD, PhD, [facility] [id number] 15:31:56 Test Item Value Reference Range Interpretation Comments NRAS Mutation (test Negative Negative code = [id number]) VINCENT (test code = Sample Tested: [id number] VINCENT) B1-8-11(Tissue, LARGE INTESTINE,RIGHT ASCENDING COLON)Marked % Tumor Cells in the Requested Area: 100% Test Information:Oncogenic NRAS mutations have been linked to resistance to anti-EGFR therapies. Test results can predict response to anti-EGFR and MAPK pathway therapies in a variety of malignancies including colorectal cancer and melanoma. Limit of detection: 10% mutant alleles (20% tumor cells). Genomic DNA is isolated from macro-dissected tumor tissue and amplified for segments of the NRAS gene covering codons 12, 13, and 61. Mutation status for these three codons is determined by pyrosequencing. The results are not intended to be used as the sole means for clinical diagnosis or patient management decisions. This test was developed and its performance characteristics were determined by [facility]. It has not been cleared or approved by the U. S. Food and Drug Administration (FDA). The FDA has determined that such clearance or approval is not necessary. This test is used for clinical purposes. It should not be regarded as investigational or for research. This laboratory is certified under the Clinical Laboratory Improvement Amendments of 1988 (CLIA-88) as qualified to perform high complexity clinical laboratory testing. References: https://omim.org/entry/164 790 http://BeMyEyeoncolo Bill Me Later.org//Genes/GCZAKK48.htm l http://cancer.esa.ac.uk /cosmic/gene/analysis?ln=N OTF This result has been reviewed and approved by Jamison Warren MD, PhD, [facility] WITH [id number] 08:23:16 Test Item Value Reference Range Interpretation Comments WBC (test code = 7.15 See_Comment [Automated 6690-2) message] The sy stem which generated this result transmitted reference range : 4.30 - 11.10 10*3/?L. The reference range was not used to interpret this result as normal/abnormal . RBC (test code = 3.70 See_Comment L [Automated 789-8) message] The sy stem which generated this result transmitted reference range : 3.93 - 5.25 10*6/?L. The reference range was not used to interpret this result as normal/abnormal . HGB (test code = 9.1 g/dL 11.6-15.0 L 718-7) HCT (test code = 31.7 % 35.7-45.2 L 4544-3) MCV (test code = 85.7 fL 80.6-95.5 787-2) MCH (test code = 24.6 pg 25.9-32.8 L 785-6) MCHC (test code = 28.7 g/dL 31.6-35.1 L 786-4) RDW-SD (test code = 65.0 fL 39.0-49.9 H 22373-5) RDW-CV (test code = 22.3 % 12.0-15.5 H 788-0) PLT (test code = 266 See_Comment [Automated 777-3) message] The sy stem which generated this result transmitted reference range : 166 - 358 10*3/ ?L. The reference r enrique was not used to interpret this result as normal/abnormal . MPV (test code = 10.9 fL 9.5-12.9 43249-4) NRBC/100 WBC (test 0.0 See_Comment [Automat ed code = 0684160839) message] The system which generated this result transmitted reference range : 0.0 - 10.0 /100 WBCs. The refer ence range was not u sed to interpret th is result as normal/abnormal . NRBC x10^3 (test code See_Comment [Auto mated = 0551304042) message] The s ystem which generated this result transmitted reference range : 10*3/?L. The reference range was not used to interpret this result as normal/abnormal . GRAN MAT (NEUT) % 76.7 % (test code = 770-8) IMM GRAN % (test code 0.60 % = 5521421703) LYMPH % (test code = 13.7 % 736-9) MONO % (test code = 5.9 % 5905-5) EOS % (test code = 2.8 % 713-8) BASO % (test code = 0.3 % 706-2) GRAN MAT x10^3(ANC) 5.49 10*3/uL 1.88-7.09 (test code = 9396479918) IMM GRAN x10^3 (test 0.04 10*3/uL 0.00-0.06 code = 7525879568) LYMPH x10^3 (test code 0.98 10*3/uL 1.32-3.29 L = 731-0) MONO x10^3 (test code 0.42 10*3/uL 0.33-0.92 = 742-7) EOS x10^3 (test code = 0.20 10*3/uL 0.03-0.39 711-2) BASO x10^3 (test code 0.01-0.07 = 704-7) Lab Interpretation Abnormal (test code = 27856-7) [facility] Test Item Value Reference Range Interpretation Comments MAGNESIUM (test code = 6894966145) 2.0 mg/dL 1.7-2.4 Lab Interpretation (test code = Normal 33184-5) [facility] METABOLIC PANEL (NA, K, CL, CO2, GLUCOSE, BUN, CREATININE, CA)2022-09-15 07:38:36 Test Item Value Reference Range Interpretation Comments NA (test code = 130 mmol/L 135-145 L 5823138012) K (test code = 3.5 mmol/L 3.5-5.0 8953445506) CL (test code = 104 mmol/L 98-108 7156802173) CO2 TOTAL (test code = 24 mmol/L 23-31 7074436906) AGAP (test code = 2 2-16 0313307407) BUN (test code = 10 mg/dL 7-23 7582513042) GLUCOSE (test code = 81 mg/dL 70-110 5895356093) CREATININE (test code = 0.73 mg/dL 0.50-1.04 3373834475) CALCIUM (test code = 7.2 mg/dL 8.6-10.6 L 0336260347) eGFR (test code = 78.1 mL/min/1.73m2 1104443026) VINCENT (test code = VINCENT) Association of Glomerular Filtration Rate (GFR) and Staging of Kidney Disease* + --+ --+ ------+| GFR (mL/min/1.73 m2) ?| With Kidney Damage ?| ?Without Kidney Damage+ --------+ --------+ +| ?>90 ?| ?Stage one ?| ? Normal ?+ ---+ ---+ -------+| ?60-89 ?| ?Stage two ?| ? Decreased GFR ? + --+ --+ ------+| ?30-59 ?| ?Stage three ?| ? Stage three ? + --+ --+ ------+| ?15-29 ?| ?Stage four ? | ? Stage four ?+ ---+ ---+ -------+| ?<15 (or dialysis) ? ?| ?Stage five ? | ? Stage five ?+ ---+ ---+ -------+ *Each stage assumes the associated GFR level has been in effect for at least three months. ?Stages 1 to 5, with or without kidney disease, indicate chronic kidney disease. Notes: Determination of stages one and two (with eGFR >59mL/min/1.73 m2) requires estimation of kidney damage for at least three months as defined by structural or functional abnormalities of the kidney, manifested by either:Pathological abnormalities or Markers of kidney damage (including abnormalities in the composition of the blood or urine or abnormalities in imaging tests). Lab Interpretation Abnormal (test code = 15316-9) [facility] Test Item Value Reference Range Interpretation Comments PHOSPHORUS (test code = 7302713423) 3.3 mg/dL 2.5-5.0 Lab Interpretation (test code = Normal 50753-4) [facility] (for use with Heparin Drip)2022-09-15 04:21:08 Test Item Value Reference Range Interpretation Comments APTT Patient (test code 71 See_Comment H [Au tomated message] = 3173-2) The system Converser generated this result transmitted ref erence range: 26 - 36 Seconds. The reference range was not used to int erpret this result as normal/abnormal . Lab Interpretation (test Abnormal code = 98911-3) [facility] (for use with Heparin Drip)2022-09-14 19:55:04 Test Item Value Reference Range Interpretation Comments APTT Patient (test code 91 See_Comment H [Au tomated message] = 3173-2) The system Converser generated this result transmitted ref erence range: 26 - 36 Seconds. The reference range was not used to int erpret this result as normal/abnormal . Lab Interpretation (test Abnormal code = 89290-4) [facility] (for use with Heparin Drip)2022-09-14 11:40:43 Test Item Value Reference Range Interpretation Comments APTT Patient (test code See_Comment HH [Au tomated message] = 3173-2) The system Converser generated this result transmitted ref erence range: 26 - 36 Seconds. The reference range was not used to int erpret this result as normal/abnormal . Lab Interpretation (test Abnormal code = 36797-1) [facility] (for use with Heparin Drip)2022-09-14 11:40:43 Test Item Value Reference Range Interpretation Comments APTT Patient (test code See_Comment HH [Au tomated message] = 3173-2) The system Converser generated this result transmitted ref erence range: 26 - 36 Seconds. The reference range was not used to int erpret this result as normal/abnormal . Lab Interpretation (test Abnormal code = 62350-6) [facility] METABOLIC PANEL (NA, K, CL, CO2, GLUCOSE, BUN, CREATININE, CA)2022-09-14 10:54:54 Test Item Value Reference Range Interpretation Comments NA (test code = 132 mmol/L 135-145 L 7768124166) K (test code = 4.0 mmol/L 3.5-5.0 9195161693) CL (test code = 106 mmol/L 98-108 5633414284) CO2 TOTAL (test code = 23 mmol/L 23-31 4514920335) AGAP (test code = 3 2-16 1287387033) BUN (test code = 7 mg/dL 7-23 6905565512) GLUCOSE (test code = 113 mg/dL 70-110 H 0523458925) CREATININE (test code = 0.77 mg/dL 0.50-1.04 0025108248) CALCIUM (test code = 7.5 mg/dL 8.6-10.6 L 0098365244) eGFR (test code = 73.5 mL/min/1.73m2 6626648357) VINCENT (test code = VINCENT) Association of Glomerular Filtration Rate (GFR) and Staging of Kidney Disease* + --+ --+ ------+| GFR (mL/min/1.73 m2) ?| With Kidney Damage ?| ?Without Kidney Damage+ --------+ --------+ +| ?>90 ?| ?Stage one ?| ? Normal ?+ ---+ ---+ -------+| ?60-89 ?| ?Stage two ?| ? Decreased GFR ? + --+ --+ ------+| ?30-59 ?| ?Stage three ?| ? Stage three ? + --+ --+ ------+| ?15-29 ?| ?Stage four ? | ? Stage four ?+ ---+ ---+ -------+| ?<15 (or dialysis) ? ?| ?Stage five ? | ? Stage five ?+ ---+ ---+ -------+ *Each stage assumes the associated GFR level has been in effect for at least three months. ?Stages 1 to 5, with or without kidney disease, indicate chronic kidney disease. Notes: Determination of stages one and two (with eGFR >59mL/min/1.73 m2) requires estimation of kidney damage for at least three months as defined by structural or functional abnormalities of the kidney, manifested by either:Pathological abnormalities or Markers of kidney damage (including abnormalities in the composition of the blood or urine or abnormalities in imaging tests). Lab Interpretation Abnormal (test code = 63952-7) [facility]54 Test Item Value Reference Range Interpretation Comments MAGNESIUM (test code = 0957950452) 1.5 mg/dL 1.7-2.4 L Lab Interpretation (test code = Abnormal 63016-4) [facility] (NA, K, CL, CO2, GLUCOSE, BUN, CREATININE, CA)2022-09-14 10:54:54 Test Item Value Reference Range Interpretation Comments NA (test code = 132 mmol/L 135-145 L 3463250215) K (test code = 4.0 mmol/L 3.5-5.0 2765613273) CL (test code = 106 mmol/L 98-108 2265611844) CO2 TOTAL (test code = 23 mmol/L 23-31 4573059894) AGAP (test code = 3 2-16 1005727062) BUN (test code = 7 mg/dL 7-23 3171538211) GLUCOSE (test code = 113 mg/dL 70-110 H 9557437766) CREATININE (test code = 0.77 mg/dL 0.50-1.04 7461372893) CALCIUM (test code = 7.5 mg/dL 8.6-10.6 L 0192627902) eGFR (test code = 73.5 mL/min/1.73m2 7514315157) VINCENT (test code = VINCENT) Association of Glomerular Filtration Rate (GFR) and Staging of Kidney Disease* + --+ --+ ------+| GFR (mL/min/1.73 m2) ?| With Kidney Damage ?| ?Without Kidney Damage+ --------+ --------+ +| ?>90 ?| ?Stage one ?| ? Normal ?+ ---+ ---+ -------+| ?60-89 ?| ?Stage two ?| ? Decreased GFR ? + --+ --+ ------+| ?30-59 ?| ?Stage three ?| ? Stage three ? + --+ --+ ------+| ?15-29 ?| ?Stage four ? | ? Stage four ?+ ---+ ---+ -------+| ?<15 (or dialysis) ? ?| ?Stage five ? | ? Stage five ?+ ---+ ---+ -------+ *Each stage assumes the associated GFR level has been in effect for at least three months. ?Stages 1 to 5, with or without kidney disease, indicate chronic kidney disease. Notes: Determination of stages one and two (with eGFR >59mL/min/1.73 m2) requires estimation of kidney damage for at least three months as defined by structural or functional abnormalities of the kidney, manifested by either:Pathological abnormalities or Markers of kidney damage (including abnormalities in the composition of the blood or urine or abnormalities in imaging tests). Lab Interpretation Abnormal (test code = 51072-0) [facility] 10:54:54 Test Item Value Reference Range Interpretation Comments MAGNESIUM (test code = 1137529577) 1.5 mg/dL 1.7-2.4 L Lab Interpretation (test code = Abnormal 67253-8) [facility] WITH [id number] 10:23:51 Test Item Value Reference Range Interpretation Comments WBC (test code = 9.89 See_Comment [Automated 4123-2) message] The sy stem which generated this result transmitted reference range : 4.30 - 11.10 10*3/?L. The reference range was not used to interpret this result as normal/abnormal . RBC (test code = 3.95 See_Comment [Automated 325-6) message] The sy stem which generated this result transmitted reference range : 3.93 - 5.25 10*6/?L. The reference range was not used to interpret this result as normal/abnormal . HGB (test code = 9.7 g/dL 11.6-15.0 L 718-7) HCT (test code = 32.1 % 35.7-45.2 L 4544-3) MCV (test code = 81.3 fL 80.6-95.5 787-2) MCH (test code = 24.6 pg 25.9-32.8 L 785-6) MCHC (test code = 30.2 g/dL 31.6-35.1 L 786-4) RDW-SD (test code = 59.5 fL 39.0-49.9 H 74071-9) RDW-CV (test code = 21.2 % 12.0-15.5 H 788-0) PLT (test code = 254 See_Comment [Automated 777-3) message] The sy stem which generated this result transmitted reference range : 166 - 358 10*3/ ?L. The reference r enrique was not used to interpret this result as normal/abnormal . MPV (test code = 9.4 fL 9.5-12.9 L 54844-8) NRBC/100 WBC (test 0.0 See_Comment [Automat ed code = 1559526056) message] The system which generated this result transmitted reference range : 0.0 - 10.0 /100 WBCs. The refer ence range was not u sed to interpret th is result as normal/abnormal . NRBC x10^3 (test code See_Comment [Auto mated = 1219207670) message] The s ystem which generated this result transmitted reference range : 10*3/?L. The reference range was not used to interpret this result as normal/abnormal . GRAN MAT (NEUT) % 87.0 % (test code = 770-8) IMM GRAN % (test code 1.00 % = 1951206479) LYMPH % (test code = 5.3 % 736-9) MONO % (test code = 6.6 % 5905-5) EOS % (test code = 0.0 % 713-8) BASO % (test code = 0.1 % 706-2) GRAN MAT x10^3(ANC) 8.61 10*3/uL 1.88-7.09 H (test code = 0254174705) IMM GRAN x10^3 (test 0.10 10*3/uL 0.00-0.06 H code = 5173199445) LYMPH x10^3 (test code 0.52 10*3/uL 1.32-3.29 L = 731-0) MONO x10^3 (test code 0.65 10*3/uL 0.33-0.92 = 742-7) EOS x10^3 (test code = 0.03-0.39 L 711-2) BASO x10^3 (test code 0.01-0.07 = 704-7) Lab Interpretation Abnormal (test code = 81171-1) [facility] WITH [id number] 10:23:51 Test Item Value Reference Range Interpretation Comments WBC (test code = 9.89 See_Comment [Automated 7641-2) message] The sy stem which generated this result transmitted reference range : 4.30 - 11.10 10*3/?L. The reference range was not used to interpret this result as normal/abnormal . RBC (test code = 3.95 See_Comment [Automated 389-8) message] The sy stem which generated this result transmitted reference range : 3.93 - 5.25 10*6/?L. The reference range was not used to interpret this result as normal/abnormal . HGB (test code = 9.7 g/dL 11.6-15.0 L 718-7) HCT (test code = 32.1 % 35.7-45.2 L 4544-3) MCV (test code = 81.3 fL 80.6-95.5 787-2) MCH (test code = 24.6 pg 25.9-32.8 L 785-6) MCHC (test code = 30.2 g/dL 31.6-35.1 L 786-4) RDW-SD (test code = 59.5 fL 39.0-49.9 H 92724-5) RDW-CV (test code = 21.2 % 12.0-15.5 H 788-0) PLT (test code = 254 See_Comment [Automated 387-3) message] The sy stem which generated this result transmitted reference range : 166 - 358 10*3/ ?L. The reference r enrique was not used to interpret this result as normal/abnormal . MPV (test code = 9.4 fL 9.5-12.9 L 40866-2) NRBC/100 WBC (test 0.0 See_Comment [Automat ed code = 9083242350) message] The system which generated this result transmitted reference range : 0.0 - 10.0 /100 WBCs. The refer ence range was not u sed to interpret th is result as normal/abnormal . NRBC x10^3 (test code See_Comment [Auto mated = 0531950639) message] The s ystem which generated this result transmitted reference range : 10*3/?L. The reference range was not used to interpret this result as normal/abnormal . GRAN MAT (NEUT) % 87.0 % (test code = 770-8) IMM GRAN % (test code 1.00 % = 5654497047) LYMPH % (test code = 5.3 % 736-9) MONO % (test code = 6.6 % 5905-5) EOS % (test code = 0.0 % 713-8) BASO % (test code = 0.1 % 706-2) GRAN MAT x10^3(ANC) 8.61 10*3/uL 1.88-7.09 H (test code = 2076225715) IMM GRAN x10^3 (test 0.10 10*3/uL 0.00-0.06 H code = 4291512266) LYMPH x10^3 (test code 0.52 10*3/uL 1.32-3.29 L = 731-0) MONO x10^3 (test code 0.65 10*3/uL 0.33-0.92 = 742-7) EOS x10^3 (test code = 0.03-0.39 L 711-2) BASO x10^3 (test code 0.01-0.07 = 704-7) Lab Interpretation Abnormal (test code = 17366-3) [facility] Test Item Value Reference Range Interpretation Comments APTT Patient (test code 38 See_Comment H [Au tomated message] = 3173-2) The system [employer] generated this result transmitted ref erence range: 26 - 36 Seconds. The reference range was not used to int erpret this result as normal/abnormal . Lab Interpretation (test Abnormal code = 40418-3) [facility] / [id number] 03:26:27 Test Item Value Reference Range Interpretation Comments PROTIME PATIENT (test 16.3 See_Comment H [Auto mated message] code = 5964-2) The system [employer] generated this result transmitted ref erence range: 10.1 - 1 2.6 Seconds. The reference range was not used to int erpret this result as normal/abnormal . INR (test code = 6301-6) 1.4 Nor mal INR <1.1; Warfarin Therap eutic range 2.0 to 3. 0 or 2.5 to 3.5, dep ending upon the indica tions. Lab Interpretation (test Abnormal code = 29304-3) [facility] 03:26:27 Test Item Value Reference Range Interpretation Comments APTT Patient (test code 38 See_Comment H [Au tomated message] = 3173-2) The system [employer] generated this result transmitted ref erence range: 26 - 36 Seconds. The reference range was not used to int erpret this result as normal/abnormal . Lab Interpretation (test Abnormal code = 62269-7) [facility] / [id number] 03:26:27 Test Item Value Reference Range Interpretation Comments PROTIME PATIENT (test 16.3 See_Comment H [Auto mated message] code = 5964-2) The system [employer] generated this result transmitted ref erence range: 10.1 - 1 2.6 Seconds. The reference range was not used to int erpret this result as normal/abnormal . INR (test code = 6301-6) 1.4 Nor mal INR <1.1; Warfarin Therap eutic range 2.0 to 3. 0 or 2.5 to 3.5, dep ending upon the indica tions. Lab Interpretation (test Abnormal code = 79896-7) [facility] METABOLIC PANEL (NA, K, CL, CO2, GLUCOSE, BUN, CREATININE, CA)2022-09-13 09:49:01 Test Item Value Reference Range Interpretation Comments NA (test code = 134 mmol/L 135-145 L 9615545119) K (test code = 3.5 mmol/L 3.5-5.0 1958103957) CL (test code = 109 mmol/L 98-108 H 9004473891) CO2 TOTAL (test code = 27 mmol/L 23-31 9983970259) AGAP (test code = 2-16 L 2810130346) BUN (test code = 7-23 L 3220672458) GLUCOSE (test code = 74 mg/dL 70-110 0853861856) CREATININE (test code = 0.44 mg/dL 0.50-1.04 L 5292898011) CALCIUM (test code = 7.5 mg/dL 8.6-10.6 L 8873434758) eGFR (test code = 140.2 mL/min/1.73m2 3828090545) VINCENT (test code = VINCENT) Association of Glomerular Filtration Rate (GFR) and Staging of Kidney Disease* + --+ --+ ------+| GFR (mL/min/1.73 m2) ?| With Kidney Damage ?| ?Without Kidney Damage+ --------+ --------+ +| ?>90 ?| ?Stage one ?| ? Normal ?+ ---+ ---+ -------+| ?60-89 ?| ?Stage two ?| ? Decreased GFR ? + --+ --+ ------+| ?30-59 ?| ?Stage three ?| ? Stage three ? + --+ --+ ------+| ?15-29 ?| ?Stage four ? | ? Stage four ?+ ---+ ---+ -------+| ?<15 (or dialysis) ? ?| ?Stage five ? | ? Stage five ?+ ---+ ---+ -------+ *Each stage assumes the associated GFR level has been in effect for at least three months. ?Stages 1 to 5, with or without kidney disease, indicate chronic kidney disease. Notes: Determination of stages one and two (with eGFR >59mL/min/1.73 m2) requires estimation of kidney damage for at least three months as defined by structural or functional abnormalities of the kidney, manifested by either:Pathological abnormalities or Markers of kidney damage (including abnormalities in the composition of the blood or urine or abnormalities in imaging tests). Lab Interpretation Abnormal (test code = 46589-9) [facility] METABOLIC PANEL (NA, K, CL, CO2, GLUCOSE, BUN, CREATININE, CA)2022-09-13 09:49:01 Test Item Value Reference Range Interpretation Comments NA (test code = 134 mmol/L 135-145 L 9360201726) K (test code = 3.5 mmol/L 3.5-5.0 5773549223) CL (test code = 109 mmol/L 98-108 H 2845111983) CO2 TOTAL (test code = 27 mmol/L 23-31 5625919676) AGAP (test code = 2-16 L 0327941493) BUN (test code = 7-23 L 6109962452) GLUCOSE (test code = 74 mg/dL 70-110 9841317350) CREATININE (test code = 0.44 mg/dL 0.50-1.04 L 0840277563) CALCIUM (test code = 7.5 mg/dL 8.6-10.6 L 7728193669) eGFR (test code = 140.2 mL/min/1.73m2 8769838427) VINCENT (test code = VINCENT) Association of Glomerular Filtration Rate (GFR) and Staging of Kidney Disease* + --+ --+ ------+| GFR (mL/min/1.73 m2) ?| With Kidney Damage ?| ?Without Kidney Damage+ --------+ --------+ +| ?>90 ?| ?Stage one ?| ? Normal ?+ ---+ ---+ -------+| ?60-89 ?| ?Stage two ?| ? Decreased GFR ? + --+ --+ ------+| ?30-59 ?| ?Stage three ?| ? Stage three ? + --+ --+ ------+| ?15-29 ?| ?Stage four ? | ? Stage four ?+ ---+ ---+ -------+| ?<15 (or dialysis) ? ?| ?Stage five ? | ? Stage five ?+ ---+ ---+ -------+ *Each stage assumes the associated GFR level has been in effect for at least three months. ?Stages 1 to 5, with or without kidney disease, indicate chronic kidney disease. Notes: Determination of stages one and two (with eGFR >59mL/min/1.73 m2) requires estimation of kidney damage for at least three months as defined by structural or functional abnormalities of the kidney, manifested by either:Pathological abnormalities or Markers of kidney damage (including abnormalities in the composition of the blood or urine or abnormalities in imaging tests). Lab Interpretation Abnormal (test code = 67666-8) [facility] WITH [id number] 09:27:17 Test Item Value Reference Range Interpretation Comments WBC (test code = 4.20 See_Comment L [Automated 6690-2) message] The sy stem which generated this result transmitted reference range : 4.30 - 11.10 10*3/?L. The reference range was not used to interpret this result as normal/abnormal . RBC (test code = 3.35 See_Comment L [Automated 789-8) message] The sy stem which generated this result transmitted reference range : 3.93 - 5.25 10*6/?L. The reference range was not used to interpret this result as normal/abnormal . HGB (test code = 8.3 g/dL 11.6-15.0 L 718-7) HCT (test code = 26.8 % 35.7-45.2 L 4544-3) MCV (test code = 80.0 fL 80.6-95.5 L 787-2) MCH (test code = 24.8 pg 25.9-32.8 L 785-6) MCHC (test code = 31.0 g/dL 31.6-35.1 L 786-4) RDW-SD (test code = 56.9 fL 39.0-49.9 H 15770-0) RDW-CV (test code = 20.6 % 12.0-15.5 H 788-0) PLT (test code = 199 See_Comment [Automated 777-3) message] The sy stem which generated this result transmitted reference range : 166 - 358 10*3/ ?L. The reference r enrique was not used to interpret this result as normal/abnormal . MPV (test code = 9.3 fL 9.5-12.9 L 75484-4) NRBC/100 WBC (test 0.0 See_Comment [Automat ed code = 6379252287) message] The system which generated this result transmitted reference range : 0.0 - 10.0 /100 WBCs. The refer ence range was not u sed to interpret th is result as normal/abnormal . NRBC x10^3 (test code See_Comment [Auto mated = 7612095279) message] The s ystem which generated this result transmitted reference range : 10*3/?L. The reference range was not used to interpret this result as normal/abnormal . GRAN MAT (NEUT) % 62.4 % (test code = 770-8) IMM GRAN % (test code 1.00 % = 0323668244) LYMPH % (test code = 16.2 % 736-9) MONO % (test code = 10.2 % 5905-5) EOS % (test code = 9.5 % 713-8) BASO % (test code = 0.7 % 706-2) GRAN MAT x10^3(ANC) 2.62 10*3/uL 1.88-7.09 (test code = 9693062787) IMM GRAN x10^3 (test 0.04 10*3/uL 0.00-0.06 code = 8999847431) LYMPH x10^3 (test code 0.68 10*3/uL 1.32-3.29 L = 731-0) MONO x10^3 (test code 0.43 10*3/uL 0.33-0.92 = 742-7) EOS x10^3 (test code = 0.40 10*3/uL 0.03-0.39 H 711-2) BASO x10^3 (test code 0.03 10*3/uL 0.01-0.07 = 704-7) Lab Interpretation Abnormal (test code = 30106-2) [facility] WITH [id number] 09:27:17 Test Item Value Reference Range Interpretation Comments WBC (test code = 4.20 See_Comment L [Automated 5390-2) message] The sy stem which generated this result transmitted reference range : 4.30 - 11.10 10*3/?L. The reference range was not used to interpret this result as normal/abnormal . RBC (test code = 3.35 See_Comment L [Automated 209-8) message] The sy stem which generated this result transmitted reference range : 3.93 - 5.25 10*6/?L. The reference range was not used to interpret this result as normal/abnormal . HGB (test code = 8.3 g/dL 11.6-15.0 L 718-7) HCT (test code = 26.8 % 35.7-45.2 L 4544-3) MCV (test code = 80.0 fL 80.6-95.5 L 787-2) MCH (test code = 24.8 pg 25.9-32.8 L 785-6) MCHC (test code = 31.0 g/dL 31.6-35.1 L 786-4) RDW-SD (test code = 56.9 fL 39.0-49.9 H 10957-9) RDW-CV (test code = 20.6 % 12.0-15.5 H 788-0) PLT (test code = 199 See_Comment [Automated 777-3) message] The sy stem which generated this result transmitted reference range : 166 - 358 10*3/ ?L. The reference r enrique was not used to interpret this result as normal/abnormal . MPV (test code = 9.3 fL 9.5-12.9 L 26451-6) NRBC/100 WBC (test 0.0 See_Comment [Automat ed code = 7568420291) message] The system which generated this result transmitted reference range : 0.0 - 10.0 /100 WBCs. The refer ence range was not u sed to interpret th is result as normal/abnormal . NRBC x10^3 (test code See_Comment [Auto mated = 4902364524) message] The s ystem which generated this result transmitted reference range : 10*3/?L. The reference range was not used to interpret this result as normal/abnormal . GRAN MAT (NEUT) % 62.4 % (test code = 770-8) IMM GRAN % (test code 1.00 % = 8270005959) LYMPH % (test code = 16.2 % 736-9) MONO % (test code = 10.2 % 5905-5) EOS % (test code = 9.5 % 713-8) BASO % (test code = 0.7 % 706-2) GRAN MAT x10^3(ANC) 2.62 10*3/uL 1.88-7.09 (test code = 6618677360) IMM GRAN x10^3 (test 0.04 10*3/uL 0.00-0.06 code = 0669292958) LYMPH x10^3 (test code 0.68 10*3/uL 1.32-3.29 L = 731-0) MONO x10^3 (test code 0.43 10*3/uL 0.33-0.92 = 742-7) EOS x10^3 (test code = 0.40 10*3/uL 0.03-0.39 H 711-2) BASO x10^3 (test code 0.03 10*3/uL 0.01-0.07 = 704-7) Lab Interpretation Abnormal (test code = 14197-8) [facility] [id number] 22:54:43 Test Item Value Reference Range Interpretation Comments Case Report (test Surgical Pathology ? ? ? code = 8178825256) ?Case: [id number] ? Authorizing Provider: ?Elaina Burton MD ?Collected: ? 09/10/2022 1401 ?Ordering Location: ? ? [facility] ? ? Received: ?09/10/2022 1843 ? Center ? Pathologist: ? Yuko Mckeon MD PhD ?Specimens: ? A) - STOMACH, gastric cardia bx ? B) - LARGE INTESTINE, RIGHT-ASCENDING COLON, mass bx ? C) - LARGE INTESTINE, HEPATIC FLEXURE, mass bx ? Final Diagnosis [id number] (test code = zEwMzNcZnRuYmpcdWMxIHtccn 3096130420) DbBVxiaEuiNAYuENQfUA6opJe koXh8qRwsVCBfrdP7mJUjQRqf g8pwWLE2y4uaycaiKKKxANdbE q4nsOStpXaoVwOqQPBtYEd2mX 53REIqgE5ciDUkOYo6EQXpcVA lzcEuLhMkPJAerBDzwBW4QWZd ES8dshonMDbuOQgsJNFctoL3K EUuaWWeE5StIAKpKN3htmjvVV C7SDutLLJiFPY4MyNrPDEoc9M cryl7BzJmxUWyMWvohVPwvqux erCxKAJiidEYLsCDDT3SRRTGL HPSOM5EW5y5OIOwrxNxLGOgCZ KDOYPAGjtPGT2ZD76QRYGCPMF QCS3PYRHvB1cGY36FWeXJANIM QntWWBHmsPIhUCLlGBXzQL6KG UZLRPsIBJMINL5KACvAPQQRKI lOQUwgTUVUQVBMQVNJQSBJREV OVElGSUVEXHBhciAgICAgLSBO UtAKUpVZUSvREthlL9GFVR0CP 91VGNuKJZ2UVXJOQIFyAskoJW 2NHA6KT1UYEN9fcMDbNROsxtW FLwEVD0iCQbirTseBVGZpJZMT AE8FAD2BGDDPVWHJCMDQIJ6FJ 7y8ENTqfpYpQGRtWTJSPZfJQB RJRkZFUkVOVElBVEVEIEFERU5 QU7JQQ1zCY54VHQRiepHdQSUd HOSXPWYwU83EPALFHGdaSGAfb UYrNVWoOCJBGN7NHMBEMHEBQP xHBQXRHHvRXrVfVX6ZC1DiUVC FU1KDPMfdcZKgOOZkEFMyAIUI NcXWJFOeHZUNTf3IZNFpjICeC FDxgeTCrpzjamVEl7AgbWFmBF kgTGFoaWppLCBNRFxmczIyICA hVLUcelmpqbFcPFXkit64PZG4 KdNla0D3WTVoOmPjSWNdAX2ij JtuTINrNG7uLFTzE9zboQ4kla n4OuEmZXOtShG8HFUqjkQ2Pgo 8AHDzKUrxb0ccy1PnF6EtfNRp jLl4b5njMXBsXdC6wCDkLCoiC 7idxtVwzLElYQLhSAv8cHbzHz BfWOFee4ywpvPnYpLyEQIcONP fFUXudWwnbzv0wG98PQYhzJ7p pULmGAfksmVjVgU4FCsuMCStK aG5GVDhgCYmZMWyJ6vlPFZiIR mnIZThCFfxaWGaRJO3sIvnn6G 5bGVzaGVldHtcZjBcZnMyOCBO y5DlTNp4jDwmU0MgOXSmXmR1p ITkKPBeZYjySRZhBUSmahX1nN 42HSdkwbY0iHCci1Zti37us64 8gD4yjDXeMSE8AIMyIODboFYz RTUkWWQ7AVRhoSZsT4frIZPaE D1gipquGPlzXBasKGYdlPE5BZ IpqQRjR3GwSBQgDTwjPINprhw 7NxBfPt1coFThkZiwRKwtc5iy t6yvoGGjHtl5WXAuWfIdOlsmX Jqcq1Ufa0gfBNNjmg1sWKL8zX EieScso1Q1bSKmIDFkbECxiiI eNOQaYoY0WQyxPQ0cce45YWXh OHD9kf9lmOOzoDposbLdfAInR AecG9BbWTJge947PVKfD6CxFV Hao5P8yzHzOpXcUOEcwYT7uaQ 1CADuLIy8uNNufcR6seTayKCh P2vcaK2zACGyQI3jajoyy2jzR IraNRudMFWfdKD4yiJ0CUHhyV KfW7XvuA3hGDDoAKakADNmhsj 7VwTrPr7vwVMnuCuzQYwfUzrv YWdlXHBnbmNvbnRccGduZGVjX HBsYWluXHBsYWluXGYwXGZzMj VhoVbqzSbloZ5aUjOdBaVsNDc zOV5jXQZxJ5timTUhDEQxWKRa K6fmMeWivI4qmNjxOFsiEpUnC nMyMFxwYXIgSSBoYXZlIHBlcn EesoJtvMrtcaJ5kNK5MCOfAFy qJIHlXWGtiTWsts7lzBjvFEOx AF6pCNFgemLuJJbqwYsyGHjgG KT3GDWtzPHctBVprJRnSNHgsP VzTWDaEZHcbRCvFMJflKacb7K sm1BgsLR9pW1lu7ptl2LyPGKt ePC9ZH74ggK8sS9yDSHaEW8sW EWpCE7jdHTgpOYgEADwd62klU hpcyByZXBvcnQuXHBsYWluXGY yXGZzMjhcbGFuZzEwMzNcaGlj qClwEzqtSrSdFECzPGsuJ2wjT zQwXhBnWOajFVL9rG== Final Diagnosis z2maxMNeZYMuqZWzDVPiDUdyy Comment (test code = gMtPGDnwRVaL4RnhmyyKBqbJW 9895085596) 5pRS1sgVwbeKHkoXUfNHHiTwI tu9yim620nQFbg5ijBZZVbevf wCt8k8fsCVYTnX8kmjFYURluA q6mZY81aA30GZSvrK6clYMuMG goelYcFiT9BGbvJLFzOqF3UYW oyDTwDWN4UNMcSKHsO2YdKX2b REAmuIBdV737HUzlbQnhhWMrK kwfx6suzYM2KMwtz0FsZIVjpC lzdHRlbXBsYXRlaWQtMXtcbGl ydB2zfWDrY08nyUkpxRk9NiBo ZHtcbGlzdGxldmVsXGxldmVsb wEbKAoqVFZuwF2sY39hRAmzvp SobsUsVPmkubOng6QvcrTscQW 1AUifhwMcrCK6tEiqWUIgJxVp Rym1p1muJVUmpP41iZLndzXmB aScL80uCpHkrJu9CgWlUnydQp YwfXtcbGlzdGxldmVsXGxldmV ijpRsMZnnVOYihL2bZ755AUlh paGhdrYtWIqariCui1BbbwPos FB6SAcqbbUabJK4xVouDBPeZr PpChh4a1txDMWrqN40fAEwyyC xRgMuS11fYrP4x7skbMV2gSX8 JNpvwJO5HAmtWuUuVYcmyiOtn tCefyIjgYU8CSxuMaFbgWG6UL uimLIbwLI9HFzulNZ9KGq1IJy 1ZQeuHpwrLENzQ998QTxeoaWo qqRgRdQto8kpGGR9tEhqCQ03O Whhx2LwGRKrpEolJCTjiK7qLv GikIJ4YZuhUbDxHIalYBEhaKo pUSwgHITxsRL7RJR9DWXaw4xd DWXnjWFdsAQmQuViVMgdYp33w ZyfkGZ3ZEscyP7eJRGuVHaoND u9ZHUlsZmgjCvacSimpyJrNVw jheNfscOaAGgqBZSjjH0xF171 PByogzWsjoIdPVgdcwLne1Qwv vBmbMW2VObruxMecDN5uAaiKH VrTbI5Irb2p4plZIPnhT62wMX uaoYrQxUcE60zSuO0l4vrvRN3 vQS2ZRbpoXC2DAcaItJnIYvud fLfiyAbblRakFW6OGvdQyYbuJ M6MFfcqSGviQH8YVhugFI3FTl 0EKh7HZgnXpdrOQBeV113ZEqt bcYakhFjDsDlk1ckZKF3uAhwQ F63HEtkq0SrEGJqnLfkMRGpmW 3oGwIqjKZ6INrhAxScMIzvLRB kzCsvSAchUAEekPE2RCM6QAPm d5jeFNSpmWQpuKOnSoFdDUhlI h01wZvjfHV7SKbckI7uNZNyZT iePMt6YKEsfBqzwYmpyTwnbjK oETxonpBmgzJiGUmmNXEpzG6h Q835CEhupfVqnuVoQDzmjhVjt 7TozkUbsFZ0OUdgqdIhmDU7bF puAIVuPnJ3Ptz4y8mwMRCvvW8 3fIWfxjXwIlCyL66aJtZ8r3nq iEU5wTA2VHfcvGR6YPbfCbNbY EfssgRcxyZyhfBdsSZ0DSiwVu YsjDM0XUiaeUXfjEQ3MSxfiAA 2UNw8OIo4NEsuRbjhBCnwN577 GMhdokMekyClGkHrf8vxYHO8g CprAC39xMsyIyujwXZ3l6Lhrb YbTZU6QISjWMmuMpvahJE6q7J lcnJpZGVcbGlzdGlkMFxsaXN0 j6UaufNhTXChm7TjdMJseBHor D5qzGMhACZ4MLJtDRYchFRwZR McHCE4KEIftCVuQ8flPQWsKJ9 nvnjkQZlwVXebWFQlwMM2XTAz kSJvQ3GwBPJbMIpzSOTmbbl6E iTjKm4fxSYksSedCCbxHXZpWL IzDen8CJAtkYXroCHayJnjiM5 lSrXdRQHSfMObvdTicAu1opEg ZqVyiYNjx5HxjYIelIn3FVLok vD9KAUroAc7qQHlCYIDXLZnjF KppX64ti5pdQU9u0AkZG3xg2L rkECsVTcOVD9icIXmJAWynuYG jGDrcKsqe7LkTEPuI5Oqc88mk 4MrvV68OUEgzjUaN1QxR2jsb4 3iXVKlozFtsa7xKAJjrePynX1 fnnWPNAbiozS3c9RqWSRwnyEo yaUtdGF8tR5lKkaxHSHfzQIiK SYtMRzshA45vYJsVNFiA2GqED AdQR8aUW1QZASwDoTWOEibpJx 2CGUgzYIjLYBiNWV2EDdyaB0c BY5meDCaNJ4yZANVS2u+MjogT mVnYXRpdmUgbnVjbGVhciBzdG KliqohQ2d+XHBhclx+IRUAX2m banT0WEPjz7o7cCUdNL46S2tw TGVnc5AaaA3lbmnubohlAQOmn w6iLFUKUT51KzAIh0McuDi2MA KbhJYiEFQpTOT6VMcnwX4lXI5 jyMFbQOSufcdjnMSfxMI9MACV bnRlcnByZXRhdGlvbiBvZiBNU 8eyzVzdtf45yVXyIJT7SCdQLq XjLCI3uAE4CQ0zR5Ujz8F7PVx giKMsNUqjw1YqTyhwMSMbutfp sVP3SrnrhF34fFBzAFYdseMRc CmiiRLffUEWqVeheBJoM0OdU2 Vea0OtI0WsxH2umjnzDUZ0tWV pfnL7VCLmizn9qx63OSv7kxJz ZGRmdDNcdHJwYWRkZmwzXHRyc GFkZGwxMDVcdHJwYWRkZnIzXH RycGFkZHIxMDVcdHJwYWRkZmI zXGNsYnJkcnRcYnJkcnNcYnJk xneaLYywwjEzV3DyNAGrOfDyf mxcYnJkcnNcYnJkcncxMFxicm LtL9LlHYWjMmZnltSnAmVxdeM qBrQuklwvXBusimBvL7TnHZVj YnJkcmJcYnJkcnNcYnJkcncxM ZarkiMzD1GiUURxyzXofXAmpH fqcDD9x0foNPEkB9lnoApAkYG 8qRWeCPDuZ8UkrHmkMFE1EJTo YnJkcnRcYnJkcnNcYnJkcncxM IsilsLzJ9PlTHTjKyAnyhcoTh VtndMdUhTohdioYOzqtlHvH5Q yXGNsYnJkcnJcYnJkcnNcYnJk ourmHVmwztUlZ9CqLJHfEjHli mJcYnJkcnNcYnJkcncxMFxicm ArW9PoJZWhxtBfoGLpzBhreUQ 0z6mcTKJsQ0gkcOoBhJT9hJxc X6mtHXretXA4OddpV2akgoObp TymxnNji7hyujLcwdFaGJJuHF ZhFiIeO1ralwRpeAbcdmAzw8h cxfQyfbFjFBDmUZCdKfBqL8vi gjAqjjtrcuEjs0krprBztdRaO ASfIVCvNbXuL4fjckGzKmgaii Zhj4lpwhYbvoJmTYJeEGSyVlM vZ7h0IXF1LPb6KLJzUdQeL6mf fVdvKDCpf1toBPWhKWPzDEScx Fr3Soe9W9bifSAoZNI3UIClYI HiWZHiAKG3HBJqUnSrumWgPii jbGJyZHJsXGJyZHJzXGJyZHJ3 MTBcYnJkcmNmMlxjbGJyZHJyX AInQQXgRMBoZCB0QNPuNsZiyk NmMlxjbGJyZHJiXGJyZHJzXGJ eJKW1TASiHaGxiyGeZwysvLUg mxLivZRdN2qrvMFNzDB2sXTvO 9s9H9hwiIr2KzWcM5VrfAluCb n5BDSpMoAoprAgBfGbvlAgXrI hkrhhPZaugpUhJ2XjETEvVlAz cmxcYnJkcnNcYnJkcncxMFxic gDkM1LtLXXzIhIykrJpFnJlzt QfImKltlvaYAwbdkZfL4RcXVX sYnJkcmJcYnJkcnNcYnJkcncx FUxpuhMhD1FfKCTytoXjrTByf OvzhTS7u6qtAJJyC2xqiZrSkC L1kXykFIomWFcsiSP6BRufV0o tggGowSaegsCes3qmksNgphWx MDPeBKCxBuXrS7nudfSrcObvr tBtc6sexmXccePaISEeXGGhOj GuF6eckbEswqvgsyOvc2zdpeI vstAfQEErVEUuXfBaP3bqnxPf BjfflaSrj1wzegPdvvIrGDEkF FVlByFiU8r5UDQ6VGj4SWAyBm BoM6fepFbzWKBsi1imSJBvUJJ zTBAqkYx8THDlRSxtuUEeGHI1 RBFyKCFbTLHvPBA1BMSdAeZmt mNmMlxjbGJyZHJsXGJyZHJzXG YaMUS6VWPpOoHamwBuIskikNL jOHSmPCWjAHFqQWErLVD9FXQw YnJkcmNmMlxjbGJyZHJiXGJyZ SYgRSFhYEE8HADtReJcrdHySv jshLRczzXgzPIoY8ipfTEAwXC 0rHHbO3i2D0lukAfmNAa5HEHq qEa5VxWjSJzzyYOrBSE2CTNtR TCpPNJpIAA5NMTeXxOqulFkHg xjbGJyZHJsXGJyZHJzXGJyZHJ 3MTBcYnJkcmNmMlxjbGJyZHJy SFHmXXXnDCLqYHP2KXIoJrGwq mNmMlxjbGJyZHJiXGJyZHJzXG FySKA3WLWtCgMytgKoCvkwkHO gpuBnaVIpX3eilUACaDA8gAWm C1m7P8wcrQzoTXX8UAXjzRk8V DUzNFxwYXJkXGludGJsXHNsMj q8XABquQZnuRLrNXG4zRRdzjr zO7FzcAfwDGVeKNxpoMDeIDEq Qfr7WCNcoUQtrJMoPChQXUbuS 2VsbFxwYXJkXGludGJsXHNsMj q2MOJpxWBsrMCvIQ4EReeiG5R sbFxwYXJkXGludGJsXHNsMjc2 HWYomQAxxYFoCCAJGvroI0Qqj OvmVUJwZPlbyCBvNFKrOln1JG QgfVJduFKhJBASTcvmG8QonUj pVOEuUXhhxERwNRXjMtf9CATw bXVsdDEgTVNJXGNlbGxccGFyZ TmqwuOycUrvpUQ2TkedfN29nY YcGCKxxD9lU6FbMIZytAtpqJQ hLBwbrxWahZsuqTJ1SvhurU64 vPQvVVK5nA1ab9s6DWTimGorq I85Iymyuw20MKYqp6jvTMVzdM GyZNY8A9j9wuXmTZXpaESxeYB uSGKaoRArQAp7vuOzJGAgyhSm nYSpVJSodeBfVDb3krGlMLFnD uXiP2lpqnIwfDunbiDcg7tcpl LesuFgAUXoKJPsQpQeS9kbzlT cbVefuuJqr2eolwLorhXyYVVr PITfYoAbT8voovLtqmqpvvPfz 1qvrhQqqwNcQVEjWMIjZmFeC9 enbaHnOfazsmPue2qnkfXzjfK fEREiJAOvDkKrE4l0INB9YDk4 EBDcCdVtJ7lbwZedIQGfy8gcL HRoMTAxNFxjZWxseDEwMTRcY2 ifugEnoQeersFsa8llgpSsvsZ yVSTmNICzMlDvU6wzkqTiwYke hlHbu2uypxDterSgCJJbFTMzE nEaN4hcogGrslsoewUho9erzc HiizScFCFfXJVhJeFgG0sozrB wSuxwipLcx1urqoQtbxDkWADg BVTcPnZsE4a4PQV0XYz1PSAvG eHkV0kwgRotDWQje5ucXONhYN XcNTRqmNf6SCmnD4rjdREfOFP 7TSPvRFLrZKZyPLI9SZHqZfZl cmNmMlxjbGJyZHJsXGJyZHJzX TQkKHK3SMAtQkKjzkPaBvclsT OiXTWdRRHqUCUvSHTgYKM3YEE cYnJkcmNmMlxjbGJyZHJiXGJy SWMpJBXgSWS6JHFrKhYkjsPoA avgcHVebcVbwBZpJ3wdwGGJhR Z4dLOtE6q2H9goqYy4HQMaI0G dxRhuMUM5XCFxTpPhpbVcExLf syLmPtKybtsxTKhtwpUvL4BiK GNsYnJkcmxcYnJkcnNcYnJkcn kyYXiwlqIfQ9QtMHQbRbOdxdQ cYnJkcnNcYnJkcncxMFxicmRy R7ZmYPCmUlRgbaXuSdQgybBgF vRtyngbOVvhguCgD7RgJZBhbs CdbMOsrVayuVU7q3acMERmU3t vzJnAkON5iIrxAEbmBQvxuIN3 DhtjF1dqglPdkMxgryNvx6dvj vHijoKbVVXhAWUrDvZhD3crgo OdwSllodYlc3mufeAvytPjSLE oJCOuJcBpQ4emzeHahjbtppEr t3btpkXobhYeOEOgJEVzIuVlB 4tiasAxUneeayLrn5gqmpCckj AaAVOhDVLyEjSbX1o8EHK7VGy 4VRJgCnUgI5crsNuzLSSeg8ue SLOaLNRzXPCsxDd4GJeuOOthp HQfYVS9JKLgZRXhMOEaQTZ8KG BcYnJkcmNmMlxjbGJyZHJsXGJ yNWAdNOObWXQ9QXRqXxIpatGa MlxjbGJyZHJyXGJyZHJzXGJyZ EB6TMLqZjMmogOgJyajxXZaWE GjJERpACKgGZIiXNM7UDJrHaK vonVzVfhidSEkgaDkoNGgC7us jEKAkGJ1sXSrF5u7E9jsoYh0U CUiA4MbbIt9ODN2FUTiXdUmnw RcYnJkcnNcYnJkcncxMFxicmR dR6NzRFGqPkTjegjbEmLquwXe SpShiyflFXbwwvPbF3CrBLGwQ nJkcnJcYnJkcnNcYnJkcncxMF xbytIiX2AaMXSiCnCskeFaEfK ipvDeYhQnytveYYsagfTtD3Rb TEDlhjMqkZNnkTyarGU0z3slR XWrE0jwoXqGrXF9hNFgSSEpG2 VltAr5KeT9DFNpLgOiqtVzSuJ etkLxQmQnuwlxZMpxqbLhD5Cp XGNsYnJkcmxcYnJkcnNcYnJkc krvEUwpatCoD2DbLQVfLcBsid JcYnJkcnNcYnJkcncxMFxicmR yM6SaHGCyBrCyybFdUmGbhuHq QjMzekpfHUcxtvWrG8RwVTLzy cAttZPolQymcDT1w1gcPSVvU4 jloEmIzAG8oTX9NOssO2TzqGa 7HLM6QXKoaoEmwL60Hhnud3xq AkVjw0iiuRr6SREzORCvdIcjm VGrWOytfhHobOuxrXR7FrpcyC 55qJCaJLkuV6HgfBbfVFDoFXk qlXGjYUEyBev8EDEpkSVeoPVr G7mlXMheEXZyikHleM02Mjcfh 7fgEjEvx5bwyWw3GIXnCPWxoW qbiFWwMDxixqHjhXsaxXG9Jrd xeE47wDBqZEztA7MgpLpoRXKw PMwiwZAvKSWoGtp8JIPprCWai PTkKS2OGkJsycLSV8adDWmdEL mnGRZrlqKzuH71Btncv2coHiC hw9elyBz2GJUwC4UdmlCxpBIa C1MKIRvRNhEWGwP8awybf8Vvs KrgA1VaeFfeKVDyHDdilNNpHS IuOyy8IYXilFMziRLxN6XagWx peoUakDljz0lsrLGra5BauHUu RRDfUkZpPBXvqVKzIQXaB2s6h xRfKHKdXZF3WLZzwYWfOSXaJ6 i9bjLsOMNjMMG8RUKerVKxLDP eP6dspYVzVDF6ATAtTGSxMWFv BMU1CHUfGsXplsLzQyvbqMWpH RScOMGhDJEqFOGaRSD2VFThVz JkcmNmMlxjbGJyZHJyXGJyZHJ oNUUiJGV8KTRhKiWvgcNbSgxo jTFzTHUzBLZlRQOlNOQpLTC1N TBcYnJkcmNmMlxjbHZlcnRhbH SpB3vkxCSMvAJ7kGYoR8s0V8w jpOcbRKJ5YJLocXk6SZBxWVjx eZMtSRS1WCTtXJNnDZFnMZU2N TBcYnJkcmNmMlxjbGJyZHJsXG DkJWKqXLVgANJ9KXJfRtOcfrM mMlxjbGJyZHJyXGJyZHJzXGJy ZRH5CBRgPtSxpfXmGafkwQCyV AHqOKBfDDKeNJKbGFH7ZVGgKp QoioHyRuoagTYbmcGzhPYhH4j tbIURjYM2nJImU1i6R7sypUh5 AvXmV4FksIwrCXG1WKSaRsWqh nRcYnJkcnNcYnJkcncxMFxicm KxV4ZuIJVcZoGtgayvCuNejfH jRnHpysoqRJpyahGuA1VcPVSw YnJkcnJcYnJkcnNcYnJkcncxM WuabiTcO0VmYGXoYiEnxhJrXl JmkhReMbTczltrAFbnubPhL0H rXVPqlmVejPWpfAejxVM7p8po ALRkD2hkrPkCvVZ6nJctGCbpS JaieBQ6VUjlV5jccePhvIewjp Bdi3vukuIulcLnPJJiOMSaGmT xK7zvgvBwsLuetdHns7sknrLb arUvNLVsBEVfUyGsL2ulmfEas kuajnDjl3tkeeZxcaKtLUBsAL CvLaCfD4ufsaMaUpfbkmSbt0w dqrMiicHeKQVcXXHgGnVjP4z3 WZX7EDr7ZHMyPzTzJ1ueuLzjM YLkk0caMFGhUNXoDUBjpXl9Mq z7EMkhzKBjQME3JOXvCLOuRED sZPO2XIAsIpRwarOaEppekLBb TYZhLZRuRLWeGIBmNJX2FGNuN nJkcmNmMlxjbGJyZHJyXGJyZH OpDHAeQQV7LSVqCsLdymThQqb jbGJyZHJiXGJyZHJzXGJyZHJ3 MTBcYnJkcmNmMlxjbHZlcnRhb BGvU0uccYVMeQD3qAYzQ3z0A4 nmkYj3IvXuV2MlwLp6BsN0JZD sYnJkcnRcYnJkcnNcYnJkcncx RKayggJtV9YoPUAlVeDwjdyuT nJkcnNcYnJkcncxMFxicmRyY2 YyXGNsYnJkcnJcYnJkcnNcYnJ wzcgkOUrlvkCaD5WeSKVyQtIu cmJcYnJkcnNcYnJkcncxMFxic xGtD3AxUSWhjxLtsPDjaUzxmL J3p6mmETNbE9hnfXfLcNV0dVc oCHcaZOsgeZK0DHezJ7laibKc rPnujjEsq0btnjOonzYkYAKkO NXcDhSoU5yuazSxoCekgqScb6 fhegHewjRuJTXvXSMsJnMwR0j jbsVeicxcquRsc7mlkhAwliAi HPLtMBPiPySzL7spmpQxYurzo nCvg0mdpaWucwIlFQZcKLPgOh KoV9p3FMC9EYl2QYBzRfPbC4q roTfnPIQxc3joXWBgSNA4Rpdg BYhbwGT8HVAyO1cixoFogQcyu zFkf0fazsHwdzZyYZFcALSbPa GeY3twhlPigQxvzbFyl4yghbY drpOgFYXcIQBaHxIdW0zpsjIz fvypnlQbb2gnvkMxxkCqFUQaN ZMtUwOhQ9upqaEhWxvwbnMga2 vamlOxzoMrYZRvMBTkHxDmI5w 6MEC3BTg4OWFhHiUwD3qvzOec SXHum3zzMDMsIZquUPlnNCjhm Bs8RcLfmGJpZBxmnoCyfNdzvM T4WcxwsN60pZQkUKIaR1TnxXn eWMQmVDpnqCFcKAVpNny1SRFs bXVsdDEgLVxjZWxsXHBhcmRca G41Thqdl0pcPbIfc5cyuGi7WF AtXGNlbGxccGFyZFxpbnRibFx nyPP6IxplcD43aAKqHCrdL0Ak gJkxRMYzBTjmzDDlIKYbEmx7D GFadEOrkISoY7hpWEcnHDRlxr CmcW18Svmcw4mqLmGyg0sflVo 2XAJZJ3hlCBihXXynVLDplfPf mR36Iiqno5vgRgJkk3tjmVz0G YEVHqCODxSxxzVxvL0zRPByJy GWEpZfC4YixSdmKUJvAJuqxHZ oGEPfZbn5SMAuhNVuhOLiB8Te cNmommGquB6GESGxqML5VJTce 67pc0GvvBWtuV79BVUfuHyuTX JtZXRoeWxhdGlvblxjZWxsXGl qeYJkIELjj5f9ow87MSt1gcPa ZGRmdDNcdHJwYWRkZmwzXHRyc GFkZGwxMDVcdHJwYWRkZnIzXH RycGFkZHIxMDVcdHJwYWRkZmI zXGNsYnJkcnRcYnJkcnNcYnJk xnztHLsorySzN2LvGZTmDqTbn mxcYnJkcnNcYnJkcncxMFxicm MfT0EjHBNnZtEjstXtKkMjbmL sVtWqplntRMxbiuUrL3EuUYTe YnJkcmJcYnJkcnNcYnJkcncxM FuibqScV2EhUUSjloDjhYTtzJ oksMZ4e1lhWOMnJ5vapOqCcXI 0aYKvIZHqV1AztDdxDAC2RVKv YnJkcnRcYnJkcnNcYnJkcncxM ZammuKoB7JrOIDiZfYxoqlmAn DixsEuCfTrlxdeBKyrslAjM5Q yXGNsYnJkcnJcYnJkcnNcYnJk ypyeTYjfchBfC5QsFXSzZlYcm mJcYnJkcnNcYnJkcncxMFxicm TnA0OfSTZnpcUhyQWivWcgsFX 5x6yaYIWuB4smdSaRiFQ0fShb K9pdMXyxzIR2UxokK8kxcuXms EknjnZew6docqFzuiOyGFYgUB LxOtSqC6pauyPmoAmwvzLgy0s iwcKsmbJkMHVhUUHsGvUtH2bl snJjpwwsooIwa7liaqDkdsSmN HHzZEVgOfEhK2cicjWlEpekmc Cgj7yhfsLdzfFxKTAkYQJfEnC zO0f6YML3CCs1YURoTuPxQ8qi mPxpFJJdp6ucAGIqAPTxRSTtv Yz0Gvg3T3pwkKWdWYC3ZEIkFG XsATErOJC8QMDaJwCcayJtYaa jbGJyZHJsXGJyZHJzXGJyZHJ3 MTBcYnJkcmNmMlxjbGJyZHJyX TRkFVAiYNZrGHA4VOSsEdBlbe NmMlxjbGJyZHJiXGJyZHJzXGJ wIPT9MDVmKpBcvgCjThucfSAw ztTwlTAdR7cwxJWBcNR9pYNyI 0x1N6egdGl3EkCcF2JxhAgpWo x1ZDKsQbDuooWbAsZazeMzRiA ufailXCydhjLwQ7XgBIIlMaOl cmxcYnJkcnNcYnJkcncxMFxic uYiX3MlSHZvUjQnvuFcUkQctm YpWcZmozhxOHjsxkXnR9FeIWX sYnJkcmJcYnJkcnNcYnJkcncx FGwmuxNkA0FsXKSbehOkqUYyf OhbdGI1k1wtNTBhW3pktPgPcQ R4gIemBFvdSUtstRB5PMebG1h jusIsgQgxivDgz0qetjFjkgFf ZKYuIAVjVbZpR9mqvqOrlVoej hVgx4ucxrEigzMoLVUsYSNjMz ZrQ3cjhcKtsqvuxpCmo7cxdvM ujpCoPVPjFIDdOnYaC0owjaKx OogbonHcv8ubqsZjdyGoMVVvL HVdJnAiJ2u9BJV0QQj2TLTvYl IzU4obnOtlECPvh8ejYLSaTOO iDSPbaUg0VLGlCJqytOAtEFS4 HTEuAPMsACWhWBS3WIErEtWgm mNmMlxjbGJyZHJsXGJyZHJzXG NrQWA7CNFtBuDvccYdAjvatCJ pTIKeGNQeTUEcIZLbQNC8PXBm YnJkcmNmMlxjbGJyZHJiXGJyZ LPhFAFcYBB5TTOjAuFlryTtBm jznQVzuhPcqQTaB3upcNZNdNL 4hXSfS4x3R2wtzGhiKJl0USQv pTd6EbPwPNjtiQFdRWO6TLLgZ LVvQRHxHHD8MIWbQpMicdXwNi xjbGJyZHJsXGJyZHJzXGJyZHJ 3MTBcYnJkcmNmMlxjbGJyZHJy MYCfLTDeMSReKNR0OBDeImOib mNmMlxjbGJyZHJiXGJyZHJzXG SbLZW7KIEcDtYnafWeOicuhYX enpJrxYRqZ1anxXSMmSW3iRRa C6f5H5dvtPxlGTX5ADWodOd2X DUzNFxwYXJkXGludGJsXHNsMj u8IMMjoGFpnDLkK0xzTLknEGV uquUalO43Bhybd9mdRbQno0gy gAs8MKLfOASklPustJGgXVdkd dWiwMtgiIA6LydeoR68pFGiJS swY2UpaSsiOBOrENzfgGBoSUT vGmy4RGJizKNeuEYpKSqfEHjk VREcwpSjgG25Cnbue3ruQfCbd 9dweWj5EITtJBCrmDbssZKqBE ilnvAseIrpfVK0BackgM61tPV dXJ7XFE2JNULtpWotiXXbZUrd niRfqHrkxMK4JadbjC72yPSiQ EhOUENDXGNlbGxccGFyZFxpbn JulLnnpLC2RisjcB44fYKiHGp igk3hfD9dZIcUJ3saRV74uWQ7 gK5hOKOvxLytlG52Hmdjpp47V ZEtd1ckIODzyWIoUXY1L1a1pp BhZGRmbDNcdHJwYWRkbDEwNVx 0cnBhZGRmcjNcdHJwYWRkcjEw EIg4niCoOQVvMgAuS6pjvuXov LrxilIny2vqtxGdpdKuFPQzFE XpFsOmC8nlcoOdpWwydfZiw3v onhQmssLcCSWxFKXoEiYmI7co ioUkmfmphmNjs8mxcfCrkeZrO CGvRGYiHfOvT7jztqJnNgwcmz Mfa6yajqOagsAuYMWwERWvShS sL3m1ZGZ6JQp4XRVsXnHuC5mw fQnhYRShh0syZJMmHOBzKQtrX GfpeUHrNGJxX2olowNjiUtebf Mbb7jvviAiaxWtXCGpOYJuWfS mP4wqtiGocXqmetYkf6wlghFd lzWxORRlUZPsSnOwT1vdmpDqr qlamhLvi9evuxTozjGrHOEvXS AeGpWtQ4czbvYhWataodKvx2f fmaAoajHoBKOcYHApPgRvZ8p7 BCU0DCg6SOHgIcQfK6rpwFyhB TYcr3edUXFzETOqYOXsmOl2QJ viD9oxkLPsZHK3GRBuJYMvTCV gZWG1FUGjHbKiaxFoBzvbvTHm CQAvWEPmLOMnPUJkYTC4SJEiC nJkcmNmMlxjbGJyZHJyXGJyZH IvSUGtQUB8QEKeVpOkqlGpZjl jbGJyZHJiXGJyZHJzXGJyZHJ3 MTBcYnJkcmNmMlxjbHZlcnRhb ZXjZ2cvrFWNrWL9lGTnS4h6V2 gtkSc4XSMcK1QxdRsyTPP4SIH sYnJkcnRcYnJkcnNcYnJkcncx PQevfdDeW8EaSRXrXrWipdgsZ nJkcnNcYnJkcncxMFxicmRyY2 YyXGNsYnJkcnJcYnJkcnNcYnJ ifwmbWFofleXeI9HyCNVmMjOd cmJcYnJkcnNcYnJkcncxMFxic cMhU1UeIEHqobRylRStvZzeaU H1t3uuMIIrA9kjaKiAxEQ4cRc aNLmfPVgjnMG6SrwvQ4dswhNd fHafgzDxm5yflkIutgMuMCQtN DIkYdXwK1bwygPjfWtiexDtk9 wrtaDsmhNqQPSnYSGcAsHcS9f dfoPnmkbgafIim3gsakVjrrMk BUXuRSBeYtWmC4mrnbTyQzuoq nZaw4tjdrJizaMvLBUrOVKeNf YfA9p1SRI0ZMh3PWSlTvWyE8x ukGpnBVWjz2qkQJYnXTAtPESi oBb2YDmnOVtpzWLfGFU9NDWzZ QGaIYEgKHO6JGKeDnTpghVoMk xjbGJyZHJsXGJyZHJzXGJyZHJ 3MTBcYnJkcmNmMlxjbGJyZHJy QCYcXTPeWHGxCXV6DEWgWcUdx mNmMlxjbGJyZHJiXGJyZHJzXG HqBUV3LBAxEcHfikGfBburiLX hilChoCMfS7sqfSCUkEN4lZCc K4b0W6wgiKx4GQDrL6IqtTh2W IM1WFVfJsFhhrBvQuWykyGhQt FiriifVVcvrmQzP9FiEPYfEnL kcmxcYnJkcnNcYnJkcncxMFxi exHwH7FjEXUcIrVwqaIkNrMxh dWfBgQoysmtZDnvvsHeQ7TkWZ NsYnJkcmJcYnJkcnNcYnJkcnc eUOzsmlVzQ9QnZKAnhuZglKTx eJqadQU2h1wfYSPnB0hkgTdCu CC5vSZrEKWgD8XvyIu2MtA0UO NsYnJkcnRcYnJkcnNcYnJkcnc rXNepqvBvB3DoKVXkFdBfbipm YnJkcnNcYnJkcncxMFxicmRyY 2YyXGNsYnJkcnJcYnJkcnNcYn CkjlquBOwujaCvH2FuCJQwKnT kcmJcYnJkcnNcYnJkcncxMFxi wkQlM9PrODJmxqPpiDSheTvgp RG1l8vlJHFpJ4jseNgJxFL5iS V2RSigF1DcwGp9LWX4EVNhmrC eoF59Jarby1uvUhXpd5mddPp9 DMI9MFBtgFybsPHnJAetzjBnj ZxkuSY3DarouZ50mKIzJRqbN3 VsbFxwYXJkXGludGJsXHNsMjc 1TPXbkGTpoDXrX7vnUKfjCBJq syYedS34Oznog0kxZoByl2ydc Pl6WCYkLCQblUpqkVJeGDnkyi StbHkzoZT0PesjmN04rMQlTN3 lU6LxbAavOELuTVwzyQOmGRXu Dfd7ZFUjtDRkxIYiCGDSGCcpE 2VsbFxwYXJkXGludGJsXHNsMj x3OHHoxDZwmBYdKJ9GL0GkJ0V sbFxwYXJkXGludGJsXHNsMjc2 HARngRWhqEBzQ1HmqYxhdgYey D9VIWGekLC0ZZPtn93rV2LuzR hoaaPwyCpmf6qxdOUot5CokMT zmTJlp5r4heDyMMGiaSDinSDc YWRkZmwzXHRycGFkZGwxMDVcd HJwYWRkZnIzXHRycGFkZHIxMD VcdHJwYWRkZmIzXGNsYnJkcnR cYnJkcnNcYnJkcncxMFxicmRy K7GeHHFyIdHvovqlSaMzxpReX oIgbwmxMAnhetZoA7JpQFSeLm JkcnJcYnJkcnNcYnJkcncxMFx cffRmT8PqYHNhBlVxucPgJjNb jxHoHkWncykqXWztzvVeZ1MtV CXxxiPgvKVugOkskCY3m4ngZV XzV1hpdPeTrQA0yDFoVPViY7T uzTapVLH7EFOrZmMpeiZvQeMf qxAoBaQdxawuEBrrvwKhA8YsO GNsYnJkcmxcYnJkcnNcYnJkcn iqXAthljSgG4PbAGZlNwHhymW cYnJkcnNcYnJkcncxMFxicmRy H7WgCPHmKxZcznRcLhJmolIeG qWusvnsCJnrekPdS8LxVGOuno BwsDJhvYgjaMT5k3mvBHPwQ8g iwQdGdQJ2xAvrI1kmGLxttYZ5 VsvsZ1tnbeEczComrcPpn3bir rIxsyEkYVLsVQEgBxWwL5ytrv ZxjXzdakVsh4uphaMyhqGhBPY pPVPaSaEyA6nulaDeoxmbonXo b1lwxlVvblNfJRDfCYHeCoZwV 5zkioYjKupwabBuj2mqggPnxu FuGCCtCGVvZlFwG8v2AUM3VEg 8HPSrKiMiK8khbBpbWMZjm4yr PQHuHGPgRUCxmYo2Djc5R2frn XYiHGL3LBMdJCJyQOLkQKO1HD BcYnJkcmNmMlxjbGJyZHJsXGJ hXHVmFWRvEDO4BFReZdPymmKz MlxjbGJyZHJyXGJyZHJzXGJyZ VQ8EDMyLePtxzJvOljvfMJcXI DtTMPaJOWrCYUuSRS6XLFlLfE rxuYmUxpvbLWsplHisUGtI6yo nYXFlCU6cGHtL1z1D7olwLk2K qYhJ0QguLaeHtn2XOKyLnHdiu RcYnJkcnNcYnJkcncxMFxicmR fA3CtSKXiOlMcmprpCgVqzvBe OiFgovvyLIixuhBhB9BfQCQeY nJkcnJcYnJkcnNcYnJkcncxMF ebzbLlD9RyXRYlRhTnbcErZnL eyuGcRlBtmotrBXwqopFfN2Xx TZVqnnVpzXNjhOtroCM2c2ndB MYfL8wvvXjMkSS2kYtnEWvnFY eamGE1YIydI1fllbQhnQsjkpD mo8wysySefwPjKWGzTJXdIhRn Q9aoxzRfdLqmbnIix6kwqaSjm rOmTQHgKVRuZhVtH9yoqeCtjl tilcIew1krtqPinlHqAMDkWCJ kSxBtM1gvzbCvTgapnpOqf7ww aqIzcgMxTQBbNQNoCeZrN6s8X EW7HZx6OJUcMdAeQ3tncBosOL Ghw0niTEQaGBSjIZWrmKl7ZTQ nDAbcvFBcTKZ5YLGrOBMgBNFo VCI1QSVeKgPtvxKiSbfkqYOuE SKpNWRlLZNlWQCdHMU0MAGiQl JkcmNmMlxjbGJyZHJyXGJyZHJ wEDCzJSF6KHIjFeUbsuSvNzjc wGMhNNXgROUyFREmXLPaJNO1U TBcYnJkcmNmMlxjbHZlcnRhbH ItE1mhwUIOsVQ3aIXiN2i0X6x xjJlqUUd9EWFgiWz2JeOtQQtv fOBaQUD5GGLmKEXlUWChHYC0N TBcYnJkcmNmMlxjbGJyZHJsXG RcPNXtZNEoNJW2QODqXlDcsgY mMlxjbGJyZHJyXGJyZHJzXGJy VVD3EINtHbCywbVuDelkoMNlM EGnVRCmFTYeRPEwKXL5TERtJr NelqUoSwbycFYwvzMclSRmQ8f puXYWbXQ9pFQlC9d7U0fvxUee HOY6IZWydVc6ZYMbEOomOPEtG LwdqEPpQLKzXha2ZPUenEMwdD WwVZxnNBhdFJNuqmFvaI39Qfn vd8ozInNih7oqmQa1WGPbUQVg hUzpeVRsQDcdkfCkvQyaiAO3J refiB25bVLoOZ9tV8HzqXxhYZ NfGQdspWSvXLDqFiw2ZFTcyMP eiKUrD5fmPPieJAXzprCycT06 Rdfej5lzKwWlm1cyaJp2XBZlU GNlbGxccGFyZFxpbnRibFxzbD U5AkbaeP91iQIqFV3ERZ8AKIV lbGxccGFyZFxpbnRibFxzbDI3 EzeocA30hIKyXTtAEERBVFNva GtgeYAvCPkwdpJcvVnkrLG1Qr tgaE76pMZxOZuise2avW4mLYQ DSsFdoGY8UKYjk69kY8NskJyv mvIahXxas8ksoIAsFEoxqDX0S kozvZ23wLXlNJLmrfMUGtRqOd JWy4zofvXivROfPBRyjwYxrvr jXW4BN6M1QHofpuVssJVztbxy vi8qqX7jwNDrr6wpPVKixE4oR HB8BVjkH1UmH2EjYPMTL8R2AN 0pD0Sqv1I1GQonoJLfGNW9GQY pPQivGHKVRMhpi5QwIVooiVpz vx4rCEEjxWtkqHWjsT8pvDMzd GUgXGVuZGFzaCAgcHJvYmFibG sysIR1VHygcxGehoAcyJtlOBZ hclxwYXIgUmVmZXJlbmNlczo6 PSFfrkmelDkuLAshgF3aZuDqe GluNzIwXGxzMVxpbHZsMFxwbG GglywgdeVqAJWfgA7qXZF0DAa yC4LeB5OqPHV3FJV8ksAvSPQk N5ktksS7HBwqFYSNQWQfmRKrV KNaoBLwJFUdwDZhJoYhL2Dbo8 7tHGVtqpMQtwU9LXIyxYggyER wHeu7BPmhNZZ6RHKoMdxjIpXn ES4caUHcNZOFQROftIUgXEXcf YBrULXnuHYcJNUqyWBzAB2wiB UjfgBcrJ8uUIHuMyPox5atztT jdGFsIGNhbmNlciBhbmQgTHlu U7vnx1etKJOpkHCwERxds2Yzj BG8gB3vo7t3MIO6SdEwPvheXO s3QAVuHNYaEhhbBTZyvOzzBLO xXXfsaC0gMAouJGlrEQIyXUmh TAJOMLSyx8SkPD4kYNDbyFpbX FYdfT6nc3IgLPOiq64cvVQzIC 5ddVEjoETbo9IsDJKyytIlhLH tlyPgXWWehCZifAEijWzxkD51 GRPbfnltLbNHXADfWOErVB9uU ANrzkXml9ViX9YrlyRfjTs9HX JlcXVpcmVkIGZvciBjbGluaWN jbRK4r7StWLJjYHFeXLM7bYWt SHClOHGot8YgyB10OL6fZDLhu X8wZgCucNRyMXUybaH8gGKox1 3fYMBpSPNahnKbn0WnM6eouxx tDFwoBMdlK76ft6ntWR7vSASo dGllbnQgbWFuYWdlbWVudCBkZ UOmv7ogszJdCCFcqioehHLhl3 gteMp0RMhncqRzCAZnBeczKEB ccGFyZFxmczIwXGNmMFxwYXJ9 Clinical Information Gastrointestinal (test code = hemorrhage with melena [id number]) [K92.1]Microcytic anemia [D50.9]1 eval for malignancy2-3 eval for cancer Gross Description f6kjnDTcEKTclKQFSRBvUKAjC (test code = S2xoFonwWe9xZmrQPAszrC1jO [id number]) XpHItjn5ybDWJ0d4crhkKFCef aCMHyXNmxTSFhjyadYqA5FLfw PMBzeumkPZo5HIunQUGxzGU8U XCvhPSpW5CvNRQhBD4emuk8JD Z6HMbeXMDtDrU9XVWtPpJaUqs qNBc2NQZxlvV2Qai2ONEpFCLx dIJfm0H5EXpafkitVAVnnIXrQ 144BDvdo8GkqRItCDileHSuOH KTWuzcXeybdArjh6IgoJUpTXa zGNZgCUAhCZhphlblFUs4FFMq FJtabFScZE2cgHufYqmyqIkac 2VjdCBcXGlkIDUxMDAyIFxcZG YyBB3APdTxYEL3AFC4KzkuDBh 4IQo3SS3PPkHhVTCnWYF5WfSp ZhVuFZh0QDoyAY6EXWG2Jjv1C TS9UCvnRWIrAuEhLXz8URVfEY xmIEFyaWFsIFxcZnMgMTAgXFx zhVBpGB1ikLoanMBjtjgrjeQl IZKJTGCUSDNBMNWdxJAoYX2JK UAhUSmlXDWwlTWMATV6LO8fSZ ANClxsdHJwYXJcbGluMFxyaW4 aJJ0TVOp5fnOzXZDcLoUuR0Va C7xwIN3zMCGolmSlZPLmzZMlD NFybtGrd6NmJHahicMpVWEhpK iyGQR3lAQpFLGnXGHuBXXjDN2 0XCdCNHMgbmFtZSwgVUggbnVt TzDsJPCmAAZ8p77dR9tlKKvzg 5EojFStT6IcJBxgQMMOVTnXSN fxYyQjQR8qABUoebShl6HfQD4 mIDQgdGFuLXBpbmsgaXJyZWd1 xHMhOZXsAgHeeBane7JlNTYqL ShjJP20hxCcRL6gKRFuNXLtJ9 puOWHzEGK2AYAhZIC3BTLcNEX upBQqyxYrJ8eiRPpfwZZiXiKC wQOqu9VyZ9vnSP9tpFUjMubkx NNqVUNiqWnty7SmcLWlEQTjr2 PvaDDhGZlhFA2rUFW5Js3bmWL qMBXxdvR2h9FnJFriYXPcCujq mY6tZPkkwZ9yIV6YWKVdmEHXH NH8KI7uPUj9JOygBRKbH7KaU2 LxwtLptWVvEMXvqcYrf8esXWI 2DHNaiYTsgYMeYcJmXcqaEJS9 DVWmVKdxDV1Ve1lwUYLbaFTfC ZA6GQhopNTmURRwITNwILsoYg MvB7JGZCBjHQLoRttbWiDjEWl 0VKnbU5PEYKUkOHCzEeoxSlC7 WiH8EBh8VNQQHi8bSHmrNRfcQ KN2JMT1VDCuFPJeDZWkWcPqMQ YgQXJpYWwgXFxmcyAxMCBcXGZ lGSypqdA2JLXtNZwcRWCnSjTj M8GUH4dVTS6pFrslWELvFAbbn FokqC7pCCScH97bz2OIr6GzKR 7PVXq7jmFslwtmvK2jNRUireY tZNmrcIOdA8qdEoKzYjFYlZMe zC8yplYNZPkhEHQxK0DtwiYiB GlaSFLory8luJqlSTotZuSbuQ VkIHdpdGggdGhlIHBhdGllbnR pY1H0tyZxAX2zUOCRYBWfcW6n PISrWZIivHChW8WceG43WKG2j W1hFBBfrOzfvGTio1MyigOjyi uvYF4yr5LdQxmwT1G3UBkCPTX obkYkQ30oh1oabXOxu6WjlGXi dGlwbGUgdGFuLXBpbmsgaXJyZ Jv6dXKcVDHnAdCmkPizu2BtCY DrIEjrDF94bxWbEN9xIJTfZgK heVJfneFcbzSvsESigQMuuM0g tzDlq34dHDCbBAX3MPLwWZH7Z AMpVATrsQXefhRgK2rrMOwspU BaFhNBnAYrk6GzW8blZM8bwCM hTqstkTZyEQMcoXnhu8UgdBPe OIGjg3JemYTgWMxbET1mQBD2Y s4unAUlQAJuqgW1n6HcKOzxTO XjYmjphK4wNOwuvQ6pOM9UIDO dzAGEYPK8FJ5sQXi4GNfkGSWq O0PeC3YebdRfgBKhWDMygxLml 6aoEWJ3QPVoxCLefWHtOaYqRp wrIMZ7JMGfBGvqMV3Lq7mhTXA ucJNfHGD0SWalyOCpYTZgNAQp CXvuRpBrP3DCEESxEAGoIiszP cMjXXe2KPzaE3MTSXAuTWIaXm zpCvMfDqY4NPv0FXLSWh4mUDn rEYkmFGmiKAM6ASOrOOTtKTCn MiBcXGYgQXJpYWwgXFxmcyAxM AVbHDZfLElxfoT7FAPwBOftSD CcOaMyW1UBR4eLVR8kD1rjCPL qAYsxpYqvwC5nJTRkB66qe0EU r6SeOX3OCCt8kjEntbgdlW1iJ BYrgtGvZVguvLPcW3cyBrVaQm JRdDLcyC1zmtYJCGtzLSZoS5W osdLrXEsiEILmki8ezVhnZUkb YmVsbGVkIHdpdGggdGhlIHBhd LyllwJwD3I3hbOzZG9nHIRIVD MswY5hFUWjZTCddBOgI7UamA3 6VGM6cA0oHQEjMZVcbDttNLSh JQy2dzIgRR3dm7KrOgeiI3O1E AjYBUGdojYsR11gf0eluKSzt6 FiKbB6GQ7zjDwdlpJuvyNlH1S eNYRya89mxLD7kXVngXWqAvSv H76qhfWgIIhfFaPctZNlWkQea WKiPnOjJ61wOKRocIfsEVWyQR DpoRQetH3jyiHmboSvzLj3TNV dRXX9sWKyrVhkQOIdLpblsJV4 LIDgXrZmowShf8LdlOz6oCIbR IboVADdaE1dpR1uYzPhXQipre UgXGxpbmUgSnVsaWUgTWNJbGh jinF4EQCYKPUuWIGUVZyUCufz mNaqXyPckORfMwLdvzB3TNZyg MSwQGJ1ND2wCZAilxieUBOnRZ NzOVG4GKcdbA17eIMrFDCmITE xrTWpcYardQLmnrZLAvgrkK0j ElGpp6kezUh0GFNOOhdnwCRtj cbtqyQ5IVOuk0mtcRlqn2IsaZ TpBA9yoNyxeZ1uNwRiDbHDNr5 = Disclaimer (test d0swtZWdBAIzg7nwINJksMJdL code = [id number]) zEwMzNcZnRuYmpcdWMxIHtccn KeDFlxv9WjN4AjUtKcHFvuyvV vRKLrTlqmtvbxPTPhEVP4uoWe ZZUvWKtzXPPgLNqjTw9nzJMmj XirFuHrHMRex8esvzSJAEscOi SvI209HTTnKYpoa8zfh4FlQXL aoDJwm5E6ZDEPciudcQy0yLhz A69rw1B7GnslW7pxZGJfBCBtL 8NuCB2tOOCjAdb0FRN3YYN7LQ GtXBLiY8ZsOT2rROYufVKjJRb 1u5urwMzaZTNlFGA7c0ooQLeb sfIvLO4imj4haWt1r4xdogTuK FIuSPVboIIVSEJgU2YncKkuDj 1zpRu6fXeuVumxPOK6Mej4QW5 dqs87dwm9lLceVOZqzsztRoA0 CYjcFPHnkopgWQr9DEplQWMhp MJ4NBUtrFJzN2YcTZTuRL4fhm r6MKC4LDpwBQKfZkU4NKHeaTK gQAIrnZwjOUtcr472HCS0HsWi KY3lZ5Buu4T5rW4vcIBeLKSxq AVeEpLuAMNrnr0rbCZwGOoxl3 UqCNF4blN8dPMciCSgDYLpUG8 0Nirvh5PeHjklf9WoG91cmEO2 ZTpmu5zvZC5qUuK6eoIfMEyhk 8gbpE6bKvR3RQqhBW4kKH5lLS QvaG6ygfmdFNSaEnXzenjqIAK jmZaxlhAtIm8lgCooECE4WPhj B7xhqS0sSrF2ZVzaT9zwuC3aJ Mz5DCxvrWA3WONejD1kAQ8aub kiz3amOOfuWIzuJXRwnfT4yjO 7JKDfyBTiT1BafH1iGOOuLQ9w eqhfr9ooAFT5NXfsDTNeKAJ7B lXgADEdn7Gctuc1CeNmp8PddU RcSPqsR49hp663LCWhfzXmQ5f wbGFpblxwbGFpblxmMFxmczI0 TSAiodYeb3YpAHClGGE5TLloL VrphIYuZNTuaHoew8zzT4ExpN FyXHBsYWluXGYxXGZzMjBcbGF uZzEwMzNcaGljaFxmMVxkYmNo OPWcRCzdU2xeInYwB3OuFXGrE sVqsEWvE1gpEPzammFtBEXetw OfaMK7VGtlD4t2YYCkwjKjtKx 8drHbZwMxQYOfVUB8PFgcuORx BJTdo8SbzaugmXGpFq1ltJHqE PJtvI7iPYNlIYUwYRcrFP0trX a8JHLWbKOsaVEtNqOPBRJhMI3 9ftEjDJOBhrzel2F4LQxtQLJx a0UkaKQhJ7lfo9JzMHQcx29pY Z3tl2Q5r5leSQK1BZ6lx4ReEU YfpMDvmIOiTEXaj7Gfvzqkx7W wQWFbqbYbd2GaGOPeblEvwFBi YZElqmDnly5jnnMsSJJlWPEfG 1EmalxtyQuessYzBRIdwt0htp HgQZE0INFETLZzHQBgb8TgmB4 vhJAKVJS9vSTaof6jktKDsKQz AODyjh04EYAbYN0yC9lqSOXiS HAdhcYcxCXti6JuTUSklOR0gL NsWG7WGfANt96fFAIrYOHGpmK sIHDsqQfdjBZ6qbA0aI3hTZhA REEpLlx+ANUvFIUOMGZkIG0mg lDph4XyheOxsJcuWXOfbJYdg8 BpoJDlk4WsuHkvo0NzoAMbtSK xRE3bHKYszfewERGpOUYZEzHX GCVbhqK4c8JnITEoRPOyVOZ8e Orqrmr3GDLbvV9eWMIwQ3kncx yxJYtwXVNns4WnlO7aoJPMjJX yt9FbjDSwtQAIpSDzPQ8cncYe AQtELNgHWOE1cbPiLOKnz7VqJ EvdG4psF47wiXvrgNv6wZB2FK G8sG6uFha+IFxwYXJccGFyIEF peYVcmMCzGLZwyWfnvkHlS8Ks jzGdwB6puIJrayOgYP9nML9tK 9D1wTUfDGDuatZjl5waFNqctr QnLjIvlfNvIWQuSPttXWXuc3F pWXduLEK7NOpqiuJnlnKwyLXo ryitPACKYRCMpJSxwNXpXOP2I OyhitSssnIwGT9oeR1vlMamzH 5csDRtlPY0dzntRAQfFNBwaEv oGWWwVS2teKBtQXAriqKBfWhf xHTapG6wG6EuKMXzKDCfoc3hA DQeiG0wXCmda4CexkhjKYKfQH XqERYrsuGcmm9uVBFkiQWEDG4 OJFbdySOoc6EgaaTdL1vBBAW5 NUQwNjYwMjgxKSBleGNlcHQgY MBxhk29PDLzyS6lfCppMDRehK 3vaF7dpKmhwY0qEsDaPdQhCBd oOS8vMPPcJ9cmfYClDUJhJYGg O7wuLuHklR1ggGdiMSytVbLyM oTcKYeqOCE4mV== Embedded Images (test code = [id number]) [facility] [id number] 22:54:43 Test Item Value Reference Range Interpretation Comments Case Report (test Surgical Pathology ? ? ? code = [id number]) ?Case: [id number] ? Authorizing Provider: ?Elaina Burton MD ?Collected: ? 09/10/2022 1401 ?Ordering Location: ? ? [facility] ? ? Received: ?09/10/2022 1843 ? Center ? Pathologist: ? Yuko Mckeon MD PhD ?Specimens: ? A) - STOMACH, gastric cardia bx ? B) - LARGE INTESTINE, RIGHT-ASCENDING COLON, mass bx ? C) - LARGE INTESTINE, HEPATIC FLEXURE, mass bx ? Final Diagnosis r8fdySTuCBRmb7qqIKXqrTDtR (test code = zEwMzNcZnRuYmpcdWMxIHtccn [id number]) ZrKJplfDuwRQPfISRbTC5llGs euHz7pGvyVPRycdG8jVCiCYqb k2goKVS9p2fgdyiqGINiZBrlE o1xfIOitTddHeBzTDDnZUo1sY 87IOAbrL8rrFChMXy7EYWsoGD qbvVeSlEoWQDskVUcjZO1GIPq AD9htjnbDYlgGJslLGRgkcI1A NBzqSZaK0TjHLNfWT3ervlyMK N7HZtkQTClASW9TyKvTDCzu4H spuu6ZfQpeYKuXLorbSIcmuyd oyFcIPPndpJPYtTRWI5UYBCFE NBNFT1BU9c7SARklaKnMAOtVF KJRVDFEpzAAF4JF69CCVESVSD DAS0SDROuB7oPB88HNxZINXXQ CpeAEDMklZHxRSZbYUZhHH4QM VZLCGeJCGPDTL2ZNCpOKWHNUQ lOQUwgTUVUQVBMQVNJQSBJREV OVElGSUVEXHBhciAgICAgLSBO KrYYOpTWUJfOWpasF0PSFG0DO 34HKBoAQO1MXMXHIZUeXqsdHD 9HVC4OJ6KCKA7xlHRaCFQawiE LUsCKL9hTWortWoxBLBTnYAMI FD2MYM9UIZCUOZSJXXWYXN8KA 3s5IDQxdlNkRTBnAKORGBoSGS RJRkZFUkVOVElBVEVEIEFERU5 ZX4ERP4pFB53AOHMknbIgJNPk FBPMENHdX30LZWBFSOpqYTOow ULtJGEuSFBZTG5XMPKAZWQFZD nAFXZOASzMIpPmLV6DZ8RfNJX EZ4UAACxxlDTjQEIiXIFfTHHH LrZGVYLiVPUNVw7FIRWboOVpB IBtyeCGtbupppYGz2SfdARrCC kgTGFoaWppLCBNRFxmczIyICA gQERjwcvyejEgNGOghz99JJC4 SyJhp3S6OXEtUtYbEOLfSC5kv NyuGITgJA3sMYKcT9fwrX3zze j7PxFpRBVzZnU8KRYxjvX6Ysp 4JUSaHOrvy6jll3XjJ0KytFYy bMi4i3eqVRIiSqT5nYQkTRmaN 1xhceZhrBHjJRSvHXc6rQwjPu UrMCLmv5zvhvTqXwZlTXXfTIJ pPSPrtHilrmn3sY31SNZraQ9v wEKvFIvputEbHxR2ONzeQXQwI jQ5QHPzuKDlMDFfW5dzXSDmAW ymEZUhXIlfxIIfFKA2tYyej2T 5bGVzaGVldHtcZjBcZnMyOCBO l0TgMSb8sJamK4PvPPSjDuQ1v IMhKTQyDRmoNEWbSRIxdzZ8mE 29PCdwwaQ8bABlg7Bgl48sq87 6yB9kjOGiCZZ6QUGaZGWmwNOg ZCYwYDM8ZFAkwCLpD2vfFFYnU J0mlktvIMlcCEuuULVpmRO3NP BblQFiP6EkGPAuNLxsDWDuojg 8WlFxAf6mrFHosHzxJUxmg6mg s5wbqZHgUzw9VMTvQbBhXivlQ Movq5Uub9qjKXMkst4pONS0pC FahSebo8P7kWVxONDajTYyvhI zHDAlDkU0HElwUZ9qiy55JHYz NYI9ii2vrMQlnAevizQvgWRjX PmhW9MhIDSqz980GBFgR0OwBM Pkx1Y7rbOsFvQuHLEcbKN7ekI 6ORVfWAw3mQIuajA1eyEjjQDo A0zupD0kRPWaDF1hqnlju6mdK PklBWesISHzoMN4kwK3KXFgkG WpG1MsnN9nHABcGOscBBWkrnt 3SaTuSj9prBYzbZlfNRiaSuvn YWdlXHBnbmNvbnRccGduZGVjX HBsYWluXHBsYWluXGYwXGZzMj DcgEgkoZpipU4kAgBoRmCsZHo qNT1vJILjV0bzwWAhXOWzVUXk F0hsEpGemW8yrNgxWHwwTiZiF nMyMFxwYXIgSSBoYXZlIHBlcn SpihOvtEjtmkD5ySJ8MUQbRJz xQZUuFECgfPJbfp2hgZulIPMr UC8bYHTjekCsFEamyDhiAIbaI PJ4FVIidTQuoAEieFOcHLEhfV QuGVIbMZBqoOGnWIEqhHjdt2U mp8XxsVZ4eK5on7mvk1IuELBo tQB8VV45shL0eO3rCPQgZE6dA YDuKP8oxCUtiIMvWTZkf13noS hpcyByZXBvcnQuXHBsYWluXGY yXGZzMjhcbGFuZzEwMzNcaGlj tCeeCazaSuOqSJUcVXtqJ0ybT iLlXuVsTRvkDNL2lV== Final Diagnosis j0zsePYfJRRujNGmSILhUBvbu Comment (test code = dIdSMXjbDUfQ9HrxekcXHwrTX [id number]) 7gIS4tuRgmpSBlyLNdMKAzAfE tr1rru074eXHma7pyZMICpmzq aMo5f4mlRWGAgH3jqlQYLNpyE j7lMT53gH27DRFnpJ1wzGIrZR bmqpShZcQ2JUniPAHkFqN3RHV byAMlRYD5YLXlCKYdL6AkXF4v PAXrqVCpK416JHvvaPnkkXRjI sjfl3vohGR1HLklv9AoWIVjkE lzdHRlbXBsYXRlaWQtMXtcbGl lqT9ziDWvM65elPoutSd3QjOg ZHtcbGlzdGxldmVsXGxldmVsb xIpYJtzMRGwvP4eR54nITsnzb LqniFmJSjuqrJtk5OgmlBoqOZ 7TTsulcLtfDD9cRslWJMdLiQp Txv8y1juHSAeiJ82fWGoylOdS mDhM16pXtSjbQe5YkVtSwasNo YwfXtcbGlzdGxldmVsXGxldmV ykpJyGCzeSCXkuU1rP117DYdk bdXxacBbNEouicZjl5OvaxKrx PT1ZPgnzgJraJZ2mRorNXYoTx SwVgi8q1ncLMOsgM05uPOfiuJ bQdVkC55wOnW6d1inhGC2pHE6 ALohdTP0VSicTsJxMZixybNii eXddcStpMM9QTdkNeFmgOG7EG eshODtbFK9XMnpkGS1UPo9YTk 7NJcrVxxaNBGhE061PNkkwtUf wzDeZaPoh2prGHY2oTukBJ14M Lzzm4JbZICwuKxwNAQrvE4jLf QdzEL7TRngWmRyOEbsPQVizLa iEOguRGCxjET6GKR2IHFes3gv QOVkzHGihGOrUsCnVAiaTx35m VqfpUO0SLgauY9nCHTxBJrfZI l3RBSphJjscMkxkHfcjcUdPQk vtxNpdpLwJKmyCTPkpF3qB247 JXpydoIkutLsDJsdpzWdv2Nuv vBtiWR9NDvhwkHtnZI8aXndCL OcDcD4Sjm9u6grMOQzvU09xOL fteGvAiXvW90uBrK1q0qzaTB6 mMR5ZYkrsIA8LJtiBfVfTZxgi wSxonLkmpLsjYW0JFxgFrFowD D5AStytLJakNN7HPsftUG5RXs 3VNy2XElrQmsqJGXzJ297CCrr eiEhnrZqQhVwl9apCUI5sYbuT E74PXuww2QhLFHiwJxrXTVszX 0kQcEeiFN3YHqpUuHzRArrJFB oyQnwSDptIVXmbJY3FHW5ZVTy f8zmSFAowLHgtGSmSyOcMFedB t38kPawcQH8NSackA3uJEQvNT wkMOf6LDMhcIftwGahyAerzfK aDUubbeZvoiOtNDawVZAmeS4w A841WFavxpSiwmNoFAfgmkEmi 4HfeiPiqJL5EMhlxaXcwBR4fL rvZDVvQdA3Vcf5l6miEJQmcX9 9lRCvgxWbCwFtK69gFkD4j0il dIY8yRJ6CEnjsLQ9QKzhKiFiD NvywbDjwjRaouBxuOH1BRryHm NllTV9VCrezGMmpMP7CIxnzXB 3CCp6THz1ONfvQspaDAurT488 GBahqeGgjjEzDrYif7quZKX2s VsqLA86zXzhAbfrxMJ6h3Aqey QkSHE9EUIfMToaRjsxoDT4y4B lcnJpZGVcbGlzdGlkMFxsaXN0 l9EaqeFmIKOrm5VeiLDkeWWaw D6hqQKvXPN4LRFpCOZkoBKfLL CwVHS1BFSwmTGcL5bhTWWsCL6 moxpgKZtqZFqoUAIxaMQ9HGZs yXJoX7BnFCNlKQhbNFZrutz5H jHlMc7xgDHvjCxjNQkvDCKtCP FwQgv3WLArxKAghCOcvEpwxT4 hIbRfTLZMkZBmciWkjTk4igNk HtWpnAMhz7XyfNXntKa0PDUht tQ3CYMhyBz7jKYuBUBDVAXgvN EstQ35ki3wjJB4s4TrGX6vt5W wkCDuGPqVSG5jzPZhKEUoieHR nIDgqNjbg9LiCLTzE5Hbb96ze 0QjtS74PKWtnbXjY8ZbR8vvy4 7nYEYnhuStjl3jKMOehdMvoJ8 lxuSXCVzsapB9u0WzQKIscsDn ntDewMN2wQ6cDfwuQKTudLJwO MLlFScimR89kQXcARLvF5FuOD AgUZ0zFS7ACHVlVxYOPMrtfTm 0JTYamSTtKTSqXCG4GPhaeW0u OU2qkZPcVE8aGPJBV7h+MjogT mVnYXRpdmUgbnVjbGVhciBzdG DlpfbeC5y+XHBhclx+LOSVG1u xjiT7EBFwk2e1cEGqZK11H5oy BXKnj6TddI4ltoczqtriQZZgz b0qNRLYGU39HwZKc1XeyBe9DQ CddKSdRJZlGCL1ROgnvN9lEY8 dqMNxLOEzefgnjFGvsYK8OYCK bnRlcnByZXRhdGlvbiBvZiBNU 5ozjUycoh95uUXoCUL2WMcGDi SdDYA0dUR7ZJ6mK0Fqe5E5UYz xfDPtENumv8BwMilgAVVzlkkg uEC7NmvmqZ24hBNfOEUjmnKNm ErihAXyjOAIoGhjcVSpZ5MyT7 One6LhW9AalV1xfwdfMSU3ySU oejM3BPEctns5kg37MWw5csXr ZGRmdDNcdHJwYWRkZmwzXHRyc GFkZGwxMDVcdHJwYWRkZnIzXH RycGFkZHIxMDVcdHJwYWRkZmI zXGNsYnJkcnRcYnJkcnNcYnJk cgfdERwhgiZrD8ZtEARxYnUkl mxcYnJkcnNcYnJkcncxMFxicm CbI4CqBAOsBlAniiGkZnOyjmH fToSqujbaWFiultRgD4OtKPQd YnJkcmJcYnJkcnNcYnJkcncxM YfvmnWxI4FxLASpvqMccSMamE jusYY6m2zqPJRyI7gcrZoFbMM 0yZUwIVJiK0BbkAriZRA2UCLe YnJkcnRcYnJkcnNcYnJkcncxM GymlrRkU0WbZPPiLsUwfvmmQc IsckUvPlZpnghfSKfbevLmN9P yXGNsYnJkcnJcYnJkcnNcYnJk tfvjYAvzifTvB9MySCBgZrGdr mJcYnJkcnNcYnJkcncxMFxicm AwL9NoXQDtnhCmyXRrmElhlIS 8c6fdWWQjG5rdeLcFhJM0dFkm E3hvJJqemZB0UlzcG4ubzsDzb RxkmpArm6swqiQwhnDvFXNcKF HuJmGbE9xqhkCrsJhtjbOqo2f rwyXmwkQvYNHxGBYxEbEkN3su reMkntjqzoYss7abqfChzlOzI MThJKMbTzSbW6byltLbJxsuqk Gti1lhapInktOhIBMvBTBzOpC nX7j6EWX6SBw9NJWoYwOvQ8ws fFacGSYjw3heDZYaEFXwDWNnw Ic1Uag8C9cxcYHrVAW0KTLrTN OeYPPeCZM4GTIaVzTtnvBhMcd jbGJyZHJsXGJyZHJzXGJyZHJ3 MTBcYnJkcmNmMlxjbGJyZHJyX AHtENFfZFTyWRI0ZSOqBwMfrd NmMlxjbGJyZHJiXGJyZHJzXGJ cJNS5GVHiPpCmbqWoYvjcbFMx lmNxtMGlK6oxsLXXiYU4hORjO 6b4B7rnnMc4UtIoJ1XwdNvrHg c0TYBySbRiulOfNpJbxhQsViD jwyikRCvolvMeE5JhWQNmNgPh cmxcYnJkcnNcYnJkcncxMFxic kEoG4LkSOXnKeRariNnOrJaea DzMtAsrteiJAgrkoCuJ3GrPZL sYnJkcmJcYnJkcnNcYnJkcncx DXgdkoEwV0EvXAUhuwHeuGTfw DnmeFK4s9zsURYxN9mxiVaPdI C9uPfaEXfeDFrugFH1NZnqB3q pnjDtePqwddHnt0fbhwHsfpAv JUEjQWFeDkIxO6fehbArfZapc jZad5gtpgNnugBhFGBaUMGyMv ZaM2wwveIzpjgazeDlv8wnjxH louHqGSSuYFKoWrFzB5rxprXd UmtaniXba6tsykJntsXsUEFlV KInIqMgU9f1AKA2TTx8LBUwIt MiE2sjiLgtQZEjq6rzHMJqTTT xDCTeyXh6OGZaSKkisAMaRRG7 ZKNrVCDoARYeNTO7ERCyMxEkr mNmMlxjbGJyZHJsXGJyZHJzXG NrWDK7JJEzIqEnxqKqTsjahFA aENFyJUMtHJZsCFGoALK6LRMl YnJkcmNmMlxjbGJyZHJiXGJyZ RVpYOOxUUH6QUXwIwTtljBlFl ergXNbloShlECgS3csjMXOyPN 5cQLoQ0n6D5ejoOhnMPr4ZDJs tUj0FkJmXPysjRPmXSM8UEXnR RIxZOMyUII6FLEwUvEacjJaOs xjbGJyZHJsXGJyZHJzXGJyZHJ 3MTBcYnJkEllis Fischel Cancer CenterMlxjbGJyZHJy ZHCvASMjOWSxAJQ6ETKfEgZgb mNmMlxjbGJyZHJiXGJyZHJzXG HbDBH5KRFiBsBcoeQvRjecpDZ ktyFzaPZoB6zdsXOPeHF7rUVd M5q8W4danGrlWWQ9TSVcfMo1D DUzNFxwYXJkXGludGJsXHNsMj a1IINycUCfyCEtDBS5xECtipn wS8WmaRegETKuPQkavUKcKNNl Inn1OXBlwOHhiBBlTQuCNNezT 2VsbFxwYXJkXGludGJsXHNsMj n0OQFwnUKsxKHoOA6RWhofZ6W sbFxwYXJkXGludGJsXHNsMjc2 CWXtsSGmdYViJUOZHwwbX9Uey GyhLOWbTAbpiSBfLBGhYxz2XL ZxwLKmoSVaABCZLfdiJ7XhtCw rIAVjUBenzBOiHDUxZqu3ENQx bXVsdDEgTVNJXGNlbGxccGFyZ KcbimSlzLcbeEZ3NghsfG98eO QeDBVsrW6pI7JfJIJrdAhniTE fRNiyobMnaCnszKV5YumsiI25 qCTpYGY1mM4hu7f0LTYumIrix N33Pmjxuz47RVWtq8nxLJHwnL TmMQR7E0i1phDaXSLybPTkyWJ lHLIheGHaNEe3mhGjIRGmpnRv gNKyHEWpqiCyVCs5onNrVYDaS aNuF9iiwgMazAwdhfBit1hgbo YbncDpGJAiIDHxSaCtI7lxfpE yhAnsksIsj1zmaaHylxBoDUSp FCJrKzLvU9kwymZdecwxueGtw 3ppnbWaoaTjTOTwLBInBzOgL6 pnrxMrRjpjvyCxp8vduhFujkP pQUVhZDJzSkIuQ9y9TFW7SNn4 XJNmGkPmQ0ifoZoiUVMlr7fqU HRoMTAxNFxjZWxseDEwMTRcY2 zgncUhlMrnpkXap1wtobXyvfA mFWKlYUGbViNjX3qvtnOnzUqf pjCjc3bxnjVobjDkTIYuNNXhF uGqU9svuhYjoeaiqmVwq2uqms VqdlGcSHPtIHPiAoTlM9ndzbA iUluggoPgq4hianApehWsWYUz IRNpFzCoF8n8SRZ5MSf9GUZxU wFnO1lvvUpuRCXyu4kwIBRwEK MbZNTezNt9PNzcB7imqZXmCKJ 6FXVsNJQyQRPbSOQ2ZQTqNfWi cmNmMlxjbGJyZHJsXGJyZHJzX QIyZRT4KTLaElGowzRsMcfymF BkKDHrDKPtKGIfZQPfKQI5XOY cYnJkcmNmMlxjbGJyZHJiXGJy BJAxPMWeTRQ4FMMuKnDfshKvR syunEOejwFgdRMcY0ypwKGAzA S0dIYkJ0v7B4xmcOh1TFPhL4U umQmwNDF8HIDaQbSkykWdNlIt juNyCeErzsppAAqewaHkL2NkJ GNsYnJkcmxcYnJkcnNcYnJkcn uiZEvnfnBbT3WgXEZqFeQujkY cYnJkcnNcYnJkcncxMFxicmRy M6PvFECbScXgxmBhKmJxefIpK kAwzdyeEKtdylVsN9JtLZFbsq AwjHGtyDrqeOL4v5rqETAiX9c kmOpBeQD7gPsgCOhgZYikwLI2 LffyF1nghdQiuOmxbrCcc9fvm eNybhPiUUZpMOTyHyJxD4ycde ChlYdubxDoo6fhlqCbazFtPLP rMICnAxGeR8twcmXowxrkynMo f8kfkiImdjQgPUKmUTTwBcDsN 1mupaTiJfffirYhv2gxptVprz GeNAYfSPKbJmOqE4x2SKR3SMz 4EGLqWiEbZ1mtmLreDCVla8cp JDTyXKDvXNGgzUl0SSrySFxmo MFcIBO4YGHaESQlQFQlJIG5BP BcYnJkcmNmMlxjbGJyZHJsXGJ zCURjRZNmJTR6BDCeAhQutzHz MlxjbGJyZHJyXGJyZHJzXGJyZ RZ3SUKnMxJaarSyZmpfkEAtNN JqIMCmGAVqUQFsIBI3JEImMzO bwrHdUipvpWCtcrHvkOTjD0rf nNATiHV2dQQhB1p6A1hdiSj8K TEbP4QgqHo3YWA9RIFpIsMygq RcYnJkcnNcYnJkcncxMFxicmR rV8JpYLItCvJatdraGcMkwxFt QpKyqlwrLQxmwtHzO0MmZDAaE nJkcnJcYnJkcnNcYnJkcncxMF gqcgAjG6QhVSJlZzPnghHkKjT awhHeOxKxgdrzHZfccuDwA6Ce VGUlwfCsrTNoaKrxeAI0j5hsS FZlW0rrmWyPcRG4zRMkGAEfV0 EgnMw8HjT3FLGuMoVcpbMmDtL hrnQiAuClbwuiLFpksmOmP2Sm XGNsYnJkcmxcYnJkcnNcYnJkc mxkOVuueqUhX9UoQWIcKxBbza JcYnJkcnNcYnJkcncxMFxicmR iK6QlDRDrWrHsqoClOoKscnOt TaNhkqmyWQdmweHxM7DkZPBfg hYnxKDxjTxwiLK5v4diNDHtO4 epfVpSpPE7cZG8URmjH0LcvOq 3ZTX2XASppvQcoR17Stxrz9sr SbVjw8bljLz7KGTgBFCstZvsi EHeMTrobaJhmRuewAU3SngydS 04lAGiKCxbQ1PiyPoqSIHlVJb udJBhKJUhBsc0WLRiwXArfLOk T4xtAVyyIUEdfrLaxQ74Zlvnz 9utSzHbi5bebCa2GCIfOOEjbK vuhSBgACxoyxEqqEzskHC3Hwy dpM82wHZmEAwoO6LjnWjoCXJu STyuiLCcACAkWrk7YPLgjOMpg PJtXJ7JDpUzzpUID0ioJLygJX zwGEOfgsCpjS85Wfzoe9sbWbF mn7tapKj8XJAyA3YfyqDijXJv H8WDMQwIYmOHBfE0rdtyo2Wmp JozX7OqpNajHQVcUYitmZPbJS NlDto2XNOpnVVyfTMzT8WztWd vmiPfxXxcq2xqqMIxl7AwdVJr EMJaPoYzZRNvmKYvGJRjK0w9e tYlYFQbBJH9ZTDhxINvBJXmJ9 l3cfEvYNVgIDW5KBTqlGLhBQS gK9epiJOiGIL4YRTrJITsELMu ETN1CQZyXaZbheOqRckdkXXpJ XEdUWGdUPNfNONpYIN8SJOfLp JkcmNmMlxjbGJyZHJyXGJyZHJ eKRZiCOH0VDObMyJzweZtUuts hAAgYOZwYXTmJNKhLPXxWNP9A TBcYnJkcmNmMlxjbHZlcnRhbH JhA0vqzSJXfQA2iIMgJ6n3Q0t ljNvuUTH8PWQwnBs2HSVlLLmm xGTxICN0CKQqIFDbXXEpASE3F TBcYnJkcmNmMlxjbGJyZHJsXG YrDCLaDPMkUSH6DQAcGbSmgwX mMlxjbGJyZHJyXGJyZHJzXGJy DDK4OEGuCsOrxtXwCnakwRLyW UUwNWQzUZCrDVAlGYE5TWAfOh YjyeTpOiwccESyekTrsVZpI4u wpJXXeDV3dFOsD1c2N2sxvGy4 AtXiB0OjsErpYZQ8GXZzVrSpi nRcYnJkcnNcYnJkcncxMFxicm LfR3YkOMKcSsPetdldViHudhP aGfBzgqpcHRqackRnL2XqLVUz YnJkcnJcYnJkcnNcYnJkcncxM ZqnymGmE1HbMBErZbCkmwImMl BggeMgRoOagphhNCgjbmRiU2G eSPOckdGvnSFkjGgshIG8v3cx EYGaW5pcrFlVwRY1cZjjZPmlJ KzmhIR0CGlwA1vfyhQeoAxibr Vuw8xsleVkxaAwKZCdPZJgSjF gG3mttiFnnLcfglUjm7rznkPz wqAfYSHeODYwMkDvJ4fenuGos zuzpaNbd3qkjxCakkTvFDAwOJ SdYhMaV5gfaqAzXphonwJnu1k xhkPvjbGxCIWmFDXrGcYwJ2o6 WVX4NNi7UGIbQkDtZ7vhoOtlJ NKvl2ukZXOvWJSnMWQtjPp8Bm d2GGkkkUPuPWI4DBPeZZCfNJC uBMJ0CUQbAaBzpvLzZehnkZFc CXOsPHIuQPKbQEKlOWF0ZPNsI nJkcmNmMlxjbGJyZHJyXGJyZH EfAGHkHJW8TRIkNcZeswTaPyf jbGJyZHJiXGJyZHJzXGJyZHJ3 MTBcYnJkcmNmMlxjbHZlcnRhb KQiV8wazVAZkGN8yJXtI2h1P5 pjwRx8MaRyH5OqoMd1PkC0HWZ sYnJkcnRcYnJkcnNcYnJkcncx KNzlkuFaK5RaOJKeQqLxqoorY nJkcnNcYnJkcncxMFxicmRyY2 YyXGNsYnJkcnJcYnJkcnNcYnJ aylpjEQnjnxJpB9FeYPYmOxHe cmJcYnJkcnNcYnJkcncxMFxic dUvO0NxAOBjbfLifVXbzXiijB M1q1gdYDMpY4borAxEwJJ2vWg tLPjbYHhezJV2SJatX7wqnsIb nQupucBpo9xbvlZxzsTcVRNsK PDiCoDdV8xqhbLqgJispdUdj8 udydPiamKkFAToJTRxOiBlX9z qijUxampwocRdp7syplZomsCg ZRWxJDUxGsHdW1opryAaBfleu wDvu4pnbeBgzjUmLXKlVSSuOb GpT9e6UKF2PYq7AKKzIkKaL7m mmZaxSWBew0oqUBCwWPS2Cxnv OMvceNV7YFAjA4rvxwGhwBesx iLbc3jqkcLjrxEsABBuIGXnXd TtT2lcagKspYcjulFdu2yyzmZ cnhYpVZDqLDSkYtSkH3uipeVx orjqvqUnt8vlhrMlmyErNMNbP VAwTmHhS6dkfbPrGtkqzxQfa1 xdcsZrrqJnEBTbPAXpJxEyK7c 3OJG0FKf5YYTjOfQgG2dfiWnu SIImk6ioITXwMNhiAQpbNHuiu Np3XdSnbLViUShxuiJggGxleW D8DxqizJ81gCLrKSToR0PnkFf tVLHmZBidcTXeCOAcXjm8EFPi bXVsdDEgLVxjZWxsXHBhcmRca K50Edbcq3adEqMxi1ujeDx2MB AtXGNlbGxccGFyZFxpbnRibFx rcBW5QyqexE23pGEhAFgqK1Bg bGmoDZIbBJpofTKbBHXjRdu9T ZQwhARwhMQwR1bdKLlkHWPeip CknA73Xaady3yuJpJqj3eqlEt 2DJSSA1mcQCvnUDfbHIPjpyZq hZ85Yzkms1qdOuZzc6lapEy5T OJFMlJGWdZuvbRuhH8cYAAgFn DEVeCpZ7ZgcYeoMWLoOVaaiFH vWXNjNgv3GGFxmWQngRGzC7Ph mFaelxHpwT7NCAUrpIY5VXImc 08jc6HouHPdrU58CWVsaJamVU JtZXRoeWxhdGlvblxjZWxsXGl haBRdZNMhp9i9tp44RYj9goZz ZGRmdDNcdHJwYWRkZmwzXHRyc GFkZGwxMDVcdHJwYWRkZnIzXH RycGFkZHIxMDVcdHJwYWRkZmI zXGNsYnJkcnRcYnJkcnNcYnJk mryzOQlgsyKiA0NvCBGnCkNgg mxcYnJkcnNcYnJkcncxMFxicm VeD9QbRCGqVsQlidOcBaJcfiO wOfQgysvjRDxxwgFmR6LcQFHd YnJkcmJcYnJkcnNcYnJkcncxM KviwqKvL5ZrGFKptcOmqXWuvX vniKF5q1lkYWFzC3gydNeWsZT 4uZDeAVUyG2RtiQixKBP5VUYc YnJkcnRcYnJkcnNcYnJkcncxM QwgtrQzG8ViEULpAkAtgyosDp VijeHnGtAnmcpvLMkagyItV7R yXGNsYnJkcnJcYnJkcnNcYnJk cdixMZfowbPyT5ViAPJlUdDji mJcYnJkcnNcYnJkcncxMFxicm ZsX8MiZODokpMjoCRsyXrlqFT 5f7gxRDNpJ9bhqUoHhXO0lRjo S4rkHPiayZI4ByqvJ4epbmAqr UtdfoZwh9xowwMbieZdPIUnVE UlDxTvL8qspoJfwOehzzMeq0y mrhYvysBnAHIfIILnZeLyR2jt xaLzyictzeRjb5zvvgGnejAiD NXgBSKlMvKsO2uausTnPjuypp Rqz3wlmgQxltLfNJWqPIGoTyR rX5o6RJT6QYd4TWTfIcPwJ4id uWrxSRBcx8owLIGlCEChCGIxq Du7Cvq7U6jeqRPaJGE5YGLdWC OhMPRjHTD9KKSeZrKkdsYuTpp jbGJyZHJsXGJyZHJzXGJyZHJ3 MTBcYnJkcmNmMlxjbGJyZHJyX MMmBGPgWOPdLBG0AFMtIxDmtf NmMlxjbGJyZHJiXGJyZHJzXGJ iGDK2ODPuPeIvglEjKhiftQVz jhIjiBNsA6hjxUXGoUV3rOFqY 1c6A3mgvCy4EiKeP6SbrKxrIa h6YYSnOhWukmKhFeEbkmIgAoM xxtzkXGlpddDcL3KfOLZuKiEq cmxcYnJkcnNcYnJkcncxMFxic tUsA6MxUSXgCcOrasCqYkQywl AdDfLoxoccWRscmpFcB1FdJBS sYnJkcmJcYnJkcnNcYnJkcncx SOrixoYeO8XuMTDtucBuzMFfe OcgqBX0w2zqQWRlI0eivNuXeD Y4rGraKWwwEQqjlSB0UOzfU9p enaFmeOqxkkAzn9ovxqWcbtXx MGVfRAApIxWzH1uxhsZmvFuxp aGvi7wullOqchFrDDTzOSCvMj PvO2btsfWqdtengaTzj1othrV erpTeGPUwBAHpWwSjZ5dqmdOc DbahydPbm2xqjqJttqCuWGMuS OHuFbGfG5b4LGD6NDv6KZVzOh YmV2binFogYCOos0euXTEtHLS yMYKhxZk7CTGuUGiuwZNvZEA1 VQXnJNJdKCRdVGM4WSRcVrUig mNmMlxjbGJyZHJsXGJyZHJzXG CpFOH2SYMrOyAougHiLcjwoWR hKOLjEXAiHGYaSRPjIXM5QJNl YnJkcmNmMlxjbGJyZHJiXGJyZ GQzEXMxYTT9NLZhHwOpvyPyWs hfbQLwmpUmrSSuE9wbbIPGyKS 3xGSdA3o9L4cvxNxyYAu8BRUk fIq9IfZnNYsnaXNnDZL4RVBpF CSfOFSoNYJ2UJWxWoZphvSqBf xjbGJyZHJsXGJyZHJzXGJyZHJ 3MTBcYnJkcmNmMlxjbGJyZHJy AUHjGSLdWTXuUHU9AOAmKbLjf mNmMlxjbGJyZHJiXGJyZHJzXG KhGZD7AXCnEoDowiGzGildyTN xziMzcDVaI7uaoYYMjMM8rQGf H4a8M7nplXqlFOF9FAEapGu5Q DUzNFxwYXJkXGludGJsXHNsMj u0PFJvtTXkaCLyH0bmCBtaANC ctfIpfI50Zdhjo1qsBaBnb2ue rAv0USSyNHCbmLdmpWHlIQzhn vQmuKfcvEA1JrpysZ56dXFfPE yeJ6YzmNnxMTAuMAkmfNPoGSQ dTvk6PFBuvPKefWDzSBzxNFnb JYZtrnIzbE41Bzgpg1oqGrTqh 7uthIt8WGNaTSKamCubaXFvAH mancFzmChjgKR4AxiavU33cMA zZR1DDU5KGRTewNrazNCtXMfs unYhwAwjaXA0MxttaE79rFGgS EhOUENDXGNlbGxccGFyZFxpbn UxmSvmrUN9LgukcD46cUZtBZl vrn4maX7hHFjDX9goHY45xAT6 iK1sQTNzbJrbnB88Ftutko40F YKkd3tgPFJivAOdDMC6X5i8lt BhZGRmbDNcdHJwYWRkbDEwNVx 0cnBhZGRmcjNcdHJwYWRkcjEw YRy3byNkYFImXhPeM3xpfcMwc SaueaRhf1owqpUsoiPiQUDvGF WsFlIlU2lmkmZcqPjqqnMie1v zoeXozcIuCSIaPKUvBjTxJ7lt onAkcsmwshKol8ipweHuygGlV VBwGGFuUmNlW5yxmbSwNbgrxq Gjn7zhocQzzvXsFYEpPRStJgV fX5e3ERD9RUn2UWUfHpOfR5gs fAvyFEIlt0oiSKQwFOYaGEgoB GbvdXQjYQOkT8voflWwhVngfy Nek3vjbgLbyrSdIFEgXKCiXbT lQ5ecswSqzXkrbvZnk7zoeySx vxDfGZEqWLEqOdZfP3tkmuZue efvfqSvb5urplXngjYfIFDiPJ XmTvGjU9epyfWdNnfphzOvf9y yxlPrijWzGFWiKIFyPdRjE6t8 NRB3ALm4AVZdCxJhV9ragKgdB AHbe3jqDVExBLViBRQcmQf7ZX lpH5sixKXtBDR4QYVgZIBjTSW fRAK4SCDpLaCchoTvLpkdzJSf UXUnUCEfBJNxEDHnAVQ4FBCiG nJkcmNmMlxjbGJyZHJyXGJyZH FqFFVhBHV8HZQiTnSynwDvQdm jbGJyZHJiXGJyZHJzXGJyZHJ3 MTBcYnJkcmNmMlxjbHZlcnRhb ADaV9wxgFREuVS9nJBbM3l0V7 gwkIr3XCUkX6NwwWruRLS8LNF sYnJkcnRcYnJkcnNcYnJkcncx GPmlxlTbD9HqNYOjQrLajjitU nJkcnNcYnJkcncxMFxicmRyY2 YyXGNsYnJkcnJcYnJkcnNcYnJ fmbkvCMbeamZdR5KqKPNhLnHw cmJcYnJkcnNcYnJkcncxMFxic uBhD6VbYRDkdjYkcNMygOlmrV P6j0wpIBPeN8ysmTgQsKD9pQj nIWemYOuuyBD0QpsyZ8nubbCj aGtmfeUti9akteFpehEiTDYpG TKgHiLnS7qgaqVydTwmwkAtm6 nvoaCidvYxAMOnKFErEfUmZ1c dzcEoxaupusAgu8mrrbBoikVh CFKiKDExWsAiB5ccbwQzHfgfe tVpa8ffbkCypdIaWLRtLHNmTf OsM3s5IEM6ISf6UIHlZlCvM1v ytZurYXAdn9oxZIPtIDIzNHQl oBi4PWfrMJpmwOMyWZC9OWFeL JDkAOEcDUN5DGGuPlBtusZqMp xjbGJyZHJsXGJyZHJzXGJyZHJ 3MTBcYnJkcmNmMlxjbGJyZHJy GLXjZXYxUNFsGRG9PYXdLpRhn mNmMlxjbGJyZHJiXGJyZHJzXG ZtASB4KPCaIrVfplUrOtzgpSX ronEgdUBiJ7aghBFWqDI2jKNi I7x2U7sixRy9ZQAaY9EmaYs2P II1TQIlIiJfvrYbXtYyfmVaCc SrqjjuATurfsUxH4JqVPFbDqB kcmxcYnJkcnNcYnJkcncxMFxi qeAwK1JpOLVbHuMsmhPqBjOcq hTeOzEjkdrzTOqttsAuO4ZgVL NsYnJkcmJcYnJkcnNcYnJkcnc tZOxmonVfU3QgGROydsVeuKIm uUtzmHL4e3nwUGGcJ6lytSnVe ZA1hYDaQDJjR0MciVq2SwA6SH NsYnJkcnRcYnJkcnNcYnJkcnc vGBvtsgWfA0FtIAAwZhCwrill YnJkcnNcYnJkcncxMFxicmRyY 2YyXGNsYnJkcnJcYnJkcnNcYn EuzoieOCbiinApC5XvANDrTaB kcmJcYnJkcnNcYnJkcncxMFxi poEnQ1GwLBXsasWgeGMfeRkhp UA9h0itFKBlU4xrvGrFgIR5fC D5HPabM1QwrGb5XQR2WOMaxdW vwV57Bmxiy8dnRlFdx6hiwNz2 IIT6UGBlnBlxdMDpBJofqtDme DqmgGH0GfqfkZ39rFCuVBlyQ0 VsbFxwYXJkXGludGJsXHNsMjc 8HACmkSRsnVItO7jeMPcePLAi oxWjwJ60Iscjx3hbRrLhk8kug Yy7ZLLeDLZbeSuicUKpZOampl FmkPvxjYC8AqczjE56zWExET1 xG4RspIlgGLTyGBmliOEzNTEu Dzy5NJJsvFKdlTFkNBCSGUthB 2VsbFxwYXJkXGludGJsXHNsMj s3JZBmkAIstJZeMA8MX2ItX7F sbFxwYXJkXGludGJsXHNsMjc2 LLGslFFjcQEoX1CukPdxbwJeb T4XLTFfpYI0BTGuv53vF6TfsM dwwlEwsTwfz3dzrICix3FgdUC xsLEki0a7dvMpDFWbmCJuvHFp YWRkZmwzXHRycGFkZGwxMDVcd HJwYWRkZnIzXHRycGFkZHIxMD VcdHJwYWRkZmIzXGNsYnJkcnR cYnJkcnNcYnJkcncxMFxicmRy N7NmJSQtHuWqahnmMyFdvrZbL jLwjbqcQJbvmmPmS5PrNFAxTj JkcnJcYnJkcnNcYnJkcncxMFx efdNkU2RlLYVrDuFnpkXpFpMu plEsOxFbcjlvOQfpbkWiK1HfA KDzzbEfiXEckHtrkTQ2b6hrQK NjN3opsLuFwEN7pTBwUJDeS6P kmOrhXWU5URClVnCbcvKzScBa wbPfEeGagezlHGbndlUjI4SvT GNsYnJkcmxcYnJkcnNcYnJkcn cwIMxqirRfQ1RuNJXqZsCddbF cYnJkcnNcYnJkcncxMFxicmRy H0KrJHSqXiFlysNfPkDbblCmB dOgyfllUXhcqnGhM8XaQFAsxn StcAAmrVsxkTH3y8qdXDHpG5v ooBoPcBA6cNwsO1rwCVvpaEY5 BkrtB0ulxmAhcXsysrPra9zaz zAtklRhIBLeAITnPkUuL8eowu FjtQuuydRkv1mgdrHjjkJnCIW kTRZvYwNeR3owspItigzxujEc r8wiblRgzpLgOKNlCBKjMyAhR 0corqRpYyoujnIfu3uutpJymx EtOSOdUAZzXeNkW7w0JCZ3JYq 1CHSsMjSdC3rniBwwGWMch8jt DPFhQYYwVYEuuIh9Ijx2W0avk YTqWQA8WARcAXSkOORzDQB7LU BcYnJkcmNmMlxjbGJyZHJsXGJ pDIEtFHViFOD6DLAjHhDecfJs MlxjbGJyZHJyXGJyZHJzXGJyZ YK3EZSzVhKmkqIcWwqmkGWxMB HpLLClKGClJJMvTKQ0LGDmXbK jktEpTmoqnDKompCigBQnA0gk lWDHiBD3qFCzI4v0V1qwdMa3J zEfA1EzgNfjCli1OMAgGiXyil RcYnJkcnNcYnJkcncxMFxicmR dK3SgVZZiAaQalsezQfIahhAw LlJxfhxcNHwgklSdF4MlRSKcE nJkcnJcYnJkcnNcYnJkcncxMF xtriDxR9JqYRPiLlShqvHcStC gedVaXwEacnewHUixczGoC6Sl MQWypxKzfPIgaNfuyJG6i8syA NAeE3hthOoMxCJ8gWelRRbkWX jmbCP9ITtkZ2elzuDjeIiogwE as2gzllUpuuXdDXMiKVAiMiJp D8dcalNavLnwojSbk8xjpeCny jBrIBNnOGWpZhHbJ0rmriCzqv bhhxJdh4isutOirlAmPYBzTYY wPtBvW1tjieOmRgudvaOuf4ho enDomiMhCFWuOHMxYlWnA4b5L MS7HTd9WLWhGoKyQ6tvhCcsCQ Ugz4xjTKMzUPLtTFZvhKs2CXS yCExaeJLlMEJ2LVQtEGLnFSPh HJF3JSItKgXhlvNmCaebmEYiR PSfTMSkDHQvVVGvJFX5PFFuEh JkcmNmMlxjbGJyZHJyXGJyZHJ eYOAtHWW5PLYuWoDlcbZmCtsh aQGjQMZpWTQvYCKwDWXfEAS9O TBcYnJkcmNmMlxjbHZlcnRhbH EyN4dxsVKAhBC4aSVzO2l9A0e apMtbLIa4NOQdwXd5KrSyURno tNNhWUJ8ENGfOXVrGKMuGMW7S TBcYnJkcmNmMlxjbGJyZHJsXG ShRKGuVGZhUSK8MWRfRjBzokW mMlxjbGJyZHJyXGJyZHJzXGJy JBP3XVAfFsDfuaVlOxfmiDVoN WIcEXMxANEkOHPxKZO4OBXzCz UftzTnAinlrMUfwpLktOXsK0g toELGoJE1kUHbH1z0Z0mgbIjm DOS7MIXhnVa3CZCgGIobSKFvM EoikSFiEJScOgo7NXHuwIQdqV OmBHbeQZgxVNFqlnNmdV68Yae hg1naOcZof1luzHo4TAAnDNBx fZpltJXiEWecmuVojXspqVC8O kwnaN47uUBtLJ9kP9FbsNmgNA NbSKthjMLxMGNcLer4UCDnmHZ mdFMmZ0lqEUllPEZuifCtaW53 Lfism1vcCpCzs8zqwYx8JNDjU GNlbGxccGFyZFxpbnRibFxzbD U2YzebpR87sHGdKC1JNF4EZTS lbGxccGFyZFxpbnRibFxzbDI3 AoldvT16cLFiMBeTITHFQKGpo HyhoSYsHOtldlRwlIkriYP2Jp wxhN62cGZnIKtrhi6rgR5dRDK YBaZqsGM9NXIws34gS6ZlgEcu nwFcpBrut3hkhIGlZJaosXR5S gimwX51fMNyMUNcfsONNtBqKi XBm6osfzPzvTTuRGEjurJeump lRC1MJ3Z4OIpysaKrpCMpxjbn rv8npB1biWEak1ylPJPgrD0dJ FX4SYzzW3UiZ7UcGMSIV7H6YL 4fM7Adm8O0YMcvtRKzNXT3DVO tYStsLWMUHLzwx3VeKFzehMdo tb1xTQOrvIruyHDdrH2ppKGgo GUgXGVuZGFzaCAgcHJvYmFibG yzfIQ8DCzdegJlkeCtbCupDZS hclxwYXIgUmVmZXJlbmNlczo6 CJNgdqguaFuuVLmgwL9zDdKfg GluNzIwXGxzMVxpbHZsMFxwbG NekqhejePtPAReiJ9ySAG6QPg bB4LyC0WrLVM8UWM7knFwBCMa J4srnqK4XEzgMNBFSBKwoWHsW UIrnSHmFWZyfVSlOdXqC4Ejz5 5iRJJxucJKovG4FGUbuMuunGI dJsf9TPrfCMU1UUSlTamjNlZg QG5fxLImTRCSWMZcqNCcWHJsq YGhLSFlwCUcYLCqxKHvBL1hyG IscjOpyJ1sQLAcMcWug3csmbX jdGFsIGNhbmNlciBhbmQgTHlu T8ipe6uxTQEvmIXlUEehl7Oxq ZR1zX4tm5a2YRI9SkRyQmliYY p2TQFfEZDnEwzwFBTdyBvvVVJ tQNkqqK7bXWolQBxbCCZyWQwb CSXFCHKwg8AdNW1hSWOmnLshB ZEtrG1hg5GoMWUcm17ysSYwGD 8lmAWnjTJmk3NwOTKjclNulUP udlZxVOPdeONxpXSgyTqdcK79 PHDqqzpaZoHBCEHmBYEqIR1fE YGeoeQda9OnH0XkjhBraGd8JX JlcXVpcmVkIGZvciBjbGluaWN dfHF3v3GjEAKlTJSwNWT6iBEi LQCoNKNbg3UzpQ64YC8tOGFgw D5uKlRqlKVkLKDrcyI6aPGaj9 1cMSSvJHVfxxHpf3TtN7ylfks eHNtcMQgbB16pr7blJC2gMZQy dGllbnQgbWFuYWdlbWVudCBkZ GFsr4bncvIlUABcfokczLKte9 nzcCx8IEhqopQjTDSlFtjcWHS ccGFyZFxmczIwXGNmMFxwYXJ9 Clinical Information Gastrointestinal (test code = hemorrhage with melena [id number]) [K92.1]Microcytic anemia [D50.9]1 eval for malignancy2-3 eval for cancer Gross Description n6sunGXvTXRlnGBWVTXvIDToM (test code = V2iiTsalTb4cOjzTRWlthK2iM [id number]) DeRNdyk0woIFE2q6gcyxKDOeq pPNHfDWpdKCGllsntGwX8MFwv WTLfpgpnPIx6MGppQVSznDA8B XPilDXcE6VbMMMaMI3tvdo7JF S7RTsmRLCuQyW9AQAqScXqNgw mEUp4YOJbefL0Cdb3KOJyMESp kUSnq0U5FKhfpmxcUEZzmQHzF 624WSdwo6GhnYHwJOsprVOaWC FDCzsrHkjuuCnmb6VblIByVIn fTKIiNRJwFImuihvaYEr9ABJn HLvofLOfOT8dmEyuCuaeuRtmg 2VjdCBcXGlkIDUxMDAyIFxcZG YiZS6EGrDxNSS3AKE2StjoZSl 6GJd3WV4TOpGwQFLaCWB0JtVs QbSwCCo8KQpeRQ8WMPV1Mna4A ZV6CLzfODPcXpLhHLy6BASzNF xmIEFyaWFsIFxcZnMgMTAgXFx gnWXlCY6hpWecvROivlgqigXl MNXITYCLQEQAGVLtlUNgPZ0DK NIpFXovHBIrfJZGEHN6CC1iGA ANClxsdHJwYXJcbGluMFxyaW4 hTI7WCCu0llKwURTkBnGaY7Px A4vySU1bCTMyxkMqNCGzvWUfO SExpgEei4XyYParqdLkJEUhmS pyICJ3vDUhTWUwDLQdSSFqKE9 0XCdCNHMgbmFtZSwgVUggbnVt PcQfPMHyCRM0l07cO8stCIjiu 0SdwEQwV5OhHIxxCIVXCAkJRL nsSuDoYH1yTUCigvAoo3TtLK6 mIDQgdGFuLXBpbmsgaXJyZWd1 rPYbJGEzQaNqsGhsg4YgBCIqZ PtwPL34ufWaUJ6tWJKcPDQiQ3 pzVRUuRFH8AFEnJTE4DQJyPHP nhIRaoyWiS8uiLJjxhVFnJiDM bIOsn9KgS3muOM6npCRyLpieg KZrSOHsoDzco6LedWRaMQSgl4 UgcLWkDXldSW8rLJF0Ly7rxGZ wONYqhiI8n7MfVFbaZWAiLofj pB6jUQpexG1bTH4KXGSuoYTWV KD4VD7cIFo8JPbeDQMfL0IcU9 OblkTfuDEyBWUpxdGst5hcYNV 2NFNmqPGleAOrDnVuBibbDNF8 KXGpMNziTB2La0lbYIKxsKHcL DI8EJuzjGSzVJDmCQMlPFatRn CnD2MAJAVaCVRgYfumMcRiBHz 6WViyE2IBJBRzUIWqYukxDvW7 GpI4OEt5OMCROo0yXJrtDQryJ DK3PAQ1HLPrXWGmQNEuCqCeXG YgQXJpYWwgXFxmcyAxMCBcXGZ nCMdhhuL3CUZoMNdqMYHpNoDg K9UJV0pWIX9iDamcTTJeHFhef VpnuJ2bNHYqG42vh9FVd5EgNC 2KHVk3xgRfejktqZ0lIEKotzK xCCtvkMMgU1fsGcSvZjJBaXGl vP6wpwVLHDovTIWoX5FfvmNwF DeiQLWxdk5maFhjXDioXjCmsL VkIHdpdGggdGhlIHBhdGllbnR lL6A0viKlOA0pSQNZMSPvqJ4w BSYkKCQnxIGfG9CwpX93KIC3r A1nKPGejIyuoCXmy2YpzrUfft kmRM8wk4TyKriiG3S3MWaCSOJ yfhBaG53sk3tqhUKqi9MatRHt dGlwbGUgdGFuLXBpbmsgaXJyZ Dm7sKZyIHOvQuNcjQbor6GaGD BmXUwcAP42xsPoRC4lDTKcZoS fhEWkahRjjbHvtXPoiLGfhK0f feWpb70xLFLlONI7DGObVRF8I HCaXGSweLFoojEtE6plVNrstI CdKzMFaVMvd0GiZ3jxXB5uaQW uXwzznWGsMTZweTbif3TupCPx BZLob1EdwDVaPNarCV3mEXG6Q j7moTOxFLOgqaI0c7NjSZpxJD YiVhowmD4wNWfjkH8pBY1BFRQ mnSVRXDP3SB2zWWn0VAtoSTGo V6XcB1QztdHtmLIiINYzesSph 9ijQMZ1WAOyjVMinHNxIaBnUm ipMPD8TWAwNShqXP3Oh8aeILS lnGCdDWC4RKoiyLRdINSsOTCh MFjyNaQhU2LACZAgYEDhFmdrQ bTuKNm9KDvgR7IHHAMuCRYyMc wtUmYdYyI1YKc8XCVBKj1oJIb nKKixVRxyPUW0HFInLFLjSFZc MiBcXGYgQXJpYWwgXFxmcyAxM YHjFCXyEWhwhqU3TIXxMWlpLM FzEwAzB0WMN0uEDD9jA8htYWG tYNruxBqlyM6rVWSeG07yo4YY v7HtTH2HQWg5qoRprobtjA7wT UDpsqPgYDkllCKuV8iuHpJhFy BFhJJvrG5lhpIKEFviKVNoT6S vhfJmKDidKZAkjx6koTnlHJpg YmVsbGVkIHdpdGggdGhlIHBhd ZfnwyYqI9Q8tgGwQG4pFYMMIO HwlA3eGCZaPSFnsNQlU2BdiF7 5RND3sG5wNEHaMMEkkAbzSWTi VKr0enMnJF1du3WzNgsyW7X7Q OsCIITvydAlD25km5uynLOqm1 KzVcK9DI1blMnfcoVotiSwZ6I pXJAva23sfJG9hYLspOYhBlAm K20phaBxQBpbRcLurCBvIzIkv UXgHgSzB92zTQSnuScsJMAvVY HtdRHquB2phuGproVzhSo9UTK jFOT8jQUljRomWMCkFdmyqTJ8 LMAeYxLxxqCfj7MqdZk4lKQwL AsfEVZtjT5qzL2yUcMiNHnmpn UgXGxpbmUgSnVsaWUgTWNJbGh iehO6PRSCRYTqFYSTQPyQWteu wEmyRzTyvLYgFgVzvsO6YNLdg SFhLKM4MU2cFFYfmhloYTGmNU DsIJK3GYovbG29aBXjAGPpWRM unIVawXfyvDIszdHAGnrgtT6c NvRef1rpuQy2LGNPTosypASfv vialkG0HZNka4lmcScsn8DxpI IkES5mpJymuD6bAlUpCxGAPv1 = Disclaimer (test t4dxrSSaBAZsc1tgNDHrzTIpH code = [id number]) zEwMzNcZnRuYmpcdWMxIHtccn YaNBdzn6XoY8CqVpMlWLgiwyG uZQKxEkkeasqkIUZaPGX5nqIg TYJwVGwwIROgSLwdUc1iiHUjt FasPnUrMCVbk4mvboSTBYypHi DyK689YGGqJLnyn3sfx5ToEZK fuKGsg0A7CMWWemualKr1bTrh J35cj2C8QocmV3axDKFeHZVjF 5KiDK0eQHYxSxp8IIZ6MZG3HU ZpKJWhM7CgKT6tHWKjhXVdJDv 5b0rgoXibWCTmUJC2g3aiWMlr voAjKE1oaa6yvSl9u2xcstPbR XSfUOMunPZOJFYtV1TieRkuUn 3eaWi4gYxrLbmkLQR8Sxn0JQ1 zmi53alg5zPdiCSWebnsbMbN1 QOuySZZhuqooAZv8DAobBUMlg XP3AQRmsJGlH3SjYWBgZA6egv m7TIY9NKodCXCpVcL7ALCybCX dHXCocXrfTJvhu843HWE4VbWy FR4bN3Dkj6B8oW8cxCHlJAGjm ZTiGgAiZRBqqv4xgYCsNWgwq3 VpJSF6jdK9pHRbjTDbICGbWU7 6Khwtw8JmGcuot5JiB34yjJY6 BEsam6qdBP2xZyA3ruClKAbhg 8nmbQ2dNqB3CAvbRA1gPQ6zIW LhiS5sootuHXPhGlMgqjubCXP tfSvbtaMfZh2agSprNID9HNgk A1flgU3sCyI5QYggO6ieoG4iI Dy4BYesfHV6WSYpbT2vLW9yfm gsg1fkJMatEHyvYROvxdL1ieQ 6NWEwkUGgI9OycF1yAWYxMN9a dbzcr3roOKL1IQvqDTFjCNC0W yMmOYUhh5Iiywp5DyCtl2HtiM YdOWcxO99dr890SGRzwmDeU9c wbGFpblxwbGFpblxmMFxmczI0 JKZiquYvy9NhUWJbQNF5HBjxT HksyFQaVVLfyRmgd6lkB0OqcW FyXHBsYWluXGYxXGZzMjBcbGF uZzEwMzNcaGljaFxmMVxkYmNo LIVdAIckA5cdFjXwT8ZcXTLdD zOluXBbT1rsBGtharTaCSDvze SafPH2IVkmE4c1DDKggwQebQw 3roLsXuEiKDIjJCO8YHdmxVSy LBQqi6SmdsyiyIFaGy2kpEDaQ IEnlD4xQAMyHNFgUZlzZH6jdY m2REQJrJYlsFPsEjNRFFGpAC6 6zdFiHNQTikjuo9D2BSzpEUJs r1NllDIdZ2jnh5KiFEAzu19hN B5oq7H2p7upYPN1XC0av8SaGZ HgwXGabGUiDFGvr4Rjmjdyy6Y gWXPzxjRpt2XhLNNjmmKekCRq WOUkhtIgax9pmcRsGFDkBYXuN 6UplpgelMbeapImBFLrkb7sxy LoZIG8CDQNFZPiMEYhg1MxrB7 ivFJKICZ1nQZmff3finMEuYCo DARdzx91SDFsVY5xE1qgMADiV EVuzrUyvWJjt4KaKUMclYJ3lZ GeKH2CLyHCs10bOWZoLTHIiiB xYFPwmOsmhSR9ikF8lW4cLCgW REEpLlx+SIVxXPHXTSLpEE8kx nAoc7EixzAtvKnbESVgpZFzt6 YieXSbo8NiyOijz5HhtTRkxHS dGQ8cJVQzykryZNUfMOLNAgRR CUHuakS9l3ZmISWuGHDnAUJ6h Ibodff8YXKemW9pMYYqW1hcdh cqAPmpJZAli7LoxP6fyWGSoVV jt2FciYDrjQGQhZJqTB7qkcXs QWiEGVsQCZB3fpXcNXVgk3EgY AmeI8myJ73whYmfeIv4tUU8PO B3zM7yVtz+IFxwYXJccGFyIEF flGRqpNDtWFGqxOqiehJjP1Zl iqYpqR0edKBxstGjWV6hKO1fN 4B8mNUqDXCpojAjm7qaFPafyt OjNcIijmEnYFFkLImwSOSqk6V pDNpqSLY6DKzbgsJcglHpgPWv teixVIAAZHORcLUycCNzWPA6G RihaaZgpvAiXA6abZ7biNzthF 3rhVEwcJP5vbaeVILlOEMbaVq fAVGgOQ8vrWOsKZSpqfLDeFjw pZQicO4wF9CjNVJkRTIpig1xQ GHkkU8jJWnjq1LiooicYKLwVB VlMFBgzyHubp7hHOYpkSGDIK9 MPDimqVBmn6SmiqAgR4gRPIK7 NUQwNjYwMjgxKSBleGNlcHQgY UMjht82PEPwdP0voLehNUOlfG 9neE7gcJintB0tCnYrWfVuNFi lJA2qOYMjB7giaQVgVPCaQNLb C7nrOqXrcZ1bdMamAGopBfZpY tHtTPklCTT5xP== Embedded Images (test code = [id number]) [facility] [id number] 17:22:13 Test Item Value Reference Range Interpretation Comments ABO & RH (test code A Positive Performe d at [facility] = 20) Laboratory [facility] Blood [address] [place] [address] Free: [phone] A No. [id number] IAT (test code = Negative Performed a t [facility] 1185) Laboratory [facility] [address] [place] [address] Free: [phone] A No. [id number] [facility] [id number] 17:22:13 Test Item Value Reference Range Interpretation Comments ABO & RH (test code A Positive Performe d at [facility] = 20) Laboratory [facility] [address] [place] [address] Free: [phone] A No. [id number] IAT (test code = Negative Performed a t [facility] 1185) Laboratory Serv [facility] Blood [address] [place], [place] [address]w Free: [phone] A No. [id number] [facility] Packed RBC (in units)2022-09-08 16:29:25 Test Item Value Reference Range Interpretation Comments Cross Match Result Compatible (test code = 4409) ISBT Blood Type Code 6200 (test code = 187423) Unit Blood Type (test A Pos code = 4410) Unit Number (test [id number] code = 4411) Blood Expiration Date & Time (test code = 775782) Status Information Issued (test code = 4412) Product Red Blood Cells Identification (test code = 4413) Product Code (test [id number] Performed at [facility] code = 4414) Laboratory Services [facility] Blood [address] [place], [place] [address] Free: [phone] A No. [id number] [facility] RBC (in units)2022-09-08 16:29:25 Test Item Value Reference Range Interpretation Comments Cross Match Result Compatible (test code = 4409) ISBT Blood Type Code 6200 (test code = 263654) Unit Blood Type (test A Pos code = 4410) Unit Number (test [id number] code = 4411) Blood Expiration Date & Time (test code = 000303) Status Information Issued (test code = 4412) Product Red Blood Cells Identification (test code = 4413) Product Code (test V1479T45 Performed at [facility] code = 4414) Laboratory Services [facility] Blood [address] [place] [address]q Free: [phone] A No. [id number] [facility] RBC (in units)2022-09-08 16:29:25 Test Item Value Reference Range Interpretation Comments Cross Match Result Compatible (test code = 4409) ISBT Blood Type Code 6200 (test code = 545176) Unit Blood Type (test A Pos code = 4410) Unit Number (test [id number] code = 4411) Blood Expiration Date & Time (test code = 119529) Status Information Issued (test code = 4412) Product Red Blood Cells Identification (test code = 4413) Product Code (test U0186F45 Performed at [facility] code = 4414) Laboratory Services [facility] Blood [address] [address]ug Free: [phone] A No. [id number] [facility] P[facility] RBC (in units)2022-09-08 13:28:11 Test Item Value Reference Range Interpretation Comments Cross Match Result Compatible (test code = 4409) ISBT Blood Type Code 6200 (test code = 617988) Unit Blood Type (test A Pos code = 4410) Unit Number (test [id number] code = 4411) Blood Expiration Date & Time (test code = 603329) Status Information Issued (test code = 4412) Product Red Blood Cells Identification (test code = 4413) Product Code (test D1915E93 Performed at [facility] code = 4414) Laboratory Services [facility] Blood [place] [id number] Free: [phone] A No. [id number] [facility] Packed RBC (in units)2022-09-08 13:28:11 Test Item Value Reference Range Interpretation Comments Cross Match Result Compatible (test code = 4409) ISBT Blood Type Code 6200 (test code = 825133) Unit Blood Type (test A Pos code = 4410) Unit Number (test [id number] code = 4411) Blood Expiration Date & Time (test code = 498111) Status Information Issued (test code = 4412) Product Red Blood Cells Identification (test code = 4413) Product Code (test R6920N36 Performed at [facility] code = 4414) Laboratory Services [facility] Blood [address] [address] Free: [phone] A No. [id number] [facility] P[facility] RBC (in units)2022-09-08 13:28:11 Test Item Value Reference Range Interpretation Comments Cross Match Result Compatible (test code = 4409) ISBT Blood Type Code 6200 (test code = 620564) Unit Blood Type (test A Pos code = 4410) Unit Number (test [id number] code = 4411) Blood Expiration Date 746538061440 & Time (test code = 811680) Status Information Issued (test code = 4412) Product Red Blood Cells Identification (test code = 4413) Product Code (test O4737L53 Performed at [facility] code = 4414) Laboratory Services [facility] Blood [place] [id number] Free: [phone] A No. [id number] [facility] Confirmation (Lab Only)2022-09-08 00:11:46 Test Item Value Reference Range Interpretation Comments ABO & RH (test code A Positive Performe d at [facility] = 20) Laboratory [facility] Blood [place] [id number] Free: [phone] A No. [id number] [facility] Confirmation (Lab Only)2022-09-08 00:11:46 Test Item Value Reference Range Interpretation Comments ABO & RH (test code A Positive Performe d at [facility] = 20) Laboratory [facility] Blood [address] [address]dgt Free: [phone] A No. [id number] [facility] Confirmation (Lab Only)2022-09-08 00:11:46 Test Item Value Reference Range Interpretation Comments ABO & RH (test code A Positive Performe d at [facility] = 20) Laboratory [facility] Blood [address] [address]nc Free: [phone] A No. [id number] [facility] [id number] 23:33:01 Test Item Value Reference Range Interpretation Comments ABO & RH (test code A Positive Performe d at [facility] = 20) Laboratory [facility] Blood [place] [id number] Free: [phone] A No. [id number] IAT (test code = Negative Performed a t [facility] 1185) Laboratory [facility] Blood [address] Free: [phone] A No. [id number] [facility] [id number] 23:33:01 Test Item Value Reference Range Interpretation Comments ABO & RH (test code A Positive Performe d at [facility] = 20) Laboratory [facility] Blood [address] Free: [phone] A No. [id number] IAT (test code = Negative Performed a t [facility] 1185) Laboratory [facility] Blood [place] [address]Toll Free: [phone] A No. [id number] [facility] [id number] 23:33:01 Test Item Value Reference Range Interpretation Comments ABO & RH (test code A Positive Performe d at [facility] = 20) Laboratory [facility] Blood [address] Free: [phone] A No. [id number] IAT (test code = Negative Performed a t [facility] 1185) Laboratory [facility] Blood [address] Free: [phone] A No. [id number] [facility] [id number] 17:38:23 Test Item Value Reference Range Interpretation Comments Case Report (test Surgical Pathology Report code = 104) Case: [id number] Authorizing Provider: Mireya Howard MD Collected: 03/28/2022 04:35 PM Ordering Location: [address] Med/Surg Received: 03/29/2022 08:04 AM Pathologist: Amanda Amado MD Specimens: A) - Biopsy, Gastric, R/O H.Pylori B) - Biopsy, Gastroesophageal Junction ADDENDUM (test code [id number] = 3381) 7pzu6AcqTYjpOHgUDfweMXiis Fkma04qRH6xK25IC3yQYKjEfI 1HRLvzsB4Fvb6IHOqEVUdyGBd W511j2zzj3ibaeBcqIM6bTjdZ GZmwhdyQcR3IVeyLBCftcbbEU q5GMncGHPbtZA6CGNgiHYuK2O sOXVoLG4kbqi5LCH8MQalQIXv XpR4KWYsgAIsJYTttFroTWotv 402MMO7QeWsEVRodkDkyYiokG 5cZnMyMCBUaGlzIGFkZGVuZHV xPYfbGTzmp2McPTS2nnHeZFNx vsTfsKykHSSdt2IzkKJuBsKgf Q08ug7vuST0s1ItXJ3qW7ZoHM A8cSO8MFTcadRPOYxzL26bPCD 8ARSqkPuck2QjGjutJFWwKZUB RUdBVElWRVxwYXJcflxwYXIgV DpyKIjzdKJwwFEzsZN5rT5eUW 4pCOQjyZBbE1EhYTSffxXmuDE pXKO7pHOaxQHhGE7vNZgqpAQy i5xti1KyW6frpEkzbWP6WN2gX CTjYSQiHKalf9YzgP3wIjkyDI KswalHZMoRQ7QXL7LKIyKIQGw ELlnnsJRfPWuzoEUxa6opn6Ba I3jedBuykXY9ZCMuS7hucYVbi DN2YVS4dN6fRNohgtTlZOHiy4 UuQGDqIGNmThQ4fT0zHNP3FpO DaRwdQTZ7ZyL9RMoyHGOdSI0s KJyeGQrxN3CieUAuWPRREAIde 4fzE5quNWEig2XnhQ0rmNP8kG TaLQRlcKY1IUAxWQN2XKdgxIC oBOJkCCOcjANhqNXyWu5sxRHs G6PiP7sivwEeiPYcsBQ0wSVsU KjhwhLrDOK1PWNmnB2oBO4uYJ ZkrQYdPP2vcCJeNRHiDEUdKOH oDQIho6QlUHZgla08LNIkDndr xYowCKLtGm3iWr8tXFVwtxUwH HE1GvEWNI1pdexvpVTtwHrjuy 9hTLowOVQYBPIxACCvCLW1NPV bvD7eOTD5xRN2KYY5T2xvR7mm RWLhdmCyTS4oZVQliCGncyFbX MisMQ6omCLnKWWbn8VzqrbtWA PvUDO8EIX9XBakNELdYPYmMw3 hSTPlzY7sB8OgDMU0krHqp4Wc PqPKpBNyyT02sIKumf83TRZvV DPoJ1YrLGQiKIDhDRamnoMjdZ koSZAjw49wcUOcdiMen3WggiM gLOWvJ6rbKSQdbJSrlRRoh7Je iF9snJDsiiVoAPS3bCDtAPBoz N6vFEWltYabOWTngW1rO9IcXI miMk4yYXJvwcnrPC1rkc81MT6 nkiHyIM3ajxXjZD68ioLsVmKf CSj7NFkPETrEEKz3OTOdlxRpq VCawYXwFFObdK7haILtLr1voO EdpQeuPMDzcENhSVxvkAwbV3r dlpmyHAqwtFQkp6HtfN7esDW2 HGJ7vC4mRjglLIFdtyzmRXLfK 5LHVCUXHXH9HZd0EsHsIIMkcs x+IFxwYXJ9 DIAGNOSIS (test code v3fzjPQzHCIlu5lfFNUaqCNqS = 3220) zEwMzNcZnRuYmpcdWMxIHtccn RmMVxlcGljOTYwMlxhbnNpXHN rwAWnC9LmkxfoLQfyAG2kTL4e oJkpmPXjqLHzGEHwWqJyg7yit 462tQAkm0nqTEGTcmjfaIb8oZ ciA08gz4D1PefoA23yjFNzBSO 7YHYkUSSguMFjUSKuIOT0YXEy cJWcY1cfAMFeUW7ddpboJKioA HmwZKNxaDV4CUCzvGFsF5MySS GdDEeaLHFmwrg4VaBkIk1vpSI yeTcyMFxwYXJkXHBsYWluXGZz WpQfME7oE0UIVSNTMPhlHhACO M2GGDEGLmZYO6ITDEyXHPKZP7 BTWTpccGFyICAgLSBDSFJPTkl GBKbDJ1BXWERIXrNHVHVVOCGR S6XRGQFGWUaAYZYQTSVsogIcI I0vHp7cKBXURLVCGfQQKJBEUO MIRJ8SLP4ZGCiRMD9OL2YEVVO BOuQDJHTPXZ8XSXhGNdCUEU3d Z0FOZgVMTLLLBFaZPGVkesBvF H5mDo9mWG6EYWDUHP4MNNHQYP OVBVoKU9xJTMUMQBGSMYKMBYR tV3AoXZSPNYyEPZ2SNGECB7BA EDbmMWYkMEGbHFaDVUAFN7oSI 3ARE1jLNTxUTJveB1LBOL2lTq 1OCZiNKJsNI1TZD0GOVhLEVnT BDWoJWbPFZ57OQcNWQMJPGJAp L9fOFJATJJHEJ8WUTWJwTZKzu aPjAJBdJI2jBLYZDDBXNSLHTP TLUK4HWDdsMIHjgHAdYJFlIWq MX5SGG8MMT6THFGjPPPhfAlGI G0YBN21sBl7HALfEDUDWQkITM 6OSGDbCJETZY1TPLFawrPZyXI WpAEFDIASQSHlFMM7IZU7ZOWB JFWDKCvYMDD6SF75VPQWRAVAK VF2VTDGxX1yVH85IGfKPLYMUE xzLLZVfQ2bQXAIRP4VUSWWAP5 CRMoqMMGfwRKJkPOHqBU0REOE PIBLXF4QTVF9ZW00IHUANNBPR ENMmtvAeET2gRg6nAZ4AWFGRK J6HYKKVEKTDPRvTV9fAFLWTRL NFTlRccGFyICAgLSBOTyBEWVN JCEKFZBBvW6RfJEEADHzTBQ6X HBFEA2QLTXmjINN9q3zxcJCvL HNzdGUxODAwMFxhbnNpXGRlZm hapjqgGGObCWF1ghIjNRUsZCn hLGUdUWxqWn8rzZZoiTpqHtWn YALog4sfvvOPnkbfoSf7u3tyX NPjIyU1yKWcDIoyA8ojeyYqcJ BlWJSrMDy3yU53ZTXgpK5mrAH zLPkfriFbZjA9WIepOZLrYnN0 RLJljDKhPHRiN6ecNVZtBUrrC WFuODoavWNyPYJ7bAbfi8V7yZ ToxHZtuVohZxRoQvEhEgJRp5K zXNo5hTtdJ8YtSUHhHqK3jKVx DRRyVVxbHEHgKHGumoN6dT73Y XjthcO4hIHwv4Prt54dn408pG 5rdJWyWJU0TWTfPQZxxAUvQKP lJUC6XDUsdDVvI1bfVSHiEB1h xwmsVPbzFAedPSVblKV5GFDra BSpE0VbKDGaPFhvNMAtbjz7Oz OdKx0hkHPniPrfZQnsy9ueq9s leFFqKtz3TWXlCwNvUephJUtk s7Vdt5xiWDSrsn1kEHS5lCUjr Ghpy3C7uPNwDIFvyXJfAVXfTV 9xvELwVCDgvC2njoosBVQySmE qywilPKSddMukwcSsUu4qpLrf KJU2XKqcE7dppV0dMcT3PLkcX 8giaJ5gEMg3TFdxNMBhdJI0ou Y3CHLugUTfP8ZgaC1jKFWcIG8 xarb0r7oaKJC8PYzoOXQwNnY4 cbI5UOJakLJjSETaxCqwIHwgy 662PVP7ElVyIUSte7ZxT1QncA bxY93udOajX91sHKYfvBgttL4 iyLcksH5yWuDgTfQiNYfdqPeo VX6cAMRfV3yweNFrNIDhBOVtP 9amLbOlxY6fsEntWYrzavUhRN AjUiv0FELkiLAxJTGiWcb3XVP eMOAoE43lmcrqFUS2kW4wo0ft d5GjMMxkHDR6STYyz63vVTszn fY1OMR1DS37VqgzPbK3R9ccEB J9fQ== CPT Code(s) (test d5dhgMPhOYZsaWR7JxTwTCOjz code = 3357) 7fwg8VkbLZdvBItGAukmBZsfj Lira34eXJ4mC04VG5iLJEsApX 3OHYucwL6Enr2XSGaCRRaaFWz T079b5zne3wmreYjfML8fBefR ZKkhpyuAgB1DTkeCEMnphmbDV e9VSbfBSNleFD9XTEdhKNeI0S iEQFoOL3rfaa0FPP1KLvxVTBp WuQ8ROHqaZYdMSYotVdjEEnon 747VUM3RgJvRLShbdIscShknY 1zWwBuMPN3MWVjJPUSNTHpiNF yfQ== CLINICAL HISTORY q8ftmWWoCOIobRJ0CqGxZTEhl (test code = 3356) 3scg0AfmUMgvQZbROqpwDOpvg Cuxi72pNW2tL13CV3iXUSlDwX 4PLWmgnQ6Ktb4OYPvMBOafHHj K790y2ebn7ftwzImxQQ0mDajM UCouqffTmL3LOzjONCqftrdNN g4QWxdYHJkkFL3LNYxkTMdT0A oRNTiVI5olcy7YPU5TSnvBVNe DsC9LLZluJElFFDasJeaLZvgi 387LAU0FtZlUKMwxsQvjCebgI 5eQwDkJSOWxkRxxSJcuEYlJD0 hIFxwYXJ9 GROSS DESCRIPTION s0zljAJfIBJcoSKVIROlP0eip (test code = kPyLOBswKDkR9BfnmtyCVzyWU [id number]) 7rAT0zaMsgqIAyyYOuVS2FVRY lZmYxXHBhcGVydzEyMjQwXHBh uDUtfQC3GUHlSH7wjngiYNorP JprVNRrqwL7CTKwxMRxR8PnJM KpDT4fiobaKQE4OPpagQ6htgV WArclQs2vhIHkgPxqNfYgHiFa TSBqDXPmXGOxpSarJYRvCMu7i A8WDwhzM25dp6K9Zeg4PYSzRO VdQ7NnID2mQNDodDYeQ54TCyg rOBR2TUNIGdqaPZAyDY8Vg5xi XSMixHRfQFE8NNemgFYwJPBgH FNxSDy2NYQjAWpdcWQwSM5wgR yaBjdfiMvzk7PhtOEfRFrgOIV bGEUxWSoqMUZfUO8PIcRrLXZb QlSdYFCpYEp8JIl8AP6KCaWvK YPySQt6OektXZRtXAv6BIjnBM 4OYECcYbS1WEhkOFO2QMX7KNJ cXHQgMiBcXGYgQXJpYWwgXFxm oDGrJS9rjLwvoMGbvmIWKtPJf S2an5fcABlhv7MeyKFtBFBngs ANClxlcGljTmVzdERvYzEgDQp cbHRycGFyXGxpbjBccmluMCAN ClxsdHJjaFxjZjFcZnMyMCBSZ BCsqFJnGXQaxxBfl3NgNKsgmv BsYWJlbGVkIHdpdGggdGhlIHB sdVhbrpZbwtDoshQbbw8clHkt vdWmqaVqiSGeIDowLNOoM2Jma NMeKdC1zPQwmXRjZJYvs6QiuW I5mA0yUtSdwZkbCU16bLFWPeF IsFqyuvsaSEUvVIDpxNz4ePTf ASSvvnPmuWClwKZnh9BciDVlJ OtxpUGoMT40V14rJAonmYobb6 BlNU4jTLL2ufbqIhQcXuWwjJ2 nHO0nGELjABphMK3hjUifkS8b TCgaFT8wdK3qQPT3Th4naUOhD CBlbnRpcmVseSBpbiBjYXNzZX O7NZShOOGbpWSpPIXiCeHZIA6 bne2NNWCzKMjsJCKvlSNFAUA5 FB6uYNnboABpcrhtXWXeF1DcR 0BwqiEfoRJpLLEjssAqt7dgJG F6ZGQdpPFlhKXjEzLqPskiAJP 9AIo1HJvhRQMuC0UqN9PsJVeb ZBN4MHKnQvZrUULiHNWGMlOvI gAjOoMaXmTlVvF9YVv8DWCYNg LqHgFjYub9GDi5YIXwTPf7ESp 2MSbCMsX0UZMmARn4CHVrYXMe TLXiGZx1TESmBViaYCAzgFKqS HqfKaxgGTpvC27aRtDyQcvgcZ JgilJXBuUNgH0su2rbKVexv1G or9Pab2IgAAnlOMyuBhTaT8My l59uGUPhqhPKQmofnTtmVpNtt ERvYzEgDQpcbHRycGFyXGxpbj BccmluMCANClxsdHJjaFxjZjF cZnMyMCBSZWNlaXZlZCBpbiBm o0MeZLluxdHoRFPwoAZtHUatl GggdGhlIHBhdGllbnQncyBpbm Yyxc5arIigkbPcjbUtcCEfTYl pTUGgVtrlxZH3LRCzPNF7lt4x x49uoERkMNNoZZq3znX5qY4lT lPiodDaSYSmaqtqKDJ3GU2ob7 hpuZUbtVDkt6DguGOsgSWlDYH gHTKuuAFfjwvfOC2fMXRdNElc CP2ogXbzkM5rIDbgBT8rdT3gP OI3Bp8ojCWjFHTnhzUyydPpkK WbqhNtYNYfDWC1AUEvAHOwgSR zIOLzKkEKNP6tkk3YGPPiOVtf HOZjeYKIVEN7HH0jFNutrVJhv bvaPFJbE3MrM3YzxpImpWNuRS KrvbLwb4ewHFK4IAIqbODduXS gDdPkXyzkNSO1TUusg8hkGII9 XHNsbXVsdDAgDQpcZnMxNntcZ LOsA0YuY5LramP9DRr2 MICROSCOPIC s5ovqEJhNNFuyPE3DmNoNBSni DESCRIPTION (test 7hqa1RjySFlfPHuSWmxtCOybb code = 3371) Cqtf10nVP6bA55NE3jXHFzOyP 7JLUpgkY1Bzj4OAFeSTPbeVWd I198t6uco7ordtSvdEA3gDlgH XJnibvbDlM7EAurGXOpvqxwIK e4ISmhDNRosPH7ADGquWIlF2W pXUNiQY0turt7DNV3WRwlBUKt PgY7XNDkoCPbRNJhiVwmKPlyn 773DFP2TtLqIABwqmOuxCtxlG 6eZiBoONCAGBBhh2TpOKQtvDM yfQ== SPECIAL STUDIES f5jrgJYkYYLjk7itWAMjsNHnZ (test code = 3376) zEwMzNcZnRuYmpcdWMxIHtccn GfEIxsk5OzW3XtAlMaXWairxC aUZRtXutlxbksWLItVKW2szPj ZGXgRXuyTCEnOTchAg6gyGHfu AhkXmFoMBMrn3xtbhHTbumkfT y8b5mhZDArMtC1fAYgUFfjM5t shpElqJSyT0QszMNceNz3h6aa YgAhQiY1aSYwJLewB0smeiMsv FFmRSGhCDr2qH27FKSiuR6zsA SdCHsdpoLpPbV6WCigCCSbQnR 1RWEtwNSmWFNlG3nuJQLkLInv WOQvVNwxbSIcIEH2rCrbt6P6r GVzaGVldHtcZjBcZnMyMiBOb3 HbVNn3dXfjO3OyTDVlJaB0gFN dYBNcTXraLGUbPIQvbcU6uHzi urBtv49bjCJqSLWjMFHpPrJll RfyOTLjSFKPi9TkoGqlHAW9jE t6hWgrXgviKDD0Xic2WX6aus2 3scj4fDkdAEMibiofAqH6FUzt FFXhmxmjMPw1MXgnMTFppEL8T JRioVDaT9DiLUPfPH1wnlv0ND T2GNcqTAAiHfL2BAWndYKwERJ lnTmxLPsis365XOQ4ZoEtSV5j N1Bbm5L5rC3kxMYpWQDoiOGlP uVjZAUjbm0vmMHkWKdxx0BmIE R0tiV2aBIyzEAvYGNgSW60Quu nm1PeZrjee4MyS11zaFY4IIvi n0tmOI7nZhS4hhZqEKcnw6rzk T0mNkB8KMlzGC6zGK1cJSFjnV 5ucmxjXHBnYnJkcmhlYWRccGd guwSuIt9ivBbpRQZ5NYdgU1sh rE7dMtN3NWpkH6djqE6oUGx8J KvuhXG6JHTkiU8vHX0xxyueo6 naFEhjFFsyWRVqwcU6wgK1SKO gqTGmB4SedI8cHZRhZF9oyrof y3xvYGU0SAmpKXRvTQF4HbFwR NSoz0Kvdtg0OpGlh1VofIRbQU flY29mt636WOVhroUuD4ubmOZ cyzrraKPejyynSIvmtyA8MCCp XHBsYWluXGYxXGZzMjJcbGFuZ zEwMzNcaGljaFxmMVxkYmNoXG JqZNhvD9pgTwSbU2HjJGUdHxL cMQyzPDfamWWdiKDklQO4fU4a CW2kMALwdRGfO1JeQTUehmEyt CVgWFL1uSRazFUtMU7fRGtmgG Wev2fse2FkY0wgiJqkeHK8SE7 gHFNyDNSlVKark1UzsI9eInrt bGFpblxmMVxmczIyXGxhbmcxM RYcKHnwW7rnYaWlYZXatPopIG pws7ZhGRNrKROtJqdhiaKaFFd 5wtQhANSfoopjFSEppAlueA3e AqMpGqCsIkxbIL6rGQExS8xdd ZUmIBIpTKSvA6fsHgHilO8tsN cjTRuzFtMoUwKtHbDJq585dp6 pPYYkyQXwvvIUkIUbyU7aPVxd PWraETlaaRKqXBwrh4dcTWIwn 5e9uEDeJOCfkcRda8bgCXeavk BfFLEttHFtkZUjVSMwp57xNRp zmHmeuPajBYDoo5TlaTgdi4To AnAgSKahw6OtP18xxTNzmXJqn BmfHURyvqKeQHBak07pl0fsUQ MmYuT9bOIqzUU5nLQuhZGce8P ppXmhWKXzh9euGAPkso7ckpdb jAOnl8SzgH3ktdgaBHongPZhb pZdJOMyo2c4fJVlNEYkAHOgVP ihvVk3AOYsz549ow4kuaZ7rIG iAWS5WYpoHGYxLUDtbbXfDLId bHVhdGVkXHBsYWluXGYxXGZzM jJcbGFuZzEwMzNcaGljaFxmMV zbCbIsNIKzVZerR1piTaAsH0L tPPGrLpPkhVScL7zoqJSuDIDd YWluXGYxXGZzMjJcbGFuZzEwM zNcaGljaFxmMVxkYmNoXGYxXG pgY3jtBjYxF1YeHSSyRbQbLYh wbGFpblxmMVxmczIyXGxhbmcx SAOdZNquZ6cxInZnCIXveVcbT Tchb9MfBHYhQDRzOcityiHqJF z7voGkWKXduiizvMZykezzYTc dfnZaYUtmmwglAYMzHSrnC9rf MxAfNRXyoDkrZMkgp2XqTDTfL KIyItbxyjQwLNyzlVDgc9zmr5 XlP1fyxGyffXQ9MSJkL1ymaYE ipRN2RQT3tB9lRYtzwbKuARHq i1CuHCWqEXMqBqM5gO7eMWC9K iBMdWtlXHBsYWluXGYxXGZzMj JcbGFuZzEwMzNcaGljaFxmMVx tSlGrEYKlCKxfE6faRsDaL5Pv IICpKzPxjPjpAZzgDQg6Wnmbv GFpblxmMVxmczIyXGxhbmcxMD UsSBwxK4qsByUrZEUxeKupROd oo6JlYRDlWXVuFwibynLgOVVa KQQdgELjjRSGIQ89BXQxJQChg RnmjQ5eeVQSCKYuicC3w7R4YA eoSNWyJMw0VGfhrrRrQUFyyE0 sPACqMC7lERo8sgAoWPAbg1Um PM8cBDZfaEYuPPR2ZDZkt0GuS 9Oqv9TxOPZhIFBptm5uqhStWq MHtXKvHSYxqv93VGXmSC1sR8b hKBTlUYOonkJkjALfx6MsFVJe bYE0aLYoVY3VKqSKx11sKVArA CLHgiEbYSAgvZyyrPS5rjM0bS 9uLiBUaGUgRkRBIGhhcyBkZXR tqk4dweZhEWFmDFQuh8HbbVSf zEEhhmSmU7Abh4MxJLZqzc47G SntoXTnwo74IH4dP0Lld0DhrZ 1jLVrmBHHxh5EjqNIfcSJjZBZ lo8XaF8lkzwjuXQkbvRXnpZ2q HMSmFWb4BXEnv0XtMDNrz0MjO tBiufWuQCExTYHqNQTuvR00UN T1cEqkcWjiubOwBC6jSSWlikC sRLQoKDYghU4rTRcfsyKdKUYe nqI2l9C3BAbxSEOffaQyDldvO GQ1lbKvcwJ0cAIaQ1pthatuFF slEZKau3XlwQ2khLARbKLmd6L pmQVmmIKUcJEoXB1xqqGhNS7n RJZ7RZlkBESCZTQxDAoiBBVbP TL5GZtiUxozYAY8hiYfVKDfs0 EbSNytD3leR44raDdmnKo7vPV vmQpmcPSfbRQqCLFvzfU9p8I9 ICYer8CpmjwaOXGoZNfdLQNsP GZzMjJcbGFuZzEwMzNcaGljaF oxEfmqHqTjWHWxKViiR0nrQwT tVvJmIxhcHSL6iS== [id number] 17:38:23 Test Item Value Reference Range Interpretation Comments Case Report (test Surgical Pathology Report code = 104) Case: [id number] Authorizing Provider: Mireya Howard MD Collected: 03/28/2022 04:35 PM Ordering Location: [address] Med/Surg Received: 03/29/2022 08:04 AM Pathologist: Amanda Amado MD Specimens: A) - Biopsy, Gastric, R/O H.Pylori B) - Biopsy, Gastroesophageal Junction ADDENDUM (test code z3kpxVTeHGGyfBH6KkMxYRMsu = 3381) 9ind1CssMRhzNRxYDgifUAraj Jszw92dSB0oJ00LA8cMNUrMrO 9XCDtiwF6Ite1RNVvGMVpxGTh T039m9jbn0ezcsFdyAO9bOflA TGymknyWjB0OUqpOKXzkgtgOQ m2RSefIOZyrWF8YYJfaZErN2W oQLJoCF4ftkw9LER4YAhxKLJf WkK0IEHvqJPjYDZwkZxtZAafr 110NJF5WmFaFIDftyImfTjefT 5cZnMyMCBUaGlzIGFkZGVuZHV ySBizJRjdr7HjHYN4tdVpNUCu hnOtmVejHMCtl1DodFFaCtHxj H85oi2qmTA4r9YvLJ6wA9GyJJ W3uLR4UZMstpKHAZnuP11rRYW 9UTBrpRjuz7YfOffrOPQhGQVE RUdBVElWRVxwYXJcflxwYXIgV HlcWEsqbLHwdLZutYB6mF2vTC 5gUEEjmGNrT6ClAROmmvCbzLO aOWI1nYJsiRJlCJ1aAEligTCw k0wiv7FaG6tzbYzpoUM0KT2cZ ZYsMPNzVOzju3WklZ8qLhpmVX HttzxVJEnDA6YOK1ZLPmKPLSh PKfvqsRWaTZzsdXLkg8ush1Yj I7zkiFoekWB0OUGwV0vbgVMrf JT5JCA1sE4cLEmqtzNoATVzh7 EdHFKvJRBkAsA4eW7nSLQ2PgJ MlTxkRVF6SgP0XBeqPMJmXE1r ZMpfHZxqM9IaqAWdXSNDVLQll 7pdH4nsFZFlv0LoiJ3uxWN3iS YzKIAlhON9DCTjQMR1XGohvGV xPEJfTIQyfWAzlODiYj4vbVXp K9LrW7sgswSsuOWlqNP3xVSvH DsibvFwZAL6AXDulK2dLG8aST FnmTLsMX2udVHxGFKeYKFbIBW bRYUqj8OvWQWcxy91GNOqOudx mZyqDKEkLv7zAq8sIHFvdfBpG JS0ZyENZP1ytkueuXYnaZdfms 4aMJqrBTEKPTVcYIYyQAQ8HAL usE6qORU8fXZ6XLP0A3pgR6nq FLKmtpWgDM8kUGTaeIVujiJsS FibQQ9fcZKaJBVzd7SfwtunGM ZaVPP9DHU9TKjwZZLoLDHiDc6 lBBMxhQ5tS2LhJCY3xgQrt9Cd EtMYaOZvjE00iEBntp46USKoM ANrF3PhVLKsUVAsOJszetEeiX kzRMPql05bdGGjktXsf8HgusV mGKUeK5yqYOOxjSXovSYpr1Hu pH5awUMuhcHzPQP2mVAiQIBxi Y4tWVKduPuxKBBykN5oB7RbHB luUz0bOATmiuouLB5wpj62YF7 pkyCnLY8hlsXyTD75wzAhNjTg KZs0MDxGHHxZZBt9RBSsafBwu JEbhRKaYRDenN5slXFeYq0gmX EqqAujNGNewGVgTAofxHslP7m tphnrJUctjXPab3CbuB5dlRI5 ETS7pT9wQxytTTKiuxiiDNToB 6FWETDXLQQ3GIc4PmYwURVmgs x+IFxwYXJ9 DIAGNOSIS (test code r5gubORrIDHon4opABQqmXCrV = 3220) zEwMzNcZnRuYmpcdWMxIHtccn RmMVxlcGljOTYwMlxhbnNpXHN hnGMkI5IoxmbqYAtaBL8tWL5d oQzihZOunJLwZACuNcMva8iqd 776rOEkh0usJXWOdfwwsLw4qB qaM06su2T5NncpD26gvRPgXCE 6GJNcPJTtmVFrXVBuPLY0ZSQz cZJrU2tqMHWtEY8xhjcoLLbfN OdiQREdlEF1PXQofBSzG0DeXZ WmIBlbBQPnjgm3ReKcLc0jdQA yeTcyMFxwYXJkXHBsYWluXGZz PzRwHQ1wC4MAHYYCPAyuHoOBW L5LSSNUEnJTX4VKVQgDBTZDJ0 BTWTpccGFyICAgLSBDSFJPTkl RNSbGN1VITWJOXnELONHYNKJA G5LHDTKKCUwKGPQHOYQgquKfO N7iEj8xIHMBFPIJGsACMHZHIJ XCQN2TBR4ECUmLLH3OX2NLTQT KQiBXGXDQSL4AOYvTWsWUBC7q Y7VQYxOGOQPOVWlRBRBjbuVjU D8bJv5pAL7JZKVFKD0WFDFLVT ODFZpBI4jCPPNFBKROLPRZWVP qF7MwOCKZAUoHDU8YOLGXX4UF QOydFEDfTIDbYSmWITHSF9eTL 6YCH6jEZQjFVPhaN8GVWF2kWb 9DDMxXJXlSK3HMO6ARFuBHXsB DSFePNrZLP71IPvCECBPZEWEp Q5wSYLZOKUCJL8HXHFXlPFSpl oUmVSXnYR3aRXCQAIBXPCDFFJ IBET5DNYrmPFShyBPzSUOlREq BO6VVQ4PIS3XXJZgMZMrdVrRK M0KUZ90zNz5VOHzFVKXYNuXCM 9OONEjKIRBSI7ACNGzfgIVhKN CuONITDALGXSrMOV7BPW5SMMM BJAIVTlPAYI9OO45XILYLUOUY DN7HUGSeQ2sWU15EEgIFPSOSJ ilIXOYyZ2yJQHMEC8CGMSLIL2 CXLimJBJmgEQYuEHGkDD1ZUPA XLAFOA3YHGO6KZ04SIBDFGHAE WMNgwhGmHQ4rTd4mVS6QASRVD F7DOICNWJKEGLtLY2vHPBPVGW NFTlRccGFyICAgLSBOTyBEWVN ILCPUIYTuG7NvKOCIMBgQEV7Y YDPTO8CYPDraQHX1k7jecLSuG HNzdGUxODAwMFxhbnNpXGRlZm xkzpnrMGBrYUF9qcFeEAGmHOm yWACkFTewBj0igCDpyRcqYgUk UTFyp4nlesKCrbjbuGf0u2poY OIuWhI8cCTyLJlyB3rdykJffW MsKBGpLUp3fC50HBEhnT3fzSO oRDovroFfOnB4YHdqGEJoLwH8 DBXfbOHoSKGbF2tqPNKrBVheQ CVxTQllmHDdGFI3dOxxn2G3gR OlaEOqcBrzSiJyEkTdIhHNh1E jMQp8iUwpT0NlNEAoXtW3hVIs ADZeMLrmWBEwQHZilkO1oP55B RkzjqO6nMDzr7Rna43yv408fH 5kcUYbIFF3XZTuAUUczVTpMAW xITG0GGPzjLJlM8ouTDNsTZ9y laobDLayLQdzOJZojZO5AVVnu HNmK8ZlBTTlPBmwHJRknfi7Zh MnBt6ccLFvbCruXCuva0fpa1u uiXTmBfi8BJZwIpYmQbpfMCeu a3Egi2vzHILnzb0tPSA6oFTke Ltza3E5mTFuGEEzjRRnRZWlEX 6mqOHfOKWfvN7lwgriHDKmNvG svsrtFIEhkQmwinTdLx9agNkl WIT2MVqmE0viyL2yLgP7EMxqB 3cjnP8mLBa0TMgdRNPtlOL8gw Q9XMRvdZGjI7VtvW5oYXJuLH9 uumb3v5mcKFB6DHsmFRIzDjP6 jiE4TKFitRLuVMWbxSdeJCfit 541RLS7FzMsLQRqk7CjR8ZsnM wfE22ydLdiG04tNOEdgAluyY9 wfHmspS7hDbKiZlFyXJwywBhg UO5oVFFxF9ssqQXbFAYeGHCbM 0vuAmRhyR9pvVltPNsdyhZrJL YnKen2JHOnvWZlTXZrWpm6BON yZVZyX14tykhnTMD6sJ2lf9xg j7EsKSzvWRV5HGSvq88sYVrny iX2LMF1YM62WrqxNgE7D6ykED J9fQ== CPT Code(s) (test h4vfiFPgGVWmkJP4OqQxMIOmp code = 3357) 4lzn1ZuvXAsiUCwASreiNCaiz Zxts58yOF0mH63UZ7nWGYjWdO 0OGQwqcW7Szf7NOLbWQMovVZa F120x4vog7tkhkOvaXC6fRbmM XZfchcwKsT4HYvqVYDmhxdtRB n4PXbdSJBjmFI4WMTcrPStP2X uTJDnSZ4nrki0YUR2KZhvYNSl MoU0MPRrxGGzZKKhmSnwWSzbi 949HHP9FwImTACjyxTgmTvlmS 3gPdGmNPH3VRQwMPALBURblDX yfQ== CLINICAL HISTORY u9cbmUCfVWNgbVL1OwWrHSJpx (test code = 3356) 0tlc0GcpISewHRhUCwzvRPgkn Orix95yRH9aE18RH6zSJOlJfP 6LVKyfqF7Wik9TSKcQFMrlXEl U624e9iul0vpleNedYU1fIkaF PJioqirDfP0AIrmLMLyhwavUV e0SKjwWVSlxNH1IDQnuEIsB6V hMNUoMD3zdth5KDY4PWuoQNQl YqG0ZQLheVPqCTSxqAsoRJggy 697IFY8GyBoPCEwvyAyyXbqoZ 6xExBqSSNYpcHfrPKriXGjGC4 hIFxwYXJ9 GROSS DESCRIPTION f0hqhHDkZPEgyCZQBFPgK3kvv (test code = cItMUIbnCMzA5FlyvibTYrdNE [id number]) 6aCY7ycKdkiVTcwERwNR7KCQO lZmYxXHBhcGVydzEyMjQwXHBh uSGxwQA3QGHoNG6bglxwDAogO WwgBBSxfxS0UWNdkUGoJ5OuNT QnBB6owznjULB4WMxmrB0sdaX RRghoKn5pbKBdwJdoAoNbNzHr PJGeJGSbUVCqsXpeIPQpWBz0v J0RPfplU03ge8Z8Jzh6ALVqDZ WfM9GuQL4dHEGcrUBcS67PJrg vKLZ9RIELVdrfQRHgGW4Te0pg AQVyoQQaNQX9CCohrCBmKVYfB WCrWSw6RSBjMGuvaLTqXX1xyB iuJyqbbNloh6AgqCGkDGgyBNV aAUWcRZcnLOPxYO4MXoUhLBVz AfAtNCMcJPd9DHl9EO4YVmHcV OHaGEl1BzyxHVDxWVb1TZabPH 9PAPQmXqB4IEerPDF1QKM4BON cXHQgMiBcXGYgQXJpYWwgXFxm pZQsFQ0akKvasFDfugOWCqWFs C4tz2dqTDevt7HbxZMgVFLbgd ANClxlcGljTmVzdERvYzEgDQp cbHRycGFyXGxpbjBccmluMCAN ClxsdHJjaFxjZjFcZnMyMCBSZ JYhnFJqEOSkxmGku4OxKVtgcm BsYWJlbGVkIHdpdGggdGhlIHB gbZxnxcPnueLzrjHdro6gzMwe upEqtvBhcMYxYCfoHOIsA3Nil KXrUtQ8aCWeyFYkWRJbx0VaqB Y0bZ0vFpCcbOvsXM81tLIPDyY ShSfmgbxxOXAkNGRceCv1iRQh GGOsopAucNUxtIPai5JhrCCfJ PwlmIIhSR68W04lEDwhcNtrv6 JtDA8hDQR1jmqgWwGoWpLnsA8 qXT9pTSAoAMkcOF9fhUbmtA5l ABwbWK0ciX1dYFW2Mf9amWAvP CBlbnRpcmVseSBpbiBjYXNzZX Z2ZMRvGFOalKKpWEPnUfUMCL9 coq4GMNHbQSelJRZdcCGAEEZ4 QZ7mOUsluHHrinzdMBNsP4TpP 4KpnfNfkYVlBFNbmhCkd5lnEF N1IPJwxRRrsSFkFxNcDexnSBG 2WNk8EQokVKKlQ9JnW7ZwSWnf EDX5BHCiPhSrEYHyVAZJZqGpW oKrCdOkBvOpFeS0OEo5BUJJBg QaRpVxYss2ELm9MNEqWFh5EFg 5HRkBJeK6LZYsXZm9SFKvWYVv POVoXGy5JIHwOTocEKSqlLQgQ CmyRuxiYLtlA18cFlKwAspueF EtbcEKJkGIwO8ei3szCSlys0A uz3Mzd8KqWNupSYwxDsNgM7Lw i64yJTJitpAGFvigiWpyYxHbn ERvYzEgDQpcbHRycGFyXGxpbj BccmluMCANClxsdHJjaFxjZjF cZnMyMCBSZWNlaXZlZCBpbiBm s7NxAGxjacOtLUJbpLPaNDnnd GggdGhlIHBhdGllbnQncyBpbm Afhf4alJdravSpmsLrkCPjSNj qDHTzWcczpTL6DGLnWRI3nv5j q36bzWUrTNLrGJm9rqU4mL4dY iRxaaBuFAMoqursRZJ8PY6bw7 aysPIryFSsk4BovPVrhXUuMFM vJHPxhOBcdizeYY6qOXOiREgc IF4fcPrkkZ4gWNdoJN0bgR5vE VY8Ra0utWAkHISypmFirsAgsH DuqiPqCKXsQXN0PPHhVIXpoAV vMOAoBeXLWC0eac3NUTMqAKhq KHIkrBOAGIA2CK3eAJwqrKDjr ifdNJXqN2CwL2KkycPpaZDtLR ZivjWwp2kpWVK9LMMrgIJvcXT oPeFqBzqiYAP6IDdhf8phZFA1 XHNsbXVsdDAgDQpcZnMxNntcZ BYxM0NtS9TwpxH4SKl2 MICROSCOPIC g3dljGYeSQHxyJK5WiJgGWMar DESCRIPTION (test 8dhc4LwcUJxvTQrDUxcmLEgyd code = 3371) Gwka79oCQ8mJ62CE9wXUVmZoO 6QUVotyW2Ipv5FZKyPTHmbXHc M028n5mzr4aajuNvhIX1dEbaY DUjakzrWyR9GWvwDORyacxgVU g2SQcpOKYfbIE8WNHgaGEjB9F zAKVbCB9dnwk4XOY0LUmpWLEw WhZ4LPDjjWLoYAWdmTpyQGpox 003ZMO2GvCoORVbajEmiQyogO 2pAgEoSXZNDFMfm6SzVGWkyNL yfQ== SPECIAL STUDIES s6yigFQvYBGns0ufAXQrhXBfY (test code = 3376) zEwMzNcZnRuYmpcdWMxIHtccn GmWKcxs6WwG7VrSeVgXZparlP fGBSnLwtnbiyxMCGaJMC5biDf TUAtTCvnSHUhSRauBf7vdVZcj ZllXfZkUPXcs7zxrvKLricgtD v2y7pcXKRfAxL8aITlSPetI1u xhbYdnSBhK2DiuYXwyMp6o3rg MgYzWvU6tVKzEWxtY7bozrCwu WLmDNMcWJq9qX27FZUrlC2whO CxOVbkaqYjLlM2WRfqRQEdEbD 8CEAwoPAgWULlT0etGSFeWPrd TRLiAOfgrJQlGHT2cHvdb3D7l GVzaGVldHtcZjBcZnMyMiBOb3 ZuNRy1sMrjO5LzXLIrPlM2wJO yXRNcKAhrFKKmYIEooaX8kUth bcCtv26uqCAgYMYaOXWuYjIud HpfSDHtYOWEn5BrpVywHUR5fJ g3yRruIradXCA2Zng7JM1thq4 7cwx4fMtlXBBnzoxzNuH0ELnj DGEfsnhuUNm9PKnyJIUkoCX7X LLweMXgC5QaSUAtMT7ppmr2UX K6IIkqFGRjEnA6RQHlzQNoUAV gcFfoVFlfw455YFX7NvHnJN0b Z0Vqb4U2vV2djTTsVEMpdEYwD iEmYJHupx7xyZNhZVdbt3SfVL V4xbB1pTEghPZgVMDwUP41Fqx qz9VcKlwkr7YgM04ooYD7UWip d9uiRI6pBlX6kuTzSShqf0vkn C9tZuL6NZjnIB8xBQ7iQCGrrR 5ucmxjXHBnYnJkcmhlYWRccGd kzfQdYi2rhZdzPCV4HWzoT9px fT8tDhQ1QQziY5xfvR4sIZd7J BahxIX8BEFihL6jXU3jmqlna5 yzPSnuXUcgXPHscsM1reU2WGL abSAfE5HmuX1gGQFxHN9bxsni l1suHSG4OYcgVMFcMLI9UwSbT JJop2Bknhm6SaPle5YeeRXeHT qjE97ty272BBKzcxCaJ4frkCF wmqnevEIafoqaETjkyiB7HAZn XHBsYWluXGYxXGZzMjJcbGFuZ zEwMzNcaGljaFxmMVxkYmNoXG VvXOyqR4cjMyJvF6ZzSBChHmA aMHvkMNtibBUgfYMafIL2wD3u WM3fZSOiuGEiK8BsURIpwxGhv OZmVGM9kTGonLHgXC7vEXpkiB Dvj6epr9PfB9lptWjvgXM7BR8 eQIQfQSHwSPrfk8BxcR4eLzex bGFpblxmMVxmczIyXGxhbmcxM NQpNAniO6zhDpKcAWKliPqeFX eev9UzHTZeRJKhYzodtyZoBQl 7urCaAXXmprvsUVZehYslfA3b MdIxUvKpAqqgIV3eCIObL5fsf EQtTNIzJQIoG2bvJcAcdR9nwD yfNEzuOoKuLaFcIsPNk264hu2 fGYHbrKHoakXTlHAdgD9mRVww SSndESbnoZOzLAuri9cqCNNmt 0q6kVEhRSLxnxGmq9qqICehvi FwRWZkyNOkoSHhPSSxj26nAUc ogFbesPlpFQTiz9VocZzcf4Wb KrXvMZpwg4MtI26viPMicZOor YdfAQLickCzHPHbl50uf5gyIY ZaRdP4qVEuqYG7uIWmsOHcq6X qxEcsEGMmz6pwACSmuc4kplcr sUCfy6EkvP8drcweKNdztLJao hWhZBIrl6r0jIGpXPZnRXMgMZ ofiTu1XWDhp255ly0wauG0wZR mMZK0ZBzlYAJxGDOgzmZfFZZj bHVhdGVkXHBsYWluXGYxXGZzM jJcbGFuZzEwMzNcaGljaFxmMV glSdGtQETlFOgpJ2srIcHrV0W vVHZvSaGnxZEnS5gqwYAbHRNg YWluXGYxXGZzMjJcbGFuZzEwM zNcaGljaFxmMVxkYmNoXGYxXG hsC4pyIeKpC3WwNXGqYsBsSIb wbGFpblxmMVxmczIyXGxhbmcx WTIaPHyoX5ouXrFdKTIddTdgG Tkhq2ZmJXNuWWEkTjjdpdDqQN a4lvZvBOHauetkxPTrhhtkOIh futWrMVapozugMRObTRcvC6vb PoTqINYlbRqqAKguq7YtGWIfZ QTuJtqexmGrUAovuPFmy8fjq1 NbV2cklXkbrZA3STVzQ4bngAR zbIK7IKB3vW4mZFvfbpFbYDHh a6JuGILjNTCrXzV0aS9wGKY2A iBMdWtlXHBsYWluXGYxXGZzMj JcbGFuZzEwMzNcaGljaFxmMVx zQuYiZBDnXVmsI7rdHcHcB5Ux WLBeGqOonIxrTCyfQIo1Eoocy GFpblxmMVxmczIyXGxhbmcxMD JuFDklF1yvZvDuAPYctMdlQHq un5TlAWDjOVMpLgfsyeGsIWKr OIUjiBDpcAWQEA11ELJcLJFpg YagnS8unXWCBWEbybD4u8S3ZT njVVKyROp4MTelztMbABNxmA6 dHEUdGC6xCNn9bnKkLTCxh7Lj CO6lWYQbqJNbMZZ7NKVwv6VjD 9Dvz6BmLWPdZYFnwh8sviHgVn JBlLJiQWGbib49NJXkCR8nC7i mXDSxITKmlvWrtXJfo7OvBTZg jPT1aTYkFT1EDkZHm28oCZTgR NZYljDzJHEufHabkQQ4tyF1cN 9uLiBUaGUgRkRBIGhhcyBkZXR upx8psxLdLEReBTUot9DgfYBq yVEcnrJbK7Qpq5GiNTMxlq61F IkinGTphj31FI7yQ1Kyk2AijD 5sPUvnNVTsz6QuqZVnxQLjPGM yr6FxZ6nevtgvUDkxlAZsoY7o VCLpQEt1XIVkz6ZsOUByc4WqA cSgbxZsBPQsLVFoLCFdlW43JA P3tGicaSgccwLeHA3eAMCnjlQ uKKLkQERjcM0zGYnqiaNoCEBs uaY3m1G6KWwoOHYabdYhIqxpV PJ2egTfewZ3mHFcP2maisqvWC vgRHNht8OykY0hkUADwFVai0M bcCJofUZOyWSlUL8jftOsJV1q RSC0LOeqVIFDUJQhKIiqGMHvG LZ1JPsdKdkzJDA7qeQpDIMyv5 CtOHzzD9ltP27ltUxhtLh6dUZ oqObmpBPssCByLLAdzcB1m2V8 TZDeb2XpfwlaFDVmJIpdZDGsG GZzMjJcbGFuZzEwMzNcaGljaF xyFdkmBrXcZNEqIMccN2yiJfD aQeRqGevyAQU5vZ== [id number] 17:38:23 Test Item Value Reference Range Interpretation Comments Case Report (test Surgical Pathology Report code = 104) Case: [id number] Authorizing Provider: Mireya Howard MD Collected: 03/28/2022 04:35 PM Ordering Location: [address] Med/Surg Received: 03/29/2022 08:04 AM Pathologist: Amanda Amado MD Specimens: A) - Biopsy, Gastric, R/O H.Pylori B) - Biopsy, Gastroesophageal Junction ADDENDUM (test code n5pbkXNpPLNokED9DzHgJARdr = 3381) 7roy7GlmSFnhNLwMXchaAIgco Orea99eNI5dA75FC9jASVdFqA 3SKYgolJ0Xdy6XFYuBZIdsYTq I224c7qcc4shooVmyHS2wKbiF WAhtyotYaV0ZGgtLOKoxalhXM x8IAdrWEVzmQV2EASluRWbG1M wTOTuDS6ffhe6TZB2WZobYJZm RcN4SHQnmIErRPYnrCbxOGtwm 288ATL2CkUcSNHfsdGdvIbqgD 5cZnMyMCBUaGlzIGFkZGVuZHV zXFmwCXcvp7KbSGZ0eqXfLXZg uxTocRdmZSXqx7NisHBhSjIxo O49oa6ydDR1j6OiYQ7pR7TyCU N2pNC9OJXjfjXLLWiyB72uTXD 7PAHnaTabj3KdBzaqYSYzBFDV RUdBVElWRVxwYXJcflxwYXIgV MtjEMhexUYwxBKtaBP6cM3aYD 8fSXYpwVHcT4DdADSwwhVtkYG xNXV2qKMxwLVcMK5qQShueNEl v0eew2MiP7fhtMyypKO6ZI9pV UQcMIYvJGhkb3FvgL9iRyxqNP ZzsbqPGOxIE7FDO3KMMzCOGDk PYaudoYQlLHlulBSry8jlk0Wd A3hhfSzuqNV9WBDpN8agoYGjz RS1VSR0fU3uYKahldCeCKGjr7 KbAAXnLKSxLkY3vF5oVXV7IyP MjOutRCU6DxO9AJzjMDTaXQ6g DVgoQTwnO2WnlQBaODFNOSWcs 6zsR0icYTXpy6MobX6zdSK2gA XgEMMojEG1VWGrFCI9AHpdeAK kQARsIALqaEWptSKvEo9fpMXp Y5GwN2mscmMuoVDwfFN3jAKhX ZwxolQvGEQ7WCPnrY9eOF1oED FntBUjSL4pjOOnWVQsEIWtQCL vPJPzq3YzQTIrps36YQDlEvnc xJwwCQQkVr7vHa2oLRGzoaCgE SF4LfCALQ9zgelyiCIzhYptli 2jIBhfAGOTVAXbJTYpOYA7KFJ lrL8oNPZ5lRF7TGG0L3rnH3wh UZQdxtOgRK2jDEXizGYgycBfP SfuVL2zkBHbGJTov1UzxmofXX KjQOD5TZW4JGwpOJHqAZMwOf3 bPSRhqY8eC0KwRAZ7eeBzd1Vj XwOQhFLwcC48lDJcyt73NBVcT RCjB8VoCUHuDHEwOBwspwIilC ykYRNxr70iaWUhybMao1EulaV vJZXjB3nyCNHmyFYluDRxu6Kf hO1ewXYaziWlIAH1mHUoOQMbn T0mDEGfsKwyBLDjtI4kZ0JdVA ugTt8hTFAarvnuKU3vbp17OB8 mouImFT8hdrVdYT68siObIqSx GXq7YBxGAJgGHOb7MSNpksPau CNvcLOhUWXjrO4qdZQlDc6fsW JzeWthANDnoJUbIKwdtKmmY0d bsqayYOawyZXma1NnvU8laOQ4 IMB5hL4wUrzsDMZbnmybRBYbY 2MFMIWJJNF5GBy9PpVqAEOgqf x+IFxwYXJ9 DIAGNOSIS (test code g4gjpDGwEHAvl3xgQTAetLKkX = 3220) zEwMzNcZnRuYmpcdWMxIHtccn RmMVxlcGljOTYwMlxhbnNpXHN fhNHqN4XjalaqGBnfNH8yXG2r jTqqeIGesNEnLGVlDtQfk5qdt 181qZZbb4xuHTYChalmgLk0tQ cvT51kz7R8FxjdB70eyXLiDED 9GGNnAKSszHPiNYVcDLR2OTFg yQMyF6xbKUXgPZ4mtkhqWDypW BmuMSReiJD1VAXymHTxI8PtNX PoHRvtVMQytzt9DpJwBc5mpXT yeTcyMFxwYXJkXHBsYWluXGZz QjYfLI8fJ4YCHPSQEYoeDiLRT E5GOZJWMwUYW0DHPXhLGTPMT8 BTWTpccGFyICAgLSBDSFJPTkl KTNfCT5VYXLJKLtFXWVNLXOUG J9GCFPWJGSoIBOPQWJGocdUdM F2xRy2uRQRFJAGZIoWKKLJUMK EBGY8HOG3MICaOYG7PC6PMWUR SBwDMGFLWPM3AQEnGWmNXXW1t E9PSBjRKRZVQPPpJKIAiqrNxD E0eDl6yIW6BJCEUMH0YLDTROM ZBPWjRY3sGUGNJIPKXJOHSKTB gB4UiRFNZZKuYZM5MCMNPX7LX BIxlTUYgDALgRQuIOSPTH5tYU 2XWI0qXPByDXIylO8VNBA2hNa 3GUJwJSYyEE6TTK0OMOoHDPoL VCMjRQpBEW06ATgPTSUBIEEJp H8mGHBYLXJCQZ3LXJZVaEVUeq fBhCXNgOR8tUGFPQWXZRXYYOH UART7OFXqqKMPyrZXkLFBaQYx TJ7LHY4PHJ8NHMIvHSLxzBtMN F6BBS96hFy8FFMsVCSYLGuUOK 2EVMYrZHCAQQ3SCDWgfhEErNK TvORCMXLBAJTgQZF9FBE4FDDR UBBYSOnJQVB3TN85TFCQCFOVV KP7PUQBhI7aJC69POhXWGTTGA ixRUGXbT9kENAZCH6ZNQSZFV0 DQNqnBMDimDWNlETFtKY6CFIH XBFOIH0NWJA2EP07KUHIBRJNX AXCrtjEuSV9fDc5rST3TWLWRM Q0KNQCRKVGLIEwQI3xMCPPVKH NFTlRccGFyICAgLSBOTyBEWVN XFTJHZFDtT0LkQHZZBFdRMD5X BBMKL8OSXHxiCGS6h6mhqXKxM HNzdGUxODAwMFxhbnNpXGRlZm ourspaDQLtARR7arRrPYNbKLk wRDNcECurUd3ymZVkkFfqPxOe WFAzg2ldkhTVtucwdOq1m7ynK UYaNaS3lOBkGUkbA3songTvkO YqYULsDYs9gN00BLLsxE3xgVK aAOqhbmWiAiG7PSqpBTTwTkK6 PBCrvSVpARCrX2ngEYGgICvdH QWmVAanhQDcGNI8hYnvi6U7eS OwjXBeiKclCuWpHcJtZxRRr0O nWTz1eEqiN0PsDPClAcR1sKRl CYDqPTweBKIySWZqisY7aX54P MvdwjV3vFCzi2Opq00np750uD 2qgBBoTUA6YRQrNMRunZIwZLH dEJX9GNCuvCMnF6juWXCoWR6f lqfpAZliYJxsEUEfjBI4BBDzo EYkV3YoABVhTFnaGVKgepu0Eo SoXw3tkCSvuSyjUIurk9cvx7g tyPLsUxf1SUUuXuBqKgshPPjn s2Ybc6pnTBRedl6lCBG6wSRzu Uaow8T4uTFkXFWozZReUAGyPJ 8djJWtZOTbpC5mojtpFZJmHmJ arvkhWBQigLfdqfBfGm8ciAzh NSQ1XCytB4xqkO6jRvH9PPeaC 0kpbD9aZVh9RBtlZGXnaSN1vq F7CUSbyHTgY6YkkK9nMZIsIC8 eokk5s5chQKL2PRxvXSHxKjC2 smI0NIIfaYYvSSAvlSjgTLobh 320COE7YjKhWQZmo7QsY9TqtV acU17tvNygO55kXFCucBfwxX9 mhDjljZ0oRjHmUlLcVQifeXfp JQ0tERRxI7idoNCmPGLoCUMvL 2goIqIvxF8qwJumNKepckUtRX YgAtv0PDAsfUBvALTpQfk5NFZ iKWVpR57hrrhoICE0lX1ji8uo o0YkOZsnXSY4ONFoc56hJAvnh kO7LJK6AU99UgcnKxU9G0yjWW J9fQ== CPT Code(s) (test d3nscXCeRJDvwWG6NzVgKDSkd code = 3357) 1nzr3WqdHQusWYfYDckdFYfvr Svai99qIG0nF77YG9aCGEvFmS 7PKPeaoK5Dep3BHMfBEVizTIi S089t7meb7myshYgyIP9kLjiS FUvkaoaFuX2SUjwEEUjvekwBT u7TRnaHIGkgHZ8AZTvnEAaK3T bHPJaHA4zdus4LEY6LTenECHs NfP9BHVchWWlVTWqbZpgFTtwi 940QXF3VcGkBHKykqYslWjdkX 6xPjDeWKB2QXXjUWPGOOCzpSU yfQ== CLINICAL HISTORY j0bfuZPyLOHbhNW1RmNzNDQal (test code = 3356) 6jxf6UxdGLukQAzEZrdfNEtsb Ctms91fSM3gY71US3tNAXcHhD 1SAPzsjU7Bxi5KZTrRRZpqIFz X245q3eop5uqdvLxxOW2mYiwQ SPwplimOuE1BMeyKDCckxymEL i6LBkuGCDmqMK1RNSptUQmB7P vNAQuSM6wbys1JEJ5DAuiVQFl NfP7DHDoxUNrWQVfwLyqMJkyc 158KIB6TsRoEOAsnfBqxKhohN 6wMaPqGIIJnaHjgSCnzLHoGD5 hIFxwYXJ9 GROSS DESCRIPTION b2xodGAtPCSpgPZWYMUgR9tvi (test code = jEdGXPbxAJfJ6LvrfszZUnnCU [id number]) 0dGG0kzWljkHHjhCQaYB3CQCH lZmYxXHBhcGVydzEyMjQwXHBh lHMruED8FEOdGZ7nueuoMTnuR DzcFTOmeeS8WGItlRFtZ3OuGW QiZV7yldwhOPQ2KBfabS1leyB HPzrrXo1xkJHvsEvvDcHuJmOh SYBtZKBqIWOolVrhNMFiJUj4k N6WKzezS08ki3E6Ilr1DKXxUS XpA2UxSI3jMRConDWtW84YRok kAWT8GJTTFshaLJBpLQ1Km0fg QXTktONnXOS2YQjmrSZdUWFeT OXhNGa8JLAgYMtonIDqYZ2dbF hlBypszLigk0JrrPUoPWicUUY jIRUgITymXENoXX7MThXhKGQr DaSoLVJiWZi5DUo0RP2WIrYxN DMtIKy7BeeePTUqIAs8TPtbJN 6LMGVgAxL4KOttCTE6LPJ9GQH cXHQgMiBcXGYgQXJpYWwgXFxm zNBqIV4ccLbsrBAjrmVCIbQZc X0aw1hmNMjyo6PctYGmGVXwnr ANClxlcGljTmVzdERvYzEgDQp cbHRycGFyXGxpbjBccmluMCAN ClxsdHJjaFxjZjFcZnMyMCBSZ JLeuKSsEWTysqXtl0SfMOwvsg BsYWJlbGVkIHdpdGggdGhlIHB iwXtxbcBmojRyxwDnob4tcGcd juDoitNejSDrOUxdIRPtQ9Sci PSvPdM2qQBdgZKsBMXzw1MajW C1iN2nIuWnnApuZD26sXOWYrO IhKitpbwdTHAfPMTprVw4fKHw SMVavwWlhLKkcFKel2UknZEhT AasmHRyGR71M01nTMfcbAlci9 XeOO6bPQT9mpkbQuSrCmNueZ4 kZD4dOJBhMQraLZ8rkYildL4u LNyfAE0cdG4bEUT5Td3dgJCkU CBlbnRpcmVseSBpbiBjYXNzZX V7CHPiVRAmwKUpUFTfJtAZXS3 htz1CALDlINenBJPbpQEWOQK3 QT5aIIoruGSsgcudEVRnX9TnD 0OtjvVzwGFuEHJxwdKjv6pmBG R7HFHcqQZyeDOmDgWxAoqbEGW 9DKz5AFabFYCcP8AbT1WtAYkx GBI4VDKqLfYpJRCgJNIYYiVrP uDyCyPnKoMgYoD3OSs8ZBTHJu MzYbGdWgc9TWv4GMBrJQh2GPz 9RImVBaM2NWLbZFq1CLRuBVCt FIIzQPc4YICiSZuuHFVepICaY MljSlkhODbwG72qSlEpAcspnF FcdtZOTwFWlZ4fe3wzWPiws9Q my9Wtz0RaCQhqTDtbNiFqE9Xo p10pXHMcsqXWWvnudJvyWjKxv ERvYzEgDQpcbHRycGFyXGxpbj BccmluMCANClxsdHJjaFxjZjF cZnMyMCBSZWNlaXZlZCBpbiBm p7LrXSjlurBwBLBfsXHbMXave GggdGhlIHBhdGllbnQncyBpbm Usmc2ibFkwkzSwqzJveYXiYGg mVMEhJdkzsMN1NFYgIBW9lo3l c69ubKGhKJTqALm8jzB1iY0sB eLlggRxMSKsoddoFTU3EJ8zc9 arzYKxrQCln2TakEFnjPEmSSY zKCQfmWEknnvwMZ5zIOMkRBdt DX2laLcrqG4qJCenVR3pqC3mT VM4Xi7lzQVaCIVeheYkdcClnV MwzkXvSPTjYSG7PDQzTAKwnSA pYPFiUxCROF8xrq0SSCPgNJgo XGSqwOPANHU5IV5vHKaimTFve mdaPBWfJ1KdU9NggpFgdLZvKD DsyePlt9gfTXS8SQWjsUQeoIV nFoKoFylnHTG1DRsig9aeVXK3 XHNsbXVsdDAgDQpcZnMxNntcZ PJlO4PpC2XqtmL1VXm9 MICROSCOPIC j5vxhJEdIFTsjXT8VwBtHVKxr DESCRIPTION (test 7vwz3SsdQOzbSZxTKanqRYtzs code = 3371) Rrrb60gDG9kS15RS1qELJrAkE 5SFTgdiL6Opx8KOJtKUInsEIy X494i0ptc3jevhGuqXE9vNxvE RUyzfpeSsO3FEzrMPVwxqlkJZ g7NPrwLOWptBE3TLSypSOlN2T oOGTpEO6hfmi6GQI9ZHemIVCa CoM5UVHogRWnGXKxhZmjXTmtg 606ZUJ4EwBnZLLuwnBxoGqcpQ 2jEaOmFHJRFSUjo5DoJINzrFE yfQ== SPECIAL STUDIES x7rykBSeQGRsb6xqLIEcpQWlO (test code = 3376) zEwMzNcZnRuYmpcdWMxIHtccn IgGKbsa0KdX2NkAuErHNqghsT fCXDhJnfmwvwyLDSxWKS4wmHn OJNeODkvHBOxHLfiDo5enPGex KcmMiIaLJJpt2kprkCLllcbhK i1d8iaDLFaFlF3qGGrRYxcW7j xqqPabZYtI8IsuQQhzQg3f3jq IeEvQdV8iMLaTSesP6xhkmFrs SPcUDLqTFw3dT83FLEtvV4qfK GtKXgqtaCaEsP7FMwnVMTkUwF 5ASQmeEGrGKYrD4baCQXyJPef KQPpMKrsdUNiKNZ2bJzkg9N7q GVzaGVldHtcZjBcZnMyMiBOb3 EoRLy7iWxeC8WyYFGjCfY7xEO hYXXpCCnyLGNbWLDqvaB3tFdw qtXeh70vaJOmOAYoOUClOtYjt KrtGQOfUVTIy3LriJspQIA4xE u4cKugWvzsQVD2Qej2VR0ehn8 0rnr8cPooHMCzrnbyJfM1HIgn ANLmbjjlBYm8JLdfWTKkxCK0P TJngGTfZ1DqDSMvFX9sxma3KB X4MGvwMVZwJeO3QHCdsBMiUXW vnQzmVCiqy933SAV3GdWiIN4k Z2Ari3A0jQ1zmSPsYWPllVVxZ gUeAFJdrb7hoJPjNQfil9AcAN L6ubG5kZQsqMMmFOXxMK60Snc hl0AaNkbje7FfI10xxHC2DIet f9lcHE0xZcZ7bjByZUbbu0ekh P7iQwR5LPmsHI1eGW8nHYZuhL 5ucmxjXHBnYnJkcmhlYWRccGd hvzToJc0qeWihARJ3UZobI5ju fG5uRhV8NPygM5ozwD4oHUv6H JcqgZR8CXSmrY9kNN9gfuopn3 rlGVoxLHrrUHMjdyE0yhP8LRG uaQLdM9TelO7vWLAfBU1mynlk r2esSFN6HCbaAUUbHDJ3KsKmX WZxg7Loyou8GwDgg3JbnVQsBG faB54cy281LGPwygDbB2kxxWG ldgzgxSDaldxsVLjxgmH6QJYg XHBsYWluXGYxXGZzMjJcbGFuZ zEwMzNcaGljaFxmMVxkYmNoXG RkOWedL7yvXsScN2TnEGGoFrB fMPgmRWytfICmyPSzmPC3zZ0p PU5cMGRsuVXwT8DdEJJcfqJbg XJuDYF0oJXpsTLyCD7jQKrijO Kok1uli9IpV3uppOlwgIX8QN4 xPAZlELFsVJgob1BrtX9oXqrx bGFpblxmMVxmczIyXGxhbmcxM DIcQZseA9rlAqPaMHPleVfyNG koj0DaFFRbFMUeRbsujfQjAXx 5ppZgKTAxnwtcBCVmkDyusN5k VuXrHaDpGydvGC6zEYBzT8byx CJfIDBnRFTrJ1sgRbIqdJ0kfS ceFQftWmIfPaAvUgCRt485if0 tEHUruQMvdcRJvCDppA0tSLcp NUhjNQnlfHHrRUprv7lrTZSif 0t7fSHtWBLgugEqt3lfXUskya KnINBbjOSmrPUuBLZxk51mWHa sgYrspTjcGUJfe4LntJmlk8Qy FcTuRAijn6AeL36zkCKhcANrs PdfIMRgbtDdQYRug50kj9rsLU SwPnI2bMMzmFG3mGBfaERyj1P iqPnvYFMpa1zuKFOcpi3blrvc oGCgb7JrcJ9vnonbQBtzkSTap jVjZBDjq3a0hFOxZKGcVXBaTI htuWf3JKDyz511or9camW5jTY hWFJ8GCyoJXXwPZQzddMaONZw bHVhdGVkXHBsYWluXGYxXGZzM jJcbGFuZzEwMzNcaGljaFxmMV wdWnYdPLAiYXwuP2tlUfVhR9V cHBGuCjHljSDbZ2hotMWkHEZd YWluXGYxXGZzMjJcbGFuZzEwM zNcaGljaFxmMVxkYmNoXGYxXG jaE0urQjHoN1AeQMHbPgHgZRo wbGFpblxmMVxmczIyXGxhbmcx FYPlWIjyT5euAwLzHQMboAqbT Qnpq3ByALZtDWBfAxpzloCcXZ g4unWiLJFsxubbhKCxvehtLLo lksWoKNtaudunPDJkEHrpC5ct NaUaBKIjtGrcMXxkf3NxKPMoQ YNlDplqtxPcBUgdiJQph0uoj4 JjE2ueoOxbaDW9XAUhA5yheUZ ltXU9MSR0jK4zPNkwxsTkADDn d1KwRZToRJJeHpX8eL6iIFE0Q iBMdWtlXHBsYWluXGYxXGZzMj JcbGFuZzEwMzNcaGljaFxmMVx yUqGxQODaDMqhV8tjYqBiR8Vs UDEhKvKmuWykCSmgUVd7Uxbtv GFpblxmMVxmczIyXGxhbmcxMD UnTYumP5eaAlKwXKNndKzxSBo gl4ClTXZxFPUdUkotlbVtZDOo HILkbYPfaKBYXS50DQLeURNak KqgeG0mrHAQTBKccgQ8j9W0OU dxMCZoPQd5ASxnisKgPHMvjT7 uNUQyXF8lNKa7fmZnSUSnf3Pq OX2aRUDwkURrGVX8IQJqa6RwG 2Rqr0EqBHYoOBHchl5rjhJsLj RJrUXsSIUffi08WOXyEK3pI0e nDZZdMMWookZfpKPjo0HkNHMk bND8oMQkZE2XCmSFm43iPNBjV OVTdnEgQZDfwMvrdBP3pgP0aO 9uLiBUaGUgRkRBIGhhcyBkZXR ino0ulpKsXSSdKUWga2JutERs wWBdqyLaE0Vbj7EeFLFgpr26K QkvkXYkxd86IB0hY5Xsx1PowE 4oSJpgTQYyn8FdrMNjmAVgVFV hk2VhQ3oqantbSOpqdOLoqN4p VLJzSWv8PXZcm3VuUCPoh9EsA aXvbfZcYJSjHTQpUPZfeM90AT A8sAmugZxsrbTqAE6cPURsxkT kWCRuNACmeV4cMNzzlbYrCMAo fjS7b3K8WMffOYAffqQfJnheC WK3cuKhtwL3tGNfI6knokelQH ieGSAem4GjsK8tkFGCmDQrb0X toVFweCFBmBWrPS2dgiYkWE6m ZMN1SHtoTQGHCTTpMNkpKPCdH JG3QJuaMrgkMVY8ewIeRWPzy3 BkJDpcQ5klX38svPigaLn1aVL ceIufdIWgxVErWKSachD3z4V5 WPHnp8XcyougZQPrKFwlRDXvZ GZzMjJcbGFuZzEwMzNcaGljaF tmWqyrNzXeGKDdJErlO0xyLfW yOaFuNiakRAP2hU== [facility] [id number] 17:38:23Surgical Pathology Report Case: [id number] Authorizing Provider: Mireya Howard MD Collected: 03/28/2022 04:35 PM Ordering Location: [address] Med/Surg Received: 03/29/2022 08:04 AM Pathologist: Amanda Amado MD Specimens: A) - Biopsy, Gastric, R/O H.Pylori B) - Biopsy, Gastroesophageal Junction This addendum is issued to report the result of immunohistochemical study for Helicobacter pylori:- NEGATIVE The interpretation of this case included the use of immunohistochemistry or special stains. HELICOBACTER PYLORIImmunohistochemistry technical testing was performed at [facility] where it was developed and its performance characteristicswere determined. It has not been cleared or [...] high complexity clinical laboratory testing. CPT CODE: 21328 Addendum electronically signed by Amanda Amado MD on 04/03/2022 at 5:38 PMA. STOMACH, RANDOM, ENDOSCOPIC BIOPSY: - CHRONIC GASTRITIS WITH FOCAL ACTIVITY - NO HELICOBACTER PYLORI-LIKE ORGANISMS SEEN ON WARTHIN- STARRY STAIN - NO INTESTINAL METAPLASIA, DYSPLASIA OR MALIGNANCY NOTED - IMMUNOHISTOCHEMICAL STAIN FOR HELICOBACTER IS BEING DONE; RESULT WILL BE ISSUED IN ADDENDUM REPORTB. GASTROESOPHAGEAL JUNCTION NODULE, ENDOSCOPIC BIOPSY: - A FR AGMENT OF COLUMNAR MUCOSA WITH MILD CHRONIC GASTRITIS WITH FOCAL ACTIVITY - NO SQUAMOUS MUCOSA SEEN - NO INTESTINAL METAPLASIA PRESENT - NO DYSPLASIA OR MALIGNANCY NOTED Signing Pathologist Direct Phone Line: [phone] signed by Amanda Amado MD on 04/01/2022 at 5:30 [id number] X 2Anemia/melena A. Biopsy, Gastric.Received in formalin labeled with the patient's information andlabeled "gastric tissue, description: rule out H. Pylori" are multiple fragments of almeida-white mucosal tissue measuring 0.1 to 0.3 cm in maximum dimension submitted entirely in cassette labeled A1. BH/ew B. Biopsy, Gastroesophageal Junction.Received in formalin labeled with the patient's information andlabeled "biopsy, gastroesophageal junction" is a single almeida-white mucosal piece measuring 0.3 cm in maximum dimension submitted entirely in cassette labeled B1. BH/ewPerformedThe interpretation of thiscase included the use of immunohistochemistry or special stains.Control Slides Examined: In-house known positive controls were evaluated along with the test tissue. These control slides run alongside of the patients sample show appropriate staining. Internal positive and negative controls when available are evaluated Immunohistochemistry technical testing was performed at [facility], [facility]ology Laboratory where it was developed and its performance characteristics were determined. It has not been cleared or approved by the U.S. Food and Drug Administration. The FDA has determined that such clearance or approval is not necessary. The test is used for clinical purposes. It shouldnot be regarded as investigational or for research. This laboratory is certified under the Clinical Laboratory Improvement Amendments of 1988 (CLIA-88) as qualified to perform high complexity clinical laboratory testing.Prepare Leuko-Red [id number] 23:54:00 Test Item Value Reference Range Interpretation Comments CROSSMATCH (test code = 2264) COMPATIBLE Unit ABO (test code = A Pos 0148252) UNIT NUMBER (test code = [id number] 934-0) Status (test code = 2836006) TX_TIMEINCHART Blood Bank Product (test code RED BLOOD CELLS = 2263) PRODUCT CODE (test code = [id number] 933-2) [facility] [id number] 23:54:00 Test Item Value Reference Range Interpretation Comments CROSSMATCH (test code = 2264) COMPATIBLE Unit ABO (test code = A Pos 2641538) UNIT NUMBER (test code = [id number] 934-0) Status (test code = 5306154) TX_TIMEINCHART Blood Bank Product (test code RED BLOOD CELLS = 2263) PRODUCT CODE (test code = V9500S65 933-2) [facility] [id number] 23:54:00 Test Item Value Reference Range Interpretation Comments CROSSMATCH (test code = 2264) COMPATIBLE Unit ABO (test code = A Pos 6452832) UNIT NUMBER (test code = [id number] 934-0) Status (test code = 0361476) TX_TIMEINCHART Blood Bank Product (test code RED BLOOD CELLS = 2263) PRODUCT CODE (test code = K9922W15 933-2) [facility] CenterCT, BRAIN, WITHOUT [id number] 15:55:00 [facility] ROCIO TURCIOS : 1950 Sex: FFINAL REPORT CT, [...] is recommended for further characteri zation. Signed: Doris Grey MDReport Verified Date/Time: 03/29/2022 15:55:47 -CoV2/RT-PCR (Asymptomatic ONLY)2022-03-29 14:13:56 Test Item Value Reference Interpretation Comments Range SARS-COV2/RT-PCR Negative Negative The SARS-Co V-2 (test code = target nucleic 22867-4) acids are not detected in thi s [...] S ARS CoV-2 test is a rapid, real-bre e RT-PCR test intended for th e [...] revoked sooner. Fact Sheet for Healthcare Providers: https://www.[employer]/Documents/Xp ert%20Xpress%20SAR S%20CoV-2/Fact%20S heets/302-3802%20S ARS-COV-2%20HEALTH CARE%20PROVIDERS%2 0FACT%20SHEET.pdf Fact Sheet for Healthcare Patients: https://www.[employer]/Documents/Xp ert%20Xpress%20SAR S%20CoV-2/Fact%20S heets/302-3801%20S ARS-COV-2%20PATIEN T%20FACT%20SHEET.p df Lab Interpretation Normal (test code = 79664-0) [facility]2022-03-29 14:13:56 Test Item Value Reference Interpretation Comments Range SARS-COV2/RT-PCR Negative Negative The SARS-Co V-2 (test code = target nucleic 19914-0) acids are not detected in thi s [...] S ARS CoV-2 test is a rapid, real-bre e RT-PCR test intended for th e [...] revoked sooner. Fact Sheet for Healthcare Providers: https://www.[employer]/Documents/Xp ert%20Xpress%20SAR S%20CoV-2/Fact%20S heets/302-3802%20S ARS-COV-2%20HEALTH CARE%20PROVIDERS%2 0FACT%20SHEET.pdf Fact Sheet for Healthcare Patients: https://www.[employer]/Documents/Xp ert%20Xpress%20SAR S%20CoV-2/Fact%20S heets/302-3801%20S ARS-COV-2%20PATIEN T%20FACT%20SHEET.p df Lab Interpretation Normal (test code = 16811-7) [facility]2022-03-29 14:13:56 Test Item Value Reference Interpretation Comments Range SARS-COV2/RT-PCR Negative Negative The SARS-Co V-2 (test code = target nucleic 28421-0) acids are not detected in thi s [...] S ARS CoV-2 test is a rapid, real-bre e RT-PCR test intended for th e [...] revoked sooner. Fact Sheet for Healthcare Providers: https://www.[employer]/Documents/Xp ert%20Xpress%20SAR S%20CoV-2/Fact%20S heets/302-3802%20S ARS-COV-2%20HEALTH CARE%20PROVIDERS%2 0FACT%20SHEET.pdf Fact Sheet for Healthcare Patients: https://wwwGloucester Pharmaceuticals/Documents/Xp ert%20Xpress%20SAR S%20CoV-2/Fact%20S heets/302-3801%20S ARS-COV-2%20PATIEN T%20FACT%20SHEET.p df Lab Interpretation Normal (test code = 10077-3) [facility])2022-03-29 14:13:56 Test Item Value Reference Range Interpretation Comments SARS-COV2/RT-PCR Negative Negative The SARS-Co V-2 target (test code = nucleic acids a re not 2636368) detected in thi s specimen. Negative result [...] revoked sooner. Fact Sheet for Healthcare Providers: https://www.[employer] m/Documents/Xpert%20Xpress%20SARS%20CoV-2/Fact%20Sheets/302-3802%45DYHU-ZZP-2%20 HEALTHCARE%20PROVIDERS%20FACT%20SHEET.pdf Fact Sheet for Healthcare Patients: https://www.[employer]/Documents/Xpert%20Xp ress%20SARS%20CoV-2/Fact%20Sheets/302-3801%83PFYZ-SJJ-6%20PATIENT%20FACT%20SHEET .[id number] 07:14:00 Test Item Value Reference Range Interpretation Comments MAGNESIUM (BEAKER) 1.9 mg/dL 1.5-3.0 Specimen slightly (test code = 627) hemolyzed Fire Alarm Mechanic ID - DSENSONOperator ID - DSENSONOperator ID - DSENSONOperator ID - DSENSONBASIC METABOLIC [id number] 07:12:25 Test Item Value Reference Range Interpretation [...] not appl icable for dialysis patien ts Fire Alarm Mechanic ID - DSENSONOperator ID - DSENSONOperator ID [...] (BEAKER) (test code = 2801) HEMOGLOBIN AND [id number] 00:52:25 Test Item Value Reference Range Interpretation Comments HEMOGLOBIN (BEAKER) (test code = 9.3 GM/DL 12.0-15.5 L 410) HEMATOCRIT (BEAKER) (test code = 29.4 % 36.0-46.0 L 411) HEMOGLOBIN AND [id number] 18:28:26 Test Item Value Reference Range Interpretation Comments HEMOGLOBIN (BEAKER) (test code = 9.8 GM/DL 12.0-15.5 L 410) HEMATOCRIT (BEAKER) (test code = 30.8 % 36.0-46.0 L 411) VITAMIN [id number] 14:17:34 Test Item Value Reference Range Interpretation Comments VITAMIN B12 (BEAKER) (test code = 320 pg/mL 211-101 404) Fire Alarm Mechanic ID - [id number], TIBC, % SAT. (WITHOUT FERRITIN)2022-03-28 14:03:05 Test Item Value Reference Range Interpretation Comments IRON (BEAKER) (test code = 547) 12.0 ug/dL 45.0-170.0 L TOTAL IRON BINDING CAPACITY 276 ug/dL 250-550 (BEAKER) (test code = 769) IRON % SATURATION (2) (BEAKER) 4 % 20-55 L (test code = 2590) Fire Alarm Mechanic ID - KQHY25Nqnlydph ID - [id number] AND [id number] 13:32:16 Test Item Value Reference Range Interpretation Comments HEMOGLOBIN (BEAKER) (test code = 9.3 GM/DL 12.0-15.5 L 410) HEMATOCRIT (BEAKER) (test code = 29.3 % 36.0-46.0 L 411) HEMOGLOBIN AND [id number] 05:22:18 Test Item Value Reference Range Interpretation Comments HEMOGLOBIN (BEAKER) (test code = 4.8 GM/DL 12.0-15.5 LL 410) HEMATOCRIT (BEAKER) (test code = 15.9 % 36.0-46.0 LL 411) CBC W/PLT COUNT & AUTO [id number] 22:57:56 Test Item Value Reference Range Interpretation [...] (BEAKER) (test code Normal = 762) TROPONIN [id number] 22:38:39 Test Item Value Reference Range Interpretation [...] failure, acidosis, acute neurological disease, and persistent tachyarrhythmia.Fire Alarm Mechanic ID - [id number] I 2022-03-27 22:37:56 Test Item Value Reference [...] failure, acidosis, acute neurological disease, and persistent tachyarrhythmia.Fire Alarm Mechanic ID - [id number] METABOLIC [id number] 22:32:50 Test Item Value Reference Range Interpretation [...] not appl icable for dialysis patien ts Fire Alarm Mechanic ID - [id number] ID - [id number] ID - [id number] ID - [id number] ID - [id number] ID - [id number] ID - [id number] ID - [id number] ID - [id number] ID - [id number] ID - [id number] ID - [id number] ID - [id number] ID - [id number] ID - [id number] ID - [id number] 22:31:18 Test Item Value Reference Range Interpretation Comments MAGNESIUM (BEAKER) (test code = 1.7 mg/dL 1.5-3.0 627) Fire Alarm Mechanic ID - [id number] ID - [id number] ID - [id number] ID - [id number] 22:28:18 Test Item Value Reference Range Interpretation Comments PHOSPHORUS (BEAKER) (test code = 3.1 mg/dL 2.5-4.5 604) Fire Alarm Mechanic ID - [id number] 22:24:59 Test Item Value Reference Range Interpretation Comments PROTIME (BEAKER) 12.2 seconds 9.3-12.0 H Final Infor mation (test code = 759) (Auto Outp ut) INR (BEAKER) (test 1.12 See_Comment Final Inf ormation code = 370) (Auto Output) [Automated mess age] The system [employer]vers[employer] generated this result transmitted ref erence range: <=5.90. The reference range was not used to int erpret this result as normal/abnormal . RECOMMENDED COUMADIN/WARFARIN INR THERAPY RANGESSTANDARD DOSE: 2.0 - 3.0 Includes: PROPHYLAXIS for venous thrombosis, systemic embolization; TREATMENT for venous thrombosis and/or pulmonary embolus.HIGH RISK: Target INR is 2.5-3.5 for patients with mechanical heart valves.
[2022-09-26 20:15] LABS: Absolute Lymphocytes (CBC) 0.6 K/uL (0.7-4.9); Lymphocytes % 16.7 % (15.3-44.8); MCV 83.5 fL (80-100); MPV 7.1 fL (7.6-11.3); RBC Red Blood Cell Count 2.51 M/uL (3.86-4.86)
[2022-09-26 20:16] LABS: Protime INR 1.65
[2022-09-26 20:45] LABS: Anisocytosis 3+; Blood Morphology Comment NOTED (NOT SEEN); Burr Cells 1+; Hypochromasia 2+; Ovalocytes 2+; Platelet Estimate ADEQ; Teardrop Cell 1+; White Blood Cell Scan OK (OK)
--- NOTE | 2022-09-26 21:30 | ER ---
Nurse's Notes [facility] Name: Rocio Turcios Age: 72 yrs Sex: Female : 1950 Arrival Date: 09/26/2022 Time: 19:22 Bed 3 Private MD: Diagnosis: Anemia, unspecified;Weakness;GI Bleed/ Gastrointestinal hemorrhage, unspecified Presentation: 09/26 19:26 Chief complaint: EMS states: Pt has been going through rehab at [place] [address] for a recent fall and had some blood work done. Pt Hgb was reported to be 6.8. The patient has been feeling fatigued recently but otherwise feels ok. Coronavirus screen: Vaccine status: Patient reports receiving the 2nd dose of the covid vaccine. Ebola Screen: No symptoms or risks identified at this time. Initial Sepsis Screen: Does the patient meet any 2 criteria? No. Patient's initial sepsis screen is negative. Does the patient have a suspected source of infection? No. Patient's initial sepsis screen is negative. Risk Assessment: Do you want to hurt yourself or someone else? Patient reports no desire to harm self or others. Onset of symptoms was September 26, 2022. 19:26 Method Of Arrival: EMS: [facility] 19:26 Acuity: RADHIKA 3 kd3 Triage Assessment: 19:29 General: Appears in no apparent distress. Behavior is calm, cooperative. Pain: Denies kd3 pain. Neuro: Level of Consciousness is awake, alert, obeys commands, Oriented to person, place, time, situation. Respiratory: Airway is patent Trachea midline Respiratory effort is even. Historical: - PMHx: 19:29 Arthritis; Hypertensive disorder; rhabdomyolysis; heart disease; Dementia; Rheumatoid kd3 Arthritis; COPD; - Immunization history:: Adult Immunizations up to date. - Social history:: Smoking status: unknown. Screenin:09 [facility] ED Fall Risk Assessment (Adult) History of falling in the last 3 months, kr3 including since admission Yes- single mechanical fall (1 pt) Confusion or Disorientation No (0 pts) Intoxicated or Sedated No (0 pts) Impaired Gait No (0 pts) Mobility Assist Device Used No (0 pt) Altered Elimination No (0 pt) Score/Fall Risk Level 0 - 2 = Low Risk Oriented to surroundings, Maintained a safe environment, Educated pt \T\ family on fall prevention, incl call for assistance when getting out of bed, Assessed \T\ reinforced patient's understanding of fall precautions, Hourly rounding (assess needs \T\ fall precautionary measures) done. Abuse screen: Denies threats or abuse. Nutritional screening: No deficits noted. Tuberculosis screening: No symptoms or risk factors identified. Assessment: 21:02 Reassessment: daughter at bedside states mom was transferred from here previously for a kr3 GI bleed. once in [facility] they diagnosed her with colon cancer and removed half her colon. She also stated her mom has a PE on the left side and DVT in bilateral legs. 22:00 Reassessment: Patient appears in no apparent distress at this time. Patient and/or kr3 family updated on plan of care and expected duration. Pain level reassessed. Patient is alert, oriented x 3, equal unlabored respirations, skin warm/dry/pink. 23:00 Reassessment: Patient appears in no apparent distress at this time. Patient and/or kr3 family updated on plan of care and expected duration. Pain level reassessed. Patient is alert, oriented x 3, equal unlabored respirations, skin warm/dry/pink. Vital Signs: 19:26 BP 154 / 67; Pulse 78; Resp 19; Temp 97.3(O); Pulse Ox 99% on R/A; Weight 46.63 kg; kd3 20:00 BP 143 / 65; Pulse 76; Resp 17; Pulse Ox 100% on R/A; kr3 21:57 BP 153 / 67; Pulse 69; Resp 18; Pulse Ox 97% on R/A; kr3 23:02 BP 147 / 72; Pulse 72; Resp 17; Pulse Ox 99% on R/A; kr3 ED Course: 19:15 Arm band placed on right wrist. kr3 19:15 Bed in low position. Call light in reach. Side rails up X 1. kr3 19:22 Patient arrived in ED. rv1 19:26 Jeanie Hernandez RN is Primary Nurse. kd3 19:27 Hakeem Goldberg MD is Attending Physician. kdr 19:29 Triage completed. kd3 20:07 Inserted saline lock: 20 gauge in right antecubital area, using aseptic technique. oe Blood collected. 20:24 Notified ED physician of a critical lab result(s). Hgb of 6.7 Dr Goldberg notified. bb 21:47 Consent for blood and/or blood product transfusion signed by guardian. kr3 22:08 SARS RAPID Sent. rv1 23:10 No provider procedures requiring assistance completed. Patient transferred, IV remains kr3 in place. Administered Medications: No medications were administered Medication: 23:11 VIS not applicable for this client. kr3 Outcome: 21:29 ER care complete, transfer ordered by . kdr 23:10 Transferred by ground EMS to [facility]. kr3 23:10 Condition: stable 23:10 Instructed on the need for transfer. 23:11 Patient left the ED. kr3 Signatures: Hakeem Goldberg MD MD kdr Lana Glover RN RN bb Shun Mcgraw Kyli, RN RN kd3 Sue Leong RN RN kr3 Anushka Pacheco rv1
--- NOTE | 2022-09-26 21:30 | EDPHYS ---
Physician Documentation [facility] Name: Rocio Turcios Age: 72 yrs Sex: Female : 1950 Arrival Date: 09/26/2022 Time: 19:22 Bed 3 Private MD: ED Physician Hakeem Goldberg HPI: 09/26 23:14 This 72 yrs old Female presents to ER via EMS with complaints of Generalized weakness. kdr 23:14 Patient states she was resting at home sleeping when EMS was summoned to bring her to [facility]. Earlier in the day, she had had a blood draw and her hemoglobin was noted to be 6.8. She recently had a colon resection secondary to cancer on the third of this month and had just been discharged home on Friday of this week. Since she has been home she has continued to have melanotic stools. It is unknown what her prior hemoglobin was to today. She has no focal complaint. She states that she otherwise feels comfortable. She is nontoxic.. Onset: The symptoms/episode began/occurred gradually, at an unknown time. Historical: - PMHx: 19:29 Arthritis; Hypertensive disorder; rhabdomyolysis; heart disease; Dementia; Rheumatoid kd3 Arthritis; COPD; - Immunization history:: Adult Immunizations up to date. - Social history:: Smoking status: unknown. ROS: 23:14 Constitutional: Negative for fever, chills, and weight loss, Eyes: Negative for injury, kdr pain, redness, and discharge, ENT: Negative for injury, pain, and discharge, Neck: Negative for injury, pain, and swelling, Cardiovascular: Negative for chest pain, palpitations, and edema, Respiratory: Negative for shortness of breath, cough, wheezing, and pleuritic chest pain, Abdomen/GI: Negative for abdominal pain, nausea, vomiting, diarrhea, and constipation, Back: Negative for injury and pain, : Negative for injury, bleeding, discharge, and swelling, MS/Extremity: Negative for injury and deformity, Skin: Negative for injury, rash, and discoloration, Neuro: Negative for headache, weakness, numbness, tingling, and seizure activity. Psych: Negative for depression, anxiety, suicide ideation, homicidal ideation, and hallucinations, Allergy/Immunology: Negative for hives, rash, and allergies, Endocrine: Negative for neck swelling, polydipsia, polyuria, polyphagia, and marked weight changes, Hematologic/Lymphatic: Negative for swollen nodes, abnormal bleeding, and unusual bruising. 23:14 Abdomen/GI: Positive for black/tarry stool. Exam: 23:14 Constitutional: This is a well developed, well nourished patient who is awake, alert, kdr and in no acute distress. Head/Face: Normocephalic, atraumatic. Eyes: Pupils equal round and reactive to light, extra-ocular motions intact. Lids and lashes normal. Conjunctiva and sclera are non-icteric and not injected. Cornea within normal limits. Periorbital areas with no swelling, redness, or edema. Neck: Trachea midline, no thyromegaly or masses palpated, and no cervical lymphadenopathy. Supple, full range of motion without nuchal rigidity, or vertebral point tenderness. No Meningismus. Chest/axilla: Normal chest wall appearance and motion. Nontender with no deformity. No lesions are appreciated. Cardiovascular: Regular rate and rhythm with a normal S1 and S2. No gallops, murmurs, or rubs. Normal PMI, no JVD. No pulse deficits. Respiratory: Lungs have equal breath sounds bilaterally, clear to auscultation and percussion. No rales, rhonchi or wheezes noted. No increased work of breathing, no retractions or nasal flaring. Abdomen/GI: Soft, non-tender, with normal bowel sounds. No distension or tympany. No guarding or rebound. No evidence of tenderness throughout. Back: No spinal tenderness. No costovertebral tenderness. Full range of motion. Skin: Warm, dry with normal turgor. Normal color with no rashes, no lesions, and no evidence of cellulitis. MS/ Extremity: Pulses equal, no cyanosis. Neurovascular intact. Full, normal range of motion. Neuro: Awake and alert, GCS 15, oriented to person, place, time, and situation. Cranial nerves II-XII grossly intact. Motor strength 5/5 in all extremities. Sensory grossly intact. Cerebellar exam normal. Normal gait. Psych: Awake, alert, with orientation to person, place and time. Behavior, mood, and affect are within normal limits. Vital Signs: 19:26 BP 154 / 67; Pulse 78; Resp 19; Temp 97.3(O); Pulse Ox 99% on R/A; Weight 46.63 kg; kd3 20:00 BP 143 / 65; Pulse 76; Resp 17; Pulse Ox 100% on R/A; kr3 21:57 BP 153 / 67; Pulse 69; Resp 18; Pulse Ox 97% on R/A; kr3 23:02 BP 147 / 72; Pulse 72; Resp 17; Pulse Ox 99% on R/A; kr3 MDM: 21:29 Patient medically screened. kdr 23:14 Data reviewed: vital signs, nurses notes, lab test result(s). Management of patient was kdr discussed with the following: Transfer physician. I considered the following discharge prescriptions or medication management in the emergency department Medications were administered in the Emergency Department. See OCT. 09/26 19:38 Order name: CBC with Diff; Complete Time: 21:11 kdr 09/26 19:38 Order name: Chem 7; Complete Time: 21:11 kdr 09/26 19:38 Order name: Type And Screen kdr 09/26 19:38 Order name: PT-INR; Complete Time: 21:11 kdr 09/26 20:46 Order name: CBC Smear Scan; Complete Time: 21:11 EDIL 09/26 21:23 Order name: Packed RBC Leukored EDIL 09/26 21:46 Order name: SARS RAPID kr3 Administered Medications: No medications were administered Disposition Summary: 09/26/22 21:29 Transfer Ordered Transfer Location: [facility] kdr Reason: Higher level of care kdr Condition: Fair kdr Problem: an ongoing problem kdr Symptoms: are unchanged kdr Accepting Physician: donell(09/26/22 23:11) kr3 Diagnosis - Anemia, unspecified kdr - Weakness kdr - GI Bleed/ Gastrointestinal hemorrhage, unspecified kdr Forms: - Medication Reconciliation Form kdr - SBAR form kdr Signatures: Dispatcher [employer] EDHakeem Patel MD MD kdr Jeanie Hernandez RN RN kd3 Sue Leong RN RN kr3 Corrections: (The following items were deleted from the chart) 23:11 21:29 kdr kr3
[2022-09-26] MEDS ORDERED: NA CHLORIDE 0.9% 250 ML ONE (21:56)
[2022-09-26 22:41] LABS: SARS-CoV-2 Antigen Rapid Res Positive (Negative)
[2022-09-26 23:37] VITALS: TEMP 97.3
[2022-09-26 23:44] VITALS: BP 147/72; O2SAT 99
== END 2022-09-26 23:11 | disposition short-term general hospital (02) ==
LOC: ER 19:21
PROC: 30233N1 Transfusion of Nonautologous Red Blood Cells into Peripheral Vein, Percutaneous Approach (ICD-10-PCS; principal; 2022-09-26)
DX: D64.9 Anemia, unspecified (principal); U07.1 COVID-19; K92.2 Gastrointestinal hemorrhage, unspecified; I10 Essential (primary) hypertension; J44.9 Chronic obstructive pulmonary disease, unspecified; F03.90 Unspecified dementia, unspecified severity, without behavioral disturbance, psychotic disturbance, mood disturbance, and anxiety
CPT/HCPCS: 85025; 80048; 36415; 86900; 86850; 85610; 86901; 99285; 87811; 36430; P9016; J7050